=== PATIENT | male | born 1970 | race Caucasian/White ===

== ENCOUNTER 2016-06-13 17:51 | Emergency (ER) | payer OTHER ==
[~2016-06-13] VITALS: Ht 182.9 cm; Wt 117.9 kg
[~2016-06-13 17:51] MED LIST: ADVAIR DISKUS1 UNIT INH; ALBUTEROL0.09 MG/A1 INH; AUGMENTIN 875875 MG PO; BENAZEPRIL20 MG PO; BENAZEPRIL40 MG PO; COUMADIN 7.5 M7.5 MG PO; DIOVAN320 MG PO; DOXYCYCLINE100 MG PO; FUROSEMIDE40 MG PO; GABAPENTIN300 MG PO; GEMFIBROZIL600 MG PO; JANUMET 1000 MG1 TAB PO; LANTUS100 U/ML SC; LASIX40 MG PO; LISINOPRIL20 MG PO; LISINOPRIL40 MG PO; LOPRESSOR 25MG25 MG PO; LOVASTATIN20 MG PO; LOVASTATIN40 MG PO; METFORMIN HCL1000 MG PO; OXYCODONE5 M1 PO; OXYCODONE5 MG PO; PNEUMOVAX 0.5M0.5 ML IM; TUDORZA PR400 MCG/Ac PO; VENTOLIN1 PUF INH; VICODIN 300 MG-1 TAB PO; WARFARIN SODIUM5 MG PO; ZITHROMAX Z-PA250 M1 PO
--- NOTE | 2016-06-13 18:38 | ED UPPER/LOWER EXTREMITY COMPL ---
History of Present Illness General Chief Complaint: Foot or Ankle Injury Stated Complaint: PT RT ANKLE AND FOOT ARE SWOLLEN Source: patient Exam Limitations: no limitations Vital Signs & Intake/Output Vital Signs & Intake/Output Vital Signs Date Time Temp Pulse Resp B/P B/P Pulse O2 O2 Flow FiO2 Mean Ox Delivery Rate 06/13 1823 98.4 92 16 164/95 95 Room Air Allergies Coded Allergies: acetaminophen (Mild, BAD HEADACHE 06/15/15) Reconcile Medications Albuterol Sulfate (Albuterol Sulfate Hfa) 0.09 MG/Actuation BERTA 2 PUFF INH Q4- 6 PRN PRN SHORTNESS OF BREATH 90 MCG PER PUFF Amoxicillin/Clavulanate Potass (Amox-Clav 875-125 MG Tablet) 875 MG TAB 1 TAB PO BID PNEUMONIA Fluticasone-Salmeterol (Advair 500-50 Diskus) 500 MCG-50 MCG/DOSE BLST.W.DEV 1 PUF INH BID BRONCHITIS Furosemide (Lasix) 40 MG TAB 40 MG PO Q12 HEART HEALTH Gabapentin 300 MG CAP 1,200 MG PO DAILY PRN PAIN Gemfibrozil 600 MG TABLET 1 TAB PO BID HIGH CHOLESTEROL (Reported) Insulin Glargine, Recombinan (Lantus) 100 U/ML KELLIE 46 UNIT SC QAM DIABETES ( Reported) Lisinopril 40 MG TABLET 1 TAB PO DAILY BP (Reported) Lovastatin 40 MG TABLET 1 TAB PO DAILY CHOLESTEROL (Reported) with food Metformin Hydrochloride/Trang (Janumet 1000 MG-50 MG) 1 TAB TAB 1 TAB PO DAILY UNKNOWN (Reported) Metoprolol Tartrate (Lopressor) 25 MG TABLET 2.5 TAB PO BID BP (Reported) Oxycodone HCl (Roxicodone) 5 MG TABLET 1 TAB PO BID PRN PAIN Warfarin Sodium (Coumadin) 7.5 MG TABLET 1 TAB PO DAILY BLOOD THINNER ( Reported) Triage Note: TRIAGE: C/O "LOTS OF LEG PROBLEMS" AND C/O NON-HEALING WOUND TO R FOOT WITH SWELLING, HAD GREAT TOE AMPUTATED TWO YEARS AGO. NOT VISUALIZED IN TRIAGE. DENIES FEVERS AND AFEBRILE IN TRIAGE 98.4. ACCUCHECK 253. ABLE TO BEAR WEIGHT Triage Nurses Notes Reviewed? yes HPI: This patient is a 45-year-old female with past medical history including diabetes, peripheral neuropathy, and CVA currently on warfarin who presented to the emergency department today for evaluation of right foot pain and nonhealing ulceration. The patient is status post great toe amputation. At the base of the great toe on the plantar aspect he has a nonhealing ulcer. He reported that over the last 4 days he has noticed increasing swelling in his foot and calf. His reported, "it looked like his skin is cracking." The patient reported that he noticed a foul smell coming from the ulceration. They have been trying to keep it clean. He reported that the pain gets up to a 10 out of 10 and is worse at night. The pain radiates up the back of his. The pain is constant. He denied any fevers, chills, chest pain, difficulty breathing, abdominal pain, nausea, or vomiting. He does take gabapentin at night for his peripheral neuropathy without any relief of his symptoms. (DIANE DOZIER PA-C) Past History Travel History Traveled to [place] past 21 day No Medical History Any Pertinent Medical History? 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 History of MRSA: No History of VRE: No History of CDIFF: No Pneumonia Vaccine: 11/10/13 Influenza Vaccine: 11/10/13 Surgical History Surgical History: right big toe amputation Psychosocial History Who do you live with Family Services at Home None What is your primary language Faroese Tobacco Use: Current Daily Use Daily Tobacco Use Amount/Type: => 5 Cigarettes daily ETOH Use: denies use Illicit Drug Use: denies illicit drug use Family History Family History, If Any: FATHER Early CAD MOTHER FH: diabetes mellitus Relation not specified for: Stroke or transient ischemic attack in father Hx Contributory? No (DIANE DOZIER PA-C) Review of Systems Review of Systems Constitutional: Reports: no symptoms. EENTM: Reports: no symptoms. Respiratory: Reports: no symptoms. Cardiovascular: Reports: no symptoms. Gastrointestinal/Abdominal: Reports: no symptoms. Genitourinary: Reports: no symptoms. Musculoskeletal: Reports: see HPI. Skin: Reports: see HPI. Neurological/Psychological: Reports: no symptoms. All Other Systems: Reviewed and Negative (DIANE DOZIER PA-C) Physical Exam Physical Exam General Appearance: well developed/nourished, no apparent distress, alert, awake Comments: Well-developed well-nourished person in no acute distress HEENT: Normal EENT exam, head normocephalic, moist mucous membranes Pupils equally round and reactive to light. Back: Antalgic gait Respiratory: No respiratory distress. Speaking in full sentences Right lower extremity: Nonpitting lower extremity and pedal edema with stasis dermatitis noted. No bony or muscular deformities appreciated. Dorsalis pedis and posterior tibialis pulses 2+ and strong. Capillary refill less than 2 seconds. Status post great toe amputation. Approximately 1 cm in diameter, round ulceration to the base of the great toe on the plantar aspect with no active bleeding, no purulent drainage, no surrounding erythema. Skin appears yellow surrounding the wound. Mildly tender to palpation Neuro: Alert oriented x3, cranial nerves II through XII grossly intact. Skin: No appreciable rash on exposed skin, skin is warm and dry. Psych: Mood and affect is normal (JACOBY ESCOBEDO,DIANE) Progress Differential Diagnosis: arterial insufficiency, cellulitis, CHF, compartment syndrome, contusion, DVT, gout, septic arthritis, osteomyelitis Plan of Care: Orders Procedure Date/time Status LACTIC ACID 06/13 1838 Complete COMPREHENSIVE METABOLIC PANEL 06/13 1838 Complete CBC WITHOUT DIFFERENTIAL 06/13 1838 Complete Current Medications Sig/Tello Start time Last Medication Dose Stop Time Status Admin Tramadol HCl 50 MG ONCE ONE 06/13 1844 CAN (Ultram) 06/13 1845 Laboratory Tests 06/13/161917: Anion Gap 9, Estimated GFR > 60, BUN/Creatinine Ratio 22.2, Glucose 280 H, Lactic Acid 1.6, Calcium 8.6, Total Bilirubin 0.4, AST 17, ALT 35, Alkaline Phosphatase 95, Total Protein 6.1 L, Albumin 3.4 L, Globulin 2.7, Albumin/ Globulin Ratio 1.3, CBC w Diff NO MAN DIFF REQ, RBC 4.58 L, MCV 85.9, MCH 29.0, RDW 14.4, MPV 7.9, Gran % 66.1, Lymphocytes % 26.1, Monocytes % 5.7, Eosinophils % 1.6, Basophils % 0.5, Absolute Granulocytes 7.8 H, Absolute Lymphocytes 3.1, Absolute Monocytes 0.7 H, Absolute Eosinophils 0.2, Absolute Basophils 0.1, PUBS MCHC 33.7 Diagnostic Imaging: Viewed by Me: Radiology Read, Ultrasound. Discussed w/RAD: Radiology Read, Ultrasound. Radiology Impression: PATIENT: ERA LOCKHART PRESENT AGE: 45 PATIENT ACCOUNT NO: [id number] : 69 LOCATION: [facility] ORDERING PHYSICIAN: DIANE DOZIER PA-C SERVICE DATE: 06/13/16 EXAM TYPE: RAD - XRY-FOOT COMPLETE, R EXAMINATION: XR FOOT, RIGHT CLINICAL INFORMATION: Nonhealing ulcer. Concern for osteomyelitis. COMPARISON: None TECHNIQUE: AP, lateral, and oblique views of the right foot. FINDINGS: Patient has had prior amputation of the great toe at the MTP joint. There is edematous changes and some air collections in the soft tissues over the head of the first metatarsal. No bone destruction of the metatarsal to suggest radiographically osteomyelitis. This can be further evaluated with dynamic MRI. There is dorsal dislocation of the second and third MTP joints no fracture.. IMPRESSION: Status post amputation of great toe. Edema over the soft tissues at the head of the first metatarsal without bone destruction. No specific radiographic features for osteomyelitis. MRI could be helpful for further evaluation. DICTATED BY: MARLENI HOLT MD DATE/TIME DICTATED: 06/13/161933 WELDING MANAGER:FIORELLA DATE/TIME TRANSCRIBED:06/13/161933 CONFIDENTIAL, DO NOT COPY WITHOUT APPROPRIATE AUTHORIZATION. <Electronically signed in Other Vendor System> SIGNED BY: MARLENI HOLT MD 06/13/161938, PATIENT: ERA LOCKHART PRESENT AGE: 45 PATIENT ACCOUNT NO: [id number] : 69 LOCATION: ER ORDERING PHYSICIAN: DIANE DOZIER PA-C SERVICE DATE: 06/13/16 EXAM TYPE: US - US-UNILATERAL VENOUS DOPPLER EXAMINATION: US TRIPLEX LOWER EXTREMITY, RIGHT CLINICAL INFORMATION: Calf pain and edema COMPARISON: None available. TECHNIQUE: Color-flow triplex imaging with spectral analysis and compression Doppler were performed on the lower extremity. FINDINGS: Respiratory variation, normal compression and augmented flow are noted throughout the left lower extremity. The visualized common femoral vein, superficial femoral vein, profunda femoral vein, popliteal vein and midcalf peroneal and posterior tibial venous segments show no evidence of deep venous thrombosis. There is no Juan's cyst. There is an enlarged lymph node within the right groin measuring up to 4.1 x 1.5 x 3.1 cm in size. IMPRESSION: - Normal triplex scan without evidence of deep venous thrombosis involving the right lower extremity. - There is a nonspecific enlarged lymph node within the right groin. DICTATED BY: TOSHIA NEFF MD DATE/TIME DICTATED:06/13/161931 WELDING MANAGER:FIORELLA DATE/TIME TRANSCRIBED:06/13/161931 CONFIDENTIAL, DO NOT COPY WITHOUT APPROPRIATE AUTHORIZATION. <Electronically signed in Other Vendor System> SIGNED BY: TOSHIA NEFF MD 06/13/161937 Comments: This patient is a 45-year-old male who presented to the emergency department today for evaluation of a wound to his right foot. No surrounding erythema. No pus drainage from the wound site. No signs of infection. No evidence of cellulitis. Ultrasound Doppler negative for DVT. No evidence of osteomyelitis on x-ray of the foot. Discussed with the patient follow-up with the wound care center. The patient reported that he used to see a kraft mill operator, Dr. Sharpe, but reported they were unhappy with his care, so they stopped seeing him. At this time, there is no evidence of infection. This patient is afebrile. He is stable for discharge home at this time. I discussed with him extensively the importance of returning for any worsening symptoms as he is a diabetic and they need to keep a low threshold for development of infection in wounds. (DIANE DOZIER PA-C) Departure Departure Disposition: HOME OR SELF CARE Condition: Stable Clinical Impression Primary Impression: Wound of lower extremity Qualifiers: Encounter type: initial encounter Laterality: right Qualified Code: S81.801A - Unspecified open wound, right lower leg, initial encounter Referrals: NENA RICE DO (PCP/Family) Additional Instructions: Please call your primary care physician to schedule a follow-up appointment and to discuss being started with the wound care center. Keep the area clean and dry. Elevate your leg when possible. Take medication for pain as prescribed. Return for any worsening symptoms or concerns. Departure Forms: Customer Survey General Discharge Information Prescriptions: Current Visit Scripts Oxycodone HCl (Roxicodone) 1 TAB PO BID PRN PAIN #8 TAB (DIANE DOZIER PA-C) PA/ORDERING MACHINE OPERATOR Co-Sign Statement Statement: ED Attending supervision documentation- [] I saw and evaluated the patient. I have also reviewed all the pertinent lab results and diagnostic results. I agree with the findings and the plan of care as documented in the PA's/ORDERING MACHINE OPERATOR's documentation. [X] I have reviewed the ED Record and agree with the PA's/ORDERING MACHINE OPERATOR's documentation. [] Additions or exceptions (if any) to the PAs/ORDERING MACHINE OPERATOR's note and plan are summarized below: [] (ELBERT DELGADILLO,FELIPE)
[2016-06-13 19:26] LABS: ABSOLUTE BASOPHIL COUNT 0.1 /CUMM (0.0-0.2); ABSOLUTE EOSINOPHIL COUNT 0.2 /CUMM (0.0-0.7); ABSOLUTE GRANULOCYTE CT 7.8 /CUMM (1.4-6.5); ABSOLUTE LYMPH COUNT 3.1 /CUMM (1.2-3.4); ABSOLUTE MONOCYTE COUNT 0.7 /CUMM (0.10-0.60); BASOPHIL % 0.5 % (0.0-2.0); EOSINOPHIL % 1.6 % (0-5); GRANULOCYTE % 66.1 % (42.2-75.2); HEMATOCRIT 39.4 % (42-52); MEAN CORPUSCULAR HGB CONC 33.7 G/DL (33.0-37.0); MEAN CORPUSCULAR VOLUME 85.9 FL (80.0-94.0); MEAN PLATELET VOLUME 7.9 FL (7.4-10.4); PLATELET COUNT 294 /CUMM (130-400); RBC DISTRIBUTION WIDTH 14.4 % (11.5-14.5); RED BLOOD CELL CT 4.58 /CUMM (4.70-6.10); WHITE BLOOD CELL COUNT 11.9 /CUMM (4.8-10.8)
--- NOTE | 2016-06-13 19:38 | ULTRASOUND REPORT ---
EXAMINATION: US TRIPLEX LOWER EXTREMITY, RIGHT CLINICAL INFORMATION: Calf pain and edema COMPARISON: None available. TECHNIQUE: Color-flow triplex imaging with spectral analysis and compression Doppler were performed on the lower extremity. FINDINGS: Respiratory variation, normal compression and augmented flow are noted throughout the left lower extremity. The visualized common femoral vein, superficial femoral vein, profunda femoral vein, popliteal vein and midcalf peroneal and posterior tibial venous segments show no evidence of deep venous thrombosis. There is no Juan's cyst. There is an enlarged lymph node within the right groin measuring up to 4.1 x 1.5 x 3.1 cm in size. IMPRESSION: - Normal triplex scan without evidence of deep venous thrombosis involving the right lower extremity. - There is a nonspecific enlarged lymph node within the right groin.
--- NOTE | 2016-06-13 19:39 | RADIOLOGY REPORT ---
EXAMINATION: XR FOOT, RIGHT CLINICAL INFORMATION: Nonhealing ulcer. Concern for osteomyelitis. COMPARISON: None TECHNIQUE: AP, lateral, and oblique views of the right foot. FINDINGS: Patient has had prior amputation of the great toe at the MTP joint. There is edematous changes and some air collections in the soft tissues over the head of the first metatarsal. No bone destruction of the metatarsal to suggest radiographically osteomyelitis. This can be further evaluated with dynamic MRI. There is dorsal dislocation of the second and third MTP joints no fracture.. IMPRESSION: Status post amputation of great toe. Edema over the soft tissues at the head of the first metatarsal without bone destruction. No specific radiographic features for osteomyelitis. MRI could be helpful for further evaluation.
[2016-06-13] MEDS ORDERED: ROXICODONE5 M1 PO (19:59)
[2016-06-13 20:13] VITALS: BP 158/90
== END 2016-06-13 20:15 ==
LOC: ERH 17:51
PROVIDERS: Physician Assistant
DX: L97.519 Non-pressure chronic ulcer of other part of right foot with unspecified severity (principal)
CPT/HCPCS: 73630-RT; 96372

== ENCOUNTER 2016-08-11 13:44 | Emergency (ER) | payer OTHER ==
[~2016-08-11] VITALS: Ht 182.9 cm; Wt 117.9 kg
[~2016-08-11 13:44] MED LIST changes: +ROXICODONE5 M1 PO
[2016-08-11 14:30] LABS: ABSOLUTE BASOPHIL COUNT 0 /CUMM (0.0-0.2); ABSOLUTE EOSINOPHIL COUNT 0.1 /CUMM (0.0-0.7); ABSOLUTE GRANULOCYTE CT 6.4 /CUMM (1.4-6.5); ABSOLUTE LYMPH COUNT 2.2 /CUMM (1.2-3.4); ABSOLUTE MONOCYTE COUNT 0.6 /CUMM (0.10-0.60); BASOPHIL % 0.4 % (0.0-2.0); EOSINOPHIL % 1.3 % (0-5); GRANULOCYTE % 68.2 % (42.2-75.2); HEMATOCRIT 41.2 % (42-52); MEAN CORPUSCULAR HGB 28.4 PG (27.0-31.0); MEAN CORPUSCULAR HGB CONC 33.5 G/DL (33.0-37.0); MEAN CORPUSCULAR VOLUME 84.9 FL (80.0-94.0); MEAN PLATELET VOLUME 8.5 FL (7.4-10.4); PLATELET COUNT 255 /CUMM (130-400); RBC DISTRIBUTION WIDTH 13.5 % (11.5-14.5); RED BLOOD CELL CT 4.85 /CUMM (4.70-6.10); WHITE BLOOD CELL COUNT 9.4 /CUMM (4.8-10.8)
--- NOTE | 2016-08-11 14:55 | RADIOLOGY REPORT ---
EXAMINATION: XR CHEST CLINICAL INFORMATION: Left-sided rhonchi. Green sputum. COMPARISON: Chest radiographs 03/22/2015, 02/14/2015. TECHNIQUE: 2 views of the chest were obtained. FINDINGS: The lungs are clear. No hyperinflation. There is no airspace consolidation or effusion. The heart is normal in size. The costophrenic sulci are well-defined. The hilar and mediastinal contours and bony structures are stable. IMPRESSION: Lungs clear. No acute intrathoracic disease.
--- NOTE | 2016-08-11 15:12 | ED DYSPNEA/ASTHMA COMPLAINT ---
History of Present Illness General Chief Complaint: Upper Respiratory Sx/Fever Stated Complaint: URI/ELAVATED BS Source: patient, old records Exam Limitations: no limitations Vital Signs & Intake/Output Vital Signs & Intake/Output Vital Signs Date Time Temp Pulse Resp B/P B/P Pulse O2 O2 Flow FiO2 Mean Ox Delivery Rate 08/11 1608 99.0 78 18 162/80 95 Room Air 08/11 1419 Room Air 08/11 1412 98 08/11 1349 98.3 87 15 160/98 96 Room Air Room Air Allergies Coded Allergies: acetaminophen (Mild, BAD HEADACHE 06/15/15) Reconcile Medications Albuterol Sulfate (Proair Hfa) 90 MCG HFA.AER.AD 2 PUF INH Q4-6 PRN PRN COPD Albuterol Sulfate (Albuterol Sulfate Hfa) 0.09 MG/Actuation BERTA 2 PUFF INH Q4- 6 PRN PRN SHORTNESS OF BREATH 90 MCG PER PUFF Amoxicillin/Clavulanate Potass (Amox-Clav 875-125 MG Tablet) 875 MG TAB 1 TAB PO BID PNEUMONIA Benzonatate (Tessalon Perle) 100 MG CAPSULE 1 CAP PO TID BRONCHITIS Fluticasone-Salmeterol (Advair 500-50 Diskus) 500 MCG-50 MCG/DOSE BLST.W.DEV 1 PUF INH BID BRONCHITIS Furosemide (Lasix) 40 MG TAB 40 MG PO Q12 HEART HEALTH Gabapentin 300 MG CAP 1,200 MG PO DAILY PRN PAIN Gemfibrozil 600 MG TABLET 1 TAB PO BID HIGH CHOLESTEROL (Reported) Insulin Glargine, Recombinan (Lantus) 100 U/ML KELLIE 46 UNIT SC QAM DIABETES ( Reported) Lisinopril 40 MG TABLET 1 TAB PO DAILY BP (Reported) Lovastatin 40 MG TABLET 1 TAB PO DAILY CHOLESTEROL (Reported) with food Metformin Hydrochloride/Trang (Janumet 1000 MG-50 MG) 1 TAB TAB 1 TAB PO DAILY UNKNOWN (Reported) Metoprolol Tartrate (Lopressor) 25 MG TABLET 2.5 TAB PO BID BP (Reported) Oxycodone HCl (Roxicodone) 5 MG TABLET 1 TAB PO BID PRN PAIN Prednisone 20 MG TABLET 1 TAB PO BID COPD Warfarin Sodium (Coumadin) 7.5 MG TABLET 1 TAB PO DAILY BLOOD THINNER ( Reported) Triage Note: PT SENT FROM URGENT CARE FOR HIGH BLOOD SUGAR. PT WAS SEEN AT [facility] IN FOR URI S/S, +PRODUCTIVE COUGH, HEAD PRESSURE, SINUS PRESSURE, EAR ACHES. +DIZZINESS. F/S 363 IN TRIAGE. INCREASED THIRST. Triage Nurses Notes Reviewed? yes HPI: 45M PMH ACTIVE 29 YEAR SMOKER, COPD, RECURRENT BRONCHITIS, HTN WITH 4 DAYS OF WORSENING SHORTNESS OF BREATH WITH COUGH, USUALLY DRY BUT INTERMITTENTLY WITH GREEN SPUTUM, ALSO WITH SINUS CONGESTION. DENIES FEVER, CHILLS, CHEST PAIN, SORE THROAT, HEADACHE, NEUROLOGICAL DEFICIT, DIARRHEA, DYSURIA. WAS SEEN IN URGENT CARE CLINIC AND SENT TO ED FOR GLUCOSE LEVEL > 450. TAKES LONG ACTING INSULIN 75 UNITS AT NIGHT AND SLIDING SCALE DURING THE DAY. (BLOSSOM SHAH MD) Past History Travel History Traveled to [place] past 21 day No Medical History Any Pertinent Medical History? 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 No (BLOSSOM SHAH MD) Review of Systems Review of Systems Constitutional: Reports: see HPI. EENTM: Reports: no symptoms. Respiratory: Reports: see HPI. Cardiovascular: Reports: see HPI. GI: Reports: no symptoms. Genitourinary: Reports: no symptoms. Musculoskeletal: Reports: no symptoms. Skin: Reports: no symptoms. Neurological/Psychological: Reports: no symptoms. Hematologic/Endocrine: Reports: no symptoms. Immunologic/Allergic: Reports: no symptoms. All Other Systems: Reviewed and Negative (BLOSSOM SHAH MD) Physical Exam Physical Exam General Appearance: well developed/nourished, no apparent distress, alert, awake Head: atraumatic Eyes: Bilateral: normal appearance. Ears, Nose, Throat: normal pharynx, normal ENT inspection, nasal congestion Neck: normal inspection, supple, full range of motion Respiratory: normal breath sounds, chest non-tender, wheezing Cardiovascular: regular rate/rhythm Gastrointestinal: soft, non-tender Extremities: normal inspection, normal range of motion Core Measures ACS in differential dx? No Severe Sepsis Present: No Septic Shock Present: No (PABLO DELGADILLO,BLOSSOM) Progress Differential Diagnosis: asthma, AMI, altitude sickness, bronchitis, costochondritis, CHF, COPD, musculoskeletal pain, pericarditis, pulmonary embolism, pneumonia, pneumothorax, rib fracture, unstable angina Plan of Care: Orders Procedure Date/time Status FingerStick- Glucose 08/11 140 Active LOWER RESPIRATORY CULTURE 08/11 1400 Active COMPREHENSIVE METABOLIC PANEL 08/11 1400 Complete CBC WITHOUT DIFFERENTIAL 08/11 1400 Complete B-TYPE NATRIURETIC PEP (BNP) 08/11 140 Complete Laboratory Tests 08/11/16 1416: Anion Gap 12, Estimated GFR > 60, BUN/Creatinine Ratio 22.9, Glucose 438 H, Calcium 9.5, Total Bilirubin 0.3, AST 15 L, ALT 29, Alkaline Phosphatase 110, Sac-H-Kalaphmleii Pept 253 H, Total Protein 6.3, Albumin 3.7, Globulin 2.6, Albumin/Globulin Ratio 1.4, CBC w Diff NO MAN DIFF REQ, RBC 4.85, MCV 84.9, MCH 28.4, RDW 13.5, MPV 8.5, Gran % 68.2, Lymphocytes % 23.8, Monocytes % 6.3, Eosinophils % 1.3, Basophils % 0.4, Absolute Granulocytes 6.4, Absolute Lymphocytes 2.2, Absolute Monocytes 0.6, Absolute Eosinophils 0.1, Absolute Basophils 0, PUBS MCHC 33.5 Microbiology 08/11 1400 LOWER RESP: Respiratory Culture - ORD 08/11 1400 LOWER RESP: Gram Stain - ORD Initial ED EKG: none (PABLO DELGADILLO,BLOSSOM) Departure Departure Time of Disposition: 1627 Disposition: HOME OR SELF CARE Condition: Stable Clinical Impression Primary Impression: Acute URI Secondary Impressions: Acute exacerbation of chronic obstructive pulmonary disease (COPD) Referrals: NENA RICE DO (PCP/Family) Departure Forms: Customer Survey General Discharge Information Prescriptions: Current Visit Scripts Prednisone 1 TAB PO BID #10 TAB Albuterol Sulfate (Proair Hfa) 2 PUF INH Q4-6 PRN PRN COPD #1 INHAL Benzonatate (Tessalon Perle) 1 CAP PO TID #21 CAP Ref 1 (PABLO DELGADILLO,BLOSSOM) Critical Care Note Critical Care Note Critical Care Time: 30-74 min (PABLO DELGADILLO,BLOSSOM)
[2016-08-11 16:08] VITALS: BP 162/80
[2016-08-11] MEDS ORDERED: TESSALON PERLE100 M1 PO (16:31)
[2016-08-11] MEDS ORDERED: PROAIR HFA8.5 GM INH (16:31)
[2016-08-11] MEDS ORDERED: PREDNISONE20 M1 PO (16:31)
== END 2016-08-11 16:37 ==
LOC: ERH 13:44
PROVIDERS: Internal Medicine
DX: J06.9 Acute upper respiratory infection, unspecified (principal); F17.210 Nicotine dependence, cigarettes, uncomplicated
CPT/HCPCS: 1263; 87070; 96360; 96372; J1815

== ENCOUNTER 2017-04-12 07:21 | Inpatient (IN) | payer OTHER ==
[~2017-04-12] VITALS: Ht 182.9 cm; Wt 114.8 kg
[~2017-04-12 07:21] MED LIST changes: -COUMADIN 7.5 M7.5 MG PO; +COUMADIN7.5 M1 PO; +DULOXETINE HCL60 MG PO; +GABAPENTIN400 M2 PO; +HYDRALAZINE HCL25 M1 PO; -JANUMET 1000 MG1 TAB PO; +JANUMET 50-1,01 EACH PO; +LASIX40 M1 PO; +LIPITOR80 M1 PO; +LISINOPRIL40 M1 PO; -LISINOPRIL40 MG PO; +LOVASTATIN40 M1 PO; -LOVASTATIN40 MG PO; +METFORMIN HCL1000 M1 PO; +METOPROLOL TART75 MG PO; +OXYCODONE HCL5 M1 PO; +PREDNISONE20 M1 PO; +PROAIR HFA8.5 GM INH; +TAMSULOSIN HCL0.4 M1 PO; +TESSALON PERLE100 M1 PO; +TOUJEO SOL300 UNIT/1 SC; +VICTOZA 3-0.6 MG/0.1 SC
--- NOTE | 2017-04-12 07:46 | ED ANKLE/FOOT INJURY COMPLAINT ---
History of Present Illness General Chief Complaint: General Adult Stated Complaint: OPEN SORE ON FOOT Source: patient, family, old records Exam Limitations: no limitations Vital Signs & Intake/Output Vital Signs & Intake/Output Vital Signs Date Time Temp Pulse Resp B/P B/P Pulse O2 O2 Flow FiO2 Mean Ox Delivery Rate 04/12 0731 98.7 80 18 115/68 98 Room Air Allergies Coded Allergies: acetaminophen (Mild, BAD HEADACHE 06/15/15) Reconcile Medications Albuterol Sulfate (Proair Hfa) 90 MCG HFA.AER.AD 2 PUF INH Q4-6 PRN PRN COPD Amlodipine Besylate 10 MG TABLET 1 TAB PO DAILY HEART (Reported) Atorvastatin Calcium (Lipitor) 80 MG TABLET 1 TAB PO DAILY CHOLESTEROL ( Reported) Duloxetine HCl 60 MG CAPSULE.DR 1 CAP PO DAILY PAIN (Reported) Furosemide (Lasix) 40 MG TABLET 1 TAB PO BID WATER RETENTION (Reported) Gabapentin 400 MG CAPSULE 1 CAP PO TID PRN PAIN (Reported) Hydralazine HCl 25 MG TABLET 4 TAB PO BID HEART (Reported) Insulin Glargine,Hum.rec.anlog (Toujeo Solostar) 300 UNIT/ML (1.5 ML) INSULN.PEN 70 UNIT SC DAILY DIABETES (Reported) Liraglutide (Victoza 3-Naveen) 0.6 MG/0.1 ML (18 MG/3 ML) PEN.INJCTR 0.6 MG SC DAILY DIABETES (Reported) Lisinopril 40 MG TABLET 1 TAB PO DAILY BP (Reported) Metformin HCl 1,000 MG TABLET 1 TAB PO BID DIABETES (Reported) Metoprolol Tartrate 75 MG TABLET 1 TAB PO BID HEART HEALTH (Reported) Warfarin Sodium (Coumadin) 7.5 MG TABLET 1 TAB PO DAILY BLOOD THINNER ( Reported) Triage Note: 46 YO MALE TO TRIAGE C/O SORE ON R FOOT. STATES HX OF DIABETES, STATES HAD GREAT TOE AMPUTATED ON R FOOT IN 2013, STATES HE RAN OUT OF INSURANCE SO HE CAN NO LONGER SEE HIS DR. STATES LAST TIME HE SAW HIS DR WAS A COUPLE MONTHS AGO. NOTED WOITH OPEN SORE TO R FOOT. Triage Nurses Notes Reviewed? yes HPI: Patient presents with a worsening ulcer to his right foot as well as fevers and chills. Patient states that he also has been present for the past few weeks but approximately 5 days ago began increase in size, turned red and he noticed pus drainage. Patient also began running a fever as high as 101.5 3 days ago. Patient states he does not have medical insurance and cannot for his medications so he takes all of his medications but not all of them. Patient did not want to come to the ER because he states he couldn't afford it so he waited as long as he could. Patient describes a throbbing pain to his right foot is constant. He rates it at 510. There is no radiation. The pain increases with ambulation. Past History Travel History Traveled to [place] past 21 day No Medical History Any Pertinent Medical History? 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 No Review of Systems Review of Systems Constitutional: Reports: see HPI, chills, fever. EENTM: Reports: no symptoms. Respiratory: Reports: no symptoms. Cardiovascular: Reports: no symptoms. GI: Reports: no symptoms. Genitourinary: Reports: no symptoms. Musculoskeletal: Reports: see HPI. Skin: Reports: no symptoms. Neurological/Psychological: Reports: no symptoms. Hematologic/Endocrine: Reports: no symptoms. Immunologic/Allergic: Reports: no symptoms. All Other Systems: Reviewed and Negative Physical Exam Physical Exam General Appearance: well developed/nourished, alert, awake, anxious, moderate distress Head: atraumatic Eyes: Bilateral: PERRL, EOMI. Ears, Nose, Throat: normal pharynx, normal ENT inspection, hearing grossly normal Neck: normal inspection, supple Cardiovascular/Respiratory: normal breath sounds, regular rate/rhythm Gastrointestinal: SOFT, NORMAL BOWEL SOUNDS Back: normal inspection Leg/Knee/Thigh Left: normal range of motion, normal inspection Leg/Knee/Thigh Right: normal range of motion, normal inspection Foot Right: erythema, swelling, ULCER WITH OUS DRAINAGE Neuro/Vascular: normal motor function, normal sensation Psychiatric: awake, alert, oriented x 3 Skin: intact, normal color, warm/dry Comments: DP PULSES 1+ PT PULSES 1+ Progress Differential Diagnosis: cellulitis, OSTEOMYOLITIS Plan of Care: Orders Procedure Date/time Status Nothing by Mouth 04/12 L Active LACTIC ACID 04/12 1051 Active Patient Data 04/12 0859 Active ED Holding Orders 04/12 956 Active Admit to inpatient 04/12 956 Active Vital Signs 04/12 956 Active Code Status 04/12 956 Active EKG 04/12 09 Active LACTIC ACID 04/12 08 Complete XRY-FOOT COMPLETE, RIGHT 04/12 0754 Active PARTIAL THROMBOPLASTIN TIME 04/12 0747 Complete PROTHROMBIN TIME 04/12 07 Complete BLOOD CULTURE 04/12 745 Active COMPREHENSIVE METABOLIC PANEL 04/12 07 Complete CBC WITHOUT DIFFERENTIAL 04/12 745 Complete Current Medications Sig/Tello Start time Last Medication Dose Stop Time Status Admin Ceftriaxone Sodium 1,000 MG ONCE ONE 04/12 0800 CAN (Rocephin) 04/12 0801 Laboratory Tests 04/12/17 0807: Anion Gap 13, Estimated GFR > 60, BUN/Creatinine Ratio 15.6, Glucose 403 H, Lactic Acid 1.4, Calcium 8.6, Total Bilirubin 1.3, AST 13 L, ALT 17 L, Alkaline Phosphatase 96, Total Protein 5.7 L, Albumin 3.2 L, Globulin 2.5, Albumin/Globulin Ratio 1.3, PT 26.2 H, INR 2.52 H, APTT 41 H, CBC w Diff MAN DIFF ORDERED, RBC 4.36 L, MCV 85.5, MCH 28.9, MCHC 33.8, RDW 13.3, MPV 8.5, Gran % 89.3 H, Lymphocytes % 5.2 L, Monocytes % 4.9, Eosinophils % 0.6, Basophils % 0, Absolute Granulocytes 18.2 H, Absolute Lymphocytes 1.1 L, Absolute Monocytes 1.0 H, Absolute Eosinophils 0.1, Absolute Basophils 0, Platelet Estimate VERIFIED BY SMEAR, Normocytic RBCs VERIFIED, Normochromic RBCs VERIFIED 04/12/17 0751: Lactic Acid Cancelled Microbiology 04/12 944 BLOOD: Blood Culture - RECD 04/12 844 BLOOD: Blood Culture - RECD Diagnostic Imaging: Viewed by Me: Radiology Read. Discussed w/RAD: Radiology Read. Comments: DR. BOTELLO AT BEDSIDE Departure Departure Disposition: STILL A PATIENT Condition: Stable Clinical Impression Primary Impression: Diabetic foot ulcer Referrals: Karlie Barbosa DO (PCP/Family) Departure Forms: Customer Survey General Discharge Information Admission Note Spoke With: Yair Merritt MD Documentation of Exam: Documentation of any treatments & extenuating circumstances including Concerns Regarding Discharge (functional status, medication knowledge or non-compliance, living conditions, etc.) that warrant an admission rather than observation: [ Patient will require admission to the hospital for IV antibiotics. Podiatry is going to take the patient to the operating room for would need treatment and bone biopsy. Once that is performed and he will need IV antibiotics and follow- up cultures.]
[2017-04-12 08:27] LABS: ABSOLUTE BASOPHIL COUNT 0 /CUMM (0.0-0.2); ABSOLUTE EOSINOPHIL COUNT 0.1 /CUMM (0.0-0.7); ABSOLUTE GRANULOCYTE CT 18.2 /CUMM (1.4-6.5); ABSOLUTE LYMPH COUNT 1.1 /CUMM (1.2-3.4); BASOPHIL % 0 % (0.0-2.0); EOSINOPHIL % 0.6 % (0-5); GRANULOCYTE % 89.3 % (42.2-75.2); HEMATOCRIT 37.3 % (42-52); MEAN CORPUSCULAR HGB 28.9 PG (27.0-31.0); MEAN CORPUSCULAR HGB CONC 33.8 G/DL (33.0-37.0); MEAN CORPUSCULAR VOLUME 85.5 FL (80.0-94.0); MEAN PLATELET VOLUME 8.5 FL (7.4-10.4); PLATELET COUNT 293 /CUMM (130-400); RBC DISTRIBUTION WIDTH 13.3 % (11.5-14.5); RED BLOOD CELL CT 4.36 /CUMM (4.70-6.10); WHITE BLOOD CELL COUNT 20.4 /CUMM (4.8-10.8)
[2017-04-12 08:34] LABS: PT 26.2 SEC (9.4-12.5); PTT 41 SEC (25-37)
[2017-04-12] MEDS ORDERED: AMLODIPINE BESY10 M1 PO (09:08)
--- NOTE | 2017-04-12 10:21 | RADIOLOGY REPORT ---
EXAMINATION: CR FOOT, RIGHT CLINICAL INFORMATION: Fever. Open wound. Presumptive diagnosis of osteomyelitis. COMPARISON: Right foot films dated 06/13/2016. TECHNIQUE: AP, lateral, and oblique views of the right foot. FINDINGS: The patient is status post amputation of the first toe at the metatarsophalangeal joint level. There is now prominent subcutaneous emphysema seen in the soft tissue stump of the amputated toe, increasing when compared to the prior study, consistent with the clinical history of an open wound. However, close clinical correlation is requested to exclude emphysematous fasciitis. The head of the first metatarsal bone remains intact with normal cortical margins seen. No abnormal periosteal reaction or focal lytic lesion is noted. There is chronic dislocation at the second and third metatarsophalangeal joints, unchanged. Mild degenerative changes are seen in the intertarsal joints and the tibial talar joint. Diffuse osteopenia is seen. Small plantar calcaneal spur is seen. Prominent soft tissue swelling is noted about the foot. No ankle joint effusion is seen. IMPRESSION: 1. Increasing soft tissue emphysema seen in the soft tissues of the amputation of the first toe. This may be related to the patient's open wound. Clinical correlation requested to exclude emphysematous fasciitis. 2. No plain film evidence of osteomyelitis seen. 3. 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 4. Osteopenia and multilevel degenerative changes.
--- NOTE | 2017-04-12 10:24 | History & Physical ---
Mildred DELGADILLO,Micheline 04/12/17 1018: General Information and HPI MD Statement: I have seen and personally examined US,ERA Rendon and documented this H&P. The patient is a 46 year old M who presented with a patient stated chief complaint of [sore on right foot]. Source of Information: patient, EMS Exam Limitations: no limitations History of Present Illness: Patient is a 46 YO M with PMH of CVA on coumadin (at [facility]) for possible Left atrial throbus on JACKY, IDDM, HTN, systolic heart failure (EF 45-50 % ) comes to ED for evaluation of pain in his right foot. Patient is a long-standing insulin dependent diabetic and has not been taking his insulin for the past 3 months due to insurance issues. He had flulike illness 10 days ago for which he didn't seek medical attention. 3 days ago he started experiencing fever with chills, yesterday started experiencing swelling in the right foot with some erythema. He started limping with his right foot since yesterday due to pain and swelling, started noticing redness in the right foot with unbearable pain prompting him to come to ER today. Review of systems is positive for increased thirst and urination along with blurry vision, increased burning sensation in both upper and lower extremities. Patient reports occasional black stools with Advil intake. He did have dry cough from his recent infection. He feels nauseous after taking Advil in the morning. Denies any chest pain, shortness of breath with exertion, vomiting, diaphoresis. Past medical history significant for CVA 2013 (no on [address]), right great toe amputation secondary to diabetic ulcer, hypertension. Allergic to Tylenol Family history significant for diabetes in mother, hypertension and heart disease in father Socially smokes 1 pack per day for the past 33 years, no history of alcohol intake. Occasionally takes marijuana for pain, cocaine in the past. He lost his insurance 3 months ago, unable to get it due to his salary, his and 4 children are also not having insurance at this point. Allergies/Medications Allergies: Coded Allergies: acetaminophen (Mild, BAD HEADACHE 06/15/15) Home Med list Albuterol Sulfate (Proair Hfa) 90 MCG HFA.AER.AD 2 PUF INH Q4-6 PRN PRN COPD Amlodipine Besylate 10 MG TABLET 1 TAB PO DAILY HEART (Reported) Atorvastatin Calcium (Lipitor) 80 MG TABLET 1 TAB PO DAILY CHOLESTEROL ( Reported) Duloxetine HCl 60 MG CAPSULE.DR 1 CAP PO DAILY PAIN (Reported) Furosemide (Lasix) 40 MG TABLET 1 TAB PO BID WATER RETENTION (Reported) Gabapentin 400 MG CAPSULE 1 CAP PO TID PRN PAIN (Reported) Hydralazine HCl 25 MG TABLET 4 TAB PO BID HEART (Reported) Insulin Glargine,Hum.rec.anlog (Toujeo Solostar) 300 UNIT/ML (1.5 ML) INSULN.PEN 70 UNIT SC DAILY DIABETES (Reported) Liraglutide (Victoza 3-Naveen) 0.6 MG/0.1 ML (18 MG/3 ML) PEN.INJCTR 0.6 MG SC DAILY DIABETES (Reported) Lisinopril 40 MG TABLET 1 TAB PO DAILY BP (Reported) Metformin HCl 1,000 MG TABLET 1 TAB PO BID DIABETES (Reported) Metoprolol Tartrate 75 MG TABLET 1 TAB PO BID HEART HEALTH (Reported) Warfarin Sodium (Coumadin) 7.5 MG TABLET 1 TAB PO DAILY BLOOD THINNER ( Reported) Compliance With Home Meds: FAIR Past History Travel History Traveled to [place] past 21 day No Medical History Neurological: CVA EENT: NONE Cardiovascular: CHF, hypertension, hyperlipidemia Respiratory: bronchitis, pneumonia Gastrointestinal: NONE Hepatic: NONE Renal: NONE Musculoskeletal: NONE Psychiatric: NONE Endocrine: DIABETES TYPE II Blood Disorders: NONE Cancer(s): NONE 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 Home Who Do You Live With? spouse, child Services at Home: None Smoking Status: Current Everyday Smoker ETOH Use: denies use Illicit Drug Use: denies illicit drug use Functional Ability ADLs Independent: dressing, eating, toileting, bathing. Ambulation: independent IADLs Independent: shopping, housework, finances, food prep, telephone, transportation , medication admin. Review of Systems Review of Systems Constitutional: Reports: see HPI. EENTM: Reports: see HPI. Cardiovascular: Reports: see HPI. Comments ROS as mentioned in HPI Exam & Diagnostic Data Last 24 Hrs of Vital Signs/I&O Vital Signs Date Time Temp Pulse Resp B/P B/P Pulse O2 O2 Flow FiO2 Mean Ox Delivery Rate 04/12 1119 99.0 86 20 125/77 95 Room Air 04/12 0731 98.7 80 18 115/68 98 Room Air Intake & Output 04/12 1600 04/12 0800 04/12 0000 Intake Total Output Total 400 Balance -400 Output, Urine 400 Patient 113.398 kg Weight Weight Reported by Patient Measurement Method Physical Exam General Appearance Alert, Oriented X3, Cooperative Skin Erythma around the right foot extending till the knees. ( Is), warm to touch Skin Temp/Moisture Exam: Warm/Dry HEENT Atraumatic, PERRLA, EOMI Neck Supple Cardiovascular Normal S1, Normal S2, systolic murmur Lungs Clear to Auscultation, Normal Air Movement Abdomen Normal Bowel Sounds, Soft, diffuse tenderness on palpation (I) Neurological Normal Speech, Normal Tone, Sensation Intact Extremities No Clubbing, No Cyanosis, edema 2 + right >> left Vascular Normal Pulses, Pulses Symmetrical Sepsis Peripheral Pulse Location: Dorsalis Pedis Sepsis [facility] Ref[facility] Exam: <2 Sec Body Front and Back (Adult) 1) Erythema with swelling 2) great toe amputated 3) Erythema extending till the knee Assessment/Plan Assessment: Patient is a 46 YO long standing IDDM Male with significant history of CVA with possible left atrial thrombus on warfarin since 2013, HTN, CHF now presenting with worsening of left foot ulcer with erythema and pain. He was off insulin for the past 3months due to insurance issues and experiencing signs of hyperglycemia like Polyuria, Polydipsia, Neuropathic pain, blury vision. He also had black stools with advil intake. VS at admission are stable (afebrile with HR 80, BP 115/68mmHg). Physical exam significant for erythema extending upto the right knee with significant sweeling and ulceration on palmar surface, warm and tender to touch. Also notable for diffuse abdominal pain, systolic murmur, lungs clear. Labs did show elevated white count of 20 with HbA1C of 12, INR 2.5. Normal Cr 0.9 and AG 13. Imaging of right foot shows Emphysematous soft tissue of right foot without any bone involvement. Podiatry was consulted and sent to Operating room from ER for debridement. Admitted to general medicine floor Problem list 1. Emphysematous fascitis/Gas gangrene 2. Uncontrolled Insuline dependent Diabetes mellitus with HbA1C of 12 3. HTN 4. Heart failure by history 5. CVA on warfarin for possible left atrial thrombus 6. Melena with advil intake Plan Emphysematous fascitis/GAS Gangrene Secondary to uncontrolled diabetes (off insulin). Probable organisms are Clostridium, Strep A, anerobes. He underwent debridement and requires broad spectrum antibiotics. * IV clindamycin and meropenem * ID consult * OR next week for closure IDDM Follows , was on insulin. Taking metformin 1000mg BID till today. Hyperglycemic with polyuria, polydipsia, blurry vision. No AG on chem panel. * Accuchecks with insulin sliding scale * Endocrine consult for further guidance * UA for proteinuria, microalbumin/cr ratio * Gabapentine for nerve pain HTN continue amlodipine 10mg daily and hydralazine 100mg BID Systolic Heart failure by history Patient might have NM in the past with evidnent ST T wave changes in the previous EKG. ECHO - EF 45-50%. follows * Continue metoprolol tartarate 75mg BID, lisinopril 40mg daily, atorvastatin 80mg daily CVA on warfarin for possible left atrial thrombus On warfarin - INR is therapeutic Melena with advil intake Patient cannot tolerate tyelnol and takes advil as needed. Reports experiencing black stools with NSAID intake. * PPI oral * GI consult for further evaluation * Guiac all the stools. DVT prophylaxis code status full code As Ranked By This Provider Problem List: 1. Diabetic foot ulcer 2. Gas gangrene 3. CHF (congestive heart failure) 4. Hypertension Core Measures/Misc (10/28) Acute Coronary Syndrome ACS Diagnosis: No Congestive Heart Failure Congestive Heart Failure Diagnosis No Cerebrovascular Accident CVA/TIA Diagnosis: No VTE (View Protocol) VTE Risk Factors Acute Medical Illness No Mechanical VTE Prophylaxis d/t N/A MechProphylax Ordered No VTE Pharm Prophylaxis d/t NA PharmProphylax ordered Sepsis (View protocol) Sepsis Present: No Karthikeyan Cabrera 04/12/17 1557: Attending Review Statement Attending Statement Attending MD Statement: examined this patient, discuss w/resident/PA/LINSEED CAKE TRIMMER, agreed w/resident/PA/LINSEED CAKE TRIMMER, reviewed EMR data (avail), discussed with nursing Attending Assessment/Plan: 46 yr old male with pmh of dm uncontrolled, non compliant with meds, smoker with 1 PPD smoking history, HTN, HLD, CAD , CVA on coumadin presented with worsening rt foot swelling and non healling wound. Pt was taken to the OR for possible gas gangrene. Pt underwent - "Incision and drainage right foot Partial first ray resection right foot Excisional debridement of nonviable skin, soft tissue, and bone right foot" Seen by ID they are recommending Unasyn. WIll f/u on cultures and bone biopsy results. will f/u on podiatry recommendations. Cont on coumadin if ok with poidatry. Endocrine consult for uncontrolled dm. d/w pt the care plan. counselled pt to quit smoking.
--- NOTE | 2017-04-12 11:04 | History & Physical Pre-Op ---
General Information and HPI MD Statement: I have seen and personally examined US,ERA Rendon in tandem with Franklin Sharpe DPM, and I documented this H&P. The patient is a 46 year old M who presented with a patient stated chief complaint of ulceration in the right foot with fever and chills[]. Preoperative diagnosis: Gas gangrene, right foot Postoperative diagnosis: Gas gangrene, right foot Planned procedures: Incision and drainage right foot, with excisional debridement of all nonviable skin and soft tissue and bone, up to and including a partial first ray resection of the right foot Planned anesthesia: Monitored anesthesia care and local 0.5% Marcaine plain right ankle block Planned hemostasis: None Source of Information: patient, EMS Exam Limitations: no limitations History of Present Illness: This is a 46-year-old uncontrolled diabetic male who was initially seen and evaluated by both myself and Franklin Sharpe DPM in the emergency room for urgent consultation on infected right foot ulceration. Patient has a previous history of right hallux amputation one year ago, and reports having a plantar ulceration for over 4 years. He reports that his sugar has been very high for a long time because he has been unable to afford insulin or health insurance. He reports that over the past few days he has had fever, chills, increased redness and swelling in the right foot. He also reports not having recent follow-up or any medical care for the foot in the past several months. The patient is seen and evaluated in moderate distress, somewhat combative using foul language, reporting fever and chills, but no nausea no vomiting no diaphoresis no shortness of breath no chest pain at the time of my examination. Allergies/Medications Allergies: Coded Allergies: acetaminophen (Mild, BAD HEADACHE 06/15/15) Home Med list Albuterol Sulfate (Proair Hfa) 90 MCG HFA.AER.AD 2 PUF INH Q4-6 PRN PRN COPD Amlodipine Besylate 10 MG TABLET 1 TAB PO DAILY HEART (Reported) Atorvastatin Calcium (Lipitor) 80 MG TABLET 1 TAB PO DAILY CHOLESTEROL ( Reported) Duloxetine HCl 60 MG CAPSULE.DR 1 CAP PO DAILY PAIN (Reported) Furosemide (Lasix) 40 MG TABLET 1 TAB PO BID WATER RETENTION (Reported) Gabapentin 400 MG CAPSULE 1 CAP PO TID PRN PAIN (Reported) Hydralazine HCl 25 MG TABLET 4 TAB PO BID HEART (Reported) Insulin Glargine,Hum.rec.anlog (Sahara Taylor) 300 UNIT/ML (1.5 ML) INSULN.PEN 70 UNIT SC DAILY DIABETES (Reported) Liraglutide (Victoza 3-Naveen) 0.6 MG/0.1 ML (18 MG/3 ML) PEN.INJCTR 0.6 MG SC DAILY DIABETES (Reported) Lisinopril 40 MG TABLET 1 TAB PO DAILY BP (Reported) Metformin HCl 1,000 MG TABLET 1 TAB PO BID DIABETES (Reported) Metoprolol Tartrate 75 MG TABLET 1 TAB PO BID HEART HEALTH (Reported) Warfarin Sodium (Coumadin) 7.5 MG TABLET 1 TAB PO DAILY BLOOD THINNER ( Reported) Compliance With Home Meds: POOR Past History Medical History Neurological: CVA EENT: NONE Cardiovascular: CHF, hypertension, hyperlipidemia Respiratory: bronchitis, pneumonia Gastrointestinal: NONE Hepatic: NONE Renal: NONE Musculoskeletal: NONE Psychiatric: NONE Endocrine: DIABETES TYPE II Blood Disorders: NONE 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 History of MRSA: No History of VRE: No History of CDIFF: No Surgical History Pertinent Surgical History: right big toe amputation Past Family/Social History Family History Relations & Conditions if any FATHER Early CAD MOTHER FH: diabetes mellitus Relation not specified for: Stroke or transient ischemic attack in father Psychosocial History Services at Home None ETOH Use: denies use Illicit Drug Use: denies illicit drug use Review of Systems Review of Systems: A 14 point review of systems was performed, and was found to be negative apart from the patient's complaints described above in the history of present illness. Exam & Diagnostic Data Last 24 Hrs of Vital Signs/I&O Vital Signs Date Time Temp Pulse Resp B/P B/P Pulse O2 O2 Flow FiO2 Mean Ox Delivery Rate 04/12 0731 98.7 80 18 115/68 98 Room Air Intake & Output 04/12 1600 03/ 0800 03/ 0000 Intake Total Output Total Balance Patient 250 lb Weight Weight Reported by Patient Measurement Method Physical Exam: The patient has palpable pedal pulses, dorsalis pedis and posterior tibial pulses are 2 out of 4 bilaterally, patient has normal temperature gradient and left lower extremity and a decreased temperature gradient in the right lower extremity. Patient is capillary refill of 3 seconds in his remaining 9 digits. He is status post right hallux amputation. He has atrophic skin dorsal and bilateral, +1 nonpitting edema of the left lower extremity, +3 nonpitting edema of the right lower extremity and he has some dorsal hairs growing on the forefoot on the right side near to the ulceration. His ulceration on the plantar aspect of his right foot is near the first metatarsal head is approximately 4 cm x 3 cm with subcutaneous tissue exposed and a fibro-granular base, with significant undermining both laterally and proximally. There is a faint malodor to the wound, and significant serous drainage and there is tenderness upon palpation. Patient has 5 out of 5 muscle power in all lower extremity compartments bilaterally. Last 24 Hrs of Labs/Jose Alberto: Laboratory Tests 04/12/17 0807: Anion Gap 13, Estimated GFR > 60, BUN/Creatinine Ratio 15.6, Glucose 403 H, Lactic Acid 1.4, Calcium 8.6, Total Bilirubin 1.3, AST 13 L, ALT 17 L, Alkaline Phosphatase 96, Total Protein 5.7 L, Albumin 3.2 L, Globulin 2.5, Albumin/Globulin Ratio 1.3, PT 26.2 H, INR 2.52 H, APTT 41 H, CBC w Diff MAN DIFF ORDERED, RBC 4.36 L, MCV 85.5, MCH 28.9, MCHC 33.8, RDW 13.3, MPV 8.5, Gran % 89.3 H, Lymphocytes % 5.2 L, Monocytes % 4.9, Eosinophils % 0.6, Basophils % 0, Absolute Granulocytes 18.2 H, Absolute Lymphocytes 1.1 L, Absolute Monocytes 1.0 H, Absolute Eosinophils 0.1, Absolute Basophils 0, Platelet Estimate VERIFIED BY SMEAR, Normocytic RBCs VERIFIED, Normochromic RBCs VERIFIED 04/12/17 0751: Lactic Acid Cancelled Microbiology 04/12 0945 BLOOD: Blood Culture - RECD 04/12 0845 BLOOD: Blood Culture - RECD Diagnostic Data ITS Data Unobtainable at this time Other Results EXAM TYPE: RAD - XRY-FOOT COMPLETE, R EXAMINATION: CR FOOT, RIGHT CLINICAL INFORMATION: Fever. Open wound. Presumptive diagnosis of osteomyelitis. COMPARISON: Right foot films dated 06/13/2016. TECHNIQUE: AP, lateral, and oblique views of the right foot. FINDINGS: The patient is status post amputation of the first toe at the metatarsophalangeal joint level. There is now prominent subcutaneous emphysema seen in the soft tissue stump of the amputated toe, increasing when compared to the prior study, consistent with the clinical history of an open wound. However, close clinical correlation is requested to exclude emphysematous fasciitis. The head of the first metatarsal bone remains intact with normal cortical margins seen. No abnormal periosteal reaction or focal lytic lesion is noted. There is chronic dislocation at the second and third metatarsophalangeal joints, unchanged. Mild degenerative changes are seen in the intertarsal joints and the tibial talar joint. Diffuse osteopenia is seen. Small plantar calcaneal spur is seen. Prominent soft tissue swelling is noted about the foot. No ankle joint effusion is seen. IMPRESSION: 1. Increasing soft tissue emphysema seen in the soft tissues of the amputation of the first toe. This may be related to the patient's open wound. Clinical correlation requested to exclude emphysematous fasciitis. 2. No plain film evidence of osteomyelitis seen. 3. 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 4. Osteopenia and multilevel degenerative changes. 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 I've explained all the risks and benefits of the procedures to be performed, and made no guarantees about their outcome. The patient is acutely aware that this is a staged procedure requiring multiple debridements and washouts, and that the extent of the procedures and debridement performed will depend on intraoperative findings, and he consents to all possibilities. The patient has also been made acutely aware that this condition will make him systemically ill if he is not urgently treated surgically and with empirical broad-spectrum antibiotics. I recommended infectious disease consult on this case. I recommend an endocrinology consult on this case. I recommend that the patient have an A1c drawn once he is admitted. I also recommended serial inflammatory markers be drawn, particularly CRP to indicate the degree of necrotizing pathology involved in the infection. The patient will remain nonweightbearing in the short-term after the procedure and depending on how he recovers, a physical therapy consult will be enacted to gait train him with various assistive devices. As Ranked By This Provider Problem List: 1. Diabetic foot ulcer 2. Cellulitis
--- NOTE | 2017-04-12 13:33 | Operative Report ---
Operative/Inv Procedure Report Surgery Date: 04/12/17 Name of Procedure: Incision and drainage right foot Partial first ray resection right foot Excisional debridement of nonviable skin, soft tissue, and bone right foot Pre-Operative Diagnosis: Gas gangrene right foot Post-Operative Diagnosis: Gas gangrene right foot Estimated Blood Loss: less than 50ml Surgeon/Transfer Engineer: Ivan Rocha DPM Anesthesia: local monitored anesthesi (22cc 0.5% Marcaine plain) IV Fluids: Per anesthesiology Specimens: Deep tissue culture, right foot Bone culture, first metatarsal, right foot Bone and soft tissue, right foot, for gross pathology A "clear margin" bone biopsy of the base of the first metatarsal, right foot Tourniquet: None Complications: None Condition: Stable Operative Indication: The patient was emergently recommended for surgery upon findings of subcutaneous emphysema in the right foot associated with an infected neuropathic ulceration Operative/Procedure Note Note: After the right foot was prepped and draped in the usual sterile manner, attention was directed to the medial aspect of the right forefoot where a 4 cm x 3 cm plantar ulceration with focal calor, malodor, undermining laterally and proximally, edema, and drainage was identified. A full-thickness racquet-shaped incision was made with a #10 blade excising the ulcer completely and extended proximally parallel to the long axis of the first metatarsal. Excisional debridement was carried out both in the first intermetatarsal space and locally in the ulceration area down to bone. Using a Rodriguez elevator, the first metatarsal was freed of soft tissue attachments down to its proximal metaphysis. Using a sagittal saw an oblique cut was made through the base of the first metatarsal and a curved hemostat was inserted into its medullary canal and the first metatarsal was levered out of the operative field. A small piece of the base was taken with a rongeur as a clear margin bone biopsy. The remainder of the wound was again debrided and explored for abscesses. The first intermetatarsal space had an abundance of necrotic tissue and connected with a dorsal space abscess tunneling laterally from this. The sesamoids were also excised in toto with surrounding soft tissue attachments using an #10 blade. Once the remaining wound base was uniform with capillary oozing and viable tissue, it was pulse irrigated with 3 L combination of normal saline and triple antibiotic solution. A Bovie was used to electrocauterize a single small artery on the plantar skin margins. The surgical wound was then partially closed proximal to distal using 3-0 nylon sutures in an interrupted horizontal mattress technique. The wound was then packed with half-inch iodoform packing, the suture site was dressed with Adaptic, and a dry dressing constructed a 4 x 4 gauze, fluff, Kerlix, and a 4 inch Boyd bandage was comprised. The patient was escorted to the postanesthesia care unit in no apparent distress , afebrile, vital signs stable and neurovascular status intact. The patient will be closely monitored for the next several days to ensure that he is no longer exhibiting a systemic inflammatory response, will very likely need at least one more debridement and washout, likely early next week. The patient is to remain nonweightbearing on the right foot short-term until his surgical resection was finalized at which point he will be gait trained by physical therapy team for an assistive device. I recommend an infectious disease consult on this case I recommend an endocrinology consult on this case and an A1c be drawn while he was admitted I'm recommending empirical broad-spectrum antibiotics to start until speciation of the cultures as finalized Follow-up the pathology specimens
[2017-04-12 14:51] VITALS: BP 120/76
--- NOTE | 2017-04-12 15:31 | Cons- Infect Disease ---
General Information and HPI Consulting Request Date of Consult: 04/12/17 Requested By: Yair Merritt MD Reason for Consult: abx advice Source of Information: patient, primary team Exam Limitations: clinical condition History of Present Illness: 46 y/o M with PMH of CVA 2013, IDDM, HTN, systolic heart failure (EF 45-50% ) comes to ED for evaluation of pain in his right foot. Patient is a long- standing insulin dependent diabetic and has not been taking his insulin for the past 3 months due to insurance issues. He had flulike illness 10 days ago for which he didn't seek medical attention. He developed 3 d ago fever and chills, and for one day [employer] started experiencing swelling/redness of the right foot, as well as unbearable pain prompting him to come to ER. Allergies/Medications Allergies: Coded Allergies: acetaminophen (Mild, BAD HEADACHE 06/15/15) Home Med List: Albuterol Sulfate (Proair Hfa) 90 MCG HFA.AER.AD 2 PUF INH Q4-6 PRN PRN COPD Amlodipine Besylate 10 MG TABLET 1 TAB PO DAILY HEART (Reported) Atorvastatin Calcium (Lipitor) 80 MG TABLET 1 TAB PO DAILY CHOLESTEROL ( Reported) Duloxetine HCl 60 MG CAPSULE.DR 1 CAP PO DAILY PAIN (Reported) Furosemide (Lasix) 40 MG TABLET 1 TAB PO BID WATER RETENTION (Reported) Gabapentin 400 MG CAPSULE 1 CAP PO TID PRN PAIN (Reported) Hydralazine HCl 25 MG TABLET 4 TAB PO BID HEART (Reported) Insulin Glargine,Hum.rec.anlog (Sahara Taylor) 300 UNIT/ML (1.5 ML) INSULN.PEN 70 UNIT SC DAILY DIABETES (Reported) Liraglutide (Victoza 3-Naveen) 0.6 MG/0.1 ML (18 MG/3 ML) PEN.INJCTR 0.6 MG SC DAILY DIABETES (Reported) Lisinopril 40 MG TABLET 1 TAB PO DAILY BP (Reported) Metformin HCl 1,000 MG TABLET 1 TAB PO BID DIABETES (Reported) Metoprolol Tartrate 75 MG TABLET 1 TAB PO BID HEART HEALTH (Reported) Warfarin Sodium (Coumadin) 7.5 MG TABLET 1 TAB PO DAILY BLOOD THINNER ( Reported) Current Medications: Current Medications Sig/Tello Start time Last Medication Dose Route Stop Time Status Admin Amlodipine Besylate 10 MG DAILY 04/13 1000 AC PO Atorvastatin Calcium 80 MG DAILY 04/13 1000 AC PO Ceftriaxone Sodium 1,000 MG ONCE ONE 04/12 0800 CAN IV 04/12 0801 Duloxetine HCl 60 MG DAILY 04/13 1000 AC PO Furosemide 40 MG BID 04/12 2200 AC PO Gabapentin 400 MG TID PRN 04/12 1500 AC PO Hydralazine HCl 100 MG BID 04/12 2200 AC PO Lisinopril 40 MG DAILY 04/13 1000 AC PO Metoprolol Tartrate 75 MG BID 04/12 2199 AC PO Sodium Chloride 1,000 ML BOLUS ONE 04/12 08 DC 04/12 IV 04/12 0929 0903 Past History Travel History Traveled to [place] past 21 day No Medical History Neurological: CVA EENT: NONE Cardiovascular: CHF, hypertension, hyperlipidemia Respiratory: bronchitis, pneumonia Gastrointestinal: NONE Hepatic: NONE Renal: NONE Musculoskeletal: NONE Psychiatric: NONE Endocrine: DIABETES TYPE II Blood Disorders: NONE 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 Home Who Do You Live With? spouse, child Services at Home: None Smoking Status: Current Everyday Smoker ETOH Use: denies use Illicit Drug Use: denies illicit drug use Functional Ability ADLs Independent: dressing, eating, toileting, bathing. Ambulation: independent IADLs Independent: shopping, housework, finances, food prep, telephone, transportation , medication admin. Review of Systems Comments 12 points reviewed a noted, otherwise neg. Review of systems is positive for increased thirst and urination along with blurry vision, increased burning sensation in both upper and lower extremities. Patient reports occasional black stools with Advil intake. He did have dry cough from his recent infection. He feels nauseous after taking Advil in the morning. Denies any chest pain, shortness of breath with exertion, vomiting, diaphoresis. Family history significant for diabetes in mother, hypertension and heart disease in father Socially smokes 1 pack per day for the past 33 years, no history of alcohol intake. Occasionally takes marijuana for pain, cocaine in the past. He lost his insurance 3 months ago, unable to get it due to his salary, his and 4 children are also not having insurance at this point. Exam & Diagnostic Data Last 24 Hrs of Vital Signs/I&O Vital Signs Date Time Temp Pulse Resp B/P B/P Pulse O2 O2 Flow FiO2 Mean Ox Delivery Rate 04/12 1451 98.7 86 20 120/76 92 Nasal 3.0L Cannula 04/12 1119 99.0 86 20 125/77 95 Room Air 04/12 0731 98.7 80 18 115/68 98 Room Air Intake & Output 04/12 1600 04/12 0800 04/12 0000 Intake Total Output Total 400 Balance -400 Output, Urine 400 Patient 250 lb Weight Weight Reported by Patient Measurement Method Physical Exam Other Physical Findings: eneral Appearance Alert, Oriented X3, Cooperative Skin Erythma around the right foot extending below the knee, warm to touch Skin Temp/Moisture Exam: Warm/Dry HEENT Atraumatic, PERRLA, EOMI Neck Supple Cardiovascular Normal S1, Normal S2, systolic murmur Lungs Clear to Auscultation, Normal Air Movement Abdomen Normal Bowel Sounds, Soft, diffuse tenderness on palpation (I) Neurological Normal Speech, Normal Tone, Sensation Intact Extremities No Clubbing, No Cyanosis, edema 2 + right >> left, R LE dressing in place Last 24 Hours of Lab Results: Laboratory Tests 04/12 04/12 04/12 1128 0807 0751 Chemistry Sodium (137 - 145 mmol/L) 136 L Potassium (3.5 - 5.1 mmol/L) 3.6 Chloride (98 - 107 mmol/L) 97 L Carbon Dioxide (22 - 30 mmol/L) 27 Anion Gap (5 - 16) 13 BUN (9 - 20 mg/dL) 14 Creatinine (0.7 - 1.2 mg/dL) 0.9 Estimated GFR (>60 ml/min) > 60 BUN/Creatinine Ratio (7 - 25 %) 15.6 Glucose (65 - 99 mg/dL) 403 H Hemoglobin A1c (4.2 - 5.8 %) 12.7 H Lactic Acid (0.7 - 2.1 mmol/L) 1.4 1.4 Cancelled Calcium (8.4 - 10.2 mg/dL) 8.6 Total Bilirubin (0.2 - 1.3 mg/dL) 1.3 AST (17 - 59 U/L) 13 L ALT (21 - 72 U/L) 17 L Alkaline Phosphatase (< 127 U/L) 96 Troponin I (<0.11 ng/ml) 0.03 Total Protein (6.3 - 8.2 g/dL) 5.7 L Albumin (3.5 - 5.0 g/dL) 3.2 L Globulin (1.9 - 4.2 gm/dL) 2.5 Albumin/Globulin Ratio (1.1 - 2.2 %) 1.3 Coagulation PT (9.4 - 12.5 SEC) 26.2 H INR (0.90 - 1.17) 2.52 H APTT (25 - 37 SEC) 41 H Hematology CBC w Diff MAN DIFF ORDERED WBC (4.8 - 10.8 /CUMM) 20.4 H RBC (4.70 - 6.10 /CUMM) 4.36 L Hgb (14.0 - 18.0 G/DL) 12.6 L Hct (42 - 52 %) 37.3 L MCV (80.0 - 94.0 FL) 85.5 MCH (27.0 - 31.0 PG) 28.9 MCHC (33.0 - 37.0 G/DL) 33.8 RDW (11.5 - 14.5 %) 13.3 Plt Count (130 - 400 /CUMM) 293 MPV (7.4 - 10.4 FL) 8.5 Gran % (42.2 - 75.2 %) 89.3 H Lymphocytes % (20.5 - 51.1 %) 5.2 L Monocytes % (1.7 - 9.3 %) 4.9 Eosinophils % (0 - 5 %) 0.6 Basophils % (0.0 - 2.0 %) 0 Absolute Granulocytes (1.4 - 6.5 /CUMM) 18.2 H Absolute Lymphocytes (1.2 - 3.4 /CUMM) 1.1 L Absolute Monocytes (0.10 - 0.60 /CUMM) 1.0 H Absolute Eosinophils (0.0 - 0.7 /CUMM) 0.1 Absolute Basophils (0.0 - 0.2 /CUMM) 0 Platelet Estimate (ADEQUATE) VERIFIED BY SMEAR Normocytic RBCs VERIFIED Normochromic RBCs VERIFIED Last 24 Hours of Jose Alberto Results: SPEC #: [id number] SONIA: 04/12/17-1250 STATUS: RECD RECD: 04/12/17-[address]: René DELGADILLO,Yair SOURCE: EXTREMITIE ENTR: 04/12/17-1216 [facility] DR: Karlie Barbosa DO [facility]: FOOT R ORDERED: XTRMOR COMMENT: ADDITIONAL INFORMATION: BONE CULTURE RECEIEVED SMALL PIECE OF BONE IN STERILE CUP Procedure Result XTRMOR PENDING Diagnostic Data Recent Imaging Findings: CLINICAL INFORMATION: Fever. Open wound. Presumptive diagnosis of osteomyelitis. COMPARISON: Right foot films dated 06/13/2016. TECHNIQUE: AP, lateral, and oblique views of the right foot. FINDINGS: The patient is status post amputation of the first toe at the metatarsophalangeal joint level. There is now prominent subcutaneous emphysema seen in the soft tissue stump of the amputated toe, increasing when compared to the prior study, consistent with the clinical history of an open wound. However, close clinical correlation is requested to exclude emphysematous fasciitis. The head of the first metatarsal bone remains intact with normal cortical margins seen. No abnormal periosteal reaction or focal lytic lesion is noted. There is chronic dislocation at the second and third metatarsophalangeal joints, unchanged. Mild degenerative changes are seen in the intertarsal joints and the tibial talar joint. Diffuse osteopenia is seen. Small plantar calcaneal spur is seen. Prominent soft tissue swelling is noted about the foot. No ankle joint effusion is seen. IMPRESSION: 1. Increasing soft tissue emphysema seen in the soft tissues of the amputation of the first toe. This may be related to the patient's open wound. Clinical correlation requested to exclude emphysematous fasciitis. 2. No plain film evidence of osteomyelitis seen. 3. 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 4. Osteopenia and multilevel degenerative changes. DICTATED BY: Shanta DELGADILLO,Heike Godwin DATE/TIME DICTATED:04/12/171007 DIRECTOR INTERNATIONAL:FIORELLA DATE/TIME TRANSCRIBED:04/12/171007 Assessment/Plan Assessment/Plan Impression: 46 y/o M with PMH of CVA 2013, IDDM, HTN, systolic heart failure (EF 45-50% ) admitted /. R LE cellulitis; evaluated for emphysematous fasciitis R foot Leukocytosis Fever os OP Suggestion: 1. Unasyn 3 gm iv q 6 h pending OR culture results. 2. Trend CBC, BMP. 3. F/U sx recom. Consult Acknowledgment - Thank you for your consult request.
--- NOTE | 2017-04-12 15:54 | Admission Certification ---
Admission Certification Certification Statement - As attending physician, I certify that at the time of - admission, based on clinical presentation, severity of - symptoms, need for further diagnostic testing and - therapeutic interventions, and risk of adverse outcomes - without in-hospital treatment, in my clinical assessment, - this patient requires an acute hospital stay for a minimum - of two nights or longer. I have also considered psychsocial - factors such as support system, advanced age, financial - issues, cognitive issues, and failed out-patient treatments, - past re-admission history, safety of patient, and lack of - compliance as applicable. Specific rationale supporting this admission is: Diabetic foot infection with ? osteomyelitis
--- NOTE | 2017-04-12 17:32 | Cons- Endocrinology ---
General Information and HPI Consulting Request Date of Consult: 04/12/17 Requested By: medical team Reason for Consult: uncontrolled diabetes Source of Information: patient, old records Exam Limitations: no limitations History of Present Illness: . This 46-year-old male has a known history of diabetes mellitus type 2 associated with obesity. He presented to the ER with ulcer and infection with gas production in his right foot. He was taken to the OR as an emergency earlier today by Dr. Sharpe for debridement of the foot. The patient has a history of diabetic neuropathy. He has had previous ulcerations of his foot. 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 He is on his feet a lot. He states his foot really started to get worse over the past day or 2. The patient is followed by Dr. Barbosa as an outpatient. He was listed as taking Toujeo 70 units daily along with Humalog sliding scale before meals. He was also on Victoza and Metformin. His last visit with Karlie Barbosa DO was October 2016. The patient also has a history of hypertension for which he was on amlodipine and hydralazine and lisinopril. He also has a history of known coronary artery disease and congestive heart failure. He has had a CVA in the past. He has a mixed hyperlipidemia. The patient states he stopped all his injectables because he could no longer for them when he was out of work. He was continuing to take metformin. When he presented to the ER today his Blood sugar was 403 with a creatinine of 0.9 and a sodium of 136. Allergies/Medications Allergies: Coded Allergies: acetaminophen (Mild, BAD HEADACHE 06/15/15) Home Med List: Albuterol Sulfate (Proair Hfa) 90 MCG HFA.AER.AD 2 PUF INH Q4-6 PRN PRN COPD Amlodipine Besylate 10 MG TABLET 1 TAB PO DAILY HEART (Reported) Atorvastatin Calcium (Lipitor) 80 MG TABLET 1 TAB PO DAILY CHOLESTEROL ( Reported) Duloxetine HCl 60 MG CAPSULE.DR 1 CAP PO DAILY PAIN (Reported) Furosemide (Lasix) 40 MG TABLET 1 TAB PO BID WATER RETENTION (Reported) Gabapentin 400 MG CAPSULE 1 CAP PO TID PRN PAIN (Reported) Hydralazine HCl 25 MG TABLET 4 TAB PO BID HEART (Reported) Insulin Glargine,Hum.rec.anlog (Toujeo Solostar) 300 UNIT/ML (1.5 ML) INSULN.PEN 70 UNIT SC DAILY DIABETES (Reported) Liraglutide (Victoza 3-Naveen) 0.6 MG/0.1 ML (18 MG/3 ML) PEN.INJCTR 0.6 MG SC DAILY DIABETES (Reported) Lisinopril 40 MG TABLET 1 TAB PO DAILY BP (Reported) Metformin HCl 1,000 MG TABLET 1 TAB PO BID DIABETES (Reported) Metoprolol Tartrate 75 MG TABLET 1 TAB PO BID HEART HEALTH (Reported) Warfarin Sodium (Coumadin) 7.5 MG TABLET 1 TAB PO DAILY BLOOD THINNER ( Reported) Review of Systems Review of Systems Constitutional: Reports: chills, fever. Cardiovascular: Denies: chest pain. Respiratory: Denies: cough, short of breath. GI: Reports: abdominal pain, changes in stool. Genitourinary: Reports: frequency. Skin: Reports: lesions. Neurological/Psychological: Reports: headache. Past History Travel History Traveled to [place] past 21 day No Medical History Blood Transfusion Hx: No Neurological: CVA EENT: NONE Cardiovascular: CHF, hypertension, hyperlipidemia Respiratory: bronchitis, pneumonia Gastrointestinal: NONE Hepatic: NONE Renal: NONE Musculoskeletal: NONE Psychiatric: NONE Endocrine: DIABETES TYPE II Blood Disorders: NONE Cancer(s): NONE INSPECTORS AND REGULATORY OFFICERS/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 Home Who Do You Live With? spouse, child Services at Home: None Smoking Status: Current Everyday Smoker ETOH Use: denies use Illicit Drug Use: denies illicit drug use Functional Ability ADLs Independent: dressing, eating, toileting, bathing. Ambulation: independent IADLs Independent: shopping, housework, finances, food prep, telephone, transportation , medication admin. Exam & Diagnostic Data Last 24 Hrs of Vital Signs/I&O Vital Signs Date Time Temp Pulse Resp B/P B/P Pulse O2 O2 Flow FiO2 Mean Ox Delivery Rate 04/12 1600 96 Nasal 2.0L Cannula 04/12 1530 96 Nasal 2.0L Cannula 04/12 1451 98.7 86 20 120/76 92 Nasal 3.0L Cannula 04/12 1119 99.0 86 20 125/77 95 Room Air 04/12 0731 98.7 80 18 115/68 98 Room Air Intake & Output 04/12 1600 04/12 0800 04/12 0000 Intake Total Output Total 400 Balance -400 Output, Urine 400 Patient 250 lb 250 lb Weight Weight Bed scale Reported by Patient Measurement Method Vital Signs Date Time Temp Pulse Resp B/P B/P Pulse O2 O2 Flow FiO2 Mean Ox Delivery Rate 04/12 1600 96 Nasal 2.0L Cannula 04/12 1530 96 Nasal 2.0L Cannula 04/12 1451 98.7 86 20 120/76 92 Nasal 3.0L Cannula 04/12 1119 99.0 86 20 125/77 95 Room Air 04/12 0731 98.7 80 18 115/68 98 Room Air Intake & Output 04/12 1600 04/12 0800 04/12 0000 Intake Total Output Total 400 Balance -400 Output, Urine 400 Patient 250 lb 250 lb Weight Weight Bed scale Reported by Patient Measurement Method Physical Exam General Appearance: alert, awake, anxious, obese Head: normal appearance Neck: normal inspection Respiratory: normal breath sounds Cardiovascular: tachycardia Gastrointestinal: normal bowel sounds, soft Extremities: right foot bandaged Labs/Jose Alberto Results: Laboratory Tests 04/12 04/12 04/12 1607 [id number] Chemistry Sodium (137 - 145 mmol/L) 136 L Potassium (3.5 - 5.1 mmol/L) 3.6 Chloride (98 - 107 mmol/L) 97 L Carbon Dioxide (22 - 30 mmol/L) 27 Anion Gap (5 - 16) 13 BUN (9 - 20 mg/dL) 14 Creatinine (0.7 - 1.2 mg/dL) 0.9 Estimated GFR (>60 ml/min) > 60 BUN/Creatinine Ratio (7 - 25 %) 15.6 Glucose (65 - 99 mg/dL) 403 H Hemoglobin A1c (4.2 - 5.8 %) 12.7 H Lactic Acid (0.7 - 2.1 mmol/L) 1.4 1.4 Calcium (8.4 - 10.2 mg/dL) 8.6 Total Bilirubin (0.2 - 1.3 mg/dL) 1.3 AST (17 - 59 U/L) 13 L ALT (21 - 72 U/L) 17 L Alkaline Phosphatase (< 127 U/L) 96 Troponin I (<0.11 ng/ml) 0.03 C-Reactive Prot, Quant (<1.0 mg/dL) Pending C-React Prot High Sens (1.0 - 3.0 mg/L) > 15.0 H Total Protein (6.3 - 8.2 g/dL) 5.7 L Albumin (3.5 - 5.0 g/dL) 3.2 L Globulin (1.9 - 4.2 gm/dL) 2.5 Albumin/Globulin Ratio (1.1 - 2.2 %) 1.3 Coagulation PT (9.4 - 12.5 SEC) 26.2 H INR (0.90 - 1.17) 2.52 H APTT (25 - 37 SEC) 41 H Hematology CBC w Diff MAN DIFF ORDERED WBC (4.8 - 10.8 /CUMM) 20.4 H RBC (4.70 - 6.10 /CUMM) 4.36 L Hgb (14.0 - 18.0 G/DL) 12.6 L Hct (42 - 52 %) 37.3 L MCV (80.0 - 94.0 FL) 85.5 MCH (27.0 - 31.0 PG) 28.9 MCHC (33.0 - 37.0 G/DL) 33.8 RDW (11.5 - 14.5 %) 13.3 Plt Count (130 - 400 /CUMM) 293 MPV (7.4 - 10.4 FL) 8.5 Gran % (42.2 - 75.2 %) 89.3 H Lymphocytes % (20.5 - 51.1 %) 5.2 L Monocytes % (1.7 - 9.3 %) 4.9 Eosinophils % (0 - 5 %) 0.6 Basophils % (0.0 - 2.0 %) 0 Absolute Granulocytes (1.4 - 6.5 /CUMM) 18.2 H Absolute Lymphocytes (1.2 - 3.4 /CUMM) 1.1 L Absolute Monocytes (0.10 - 0.60 /CUMM) 1.0 H Absolute Eosinophils (0.0 - 0.7 /CUMM) 0.1 Absolute Basophils (0.0 - 0.2 /CUMM) 0 Platelet Estimate (ADEQUATE) VERIFIED BY SMEAR Normocytic RBCs VERIFIED Normochromic RBCs VERIFIED ESR Westergren Pending 04/12 0751 Chemistry Lactic Acid Cancelled Assessment/Plan Assessment/Plan This 46-year-old male presents to the hospital with infection and evidence of gas formation in the right foot. He has type 2 diabetes associated with morbid obesity and neuropathy. He was taken to the OR as an emergency today for debridement of the foot and is presently on antibiotic therapy. Apparently the patient stopped all his injectables including insulin because he was out of work and could not afford his medication. He did continue to take metformin. His diabetes is out of control. His hemoglobin A1c is 12.7% today While in the hospital we should place the patient back on insulin. I would begin Levemir 10 units twice a day the first dose tonight. He feels that he is somewhat nauseated tonight and I am not sure how well he is going to eat. I would place him on D5 half-normal saline at 50 cc/h to make sure he does not get dehydrated and to avoid giving unopposed insulin. Once he is eating better the IV can be stopped. The patient should also be placed on sliding scale NovoLog before meals. Sliding scale NovoLog before meals should be 80-150 give 4 units NovoLog, 151- 200 give 6 units NovoLog, 201-250 give 7 units NovoLog, 251-300 give 8 units NovoLog, 301-350 give 9 units NovoLog, 351-400 give 10 units NovoLog. A separate bedtime sliding scale NovoLog should be written. Sliding scale NovoLog at bedtime should be less than 250 give no insulin, 2 5103 100 give 2 units NovoLog, 301-350 give 3 units NovoLog, 351-400 give 4 units NovoLog. Tomorrow a.m. we should measure the patient's repeat CMP as well as a lipid profile and thyroid function tests including a free T4 and TSH. Consult Acknowledgment - Thank you for your consult request.
--- NOTE | 2017-04-12 17:53 | PN- Podiatry ---
Surgical Brief Attending Note Brief Attending Note: Patient was seen and evaluated for postop check after an incision drainage and partial foot amputation on the right side performed approximately 6 hours ago. Patient had some strikethrough on the medial side of his dressing which the nursing staff reported to me was only noted after he returned from his postoperative x-rays. Nursing staff also reported to me that the patient was refusing to elevate his leg as medically instructed. I reinforced the importance of elevating the leg and not bearing any weight on the foot. I reinforced the dressing by replacing the outer roll of Kerlix and replacing the 4 inch Boyd bandage. There is any further strikethrough please contact me by cell phone at [phone]. Follow-up on this patient tomorrow.
--- NOTE | 2017-04-12 17:57 | RADIOLOGY REPORT ---
EXAMINATION: RIGHT FOOT 3 VIEWS CLINICAL INFORMATION: Right foot. Infection. Gas gangrene. COMPARISON: Same day right foot radiographs. TECHNIQUE: AP, lateral, oblique views of the right foot were obtained. FINDINGS: There has been interval amputation of the distal half of the first metatarsal. There is lateral subluxation again identified to the second and third MTP joints. There is subcutaneous gas noted about the medial distal foot. This could be related to infection or postoperative as there has been recent amputation. The remaining osseous structures are stable. There is a small plantar surface calcaneal spur. IMPRESSION: Interval partial indication to the first metatarsal. There is associated soft tissue swelling and subcutaneous gas.
--- NOTE | 2017-04-12 19:52 | PN- Podiatry ---
Surgical Brief Attending Note Brief Attending Note: Patient was seen and evaluated for second time this evening for strikethrough on the bandage secondary to the patient's weightbearing AGAINST MEDICAL ADVICE. Patient is not on this twice in the first 8 postoperative hours. He has passed urine and flatus. The dressing was taken down completely and no active bleeding was found in the surgical wound, and the wound was redressed completely with AVD pads, 2 rolls of Kerlix, and yet another 6 inch Boyd bandage. It was reinforced with the patient importance of nonweightbearing in the immediate postoperative period. I'll follow up on the patient tomorrow morning. I've also placed Surgicel at bedside in the event that this happens again.
[2017-04-12 22:45] VITALS: BP 154/84
--- NOTE | 2017-04-13 05:10 | Cons- Gastroenterology ---
General Information and HPI Consulting Request Date of Consult: 04/13/17 Requested By: Yair Merritt MD Reason for Consult: Reports of melena; nausea with NSAID use. Source of Information: patient, old records Exam Limitations: no limitations History of Present Illness: Mr. Mackey is a 46 year old male with multiple medical problems includine DM, HTN, CHF and a CVA for which he is on anticoagulation who presented to yesterday with reports of worsening foot pain. On arrival to the hospital his foot was noted to be edematous and swollen and after a xray of his foot and a podiatry evaluation he was taken to the OR where he was found to have a necrotizing soft tissue infection and acute osteomyelitis of the right foot status post open partial first ray resection. Overnight he has had a temperature spike and he continues to have bleeding from his right foot of bright red blood. He has been taking a significant amount of ibuprofen for his foot pain and he notes that this has given him some epigastric discomfort and nausea without vomiting. He also reports having intermittent black stool with that last occuring the day before admission which is what prompted the GI consultation. He also notes that he gets rather frequent heartburn that he doesn't take any antacids for. He denies any dysphagia. Since admission he has been hemodynamically stable and he has not had any black tarry stool, vomiting or brbpr since arriving to the hospital. Allergies/Medications Allergies: Coded Allergies: acetaminophen (Mild, BAD HEADACHE 06/15/15) Home Med List: Albuterol Sulfate (Proair Hfa) 90 MCG HFA.AER.AD 2 PUF INH Q4-6 PRN PRN COPD Amlodipine Besylate 10 MG TABLET 1 TAB PO DAILY HEART (Reported) Atorvastatin Calcium (Lipitor) 80 MG TABLET 1 TAB PO DAILY CHOLESTEROL ( Reported) Duloxetine HCl 60 MG CAPSULE.DR 1 CAP PO DAILY PAIN (Reported) Furosemide (Lasix) 40 MG TABLET 1 TAB PO BID WATER RETENTION (Reported) Gabapentin 400 MG CAPSULE 1 CAP PO TID PRN PAIN (Reported) Hydralazine HCl 25 MG TABLET 4 TAB PO BID HEART (Reported) Insulin Glargine,Hum.rec.anlog (Toudino Solostar) 300 UNIT/ML (1.5 ML) INSULN.PEN 70 UNIT SC DAILY DIABETES (Reported) Liraglutide (Victoza 3-Naveen) 0.6 MG/0.1 ML (18 MG/3 ML) PEN.INJCTR 0.6 MG SC DAILY DIABETES (Reported) Lisinopril 40 MG TABLET 1 TAB PO DAILY BP (Reported) Metformin HCl 1,000 MG TABLET 1 TAB PO BID DIABETES (Reported) Metoprolol Tartrate 75 MG TABLET 1 TAB PO BID HEART HEALTH (Reported) Warfarin Sodium (Coumadin) 7.5 MG TABLET 1 TAB PO DAILY BLOOD THINNER ( Reported) Current Medications: Current Medications Sig/Tello Start time Last Medication Dose Route Stop Time Status Admin Amlodipine Besylate 10 MG DAILY 04/13 1000 AC 04/13 PO 1022 Ampicillin Sodium/ 3,000 MG Q6 04/12 1800 AC 04/13 Sulbactam Sodium IV 0547 Sodium Chloride 100 ML Atorvastatin Calcium 80 MG DAILY 04/13 1000 AC 04/13 PO 1022 Clindamycin 600 MG IQ8 04/13 1600 AC Dextrose/Water 50 ML IV Dexmedetomidine HCl 200 MCG .STK-MED ONE 04/12 1153 DC IV 04/12 1154 Duloxetine HCl 60 MG DAILY 04/13 1000 AC 04/13 PO 1022 Fentanyl Citrate 100 MCG .STK-MED ONE 04/12 1152 DC IM 04/12 1153 Furosemide 40 MG BID 04/12 2200 AC 04/13 PO 1022 Gabapentin 400 MG TID 04/12 1600 AC 04/13 PO 1022 Gabapentin 400 MG TID PRN 04/12 1500 DC PO 04/12 1559 Hydralazine HCl 100 MG BID 04/12 2200 AC 04/13 PO 1024 Hydromorphone HCl 0.6 MG ONCE ONE 04/13 1145 UNVr IV 04/13 1146 Ibuprofen 400 MG ONCE ONE 04/13 0600 DC 04/13 PO 04/13 0601 0600 Ibuprofen 400 MG ONCE ONE 04/12 2100 DC 04/12 PO 04/12 210 2059 Ibuprofen 600 MG ONCE ONE 04/12 1815 CAN PO 04/12 1816 Insulin Aspart 0 TIDAC 04/12 1700 AC 04/13 SC 0750 Insulin Detemir 10 UNITS BID 04/13 1040 AC 04/13 SC 1119 Lisinopril 40 MG DAILY 04/13 1000 AC 04/13 PO 1021 Melatonin 5 MG ONCE ONE 04/12 2014 DC 04/12 PO 04/12 Meperidine HCl 50 MG .STK-MED ONE 04/12 1416 DC IM 04/12 1417 Meperidine HCl 50 MG .STK-MED ONE 04/12 1342 DC IM 04/12 1343 Metoprolol Tartrate 75 MG BID 04/12 2200 AC 04/13 PO 1022 Midazolam HCl 2 MG .STK-MED ONE 04/12 1152 DC IM 04/12 1153 Morphine Sulfate 4 MG Q8P PRN 04/13 0845 AC 04/13 IV 1017 Morphine Sulfate 2 MG ONCE ONE 04/12 1900 DC 03 IV 04/12 1901 1902 Morphine Sulfate 4 MG .STK-MED ONE 04/12 1858 DC IM 04/12 1859 Morphine Sulfate 4 MG .STK-MED ONE 04/12 1733 DC IM 04/12 1734 Morphine Sulfate 2 MG Q8P PRN 04/12 1545 DC 04/13 IV 0220 Morphine Sulfate 4 MG .STK-MED ONE 04/12 1415 DC IM 04/12 1416 Morphine Sulfate 4 MG .STK-MED ONE 04/12 1350 DC IM 04/12 1351 Morphine Sulfate 4 MG .STK-MED ONE 04/12 1341 DC IM 04/12 1342 Morphine Sulfate 4 MG .STK-MED ONE 04/12 1326 DC IM 04/12 1327 Ondansetron HCl 4 MG ONCE ONE 04/12 2014 DC 02 IV 04/12 Oxycodone HCl 5 MG Q6P PRN 04/13 0845 AC PO Oxycodone HCl 5 MG Q4P PRN 04/12 2200 AC 04/13 PO 1117 Oxycodone HCl 5 MG Q6P PRN 04/12 1545 DC 04/12 PO 1606 Pantoprazole Sodium 40 MG DAILY 04/13 1022 AC 04/13 IV 1120 Phytonadione 10 MG ONCE ONE 04/13 1015 DC 04/13 SC 04/13 1016 1119 Potassium Chloride 40 MEQ ONCE ONE 04/13 1045 DC 04/13 PO 04/13 1046 1118 Promethazine HCl 25 MG .STK-MED ONE 04/12 2148 DC IM 04/12 2149 Sumatriptan Succinate 50 MG DAILY NEEDED PRN 04/13 0845 AC 04/13 PO 1021 Trimethobenzamide HCl 200 MG 4 TIMES/DAY PRN 04/13 0100 AC 03/03 IM 0410 Trimethobenzamide HCl 200 MG ONCE ONE 04/120 DC 04/12 IM 04/12 220 2153 Warfarin Sodium 7.5 MG COUMADIN 1700 ONE 04/13 1700 CAN PO 04/13 1701 Warfarin Sodium 7.5 MG ONCE ONE 04/12 1745 DC 04/12 PO 04/12 Past History Travel History Traveled to [place] past 21 day No Medical History Blood Transfusion Hx: No Neurological: CVA EENT: NONE Cardiovascular: CHF, hypertension, hyperlipidemia Respiratory: bronchitis, pneumonia Gastrointestinal: NONE Hepatic: NONE Renal: NONE Musculoskeletal: NONE Psychiatric: NONE Endocrine: DIABETES TYPE II Blood Disorders: NONE Cancer(s): NONE 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 Home Who Do You Live With? spouse, child Services at Home: None Smoking Status: Current Everyday Smoker ETOH Use: denies use Illicit Drug Use: denies illicit drug use Functional Ability ADLs Independent: dressing, eating, toileting, bathing. Ambulation: independent IADLs Independent: shopping, housework, finances, food prep, telephone, transportation , medication admin. Review of Systems Review of Systems Constitutional: Reports: chills, diaphoresis, fever, malaise, weakness. Denies: unexplained weight loss. EENTM: Denies: no symptoms. Cardiovascular: Reports: edema, peripheral edema. Denies: chest pain, orthopena. Respiratory: Denies: no symptoms. GI: Reports: see HPI. Genitourinary: Denies: no symptoms. Musculoskeletal: Reports: joint pain, joint swelling, muscle pain. Skin: Denies: no symptoms. Neurological/Psychological: Denies: no symptoms. Hematologic/Endocrine: Reports: bleeding, polyuria, polydipsia. Immunologic/Allergic: Denies: no symptoms. All Other Systems: Reviewed and Negative Exam & Diagnostic Data Vital Signs and I&O Vital Signs Date Time Temp Pulse Resp B/P B/P Pulse O2 O2 Flow FiO2 Mean Ox Delivery Rate 04/13 0000 95 Nasal 2.0L Cannula 04/12 2299 100.0 04/12 2244 101.6 105 20 154/84 90 Nasal Cannula 04/12 2153 101.6 04/12 2058 102.1 04/12 1600 96 Nasal 2.0L Cannula 04/12 1530 96 Nasal 2.0L Cannula 04/12 1451 98.7 86 20 120/76 92 Nasal 3.0L Cannula 04/12 1119 99.0 86 20 125/77 95 Room Air 04/12 0731 98.7 80 18 115/68 98 Room Air Intake & Output 04/13 0400 04/12 04004/11 0400 Intake Total 390 Output Total 400 450 400 Balance -400 -60 -400 Intake, IV 150 Intake, Oral 240 Output, 150 Emesis Output, Urine 400 300 400 Patient 250 lb Weight Weight Bed scale Measurement Method Physical Exam General Appearance: well developed/nourished, alert, awake, mild distress Head: atraumatic, normal appearance Eyes: Bilateral: normal appearance. Ears, Nose, Throat: normal pharynx, normal ENT inspection Neck: normal inspection, supple, full range of motion Respiratory: normal breath sounds, chest non-tender, no respiratory distress Cardiovascular: regular rate/rhythm Gastrointestinal: normal bowel sounds, soft, non-tender, no organomegaly Rectal: deferred Back: normal inspection, normal range of motion Extremities: pedal edema, swelling, right foot bandaged and active bleeding; just bandaged and not rexamined; Neurologic/Psych: no motor/sensory deficits, awake, alert, oriented x 3 Results Pertinent Lab Results: Laboratory Tests 04/12 04/12 04/12 1755 1755 1607 Chemistry C-Reactive Prot, Quant (<1.0 mg/dL) > 9.0 H C-React Prot High Sens (1.0 - 3.0 mg/L) > 15.0 H Hematology ESR Westergren (0 - 10 MM) 61 H Urines Urine Color (YEL,AMB,STR) YEL Urine Clarity (CLEAR) CLEAR Urine pH (5.0 - 8.0) 6.0 Ur Specific [place] (1.001 - 1.035) 1.025 Urine Protein (NEG,<30 MG/DL) 30 H Urine Ketones (NEG) TRACE H Urine Nitrite (NEG) NEG Urine Bilirubin (NEG) NEG Urine Urobilinogen (0.1 - 1.0 EU/dl) 0.2 Ur Leukocyte Esterase (NEG) NEG Ur Microscopic SEDIMENT EXAMINED Urine RBC (0 - 5 /HPF) RARE Urine WBC (0 - 2 /HPF) RARE Ur Epithelial Cells (NONE,FEW) RARE Hyaline Casts (0/LPF) MANY H Urine Hemoglobin (NEG) NEG Ur Random Creatinine (mg/dL) 122.1 Ur Random Microalbumin (<1.7 mg/dl) 4.4 H Urine Glucose (N MG/DL) >=1000 H U Cystine/Creat Ratio (mcg/mg) 36.03 03/ 03/04/12 1128 0807 0751 Chemistry Sodium (137 - 145 mmol/L) 136 L Potassium (3.5 - 5.1 mmol/L) 3.6 Chloride (98 - 107 mmol/L) 97 L Carbon Dioxide (22 - 30 mmol/L) 27 Anion Gap (5 - 16) 13 BUN (9 - 20 mg/dL) 14 Creatinine (0.7 - 1.2 mg/dL) 0.9 Estimated GFR (>60 ml/min) > 60 BUN/Creatinine Ratio (7 - 25 %) 15.6 Glucose (65 - 99 mg/dL) 403 H Hemoglobin A1c (4.2 - 5.8 %) 12.7 H Lactic Acid (0.7 - 2.1 mmol/L) 1.4 1.4 Cancelled Calcium (8.4 - 10.2 mg/dL) 8.6 Total Bilirubin (0.2 - 1.3 mg/dL) 1.3 AST (17 - 59 U/L) 13 L ALT (21 - 72 U/L) 17 L Alkaline Phosphatase (< 127 U/L) 96 Troponin I (<0.11 ng/ml) 0.03 Total Protein (6.3 - 8.2 g/dL) 5.7 L Albumin (3.5 - 5.0 g/dL) 3.2 L Globulin (1.9 - 4.2 gm/dL) 2.5 Albumin/Globulin Ratio (1.1 - 2.2 %) 1.3 Coagulation PT (9.4 - 12.5 SEC) 26.2 H INR (0.90 - 1.17) 2.52 H APTT (25 - 37 SEC) 41 H Hematology CBC w Diff MAN DIFF ORDERED WBC (4.8 - 10.8 /CUMM) 20.4 H RBC (4.70 - 6.10 /CUMM) 4.36 L Hgb (14.0 - 18.0 G/DL) 12.6 L Hct (42 - 52 %) 37.3 L MCV (80.0 - 94.0 FL) 85.5 MCH (27.0 - 31.0 PG) 28.9 MCHC (33.0 - 37.0 G/DL) 33.8 RDW (11.5 - 14.5 %) 13.3 Plt Count (130 - 400 /CUMM) 293 MPV (7.4 - 10.4 FL) 8.5 Gran % (42.2 - 75.2 %) 89.3 H Lymphocytes % (20.5 - 51.1 %) 5.2 L Monocytes % (1.7 - 9.3 %) 4.9 Eosinophils % (0 - 5 %) 0.6 Basophils % (0.0 - 2.0 %) 0 Absolute Granulocytes (1.4 - 6.5 /CUMM) 18.2 H Absolute Lymphocytes (1.2 - 3.4 /CUMM) 1.1 L Absolute Monocytes (0.10 - 0.60 /CUMM) 1.0 H Absolute Eosinophils (0.0 - 0.7 /CUMM) 0.1 Absolute Basophils (0.0 - 0.2 /CUMM) 0 Platelet Estimate (ADEQUATE) VERIFIED BY SMEAR Normocytic RBCs VERIFIED Normochromic RBCs VERIFIED Assessment/Plan Assessment/Recommendations: Assessment: Mr. Chambers is a 46-year-old male with multiple medical problems currently admitted with a necrotizing soft tissue infection of his right foot along with osteomyelitis status post debridement yesterday with active ongoing bleeding from this foot who has reported having intermittent melena, heartburn and abdominal discomfort in the setting of taking a significant amount of NSAIDs. While it is certainly possible he could have GERD and/or NSAID-induced peptic ulcer disease he has not had any active GI bleeding since he has been admitted and his BUN to creatinine ratio is normal along with a relatively normal hemoglobin which argues against any significant upper GI bleeding. Considering his symptoms and his chronic heartburn it would not be unreasonable to pursue a diagnostic upper endoscopy, however this is not urgent and can potentially even be pursued as an outpatient after his acute issues with his food have resolved. Recommendations: 1. Put on a PO PPI BID for now. 2. Avoid or minimize nsaid use. 3. Anti-reflux measures 4. Follow daily CBC 5. Notify GI for signs of overt GI bleeding, but unless that ensues will tentatively plan to pursue an outpatient colonoscopy. Consideration may be given for an inpatient EGD if he is here for other reasons for a prolonged period (ie. if he is just getting IV antibiotics and no further surgical interventions are necessary). Please recontact GI for any active bleeding or new GI issues. Otherwise would ask that he follow up as an outpatient for further evalution of his reflux symptoms. Problem List: 1. Gas gangrene 2. Diabetic foot ulcer 3. Wound of lower extremity Consult Acknowledgment - Thank you for your consult request.
[2017-04-13 05:47] VITALS: BP 134/70
--- NOTE | 2017-04-13 06:40 | PN- Housestaff ---
See Addendum Subjective Follow-up For: 1. Emphysematous fascitis/Gas gangrene 2. Uncontrolled Insuline dependent Diabetes mellitus with HbA1C of 12 3. HTN 4. Heart failure by history 5. CVA on warfarin for possible left atrial thrombus 6. Melena with advil intake Complaints: no complaints Subjective: Pt seen and examined. Spiked a fever of 102 last night with severe nausea and headache last night. Continues to have a headache and severe generalized pain not improved on current medication regimen. Review of Systems Constitutional: Reports: no symptoms, see HPI. Objective Last 24 Hrs of Vital Signs/I&O Vital Signs Date Time Temp Pulse Resp B/P B/P Pulse O2 O2 Flow FiO2 Mean Ox Delivery Rate 04/13 0600 101.1 04/13 0547 101.1 101 20 134/70 91 Nasal 3.0L Cannula 04/13 0000 100.0 04/13 0000 95 Nasal 2.0L Cannula 04/12 2300 100.0 04/12 2245 101.6 105 20 154/84 90 Nasal Cannula 04/12 2154 101.6 04/12 2059 102.1 04/12 1600 96 Nasal 2.0L Cannula 04/12 1530 96 Nasal 2.0L Cannula 04/12 1451 98.7 86 20 120/76 92 Nasal 3.0L Cannula 04/12 1119 99.0 86 20 125/77 95 Room Air / 0731 98.7 80 18 115/68 98 Room Air Intake & Output 04/13 0800 04/13 0000 / 1600 Intake Total 780 390 Output Total 400 450 400 Balance 380 -60 -400 Intake, IV 300 150 Intake, Oral 480 240 Output, 150 Emesis Output, Urine 400 300 400 Patient 250 lb Weight Weight Bed scale Measurement Method Physical Exam General Appearance: Alert, Oriented X3 Skin Temp/Moisture Exam: Warm/Dry Sepsis Skin Exam (color): Normal for Ethnicity Cardiovascular: Regular Rate, Normal S1, Normal S2 Lungs: Clear to Auscultation, Normal Air Movement Abdomen: Normal Bowel Sounds Extremities: Rt foot wrapped in gauze and elevated. CDI, chronic skin changes Current Medications: Current Medications Sig/Tello Start time Last Medication Dose Route Stop Time Status Admin Amlodipine Besylate 10 MG DAILY 04/13 1000 AC PO Ampicillin Sodium/ 3,000 MG Q6 04/12 1800 AC 04/13 Sulbactam Sodium IV 0547 Sodium Chloride 100 ML Atorvastatin Calcium 80 MG DAILY 04/13 1000 AC PO Ceftriaxone Sodium 1,000 MG ONCE ONE 04/12 0800 CAN IV 04/12 0801 Dexmedetomidine HCl 200 MCG .STK-MED ONE 04/12 1153 DC IV 04/12 1154 Duloxetine HCl 60 MG DAILY 04/13 1000 AC PO Fentanyl Citrate 100 MCG .STK-MED ONE 04/12 1152 DC IM 04/12 1153 Furosemide 40 MG BID 04/12 2200 AC 04/12 PO 2100 Gabapentin 400 MG TID 04/12 1600 AC 04/12 PO 2100 Gabapentin 400 MG TID PRN 04/12 1500 DC PO 04/12 1559 Hydralazine HCl 100 MG BID 04/12 2200 AC 04/12 PO 2101 Ibuprofen 400 MG ONCE ONE 04/13 0600 DC 04/13 PO 04/13 0601 0600 Ibuprofen 400 MG ONCE ONE 04/12 2100 DC 04/12 PO 04/12 2101 2059 Ibuprofen 600 MG ONCE ONE 04/12 1815 CAN PO 04/12 1816 Insulin Aspart 0 TIDAC 04/12 1700 AC 04/12 SC 1730 Lisinopril 40 MG DAILY 04/13 1000 AC PO Melatonin 5 MG ONCE ONE 04/12 2014 DC 04/12 PO 04/12 2016 2058 Meperidine HCl 50 MG .STK-MED ONE 04/12 1416 DC IM 04/12 1417 Meperidine HCl 50 MG .STK-MED ONE 04/12 1342 DC IM 04/12 1343 Metoprolol Tartrate 75 MG BID 04/12 2200 AC 04/12 PO 2100 Midazolam HCl 2 MG .STK-MED ONE 04/12 1152 DC IM 04/12 1153 Morphine Sulfate 2 MG ONCE ONE 04/12 1900 DC 03 IV 04/12 1901 1902 Morphine Sulfate 4 MG .STK-MED ONE 04/12 1858 DC IM 04/12 1859 Morphine Sulfate 4 MG .STK-MED ONE 04/12 1733 DC IM 04/12 1734 Morphine Sulfate 2 MG Q8P PRN 04/12 1545 AC 04/13 IV 0220 Morphine Sulfate 4 MG .STK-MED ONE 04/12 1415 DC IM 04/12 1416 Morphine Sulfate 4 MG .STK-MED ONE 04/12 1350 DC IM 04/12 1351 Morphine Sulfate 4 MG .STK-MED ONE 04/12 1341 DC IM 04/12 1342 Morphine Sulfate 4 MG .STK-MED ONE 04/12 1326 DC IM 04/12 1327 Ondansetron HCl 4 MG ONCE ONE 04/12 2014 DC 04/12 IV 04/12 Oxycodone HCl 5 MG Q4P PRN 04/12 2200 AC 04/13 PO 0400 Oxycodone HCl 5 MG Q6P PRN 04/12 1545 DC 04/12 PO 1606 Promethazine HCl 25 MG .STK-MED ONE 04/12 2148 DC IM 04/12 2149 Sodium Chloride 1,000 ML BOLUS ONE 04/12 0830 DC 04/12 IV 04/12 0929 0903 Trimethobenzamide HCl 200 MG 4 TIMES/DAY PRN 04/13 0100 AC 04/13 IM 0410 Trimethobenzamide HCl 200 MG ONCE ONE 04/12 2200 DC 04/12 IM 04/12 220 2153 Warfarin Sodium 7.5 MG COUMADIN 1700 ONE 04/13 1700 CAN PO 04/13 1701 Warfarin Sodium 7.5 MG ONCE ONE 04/12 1745 DC / PO 04/12 174 2058 Last 24 Hrs of Lab/Jose Alberto Results Last 24 Hrs of Labs/Mics: Laboratory Tests 04/12/17 1755: Ur Random Creatinine 122.1, Ur Random Microalbumin 4.4 H, U Cystine/Creat Ratio 36.03 04/12/17 1755: Urine Color YEL, Urine Clarity CLEAR, Urine pH 6.0, Ur Specific [place] 1.025, Urine Protein 30 H, Urine Ketones TRACE H, Urine Nitrite NEG, Urine Bilirubin NEG, Urine Urobilinogen 0.2, Ur Leukocyte Esterase NEG, Ur Microscopic SEDIMENT EXAMINED, Urine RBC RARE, Urine WBC RARE, Ur Epithelial Cells RARE, Hyaline Casts MANY H, Urine Hemoglobin NEG, Urine Glucose >=1000 H 04/12/17 1607: C-Reactive Prot, Quant > 9.0 H, C-React Prot High Sens > 15.0 H, ESR Westergren 61 H 04/12/17 1128: Lactic Acid 1.4 04/12/17 0807: Anion Gap 13, Estimated GFR > 60, BUN/Creatinine Ratio 15.6, Glucose 403 H, Hemoglobin A1c 12.7 H, Lactic Acid 1.4, Calcium 8.6, Total Bilirubin 1.3, AST 13 L, ALT 17 L, Alkaline Phosphatase 96, Troponin I 0.03, Total Protein 5.7 L , Albumin 3.2 L, Globulin 2.5, Albumin/Globulin Ratio 1.3, PT 26.2 H, INR 2.52 H, APTT 41 H, CBC w Diff MAN DIFF ORDERED, RBC 4.36 L, MCV 85.5, MCH 28.9, MCHC 33.8, RDW 13.3, MPV 8.5, Gran % 89.3 H, Lymphocytes % 5.2 L, Monocytes % 4.9, Eosinophils % 0.6, Basophils % 0, Absolute Granulocytes 18.2 H, Absolute Lymphocytes 1.1 L, Absolute Monocytes 1.0 H, Absolute Eosinophils 0.1, Absolute Basophils 0, Platelet Estimate VERIFIED BY SMEAR, Normocytic RBCs VERIFIED, Normochromic RBCs VERIFIED 04/12/17 0751: Lactic Acid Cancelled Microbiology 04/12 1250 EXTREMITIE: Gross Specimen Examination - RECD 04/12 1250 EXTREMITIE: Gram Stain - RECD 04/12 1250 EXTREMITIE: Gross Specimen Examination - RECD 04/12 1250 EXTREMITIE: Gram Stain - RECD 04/12 0945 BLOOD: Blood Culture - RECD 04/12 0845 BLOOD: Blood Culture - RECD Lines/Diet/Fluids Lines: peripheral lines Assessment/Plan Assessment: Patient is a 46 YO long standing IDDM Male with significant history of CVA with possible left atrial thrombus on warfarin since 2013, HTN, Obesity, CHF now presenting with worsening of left foot ulcer with erythema and pain. He was off insulin for the past 3 months due to insurance issues and is experiencing signs of hyperglycemia like Polyuria, Polydipsia, Neuropathic pain, blury vision. He also had black stools with advil intake. Previous amputation of Rt big toe. VS at admission are stable (afebrile with HR 80, BP 115/68 mmHg). Physical exam significant for erythema extending upto the right knee with significant sweeling and ulceration on palmar surface, warm and tender to touch. Also notable for diffuse abdominal pain, systolic murmur, lungs clear. Labs did show elevated white count of 20 with HbA1C of 12, INR 2.5. Normal Cr 0.9 and AG 13. Imaging of right foot shows Emphysematous soft tissue of right foot without any bone involvement. Podiatry was consulted and sent to Operating room from ER for debridement. Admitted to general medicine floor Problem list 1. Emphysematous fascitis/Gas gangrene 2. Uncontrolled Insuline dependent Diabetes mellitus with HbA1C of 12 3. HTN 4. Heart failure by history 5. CVA on warfarin for possible left atrial thrombus 6. Melena with advil intake Plan Emphysematous fascitis/GAS Gangrene * Secondary to uncontrolled diabetes (off insulin). Probable organisms are Clostridium, Strep A, anerobes. He underwent incision and drainage of right foot infection with excisional debridement of all nonviable skin and soft tissue and bone, including a partial first ray resection of the right foot. * He is on broad spectrum antibiotics. IV Unasyn * Watch for fever. He spiked to 102 last night. He was given motrin 400mg x 2 with improvement of fever and headache. Nausea required both zofran and tigan to subside. * Contiinue tigan for nausea * Will give him sumatriptan 50mg daily PRN for headache. Avoid further NSAIDS. * Blood cultures pending * ID input appreciated * OR next week for closure * Cold packs for fever control * Patient has been weightbearing AGAINST MEDICAL ADVICE; Please avoid weightbearing on affected foot in the immediate postoperative period. * Podiatry following Severe Diabetic Neuropathy * Continue Gabapentin and cymbalta * Increase IV morhine to 4mg Q8hrs PRN for breakthrough pain * Continue PO oxycodone 5mg Q6hrs PRN Poorly controlled IDDM * BG in the 200s * Continue ccuchecks with insulin sliding scale * Endocrinology input appreciated * F/U UA for proteinuria, microalbumin/cr ratio HTN * continue amlodipine 10mg daily and hydralazine 100mg BID Systolic Heart failure by history * Continue metoprolol tartarate 75mg BID, lisinopril 40mg daily, atorvastatin 80mg daily CVA on warfarin for possible left atrial thrombus * On warfarin - INR is therapeutic * F/U INR result and dose coumadin as needed Melena with advil intake * Patient cannot tolerate tylenol and takes advil as needed. Reports experiencing black stools with NSAID intake. * Avoid NSAIDs if possible * oral PPI started * F/U GI note * Guiac all stools DVT prophylaxis with coumadin code status full code Problem List: 1. Wound of lower extremity Pain Ratin Pain Location: RT LE Pain Goal: Remain pain free Pain Plan: cont plan Tomorrow's Labs & Rationales: cbc, bep, INR
[2017-04-13 08:36] LABS: ABSOLUTE BASOPHIL COUNT 0 /CUMM (0.0-0.2); ABSOLUTE EOSINOPHIL COUNT 0.1 /CUMM (0.0-0.7); ABSOLUTE GRANULOCYTE CT 9.1 /CUMM (1.4-6.5); ABSOLUTE MONOCYTE COUNT 0.8 /CUMM (0.10-0.60); EOSINOPHIL % 0.5 % (0-5); MEAN CORPUSCULAR HGB CONC 33.7 G/DL (33.0-37.0); MEAN PLATELET VOLUME 8.6 FL (7.4-10.4)
[2017-04-13 08:54] LABS: PT 36.1 SEC (9.4-12.5)
--- NOTE | 2017-04-13 09:01 | PN- Diabetes ---
Assessment/Plan Diabetes Assessment: The patient complains of pain in his right foot. He is febrile today. He is on IV antibiotics. He vomited at 2 AM but was able to keep his breakfast down now. He states that the nausea has gone away. He still complains of a headache. Last night recommendations were made to begin Levemir 10 units twice a day and adjust sliding scale NovoLog. However these recommendations were not instituted. Plan: Suggest begin Levemir 10 units twice a day today. Begin sliding scale NovoLog according to the sliding scales that I recommended last evening with a separate sliding scale NovoLog at bedtime. Subjective Subjective: Complains of headache Review of Systems Constitutional: Reports: chills. Cardiovascular: Denies: chest pain. Respiratory: Denies: cough. Gastrointestinal: Denies: abdominal pain. Objective Last 24 Hrs of Vital Signs/I&O Vital Signs Date Time Temp Pulse Resp B/P B/P Pulse O2 O2 Flow FiO2 Mean Ox Delivery Rate 04/13 0840 98.4 04/13 0600 101.1 04/13 0547 101.1 101 20 134/70 91 Nasal 3.0L Cannula 04/13 0000 100.0 04/13 0000 95 Nasal 2.0L Cannula 04/12 2300 100.0 04/12 2245 101.6 105 20 154/84 90 Nasal Cannula 04/12 2154 101.6 04/12 2059 102.1 04/12 1600 96 Nasal 2.0L Cannula 04/12 1530 96 Nasal 2.0L Cannula 04/12 1451 98.7 86 20 120/76 92 Nasal 3.0L Cannula 04/12 1119 99.0 86 20 125/77 95 Room Air Intake & Output 04/13 1600 04/13 0800 04/13 0000 Intake Total 780 390 Output Total 750 450 Balance 30 -60 Intake, IV 300 150 Intake, Oral 480 240 Output, 150 Emesis Output, Urine 750 300 Vital Signs Date Time Temp Pulse Resp B/P B/P Pulse O2 O2 Flow FiO2 Mean Ox Delivery Rate 04/13 0840 98.4 04/13 0600 101.1 04/13 0547 101.1 101 20 134/70 91 Nasal 3.0L Cannula 04/13 0000 100.0 03 0000 95 Nasal 2.0L Cannula 04/12 2300 100.0 04/12 2245 101.6 105 20 154/84 90 Nasal Cannula 04/12 2154 101.6 04/12 2059 102.1 04/12 1600 96 Nasal 2.0L Cannula 04/12 1530 96 Nasal 2.0L Cannula 04/12 1451 98.7 86 20 120/76 92 Nasal 3.0L Cannula 04/12 1119 99.0 86 20 125/77 95 Room Air Intake & Output 04/13 1600 04/13 0800 04/13 0000 Intake Total 780 390 Output Total 750 450 Balance 30 -60 Intake, IV 300 150 Intake, Oral 480 240 Output, 150 Emesis Output, Urine 750 300 Physical Exam General Appearance: alert, awake Head: normal appearance Neck: normal inspection Respiratory: normal breath sounds Cardiovascular: regular rate/rhythm Abdomen: normal bowel sounds Back: normal inspection Current Medications: Current Medications Sig/Tello Start time Last Medication Dose Route Stop Time Status Admin Amlodipine Besylate 10 MG DAILY 04/13 1000 AC PO Ampicillin Sodium/ 3,000 MG Q6 04/12 1800 AC 04/13 Sulbactam Sodium IV 0547 Sodium Chloride 100 ML Atorvastatin Calcium 80 MG DAILY 04/13 1000 AC PO Ceftriaxone Sodium 1,000 MG ONCE ONE 04/12 0800 CAN IV 04/12 0801 Dexmedetomidine HCl 200 MCG .STK-MED ONE 04/12 1153 DC IV 04/12 1154 Duloxetine HCl 60 MG DAILY 04/13 1000 AC PO Fentanyl Citrate 100 MCG .STK-MED ONE 04/12 1152 DC IM 04/12 1153 Furosemide 40 MG BID / 2200 AC 04/12 PO 2100 Gabapentin 400 MG TID 04/12 1600 AC 04/12 PO 2100 Gabapentin 400 MG TID PRN 04/12 1500 DC PO 04/12 1559 Hydralazine HCl 100 MG BID 04/12 2200 AC / PO 2101 Ibuprofen 400 MG ONCE ONE 04/13 0600 DC 04/13 PO 04/13 0601 0600 Ibuprofen 400 MG ONCE ONE 04/12 2100 DC 04/12 PO 04/12 210 2059 Ibuprofen 600 MG ONCE ONE 04/12 1815 CAN PO 04/12 1816 Insulin Aspart 0 TIDAC 04/12 1700 AC 04/13 SC 0750 Lisinopril 40 MG DAILY 04/13 1000 AC PO Melatonin 5 MG ONCE ONE 04/12 2014 DC 04/12 PO 04/12 Meperidine HCl 50 MG .STK-MED ONE 04/12 1416 DC IM 04/12 1417 Meperidine HCl 50 MG .STK-MED ONE 04/12 1342 DC IM 04/12 1343 Metoprolol Tartrate 75 MG BID 04/12 2200 AC 04/12 PO 2100 Midazolam HCl 2 MG .STK-MED ONE 04/12 1152 DC IM 04/12 1153 Morphine Sulfate 4 MG Q8P PRN 04/13 0845 AC IV Morphine Sulfate 2 MG ONCE ONE 04/12 1900 DC 03 IV 04/12 1901 1902 Morphine Sulfate 4 MG .STK-MED ONE 04/12 1858 DC IM 04/12 1859 Morphine Sulfate 4 MG .STK-MED ONE 04/12 1733 DC IM 04/12 1734 Morphine Sulfate 2 MG Q8P PRN 04/12 1545 DC 04/13 IV 0220 Morphine Sulfate 4 MG .STK-MED ONE 04/12 1415 DC IM 04/12 1416 Morphine Sulfate 4 MG .STK-MED ONE 04/12 1350 DC IM 04/12 1351 Morphine Sulfate 4 MG .STK-MED ONE 04/12 1341 DC IM 04/12 1342 Morphine Sulfate 4 MG .STK-MED ONE 04/12 1326 DC IM 04/12 1327 Ondansetron HCl 4 MG ONCE ONE 04/12 2014 DC 04/12 IV 04/12 Oxycodone HCl 5 MG Q6P PRN 04/13 0845 AC PO Oxycodone HCl 5 MG Q4P PRN 04/12 2200 AC 04/13 PO 0400 Oxycodone HCl 5 MG Q6P PRN 04/12 1545 DC 04/12 PO 1606 Promethazine HCl 25 MG .STK-MED ONE 04/12 2148 DC IM 04/12 2149 Sodium Chloride 1,000 ML BOLUS ONE 04/12 0830 DC 04/12 IV 04/12 0929 0903 Sumatriptan Succinate 50 MG DAILY NEEDED PRN 04/13 0845 AC PO Trimethobenzamide HCl 200 MG 4 TIMES/DAY PRN 04/13 0100 AC 04/13 IM 0410 Trimethobenzamide HCl 200 MG ONCE ONE 04/12 2200 DC 04/12 IM 04/12 2201 2153 Warfarin Sodium 7.5 MG COUMADIN 1700 ONE 04/13 1700 CAN PO 04/13 1701 Warfarin Sodium 7.5 MG ONCE ONE 04/12 174 DC 04/12 PO 04/12 Findings Pertinent Lab/Jose Alberto Results: Laboratory Tests 04/13 04/13 04/12 0725 0625 1755 Chemistry Sodium Pending Potassium Pending Chloride Pending Carbon Dioxide Pending Anion Gap Pending BUN Pending Creatinine Pending BUN/Creatinine Ratio Pending Hemoglobin A1c Cancelled Total Bilirubin Pending Direct Bilirubin Pending AST Pending ALT Pending Alkaline Phosphatase Pending Total Protein Pending Albumin Pending Triglycerides Pending Cholesterol Pending LDL Cholesterol, Calc Pending HDL Cholesterol Pending Cholesterol/HDL Ratio Pending TSH Pending Free T4 Pending Coagulation PT Pending INR Pending Hematology CBC w Diff Pending WBC Pending RBC Pending Hgb Pending Hct Pending MCV Pending MCH Pending MCHC Pending RDW Pending Plt Count Pending MPV Pending Urines Ur Random Creatinine (mg/dL) 122.1 Ur Random Microalbumin (<1.7 mg/dl) 4.4 H U Cystine/Creat Ratio (mcg/mg) 36.03 04/12 04/12 04/12 1755 1607 1128 Chemistry Lactic Acid (0.7 - 2.1 mmol/L) 1.4 C-Reactive Prot, Quant (<1.0 mg/dL) > 9.0 H C-React Prot High Sens (1.0 - 3.0 mg/L) > 15.0 H Hematology ESR Westergren (0 - 10 MM) 61 H Urines Urine Color (YEL,AMB,STR) YEL Urine Clarity (CLEAR) CLEAR Urine pH (5.0 - 8.0) 6.0 Ur Specific [place] (1.001 - 1.035) 1.025 Urine Protein (NEG,<30 MG/DL) 30 H Urine Ketones (NEG) TRACE H Urine Nitrite (NEG) NEG Urine Bilirubin (NEG) NEG Urine Urobilinogen (0.1 - 1.0 EU/dl) 0.2 Ur Leukocyte Esterase (NEG) NEG Ur Microscopic SEDIMENT EXAMINED Urine RBC (0 - 5 /HPF) RARE Urine WBC (0 - 2 /HPF) RARE Ur Epithelial Cells (NONE,FEW) RARE Hyaline Casts (0/LPF) MANY H Urine Hemoglobin (NEG) NEG Urine Glucose (N MG/DL) >=1000 H
[2017-04-13 09:36] LABS: BASOPHIL % 0.1 % (0.0-2.0); MEAN CORPUSCULAR HGB 28.9 PG (27.0-31.0); MEAN CORPUSCULAR VOLUME 85.8 FL (80.0-94.0); PLATELET COUNT 259 /CUMM (130-400); RBC DISTRIBUTION WIDTH 12.8 % (11.5-14.5); RED BLOOD CELL CT 3.52 /CUMM (4.70-6.10)
[2017-04-13 10:06] LABS: HEMATOCRIT 30.2 % (42-52)
--- NOTE | 2017-04-13 10:20 | PN- Podiatry ---
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 Patient continues to report a headache, continues to report diaphoresis overnight, patient was febrile to 102F overnight, reports chills, denies nausea and vomiting, denies shortness of breath, denies chest pain. Patient has mild strikethrough on the dressing once again, though not as pronounced as from the prior brief notes of yesterday evening. Review of Systems: A 14 point review systems was performed and found to be negative apart from what was reported in the interim history of present illness. Objective Vital Signs and I&Os Vital Signs Date Time Temp Pulse Resp B/P B/P Pulse O2 O2 Flow FiO2 Mean Ox Delivery Rate 04/13 0840 98.4 04/13 0800 98.4 04/13 0800 Nasal 3.0L Cannula 04/13 0600 101.1 04/13 0547 101.1 101 20 134/70 91 Nasal 3.0L Cannula 04/13 0000 100.0 04/13 0000 95 Nasal 2.0L Cannula 04/12 2300 100.0 / 2245 101.6 105 20 154/84 90 Nasal Cannula 04/12 2154 101.6 04/12 2059 102.1 04/12 1600 96 Nasal 2.0L Cannula 04/12 1530 96 Nasal 2.0L Cannula / 1451 98.7 86 20 120/76 92 Nasal 3.0L Cannula 04/12 1119 99.0 86 20 125/77 95 Room Air Intake & Output 04/13 1600 04/13 0800 04/13 0000 04/12 1600 04/12 0800 04/12 0000 Intake Total 780 390 Output Total 750 450 400 Balance 30 -60 -400 Intake, IV 300 150 Intake, Oral 480 240 Output, 150 Emesis Output, Urine 750 300 400 Patient 250 lb 250 lb Weight Weight Bed scale Reported by Patient Measurement Method Physical Exam: Patient's neurovascular status is unchanged from the preoperative history and physical. The bandage has strikethrough plantarly and medially, though not as pronounced as from yesterday evening. There remained significant calor of the right foot and distal leg, but this is with significantly less erythema. The dorsal skin flap shows some signs of necrosis distally, but the remainder of the base of the wound appears viable, there is significant capillary oozing and medullary bone bleeding proximally in the wound. Muscular skeletal exam is unchanged. Current Medications: Current Medications Sig/Tello Start time Last Medication Dose Route Stop Time Status Admin Amlodipine Besylate 10 MG DAILY 04/13 1000 AC PO Ampicillin Sodium/ 3,000 MG Q6 04/12 1800 AC 04/13 Sulbactam Sodium IV 0547 Sodium Chloride 100 ML Atorvastatin Calcium 80 MG DAILY 04/13 1000 AC PO Clindamycin 600 MG IQ8 04/13 1600 AC Dextrose/Water 50 ML IV Dexmedetomidine HCl 200 MCG .STK-MED ONE 04/12 1153 DC IV 04/12 1154 Duloxetine HCl 60 MG DAILY 04/13 1000 AC PO Fentanyl Citrate 100 MCG .STK-MED ONE 04/12 1152 DC IM 04/12 1153 Furosemide 40 MG BID 04/12 2200 AC 04/12 PO 2100 Gabapentin 400 MG TID 04/12 1600 AC 04/12 PO 2100 Gabapentin 400 MG TID PRN 04/12 1500 DC PO 04/12 1559 Hydralazine HCl 100 MG BID 04/12 2200 AC 04/12 PO 2101 Ibuprofen 400 MG ONCE ONE 04/13 0600 DC 04/13 PO 04/13 0601 0600 Ibuprofen 400 MG ONCE ONE 04/12 2100 DC 04/12 PO 04/12 210 205 Ibuprofen 600 MG ONCE ONE 04/12 1815 CAN PO 04/12 1816 Insulin Aspart 0 TIDAC 04/12 1700 AC 04/13 SC 0750 Lisinopril 40 MG DAILY 04/13 1000 AC PO Melatonin 5 MG ONCE ONE 04/12 2014 DC 04/12 PO 04/12 Meperidine HCl 50 MG .STK-MED ONE 04/12 1416 DC IM 04/12 1417 Meperidine HCl 50 MG .STK-MED ONE 04/12 1342 DC IM 04/12 1343 Metoprolol Tartrate 75 MG BID 04/12 2200 AC 04/12 PO 2100 Midazolam HCl 2 MG .STK-MED ONE 04/12 1152 DC IM 04/12 1153 Morphine Sulfate 4 MG Q8P PRN 04/13 0845 AC IV Morphine Sulfate 2 MG ONCE ONE 04/12 1900 DC 04/12 IV 04/12 1901 1902 Morphine Sulfate 4 MG .STK-MED ONE 04/12 1858 DC IM 04/12 1859 Morphine Sulfate 4 MG .STK-MED ONE 04/12 1733 DC IM 04/12 1734 Morphine Sulfate 2 MG Q8P PRN 04/12 1545 DC 04/13 IV 0220 Morphine Sulfate 4 MG .STK-MED ONE 04/12 1415 DC IM 04/12 1416 Morphine Sulfate 4 MG .STK-MED ONE 04/12 1350 DC IM 04/12 1351 Morphine Sulfate 4 MG .STK-MED ONE 04/12 1341 DC IM 04/12 1342 Morphine Sulfate 4 MG .STK-MED ONE 04/12 1326 DC IM 04/12 1327 Ondansetron HCl 4 MG ONCE ONE 04/12 2014 DC 04/12 IV 04/12 Oxycodone HCl 5 MG Q6P PRN 04/13 0845 AC PO Oxycodone HCl 5 MG Q4P PRN 04/12 2200 AC 04/13 PO 0400 Oxycodone HCl 5 MG Q6P PRN 04/12 1545 DC 04/12 PO 1606 Phytonadione 10 MG ONCE ONE 04/13 1015 AC SC 04/13 1016 Promethazine HCl 25 MG .STK-MED ONE 04/12 2148 DC IM 04/12 2149 Sumatriptan Succinate 50 MG DAILY NEEDED PRN 04/13 0845 AC PO Trimethobenzamide HCl 200 MG 4 TIMES/DAY PRN 04/13 0100 AC 04/13 IM 0410 Trimethobenzamide HCl 200 MG ONCE ONE 04/12 2200 DC 04/12 IM 04/12 2201 2153 Warfarin Sodium 7.5 MG COUMADIN 1700 ONE 04/13 1700 CAN PO 04/13 1701 Warfarin Sodium 7.5 MG ONCE ONE 04/12 1745 DC / PO 04/12 1746 2058 Results Last 48 Hours of Labs: Laboratory Tests 04/13 04/13 03 0725 0625 1755 Chemistry Sodium (137 - 145 mmol/L) 135 L Potassium (3.5 - 5.1 mmol/L) 3.4 L Chloride (98 - 107 mmol/L) 95 L Carbon Dioxide (22 - 30 mmol/L) 29 Anion Gap (5 - 16) 12 BUN (9 - 20 mg/dL) 14 Creatinine (0.7 - 1.2 mg/dL) 0.9 Estimated GFR (>60 ml/min) > 60 BUN/Creatinine Ratio (7 - 25 %) 15.6 Hemoglobin A1c Cancelled Total Bilirubin (0.2 - 1.3 mg/dL) 0.7 Direct Bilirubin (< 0.4 mg/dL) 0.4 AST (17 - 59 U/L) 10 L ALT (21 - 72 U/L) 25 Alkaline Phosphatase (< 127 U/L) 82 Total Protein (6.3 - 8.2 g/dL) 5.2 L Albumin (3.5 - 5.0 g/dL) 2.7 L Triglycerides (<150 mg/dL) 129 Cholesterol (< 200 MG/DL) 73 LDL Cholesterol, Calc (65 - 129 mg/dL) 28 L HDL Cholesterol (40 - 60 mg/dL) 20 L Cholesterol/HDL Ratio (0.00 - 4.88 %) 3.7 TSH (0.270 - 4.200 uIU/mL) 0.654 Free T4 (0.64 - 1.79 ng/dL) 1.32 Coagulation PT (9.4 - 12.5 SEC) 36.1 H INR (0.90 - 1.17) 3.48 H Hematology CBC w Diff NO MAN DIFF REQ WBC (4.8 - 10.8 /CUMM) 11.0 H RBC (4.70 - 6.10 /CUMM) 3.52 L Hgb (14.0 - 18.0 G/DL) 10.2 L Hct (42 - 52 %) 30.2 L MCV (80.0 - 94.0 FL) 85.8 MCH (27.0 - 31.0 PG) 28.9 MCHC (33.0 - 37.0 G/DL) 33.7 RDW (11.5 - 14.5 %) 12.8 Plt Count (130 - 400 /CUMM) 259 MPV (7.4 - 10.4 FL) 8.6 Gran % (42.2 - 75.2 %) 83.3 H Lymphocytes % (20.5 - 51.1 %) 8.8 L Monocytes % (1.7 - 9.3 %) 7.3 Eosinophils % (0 - 5 %) 0.5 Basophils % (0.0 - 2.0 %) 0.1 Absolute Granulocytes (1.4 - 6.5 /CUMM) 9.1 H Absolute Lymphocytes (1.2 - 3.4 /CUMM) 1.0 L Absolute Monocytes (0.10 - 0.60 /CUMM) 0.8 H Absolute Eosinophils (0.0 - 0.7 /CUMM) 0.1 Absolute Basophils (0.0 - 0.2 /CUMM) 0 Urines Ur Random Creatinine (mg/dL) 122.1 Ur Random Microalbumin (<1.7 mg/dl) 4.4 H U Cystine/Creat Ratio (mcg/mg) 36.03 04/12 04/12 04/12 1755 1607 1128 Chemistry Lactic Acid (0.7 - 2.1 mmol/L) 1.4 C-Reactive Prot, Quant (<1.0 mg/dL) > 9.0 H C-React Prot High Sens (1.0 - 3.0 mg/L) > 15.0 H Hematology ESR Westergren (0 - 10 MM) 61 H Urines Urine Color (YEL,AMB,STR) YEL Urine Clarity (CLEAR) CLEAR Urine pH (5.0 - 8.0) 6.0 Ur Specific [place] (1.001 - 1.035) 1.025 Urine Protein (NEG,<30 MG/DL) 30 H Urine Ketones (NEG) TRACE H Urine Nitrite (NEG) NEG Urine Bilirubin (NEG) NEG Urine Urobilinogen (0.1 - 1.0 EU/dl) 0.2 Ur Leukocyte Esterase (NEG) NEG Ur Microscopic SEDIMENT EXAMINED Urine RBC (0 - 5 /HPF) RARE Urine WBC (0 - 2 /HPF) RARE Ur Epithelial Cells (NONE,FEW) RARE Hyaline Casts (0/LPF) MANY H Urine Hemoglobin (NEG) NEG Urine Glucose (N MG/DL) >=1000 H 04/12 04/12 0807 0751 Chemistry Sodium (137 - 145 mmol/L) 136 L Potassium (3.5 - 5.1 mmol/L) 3.6 Chloride (98 - 107 mmol/L) 97 L Carbon Dioxide (22 - 30 mmol/L) 27 Anion Gap (5 - 16) 13 BUN (9 - 20 mg/dL) 14 Creatinine (0.7 - 1.2 mg/dL) 0.9 Estimated GFR (>60 ml/min) > 60 BUN/Creatinine Ratio (7 - 25 %) 15.6 Glucose (65 - 99 mg/dL) 403 H Hemoglobin A1c (4.2 - 5.8 %) 12.7 H Lactic Acid (0.7 - 2.1 mmol/L) 1.4 Cancelled Calcium (8.4 - 10.2 mg/dL) 8.6 Total Bilirubin (0.2 - 1.3 mg/dL) 1.3 AST (17 - 59 U/L) 13 L ALT (21 - 72 U/L) 17 L Alkaline Phosphatase (< 127 U/L) 96 Troponin I (<0.11 ng/ml) 0.03 Total Protein (6.3 - 8.2 g/dL) 5.7 L Albumin (3.5 - 5.0 g/dL) 3.2 L Globulin (1.9 - 4.2 gm/dL) 2.5 Albumin/Globulin Ratio (1.1 - 2.2 %) 1.3 Coagulation PT (9.4 - 12.5 SEC) 26.2 H INR (0.90 - 1.17) 2.52 H APTT (25 - 37 SEC) 41 H Hematology CBC w Diff MAN DIFF ORDERED WBC (4.8 - 10.8 /CUMM) 20.4 H RBC (4.70 - 6.10 /CUMM) 4.36 L Hgb (14.0 - 18.0 G/DL) 12.6 L Hct (42 - 52 %) 37.3 L MCV (80.0 - 94.0 FL) 85.5 MCH (27.0 - 31.0 PG) 28.9 MCHC (33.0 - 37.0 G/DL) 33.8 RDW (11.5 - 14.5 %) 13.3 Plt Count (130 - 400 /CUMM) 293 MPV (7.4 - 10.4 FL) 8.5 Gran % (42.2 - 75.2 %) 89.3 H Lymphocytes % (20.5 - 51.1 %) 5.2 L Monocytes % (1.7 - 9.3 %) 4.9 Eosinophils % (0 - 5 %) 0.6 Basophils % (0.0 - 2.0 %) 0 Absolute Granulocytes (1.4 - 6.5 /CUMM) 18.2 H Absolute Lymphocytes (1.2 - 3.4 /CUMM) 1.1 L Absolute Monocytes (0.10 - 0.60 /CUMM) 1.0 H Absolute Eosinophils (0.0 - 0.7 /CUMM) 0.1 Absolute Basophils (0.0 - 0.2 /CUMM) 0 Platelet Estimate (ADEQUATE) VERIFIED BY SMEAR Normocytic RBCs VERIFIED Normochromic RBCs VERIFIED Assessment/Plan Assessment/Plan 46-year-old male with a necrotizing soft tissue infection and acute osteomyelitis of the right foot status post open partial first ray resection with continued capillary oozing. The patient was seen and evaluated at bedside The capillary oozing was treated with several Surgicel bandages and a well- padded compression dressing. This appeared to cease any further bleeding for now, but the patient is again advised to keep the foot elevated with a compression dressing on, and he has not been fully compliant with this thus far. Pt is to remain nonweightbearing on the right lower extremity until the sepsis is stabilized and there is no longer capillary oozing from the wound. I'm amenable to packed red blood cell transfusions as needed to cataract any bleeding from the procedure. Given the substantial decrease in his white count from yesterday to today, I believe he has had adequate surgical resection, but needs significantly more medical treatment than he has gotten thus far. The patient needs to be on broad -spectrum empirical coverage as well as clindamycin for protein synthesis in addition. I discussed the case in person with Dr. Horta and the resident covering over the weekend, and relayed my concerns about his Coumadin and antibiotic coverage. The patient is going to be returned Saturday for revisional debridement and washout, and may require a second one after that, and he should be bridged from Coumadin to short-acting heparin in addition to having some vitamin K to reverse the current bleeding. I'm available to discuss further concerns at [phone] Problem List: 1. Gas gangrene
[2017-04-13 10:37] LABS: GRANULOCYTE % 83.3 % (42.2-75.2)
[2017-04-13 13:44] VITALS: BP 130/70
--- NOTE | 2017-04-13 14:18 | PN- Infect Dx ---
Subjective Subjective: Febrile past 24 h; discomfort R LE Review of Systems Comments: 12 points reviewed as noted, otherwise negative. Objective Last 24 Hrs of Vital Signs/I&O Vital Signs Date Time Temp Pulse Resp B/P B/P Pulse O2 O2 Flow FiO2 Mean Ox Delivery Rate 04/13 1354 101.9 04/13 1344 88 20 130/70 94 Room Air 04/13 1024 58 120/64 04/13 1022 58 120/64 04/13 1021 58 120/64 04/13 0840 98.4 04/13 0800 98.4 04/13 0800 Nasal 3.0L Cannula 04/13 0600 101.1 04/13 0547 101.1 101 20 134/70 91 Nasal 3.0L Cannula 04/13 0000 100.0 04/13 0000 95 Nasal 2.0L Cannula 04/12 2300 100.0 04/12 2245 101.6 105 20 154/84 90 Nasal Cannula 04/12 2154 101.6 04/12 2059 102.1 04/12 1600 96 Nasal 2.0L Cannula 04/12 1530 96 Nasal 2.0L Cannula 04/12 1451 98.7 86 20 120/76 92 Nasal 3.0L Cannula Intake & Output 04/13 1600 04/13 0800 04/13 0000 Intake Total 630 780 390 Output Total 300 750 450 Balance 330 30 -60 Intake, IV 150 300 150 Intake, Oral 480 480 240 Output, 150 Emesis Output, Urine 300 750 300 Physical Exam Other Physical Findings: General Appearance Alert, Oriented X3, Cooperative Skin Erythma R LE extending below the knee, warm to touch, no crepitations Skin Temp/Moisture Exam: Warm/Dry HEENT Atraumatic, PERRLA, EOMI Neck Supple Cardiovascular Normal S1, Normal S2, systolic murmur Lungs Clear to Auscultation, Normal Air Movement Abdomen Normal Bowel Sounds, Soft Neurological Normal Speech, Normal Tone, Sensation Intact Extremities No Clubbing, No Cyanosis, R LE dressing in place Results Last 24 Hours of Lab Results: Laboratory Tests 04/13 04/13 04/12 0725 0625 1755 Chemistry Sodium (137 - 145 mmol/L) 135 L Potassium (3.5 - 5.1 mmol/L) 3.4 L Chloride (98 - 107 mmol/L) 95 L Carbon Dioxide (22 - 30 mmol/L) 29 Anion Gap (5 - 16) 12 BUN (9 - 20 mg/dL) 14 Creatinine (0.7 - 1.2 mg/dL) 0.9 Estimated GFR (>60 ml/min) > 60 BUN/Creatinine Ratio (7 - 25 %) 15.6 Hemoglobin A1c Cancelled Total Bilirubin (0.2 - 1.3 mg/dL) 0.7 Direct Bilirubin (< 0.4 mg/dL) 0.4 AST (17 - 59 U/L) 10 L ALT (21 - 72 U/L) 25 Alkaline Phosphatase (< 127 U/L) 82 Total Protein (6.3 - 8.2 g/dL) 5.2 L Albumin (3.5 - 5.0 g/dL) 2.7 L Triglycerides (<150 mg/dL) 129 Cholesterol (< 200 MG/DL) 73 LDL Cholesterol, Calc (65 - 129 mg/dL) 28 L HDL Cholesterol (40 - 60 mg/dL) 20 L Cholesterol/HDL Ratio (0.00 - 4.88 %) 3.7 TSH (0.270 - 4.200 uIU/mL) 0.654 Free T4 (0.64 - 1.79 ng/dL) 1.32 Coagulation PT (9.4 - 12.5 SEC) 36.1 H INR (0.90 - 1.17) 3.48 H Hematology CBC w Diff NO MAN DIFF REQ WBC (4.8 - 10.8 /CUMM) 11.0 H RBC (4.70 - 6.10 /CUMM) 3.52 L Hgb (14.0 - 18.0 G/DL) 10.2 L Hct (42 - 52 %) 30.2 L MCV (80.0 - 94.0 FL) 85.8 MCH (27.0 - 31.0 PG) 28.9 MCHC (33.0 - 37.0 G/DL) 33.7 RDW (11.5 - 14.5 %) 12.8 Plt Count (130 - 400 /CUMM) 259 MPV (7.4 - 10.4 FL) 8.6 Gran % (42.2 - 75.2 %) 83.3 H Lymphocytes % (20.5 - 51.1 %) 8.8 L Monocytes % (1.7 - 9.3 %) 7.3 Eosinophils % (0 - 5 %) 0.5 Basophils % (0.0 - 2.0 %) 0.1 Absolute Granulocytes (1.4 - 6.5 /CUMM) 9.1 H Absolute Lymphocytes (1.2 - 3.4 /CUMM) 1.0 L Absolute Monocytes (0.10 - 0.60 /CUMM) 0.8 H Absolute Eosinophils (0.0 - 0.7 /CUMM) 0.1 Absolute Basophils (0.0 - 0.2 /CUMM) 0 Urines Ur Random Creatinine (mg/dL) 122.1 Ur Random Microalbumin (<1.7 mg/dl) 4.4 H U Cystine/Creat Ratio (mcg/mg) 36.03 04/12 04/12 1755 1607 Chemistry C-Reactive Prot, Quant (<1.0 mg/dL) > 9.0 H C-React Prot High Sens (1.0 - 3.0 mg/L) > 15.0 H Hematology ESR Westergren (0 - 10 MM) 61 H Urines Urine Color (YEL,AMB,STR) YEL Urine Clarity (CLEAR) CLEAR Urine pH (5.0 - 8.0) 6.0 Ur Specific [place] (1.001 - 1.035) 1.025 Urine Protein (NEG,<30 MG/DL) 30 H Urine Ketones (NEG) TRACE H Urine Nitrite (NEG) NEG Urine Bilirubin (NEG) NEG Urine Urobilinogen (0.1 - 1.0 EU/dl) 0.2 Ur Leukocyte Esterase (NEG) NEG Ur Microscopic SEDIMENT EXAMINED Urine RBC (0 - 5 /HPF) RARE Urine WBC (0 - 2 /HPF) RARE Ur Epithelial Cells (NONE,FEW) RARE Hyaline Casts (0/LPF) MANY H Urine Hemoglobin (NEG) NEG Urine Glucose (N MG/DL) >=1000 H Last 24 Hours of Jose Alberto Results: PEC #: [id number] SONIA: 04/12/17125 STATUS: RES RECD: 04/12/[address]: Yair Merritt MD SOURCE: TAWNY ENTR: 04/12/171216 OTHR DR: Karlie Barbosa DO SPDESC: FOOT R ORDERED: XTRMOR COMMENT: ADDITIONAL INFORMATION: TISSUE CULTURE RIGHT FOOT RECEIVED SMALL BLOODY PIEE OF TISSUE IN STERILE CUP Procedure Result > GRAM STAIN Final 04/13/1736 WHITE BLOOD CELLS RARE GRAM POSITIVE COCCI MANY GRAM NEGATIVE RODS RARE > EXTREMITIES OR SPECIMEN Preliminary 04/13/17-939 Moderate growth of: 1. BETA STREP GROUP B 2. GRAM NEGATIVE RODS Identification and sensitivities to follow Penicillin and Ampicillin are drugs of choice for beta-hemolytic streptococcal infections. Susceptibility testing of penicillins and other beta-lactams are not routinely performed because non-susceptible isolates have only rarely been reported. REPORTED TO AND READ BACK BY MARK AT 0940 04/13/17 LAB.SVCY. Note: If patient is allergic to Penicillin, the laboratory can perform Clindamycin testing upon request. Please call within 5 days of final report. Recent Imaging Studies: CLINICAL INFORMATION: Fever. Open wound. Presumptive diagnosis of osteomyelitis. COMPARISON: Right foot films dated 06/13/2016. TECHNIQUE: AP, lateral, and oblique views of the right foot. FINDINGS: The patient is status post amputation of the first toe at the metatarsophalangeal joint level. There is now prominent subcutaneous emphysema seen in the soft tissue stump of the amputated toe, increasing when compared to the prior study, consistent with the clinical history of an open wound. However, close clinical correlation is requested to exclude emphysematous fasciitis. The head of the first metatarsal bone remains intact with normal cortical margins seen. No abnormal periosteal reaction or focal lytic lesion is noted. There is chronic dislocation at the second and third metatarsophalangeal joints, unchanged. Mild degenerative changes are seen in the intertarsal joints and the tibial talar joint. Diffuse osteopenia is seen. Small plantar calcaneal spur is seen. Prominent soft tissue swelling is noted about the foot. No ankle joint effusion is seen. IMPRESSION: 1. Increasing soft tissue emphysema seen in the soft tissues of the amputation of the first toe. This may be related to the patient's open wound. Clinical correlation requested to exclude emphysematous fasciitis. 2. No plain film evidence of osteomyelitis seen. 3. 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 4. Osteopenia and multilevel degenerative changes. DICTATED BY: Shanta DELGADILLO,Heike N. DATE/TIME DICTATED:04/12/171007 [facility] LABORER:FIORELLA DATE/TIME TRANSCRIBED:04/12/171007 Assessment/Plan ID Impression: 46 y/o M with PMH of CVA 2013, IDDM, HTN, systolic heart failure (EF 45-50% ) admitted 04/12. R LE cellulitis; evaluated for OM/emphysematous fasciitis R foot Leukocytosis; WBC istrending down Fever Suggestion: 1. Cont D #2 Unasyn 3 gm iv q 6 h pending final OR culture results (Strep gr B and GNR); as GNR sensitivity pending add Cipro 400 mg iv q 12 h. D/C Clindamycin. 2. Trend CBC, BMP. 3. EKG in am to monitor QT interval; if prolonged above 500 msec please call.
[2017-04-13 22:19] VITALS: BP 116/60
[2017-04-14 06:44] VITALS: BP 130/80
--- NOTE | 2017-04-14 07:58 | PN- Podiatry ---
Subjective Subjective: 46-year-old male seen and evaluated at bedside postoperative day 2 emergency open partial first ray resection of the right foot for the treatment of a necrotizing diabetic foot infection. Patient continues to report headache, had fever to 101 maximum in the last 24 hours, reported one episode of nausea and vomiting at 2 AM. Nursing staff also reported strikethrough on the dressing related to his getting out of bed to vomit and having the leg in a dependent position. Patient continues to report diaphoresis, but not as much as yesterday. Review of Systems: A 14 point review of systems was performed, and was found to be negative apart from the patient's complaints described above in the history of present illness. Objective Vital Signs and I&Os Vital Signs Date Time Temp Pulse Resp B/P B/P Pulse O2 O2 Flow FiO2 Mean Ox Delivery Rate 04/14 0644 99.2 88 20 130/80 92 Nasal 2.0L Cannula 04/13 2219 99.0 85 20 116/60 94 Nasal Cannula 04/13 2112 85 116/60 04/13 1600 94 Nasal 2.0L Cannula 04/13 1553 101.7 04/13 1419 101.9 04/13 1354 101.9 04/13 1344 88 20 130/70 94 Nasal 2.0L Cannula 04/13 1024 58 120/64 04/13 1022 58 120/64 04/13 1021 58 120/64 04/13 0840 98.4 04/13 0800 98.4 04/13 0800 Nasal 3.0L Cannula Intake & Output 04/14 0800 03/04 0000 03/03 1600 /03 0800 / 0000 0302 1600 Intake Total 1000 630 780 390 Output Total 450 500 750 450 400 Balance -450 1000 130 30 -60 -400 Intake, IV 400 150 300 150 Intake, Oral 600 480 480 240 Output, 150 Emesis Output, Urine 450 500 750 300 400 Patient 250 lb Weight Weight Bed scale Measurement Method Physical Exam: Patient's neurovascular status is unchanged. There is strikethrough on the Boyd bandage, and some dried blood on the gauze adjacent to the dressing. The surgical wound itself does not show active bleeding, and this is likely from his making the leg dependent a few hours prior. The surrounding skin show some signs of ecchymosis, but there is no erythema, calor is improved, calf and leg tenderness are significantly improved, there is no purulence, no drainage, no malodor. Current Medications: Current Medications Sig/Tello Start time Last Medication Dose Route Stop Time Status Admin Amlodipine Besylate 10 MG DAILY 04/13 1000 AC 04/13 PO 1022 Ampicillin Sodium/ 3,000 MG Q6 04/12 1800 AC 04/14 Sulbactam Sodium IV 0615 Sodium Chloride 100 ML Atorvastatin Calcium 80 MG DAILY 04/13 1000 AC 04/13 PO 1022 Ciprofloxacin 400 MG Q12 04/13 2200 AC 04/13 Dextrose/Water 200 ML IV 2127 Clindamycin 600 MG IQ8 04/13 1600 DC 04/13 Dextrose/Water 50 ML IV 1553 Duloxetine HCl 60 MG DAILY 04/13 1000 AC 04/13 PO 1022 Furosemide 40 MG 0730,1630 04/14 0730 AC 04/14 PO 0720 Furosemide 40 MG .STK-MED ONE 04/13 2105 DC PO 04/13 2106 Furosemide 40 MG BID 04/12 2200 DC 04/13 PO 2110 Gabapentin 400 MG TID 04/12 1600 AC 04/13 PO 2112 Hydralazine HCl 100 MG BID 04/12 2200 AC 04/13 PO 2112 Hydromorphone HCl 0.6 MG ONCE ONE 04/13 1145 DC 04/13 IV 04/13 1146 1148 Ibuprofen 400 MG ONCE ONE 04/13 1400 DC 04/13 PO 04/13 1401 1419 Insulin Aspart 0 TIDAC 04/12 1700 AC 04/13 SC 1634 Insulin Detemir 10 UNITS BID 04/13 1040 AC 04/13 SC 2113 Lisinopril 40 MG DAILY 04/13 1000 AC 04/13 PO 1021 Metoprolol Tartrate 75 MG BID 04/12 2200 AC 04/13 PO 2112 Morphine Sulfate 4 MG Q8P PRN 04/13 0845 AC 04/13 IV 1017 Morphine Sulfate 2 MG Q8P PRN 04/12 1545 DC 04/13 IV 0220 Oxycodone HCl 10 MG Q6P PRN 04/13 1615 AC 04/14 PO 0408 Oxycodone HCl 5 MG Q6P PRN 04/13 0845 DC PO Oxycodone HCl 5 MG Q4P PRN 04/12 2200 DC 04/13 PO 1117 Pantoprazole Sodium 40 MG BID 04/13 2200 AC 04/13 IV 2113 Pantoprazole Sodium 40 MG DAILY 04/13 1022 DC 04/13 IV 1120 Phytonadione 10 MG ONCE ONE 04/13 1015 DC 04/13 SC 04/13 1016 1119 Potassium Chloride 40 MEQ ONCE ONE 04/13 1045 DC 04/13 PO 04/13 1046 1118 Promethazine HCl 25 MG Q4 PRN 04/14 0630 AC PO 04/21 0629 Sumatriptan Succinate 50 MG DAILY NEEDED PRN 04/13 0845 AC 04/14 PO 0409 Trimethobenzamide HCl 200 MG 4 TIMES/DAY PRN 04/13 0100 AC 04/14 IM 0200 Results Last 48 Hours of Labs: Laboratory Tests 04/13 04/13 04/12 0725 0625 1755 Chemistry Sodium (137 - 145 mmol/L) 135 L Potassium (3.5 - 5.1 mmol/L) 3.4 L Chloride (98 - 107 mmol/L) 95 L Carbon Dioxide (22 - 30 mmol/L) 29 Anion Gap (5 - 16) 12 BUN (9 - 20 mg/dL) 14 Creatinine (0.7 - 1.2 mg/dL) 0.9 Estimated GFR (>60 ml/min) > 60 BUN/Creatinine Ratio (7 - 25 %) 15.6 Hemoglobin A1c Cancelled Total Bilirubin (0.2 - 1.3 mg/dL) 0.7 Direct Bilirubin (< 0.4 mg/dL) 0.4 AST (17 - 59 U/L) 10 L ALT (21 - 72 U/L) 25 Alkaline Phosphatase (< 127 U/L) 82 Total Protein (6.3 - 8.2 g/dL) 5.2 L Albumin (3.5 - 5.0 g/dL) 2.7 L Triglycerides (<150 mg/dL) 129 Cholesterol (< 200 MG/DL) 73 LDL Cholesterol, Calc (65 - 129 mg/dL) 28 L HDL Cholesterol (40 - 60 mg/dL) 20 L Cholesterol/HDL Ratio (0.00 - 4.88 %) 3.7 TSH (0.270 - 4.200 uIU/mL) 0.654 Free T4 (0.64 - 1.79 ng/dL) 1.32 Coagulation PT (9.4 - 12.5 SEC) 36.1 H INR (0.90 - 1.17) 3.48 H Hematology CBC w Diff NO MAN DIFF REQ WBC (4.8 - 10.8 /CUMM) 11.0 H RBC (4.70 - 6.10 /CUMM) 3.52 L Hgb (14.0 - 18.0 G/DL) 10.2 L Hct (42 - 52 %) 30.2 L MCV (80.0 - 94.0 FL) 85.8 MCH (27.0 - 31.0 PG) 28.9 MCHC (33.0 - 37.0 G/DL) 33.7 RDW (11.5 - 14.5 %) 12.8 Plt Count (130 - 400 /CUMM) 259 MPV (7.4 - 10.4 FL) 8.6 Gran % (42.2 - 75.2 %) 83.3 H Lymphocytes % (20.5 - 51.1 %) 8.8 L Monocytes % (1.7 - 9.3 %) 7.3 Eosinophils % (0 - 5 %) 0.5 Basophils % (0.0 - 2.0 %) 0.1 Absolute Granulocytes (1.4 - 6.5 /CUMM) 9.1 H Absolute Lymphocytes (1.2 - 3.4 /CUMM) 1.0 L Absolute Monocytes (0.10 - 0.60 /CUMM) 0.8 H Absolute Eosinophils (0.0 - 0.7 /CUMM) 0.1 Absolute Basophils (0.0 - 0.2 /CUMM) 0 Urines Ur Random Creatinine (mg/dL) 122.1 Ur Random Microalbumin (<1.7 mg/dl) 4.4 H U Cystine/Creat Ratio (mcg/mg) 36.03 03/02 03/02 03/ 1755 1607 1128 Chemistry Lactic Acid (0.7 - 2.1 mmol/L) 1.4 C-Reactive Prot, Quant (<1.0 mg/dL) > 9.0 H C-React Prot High Sens (1.0 - 3.0 mg/L) > 15.0 H Hematology ESR Westergren (0 - 10 MM) 61 H Urines Urine Color (YEL,AMB,STR) YEL Urine Clarity (CLEAR) CLEAR Urine pH (5.0 - 8.0) 6.0 Ur Specific [place] (1.001 - 1.035) 1.025 Urine Protein (NEG,<30 MG/DL) 30 H Urine Ketones (NEG) TRACE H Urine Nitrite (NEG) NEG Urine Bilirubin (NEG) NEG Urine Urobilinogen (0.1 - 1.0 EU/dl) 0.2 Ur Leukocyte Esterase (NEG) NEG Ur Microscopic SEDIMENT EXAMINED Urine RBC (0 - 5 /HPF) RARE Urine WBC (0 - 2 /HPF) RARE Ur Epithelial Cells (NONE,FEW) RARE Hyaline Casts (0/LPF) MANY H Urine Hemoglobin (NEG) NEG Urine Glucose (N MG/DL) >=1000 H 03/ 0807 Chemistry Sodium (137 - 145 mmol/L) 136 L Potassium (3.5 - 5.1 mmol/L) 3.6 Chloride (98 - 107 mmol/L) 97 L Carbon Dioxide (22 - 30 mmol/L) 27 Anion Gap (5 - 16) 13 BUN (9 - 20 mg/dL) 14 Creatinine (0.7 - 1.2 mg/dL) 0.9 Estimated GFR (>60 ml/min) > 60 BUN/Creatinine Ratio (7 - 25 %) 15.6 Glucose (65 - 99 mg/dL) 403 H Hemoglobin A1c (4.2 - 5.8 %) 12.7 H Lactic Acid (0.7 - 2.1 mmol/L) 1.4 Calcium (8.4 - 10.2 mg/dL) 8.6 Total Bilirubin (0.2 - 1.3 mg/dL) 1.3 AST (17 - 59 U/L) 13 L ALT (21 - 72 U/L) 17 L Alkaline Phosphatase (< 127 U/L) 96 Troponin I (<0.11 ng/ml) 0.03 Total Protein (6.3 - 8.2 g/dL) 5.7 L Albumin (3.5 - 5.0 g/dL) 3.2 L Globulin (1.9 - 4.2 gm/dL) 2.5 Albumin/Globulin Ratio (1.1 - 2.2 %) 1.3 Coagulation PT (9.4 - 12.5 SEC) 26.2 H INR (0.90 - 1.17) 2.52 H APTT (25 - 37 SEC) 41 H Hematology CBC w Diff MAN DIFF ORDERED WBC (4.8 - 10.8 /CUMM) 20.4 H RBC (4.70 - 6.10 /CUMM) 4.36 L Hgb (14.0 - 18.0 G/DL) 12.6 L Hct (42 - 52 %) 37.3 L MCV (80.0 - 94.0 FL) 85.5 MCH (27.0 - 31.0 PG) 28.9 MCHC (33.0 - 37.0 G/DL) 33.8 RDW (11.5 - 14.5 %) 13.3 Plt Count (130 - 400 /CUMM) 293 MPV (7.4 - 10.4 FL) 8.5 Gran % (42.2 - 75.2 %) 89.3 H Lymphocytes % (20.5 - 51.1 %) 5.2 L Monocytes % (1.7 - 9.3 %) 4.9 Eosinophils % (0 - 5 %) 0.6 Basophils % (0.0 - 2.0 %) 0 Absolute Granulocytes (1.4 - 6.5 /CUMM) 18.2 H Absolute Lymphocytes (1.2 - 3.4 /CUMM) 1.1 L Absolute Monocytes (0.10 - 0.60 /CUMM) 1.0 H Absolute Eosinophils (0.0 - 0.7 /CUMM) 0.1 Absolute Basophils (0.0 - 0.2 /CUMM) 0 Platelet Estimate (ADEQUATE) VERIFIED BY SMEAR Normocytic RBCs VERIFIED Normochromic RBCs VERIFIED Assessment/Plan Assessment/Plan 46-year-old uncontrolled type II diabetic male gradually improving postoperative day 2 emergency open partial first rehabilitation of the right foot for the treatment of a necrotizing diabetic foot infection and gas gangrene. Patient was seen and evaluated at bedside. The Surgicel and his wound bed was left intact, and a dressing was otherwise completely revised with well-padded dry gauze wrap and a 6 inch Cob[place] dressing. Patient is to remain nonweightbearing on the operative foot until further notice , and he is to keep the leg elevated at all times. He has not been fully compliant with this in the immediate postoperative period. Continue IV antibiotics, and we will follow up the infectious disease recommendations. I'm also recommending that the patient be placed on clindamycin for protein synthesis inhibition to negate the toxin effects of the group B strep growing out of his wound. This may explain his continued fevers postoperatively despite a significant drop in his white count after surgery. Case was discussed with the medical team yesterday, and received he received 1 dose of vitamin K as well as cessation of his Coumadin. The patient is to at the very least be bridged to short-acting heparin as he will require at least 2 more debridements of this wound in the coming week before he is cleared from my standpoint for discharge. I will return the patient to the operating room tomorrow for a revisional washout and debridement, he is to be nothing by mouth after midnight. Trend CRP, Trend INR. Problem List: 1. Gas gangrene 2. Diabetic foot ulcer
[2017-04-14 09:15] VITALS: BP 150/78
--- NOTE | 2017-04-14 09:18 | PN- Housestaff ---
See Addendum Subjective Follow-up For: Diabetic foot infection with gas gangrene Subjective: He had fever yesterday. Feeling nauseas with emesis but no diarrhea. His pain is not well controlled. Otherwise, comlpaining of some mild SOB but no CP. Review of Systems Constitutional: Reports: no symptoms. EENTM: Reports: no symptoms. Cardiovascular: Reports: no symptoms. Respiratory: Reports: see HPI. Gastrointestinal: Reports: see HPI. Genitourinary: Reports: no symptoms. Musculoskeletal: Reports: no symptoms. Skin: Reports: see HPI. Neurological/Psychological: Reports: no symptoms. Hematologic/Endocrine: Reports: no symptoms. Immunologic/Allergic: Reports: no symptoms. Objective Last 24 Hrs of Vital Signs/I&O Vital Signs Date Time Temp Pulse Resp B/P B/P Pulse O2 O2 Flow FiO2 Mean Ox Delivery Rate 04/14 0915 99.1 91 20 150/78 91 Nasal 3.0L Cannula 04/14 0644 99.2 88 20 130/80 92 Nasal 2.0L Cannula 04/13 2219 99.0 85 20 116/60 94 Nasal Cannula 04/13 2112 85 116/60 04/13 1600 94 Nasal 2.0L Cannula 04/13 1553 101.7 04/13 1419 101.9 04/13 1354 101.9 04/13 1344 88 20 130/70 94 Nasal 2.0L Cannula 04/13 1024 58 120/64 04/13 1022 58 120/64 04/13 1021 58 120/64 Intake & Output 04/14 1600 04/14 0800 04/14 0000 Intake Total 760 1000 Output Total 720 Balance 40 1000 Intake, IV 260 400 Intake, Oral 500 600 Number 0 Bowel Movements Output, 20 Emesis Output, Urine 700 Patient 115.212 kg Weight Weight Bed scale Measurement Method Physical Exam General Appearance: Alert, Oriented X3, Cooperative, No Acute Distress Cardiovascular: Regular Rate, Normal S1, Normal S2 Lungs: Clear to Auscultation Abdomen: No Tenderness Neurological: Normal Speech Extremities: Right foot dressed Current Medications: Current Medications Sig/Tello Start time Last Medication Dose Route Stop Time Status Admin Amlodipine Besylate 10 MG DAILY 04/13 1000 AC 04/13 PO 1022 Ampicillin Sodium/ 3,000 MG Q6 04/12 1800 AC 04/14 Sulbactam Sodium IV 0615 Sodium Chloride 100 ML Atorvastatin Calcium 80 MG DAILY 04/13 1000 AC 04/13 PO 1022 Ciprofloxacin 400 MG Q12 04/13 2200 AC 04/13 Dextrose/Water 200 ML IV 2127 Clindamycin 600 MG IQ8 04/13 1600 DC 04/13 Dextrose/Water 50 ML IV 1553 Duloxetine HCl 60 MG DAILY 04/13 1000 AC 04/13 PO 1022 Furosemide 40 MG 0730,1630 04/14 0730 AC 04/14 PO 0720 Furosemide 40 MG .STK-MED ONE 04/13 2105 DC PO 04/13 2106 Furosemide 40 MG BID 04/12 2200 DC 04/13 PO 2110 Gabapentin 400 MG TID 04/12 1600 AC 04/13 PO 2112 Hydralazine HCl 100 MG BID 04/12 2200 AC 04/13 PO 2112 Hydromorphone HCl 0.6 MG ONCE ONE 04/13 1145 DC 04/13 IV 04/13 1146 1148 Ibuprofen 400 MG ONCE ONE 04/13 1400 DC 04/13 PO 04/13 1401 1419 Insulin Aspart 0 TIDAC 04/12 1700 AC 04/14 SC 0816 Insulin Detemir 10 UNITS BID 04/13 1040 AC 04/13 SC 2113 Lisinopril 40 MG DAILY 04/13 1000 AC 04/13 PO 1021 Metoprolol Tartrate 75 MG BID 04/12 2200 AC 04/13 PO 2112 Morphine Sulfate 4 MG Q8P PRN 04/13 0845 AC 04/14 IV 0812 Oxycodone HCl 10 MG Q6P PRN 04/13 1615 AC 04/14 PO 0408 Oxycodone HCl 5 MG Q6P PRN 04/13 0845 DC PO Oxycodone HCl 5 MG Q4P PRN 04/12 2200 DC 04/13 PO 1117 Pantoprazole Sodium 40 MG BID 04/13 2200 AC 04/13 IV 2113 Pantoprazole Sodium 40 MG DAILY 04/13 1022 DC 04/13 IV 1120 Phytonadione 10 MG ONCE ONE 04/13 1015 DC 04/13 SC 04/13 1016 1119 Potassium Chloride 40 MEQ ONCE ONE 04/13 1045 DC 04/13 PO 04/13 1046 1118 Promethazine HCl 25 MG Q4 PRN 04/14 0630 AC 04/14 PO 04/21 0629 0815 Sumatriptan Succinate 50 MG DAILY NEEDED PRN 04/13 0845 AC 04/14 PO 0409 Trimethobenzamide HCl 200 MG 4 TIMES/DAY PRN 04/13 0100 AC 04/14 IM 0200 Last 24 Hrs of Lab/Jose Alberto Results Last 24 Hrs of Labs/Mics: Laboratory Tests 04/14/17 0748: Sodium Pending, Potassium Pending, Chloride Pending, Carbon Dioxide Pending, Anion Gap Pending, BUN Pending, Creatinine Pending, BUN/Creatinine Ratio Pending , PT Pending, INR Pending, CBC w Diff Pending, WBC Pending, RBC Pending, Hgb Pending, Hct Pending, MCV Pending, MCH Pending, MCHC Pending, RDW Pending, Plt Count Pending, MPV Pending Assessment/Plan Assessment: Patient is a 46 YO long standing IDDM Male with significant history of CVA with possible left atrial thrombus on warfarin since 2013, HTN, Obesity, CHF now presenting with worsening of left foot ulcer with erythema and pain. He was off insulin for the past 3 months due to insurance issues and is experiencing signs of hyperglycemia like Polyuria, Polydipsia, Neuropathic pain, blury vision. He also had black stools with advil intake. Previous amputation of Rt big toe. Admitted to general medicine floor Problem list 1. Emphysematous fascitis/Gas gangrene 2. Uncontrolled Insuline dependent Diabetes mellitus with HbA1C of 12 3. HTN 4. Heart failure by history 5. CVA on warfarin for possible left atrial thrombus 6. Melena with advil intake Plan Emphysematous fascitis/GAS Gangrene * Secondary to uncontrolled diabetes (off insulin). Probable organisms are Clostridium, Strep A, anerobes. He underwent incision and drainage of right foot infection with excisional debridement of all nonviable skin and soft tissue and bone, including a partial first ray resection of the right foot. * IV Unasyn and cipro. QTc is 484. * Watch for fever. * Contiinue tigan for nausea * Avoid further NSAIDS. * Blood cultures * ID input appreciated * OR next week for closure * Cold packs for fever control * Patient has been weightbearing AGAINST MEDICAL ADVICE; Please avoid weightbearing on affected foot in the immediate postoperative period. * Podiatry following Severe Diabetic Neuropathy * Continue Gabapentin and cymbalta * Increase IV morhine to 4mg Q8hrs PRN for breakthrough pain * Continue PO oxycodone 5mg Q6hrs PRN Poorly controlled IDDM * BG in the 200s * Continue ccuchecks with insulin sliding scale * Endocrinology input appreciated * F/U UA for proteinuria, microalbumin/cr ratio HTN * continue amlodipine 10mg daily and hydralazine 100mg BID Systolic Heart failure by history * Continue metoprolol tartarate 75mg BID, lisinopril 40mg daily, atorvastatin 80mg daily CVA on warfarin for possible left atrial thrombus * On warfarin - INR is subtherapeutic. CHADS VASC2 6. Consider bridging with heparin. * F/U INR result and dose coumadin as needed Melena with advil intake * Patient cannot tolerate tylenol and takes advil as needed. Reports experiencing black stools with NSAID intake. * Avoid NSAIDs if possible * oral PPI started * F/U GI note * Guiac all stools DVT prophylaxis with coumadin code status full code Problem List: 1. Diabetic foot ulcer 2. Gas gangrene Pain Ratin Pain Location: foot Pain Goal: Remain pain free Pain Plan: see a/p Tomorrow's Labs & Rationales: cbc bep inr
[2017-04-14 09:29] LABS: ABSOLUTE BASOPHIL COUNT 0 /CUMM (0.0-0.2); ABSOLUTE EOSINOPHIL COUNT 0.1 /CUMM (0.0-0.7); ABSOLUTE GRANULOCYTE CT 7.4 /CUMM (1.4-6.5); ABSOLUTE LYMPH COUNT 1.2 /CUMM (1.2-3.4); BASOPHIL % 0.3 % (0.0-2.0); EOSINOPHIL % 0.7 % (0-5); GRANULOCYTE % 76.2 % (42.2-75.2); HEMATOCRIT 28.9 % (42-52); MEAN CORPUSCULAR HGB 29.1 PG (27.0-31.0); MEAN CORPUSCULAR HGB CONC 33.8 G/DL (33.0-37.0); MEAN PLATELET VOLUME 8.7 FL (7.4-10.4); PLATELET COUNT 272 /CUMM (130-400); RBC DISTRIBUTION WIDTH 13.4 % (11.5-14.5); RED BLOOD CELL CT 3.37 /CUMM (4.70-6.10); WHITE BLOOD CELL COUNT 9.7 /CUMM (4.8-10.8)
--- NOTE | 2017-04-14 09:41 | PN- Diabetes ---
Assessment/Plan Diabetes Assessment: Patient states that his leg is less painful today. He states that he still feels nauseated and has a pounding headache in the frontal area. He is drinking fluids but is eating very little solid food. His fever and white blood count are coming down. He continues on IV antibiotics. Review of his blood sugars reveals that they are high. The patient is on 10 units of Levemir twice a day along with sliding scale NovoLog. Fingerstick blood sugars yesterday were 283 before breakfast, 312 before lunch, 340 before dinner, and 358 at bedtime. This morning before breakfast his sugar was 289. Plan: Suggest increase Levemir to 16 units twice a day. Since the patient is not eating well I would not increase his NovoLog at this time. We should make sure that the fluids that the patient is drinking do not contain a lot of glucose. The patient's nausea could be due to the narcotic pain medicine. We should try to reduce the dosage of this type of medication. If his headache does not resolve should have further studies done. Subjective Subjective: Has a headache and nausea Review of Systems Constitutional: Denies: chills, fever. Cardiovascular: Denies: chest pain. Gastrointestinal: Reports: nausea. Denies: abdominal pain. Genitourinary: Denies: dysuria. Neurological/Psychological: Reports: headache. Objective Last 24 Hrs of Vital Signs/I&O Vital Signs Date Time Temp Pulse Resp B/P B/P Pulse O2 O2 Flow FiO2 Mean Ox Delivery Rate 04/14 0918 150/78 04/14 0917 99.1 91 20 150/78 04/14 0917 150/78 / 0915 99.1 91 20 150/78 91 Nasal 3.0L Cannula 04/14 0644 99.2 88 20 130/80 92 Nasal 2.0L Cannula 04/14 0000 94 Nasal 2.0L Cannula 04/13 2219 99.0 85 20 116/60 94 Nasal Cannula 04/13 2112 85 116/60 04/13 1600 94 Nasal 2.0L Cannula 04/13 1553 101.7 04/13 1419 101.9 04/13 1354 101.9 04/13 1344 88 20 130/70 94 Nasal 2.0L Cannula 04/13 1024 58 120/64 04/13 1022 58 120/64 04/13 1021 58 120/64 Intake & Output 04/14 1600 04/14 0800 04/14 0000 Intake Total 760 1000 Output Total 720 Balance 40 1000 Intake, IV 260 400 Intake, Oral 500 600 Number 0 Bowel Movements Output, 20 Emesis Output, Urine 700 Patient 254 lb Weight Weight Bed scale Measurement Method Vital Signs Date Time Temp Pulse Resp B/P B/P Pulse O2 O2 Flow FiO2 Mean Ox Delivery Rate 04/14 0918 150/78 / 0917 99.1 91 20 150/78 / 0917 150/78 / 0915 99.1 91 20 150/78 91 Nasal 3.0L Cannula 04/14 0644 99.2 88 20 130/80 92 Nasal 2.0L Cannula 04/14 0000 94 Nasal 2.0L Cannula 04/13 2219 99.0 85 20 116/60 94 Nasal Cannula 04/13 2112 85 116/60 04/13 1600 94 Nasal 2.0L Cannula 04/13 1553 101.7 04/13 1419 101.9 04/13 1354 101.9 04/13 1344 88 20 130/70 94 Nasal 2.0L Cannula 04/13 1024 58 120/64 03 1022 58 120/64 04/13 1021 58 120/64 Intake & Output 04/14 1600 04 0800 04/14 0000 Intake Total 760 1000 Output Total 720 Balance 40 1000 Intake, IV 260 400 Intake, Oral 500 600 Number 0 Bowel Movements Output, 20 Emesis Output, Urine 700 Patient 254 lb Weight Weight Bed scale Measurement Method Physical Exam General Appearance: alert, awake, anxious Head: normal appearance Respiratory: normal breath sounds Cardiovascular: regular rate/rhythm Abdomen: normal bowel sounds, soft Extremities: normal inspection Current Medications: Current Medications Sig/Tello Start time Last Medication Dose Route Stop Time Status Admin Amlodipine Besylate 10 MG DAILY 04/13 1000 AC 04/14 PO 0917 Ampicillin Sodium/ 3,000 MG Q6 04/12 1800 AC 04/14 Sulbactam Sodium IV 0615 Sodium Chloride 100 ML Atorvastatin Calcium 80 MG DAILY 04/13 1000 AC 04/14 PO 0918 Ciprofloxacin 400 MG Q12 04/13 2200 AC 04/14 Dextrose/Water 200 ML IV 0920 Clindamycin 600 MG IQ8 04/13 1600 DC 04/13 Dextrose/Water 50 ML IV 1553 Duloxetine HCl 60 MG DAILY 04/13 1000 AC 04/14 PO 0918 Furosemide 40 MG 0730,1630 04/14 0730 AC 04/14 PO 0720 Furosemide 40 MG .STK-MED ONE 04/13 2105 DC PO 04/13 2106 Furosemide 40 MG BID 04/12 2200 DC 04/13 PO 2110 Gabapentin 400 MG TID 04/12 1600 AC 04/14 PO 0918 Hydralazine HCl 100 MG BID 04/12 2200 AC 04/14 PO 0918 Hydromorphone HCl 0.6 MG ONCE ONE 04/13 1145 DC 04/13 IV 04/13 1146 1148 Ibuprofen 400 MG ONCE ONE 04/13 1400 DC 04/13 PO 04/13 1401 1419 Insulin Aspart 0 TIDAC 04/12 1700 AC 04/14 SC 0816 Insulin Detemir 10 UNITS BID 04/13 1040 AC 04/13 SC 2113 Lisinopril 40 MG DAILY 04/13 1000 AC 04/14 PO 0917 Metoprolol Tartrate 75 MG BID 04/12 2200 AC 04/14 PO 0918 Morphine Sulfate 4 MG Q8P PRN 04/13 0845 AC 04/14 IV 0812 Oxycodone HCl 10 MG Q6P PRN 04/13 1615 AC 04/14 PO 0919 Oxycodone HCl 5 MG Q6P PRN 04/13 0845 DC PO Oxycodone HCl 5 MG Q4P PRN 04/12 2200 DC 04/13 PO 1117 Pantoprazole Sodium 40 MG BID 04/13 2200 AC 04/14 IV 0920 Pantoprazole Sodium 40 MG DAILY 04/13 1022 DC 04/13 IV 1120 Phytonadione 10 MG ONCE ONE 04/13 1015 DC 04/13 SC 04/13 1016 1119 Potassium Chloride 40 MEQ ONCE ONE 04/13 1045 DC 04/13 PO 04/13 1046 1118 Promethazine HCl 25 MG Q4 PRN 04/14 0630 AC 04/14 PO 04/21 0629 0815 Sumatriptan Succinate 50 MG DAILY NEEDED PRN 04/13 0845 AC 04/14 PO 0409 Trimethobenzamide HCl 200 MG 4 TIMES/DAY PRN 04/13 0100 AC 04/14 IM 0200 Findings Pertinent Lab/Jose Alberto Results: Laboratory Tests 04/14 0748 Chemistry Sodium Pending Potassium Pending Chloride Pending Carbon Dioxide Pending Anion Gap Pending BUN Pending Creatinine Pending BUN/Creatinine Ratio Pending Total Bilirubin Pending Direct Bilirubin Pending AST Pending ALT Pending Alkaline Phosphatase Pending Total Protein Pending Albumin Pending Coagulation PT Pending INR Pending Hematology CBC w Diff NO MAN DIFF REQ WBC (4.8 - 10.8 /CUMM) 9.7 RBC (4.70 - 6.10 /CUMM) 3.37 L Hgb (14.0 - 18.0 G/DL) 9.8 L Hct (42 - 52 %) 28.9 L MCV (80.0 - 94.0 FL) 86.0 MCH (27.0 - 31.0 PG) 29.1 MCHC (33.0 - 37.0 G/DL) 33.8 RDW (11.5 - 14.5 %) 13.4 Plt Count (130 - 400 /CUMM) 272 MPV (7.4 - 10.4 FL) 8.7 Gran % (42.2 - 75.2 %) 76.2 H Lymphocytes % (20.5 - 51.1 %) 12.2 L Monocytes % (1.7 - 9.3 %) 10.6 H Eosinophils % (0 - 5 %) 0.7 Basophils % (0.0 - 2.0 %) 0.3 Absolute Granulocytes (1.4 - 6.5 /CUMM) 7.4 H Absolute Lymphocytes (1.2 - 3.4 /CUMM) 1.2 Absolute Monocytes (0.10 - 0.60 /CUMM) 1.0 H Absolute Eosinophils (0.0 - 0.7 /CUMM) 0.1 Absolute Basophils (0.0 - 0.2 /CUMM) 0
[2017-04-14 09:43] LABS: PT 19.5 SEC (9.4-12.5)
[2017-04-14 13:43] VITALS: BP 118/60
--- NOTE | 2017-04-14 14:06 | PN- Infect Dx ---
Subjective Subjective: Afebrile today. Nausea reported earlier. R LE discomfort. Review of Systems Comments: 12 points reviewed as noted, otherwise negative. Objective Last 24 Hrs of Vital Signs/I&O Vital Signs Date Time Temp Pulse Resp B/P B/P Pulse O2 O2 Flow FiO2 Mean Ox Delivery Rate 04/14 1343 97.8 84 20 118/60 94 Nasal 3.0L Cannula 04/14 0918 150/78 / 0917 99.1 91 20 150/78 / 0917 150/78 / 0915 99.1 91 20 150/78 91 Nasal 3.0L Cannula 04/14 0800 91 Nasal 3.0L Cannula 04/14 0644 99.2 88 20 130/80 92 Nasal 2.0L Cannula 04/14 0000 94 Nasal 2.0L Cannula 04/13 2219 99.0 85 20 116/60 94 Nasal Cannula 04/13 2112 85 116/60 04/13 1600 94 Nasal 2.0L Cannula 04/13 1553 101.7 04/13 1419 101.9 Intake & Output 04/14 1600 04/14 0800 04/14 0000 Intake Total 760 1000 Output Total 1000 720 Balance -1000 40 1000 Intake, IV 260 400 Intake, Oral 500 600 Number 0 Bowel Movements Output, 20 Emesis Output, Urine 1000 700 Patient 254 lb Weight Weight Bed scale Measurement Method Physical Exam Other Physical Findings: General Appearance Alert, Oriented X3, Cooperative Skin Erythma R LE extending below the knee, warm to touch, no crepitations Skin Temp/Moisture Exam: Warm/Dry HEENT Atraumatic, PERRLA, EOMI Neck Supple Cardiovascular Normal S1, Normal S2, systolic murmur Lungs Clear to Auscultation, Normal Air Movement Abdomen Normal Bowel Sounds, Soft Neurological Normal Speech, Normal Tone, Sensation Intact Extremities No Clubbing, No Cyanosis, R LE dressing in place Results Last 24 Hours of Lab Results: Laboratory Tests 04/14 0748 Chemistry Sodium (137 - 145 mmol/L) 135 L Potassium (3.5 - 5.1 mmol/L) 3.7 Chloride (98 - 107 mmol/L) 96 L Carbon Dioxide (22 - 30 mmol/L) 29 Anion Gap (5 - 16) 10 BUN (9 - 20 mg/dL) 15 Creatinine (0.7 - 1.2 mg/dL) 0.9 Estimated GFR (>60 ml/min) > 60 BUN/Creatinine Ratio (7 - 25 %) 16.7 Total Bilirubin (0.2 - 1.3 mg/dL) 0.7 Direct Bilirubin (< 0.4 mg/dL) 0.5 H AST (17 - 59 U/L) 20 ALT (21 - 72 U/L) 19 L Alkaline Phosphatase (< 127 U/L) 86 Total Protein (6.3 - 8.2 g/dL) 5.5 L Albumin (3.5 - 5.0 g/dL) 2.8 L Coagulation PT (9.4 - 12.5 SEC) 19.5 H INR (0.90 - 1.17) 1.78 H Hematology CBC w Diff NO MAN DIFF REQ WBC (4.8 - 10.8 /CUMM) 9.7 RBC (4.70 - 6.10 /CUMM) 3.37 L Hgb (14.0 - 18.0 G/DL) 9.8 L Hct (42 - 52 %) 28.9 L MCV (80.0 - 94.0 FL) 86.0 MCH (27.0 - 31.0 PG) 29.1 MCHC (33.0 - 37.0 G/DL) 33.8 RDW (11.5 - 14.5 %) 13.4 Plt Count (130 - 400 /CUMM) 272 MPV (7.4 - 10.4 FL) 8.7 Gran % (42.2 - 75.2 %) 76.2 H Lymphocytes % (20.5 - 51.1 %) 12.2 L Monocytes % (1.7 - 9.3 %) 10.6 H Eosinophils % (0 - 5 %) 0.7 Basophils % (0.0 - 2.0 %) 0.3 Absolute Granulocytes (1.4 - 6.5 /CUMM) 7.4 H Absolute Lymphocytes (1.2 - 3.4 /CUMM) 1.2 Absolute Monocytes (0.10 - 0.60 /CUMM) 1.0 H Absolute Eosinophils (0.0 - 0.7 /CUMM) 0.1 Absolute Basophils (0.0 - 0.2 /CUMM) 0 Last 24 Hours of Jose Alberto Results: SPEC #: [id number] SONIA: 04/12/17-1250 STATUS: RES RECD: 04/12/17-[address]: René DELGADILLO,Yair SOURCE: EXTREMITIE ENTR: 04/12/17-[address]: Karlie Barbosa DO [facility]: FOOT R ORDERED: XTRMOR COMMENT: ADDITIONAL INFORMATION: TISSUE CULTURE RIGHT FOOT RECEIVED SMALL BLOODY PIEE OF TISSUE IN STERILE CUP Procedure Result > GRAM STAIN Final 04/13/17-935 WHITE BLOOD CELLS RARE GRAM POSITIVE COCCI MANY GRAM NEGATIVE RODS RARE > EXTREMITIES OR SPECIMEN Preliminary 04/13/17-939 Moderate growth of: 1. BETA STREP GROUP B 2. GRAM NEGATIVE RODS Identification and sensitivities to follow Penicillin and Ampicillin are drugs of choice for beta-hemolytic streptococcal infections. Susceptibility testing of penicillins and other beta-lactams are not routinely performed because non-susceptible isolates have only rarely been reported. REPORTED TO AND READ BACK BY MARK AT 0940 04/13/17 LAB.S[facility]. Note: If patient is allergic to Penicillin, the laboratory can perform Clindamycin testing upon request. Please call within 5 days of final report. Recent Imaging Studies: reviewed Assessment/Plan ID Impression: 46 y/o M with PMH of CVA 2013, IDDM, HTN, systolic heart failure (EF 45-50% ) admitted 04/12. 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 Cont D #3 Unasyn 3 gm iv q 6 h pending final OR culture results (Strep gr B and GNR); as GNR sensitivity pending cont empiric Cipro 400 mg iv q 12 h D #2. 2. Trend CBC, BMP. 3. EKG today to monitor QT interval; if prolonged above 500 msec please call. 4. Local wound care per sx.
[2017-04-14 21:05] LABS: PTT 35 SEC (25-37)
[2017-04-14 22:14] VITALS: BP 122/80
[2017-04-15 04:47] LABS: ABSOLUTE BASOPHIL COUNT 0 /CUMM (0.0-0.2); ABSOLUTE EOSINOPHIL COUNT 0.2 /CUMM (0.0-0.7); ABSOLUTE GRANULOCYTE CT 6.5 /CUMM (1.4-6.5); ABSOLUTE LYMPH COUNT 1.9 /CUMM (1.2-3.4); BASOPHIL % 0.4 % (0.0-2.0); EOSINOPHIL % 1.9 % (0-5); HEMATOCRIT 27.7 % (42-52); MEAN CORPUSCULAR HGB 28.1 PG (27.0-31.0); MEAN CORPUSCULAR HGB CONC 32.6 G/DL (33.0-37.0); MEAN CORPUSCULAR VOLUME 86.2 FL (80.0-94.0); PLATELET COUNT 303 /CUMM (130-400); RBC DISTRIBUTION WIDTH 13.1 % (11.5-14.5); RED BLOOD CELL CT 3.21 /CUMM (4.70-6.10); WHITE BLOOD CELL COUNT 9.6 /CUMM (4.8-10.8)
[2017-04-15 04:58] LABS: PT 13.6 SEC (9.4-12.5); PTT 41 SEC (25-37)
[2017-04-15 06:13] VITALS: BP 130/80
--- NOTE | 2017-04-15 07:55 | PN- Diabetes ---
Assessment/Plan Diabetes Assessment: The patient feels better this morning. He is afebrile. His headache is gone away. He states that he was eating well yesterday. He has been n.p.o. after midnight for further surgery on his right foot today. Plan: Suggest that while the patient is n.p.o. we can place him on D5 half-normal saline +20 mEq KCl at 75 cc/h. the patient's potassium is low and should be repleted. I would reduce the Levemir to only 8 units this morning. Regular Insulin coverage every 6 hours should be less than 150 give no insulin, 151-200 give 4 units regular, 201-250 give 5 units regular, 251-300 give 6 units regular, 301-350 give 7 units regular, 351-400 give 8 units regular. Once the patient is eating again we should resume his normal insulin regimen. Subjective Subjective: Feels improved Review of Systems Constitutional: Denies: chills, fever. Cardiovascular: Denies: chest pain. Respiratory: Denies: short of breath. Gastrointestinal: Denies: nausea, vomiting. Objective Last 24 Hrs of Vital Signs/I&O Vital Signs Date Time Temp Pulse Resp B/P B/P Pulse O2 O2 Flow FiO2 Mean Ox Delivery Rate 04/15 0613 98.3 79 20 130/80 93 Room Air 03/ 0000 93 Nasal 2.0L Cannula 04/14 2214 98.1 84 20 122/80 93 Nasal Cannula / 2101 84 122/80 03/ 1600 91 Nasal 2.0L Cannula 04/14 1343 97.8 84 20 118/60 94 Nasal 3.0L Cannula 04/14 0918 150/78 / 0917 99.1 91 20 150/78 03/04 0917 150/78 03/ 0915 99.1 91 20 150/78 91 Nasal 3.0L Cannula 04/14 0800 91 Nasal 3.0L Cannula Intake & Output 04/15 0800 /05 0000 /04 1600 Intake Total 0 747.1 840 Output Total 657 252 6950 Balance -450 -172.9 -360 Intake, IV 607.1 340 Intake, Oral 0 140 500 Output, Urine 142 950 7036 Patient 254 lb Weight Weight Bed scale Measurement Method Vital Signs Date Time Temp Pulse Resp B/P B/P Pulse O2 O2 Flow FiO2 Mean Ox Delivery Rate 04/15 612 98.3 79 20 130/80 93 Room Air 03/ 0000 93 Nasal 2.0L Cannula / 2214 98.1 84 20 122/80 93 Nasal Cannula / 2101 84 122/80 / 1600 91 Nasal 2.0L Cannula 04/14 1343 97.8 84 20 118/60 94 Nasal 3.0L Cannula 04/14 0918 150/78 / 0917 99.1 91 20 150/78 / 0917 150/78 / 0915 99.1 91 20 150/78 91 Nasal 3.0L Cannula 04/14 0800 91 Nasal 3.0L Cannula Intake & Output 04/15 0800 / 0000 / 1600 Intake Total 0 747.1 840 Output Total 537 582 1963 Balance -450 -172.9 -360 Intake, IV 607.1 340 Intake, Oral 0 140 500 Output, Urine 520 735 1024 Patient 254 lb Weight Weight Bed scale Measurement Method Physical Exam General Appearance: alert, awake, comfortable Head: normal appearance Neck: normal inspection Respiratory: normal breath sounds Cardiovascular: regular rate/rhythm Abdomen: normal bowel sounds Extremities: right foot bandaged Current Medications: Current Medications Sig/Tello Start time Last Medication Dose Route Stop Time Status Admin Amlodipine Besylate 10 MG DAILY 04/13 1000 AC 04/14 PO 0917 Ampicillin Sodium/ 3,000 MG Q6 04/12 1800 AC 04/15 Sulbactam Sodium IV 0553 Sodium Chloride 100 ML Atorvastatin Calcium 80 MG DAILY 04/13 1000 AC 04/14 PO 0918 Ciprofloxacin 400 MG Q12 04/13 2200 AC 04/14 Dextrose/Water 200 ML IV 2100 Dextrose/Sodium 1,000 ML Q13H 04/15 0200 AC 04/15 Chloride IV 0200 Duloxetine HCl 60 MG DAILY 04/13 1000 AC 04/14 PO 0918 Furosemide 40 MG 0730,1630 04/14 0730 AC 04/15 PO 0600 Gabapentin 400 MG TID 04/12 1600 AC 04/14 PO 2102 Heparin Sodium 8,640 UNIT BOLUS ONE 04/15 0515 DC 04/15 (Porcine) IV 04/15 05 0535 Heparin Sodium 10,000 UNIT .STK-MED ONE 04/14 2217 DC (Porcine) IV 04/14 221 Heparin Sodium 8,504 UNIT BOLUS ONE 04/14 2199 DC 04/14 (Porcine) IV 04/14 220 2200 Heparin Sodium 25,000 UNIT Q24H 04/14 1230 AC 04/15 (Porcine) IV 0715 Sodium Chloride 500 ML Hydralazine HCl 100 MG BID 04/12 2200 AC 04/14 PO 2101 Ibuprofen 400 MG ONCE ONE 04/15 0030 DC 04/15 PO 04/15 0031 0200 Ibuprofen 400 MG ONCE ONE 04/14 1230 DC 04/14 PO 04/14 1231 1243 Insulin Aspart 0 TIDAC 04/12 1700 DC 04/14 SC 1738 Insulin Detemir 16 UNITS BID 04/14 2200 AC 04/14 SC 2101 Insulin Detemir 10 UNITS BID 04/13 1040 DC 04/14 SC 1054 Insulin Human Regular 0 Q6 04/15 0035 AC 04/15 SC 0556 Lisinopril 40 MG DAILY 04/13 1000 AC 04/14 PO 0917 Metoprolol Tartrate 75 MG BID 04/12 2200 AC 04/14 PO 2102 Morphine Sulfate 4 MG Q8P PRN 04/13 0845 AC 04/14 IV 1844 Nicotine 14 MG DAILY 04/14 1115 04/14 TOP 1242 Oxycodone HCl 10 MG Q6P PRN 04/13 1615 AC 04/15 PO 0600 Pantoprazole Sodium 40 MG BID 04/13 2200 AC 04/14 IV 2100 Promethazine HCl 25 MG Q4 PRN 04/14 0630 AC 04/14 PO 04/21 0629 0815 Sumatriptan Succinate 50 MG DAILY NEEDED PRN 04/13 0845 AC 04/14 PO 0409 Trimethobenzamide HCl 200 MG 4 TIMES/DAY PRN 04/13 0100 AC 04/14 IM 0200 Findings Pertinent Lab/Jose Alberto Results: Laboratory Tests 04/15 04/15 04/14 0600 0410 1926 Chemistry Sodium (137 - 145 mmol/L) 137 Potassium (3.5 - 5.1 mmol/L) 3.1 L Chloride (98 - 107 mmol/L) 96 L Carbon Dioxide (22 - 30 mmol/L) 32 H Anion Gap (5 - 16) 9 BUN (9 - 20 mg/dL) 15 Creatinine (0.7 - 1.2 mg/dL) 0.9 Estimated GFR (>60 ml/min) > 60 BUN/Creatinine Ratio (7 - 25 %) 16.7 Coagulation PT (9.4 - 12.5 SEC) Cancelled 13.6 H INR (0.90 - 1.17) Cancelled 1.24 H APTT (25 - 37 SEC) 41 H 35 Hematology CBC w Diff NO MAN DIFF REQ WBC (4.8 - 10.8 /CUMM) 9.6 RBC (4.70 - 6.10 /CUMM) 3.21 L Hgb (14.0 - 18.0 G/DL) 9.0 L Hct (42 - 52 %) 27.7 L MCV (80.0 - 94.0 FL) 86.2 MCH (27.0 - 31.0 PG) 28.1 MCHC (33.0 - 37.0 G/DL) 32.6 L RDW (11.5 - 14.5 %) 13.1 Plt Count (130 - 400 /CUMM) 303 MPV (7.4 - 10.4 FL) 8.0 Gran % (42.2 - 75.2 %) 68.0 Lymphocytes % (20.5 - 51.1 %) 19.5 L Monocytes % (1.7 - 9.3 %) 10.2 H Eosinophils % (0 - 5 %) 1.9 Basophils % (0.0 - 2.0 %) 0.4 Absolute Granulocytes (1.4 - 6.5 /CUMM) 6.5 Absolute Lymphocytes (1.2 - 3.4 /CUMM) 1.9 Absolute Monocytes (0.10 - 0.60 /CUMM) 1.0 H Absolute Eosinophils (0.0 - 0.7 /CUMM) 0.2 Absolute Basophils (0.0 - 0.2 /CUMM) 0
--- NOTE | 2017-04-15 07:56 | PN- Housestaff ---
Mildred DELGADILLO,Micheline 04/15/17 0755: Subjective Follow-up For: Diabetic foot infection with gas gangrene Subjective: Seen and examined at bedside He still feels sick, denies any pain. Reports he is hungry and weak. Going to OR. Review of Systems Constitutional: Reports: see HPI. Comments: ROS negative except the above Objective Last 24 Hrs of Vital Signs/I&O Vital Signs Date Time Temp Pulse Resp B/P B/P Pulse O2 O2 Flow FiO2 Mean Ox Delivery Rate 04/15 612 98.3 79 20 130/80 93 Room Air 04/15 0000 93 Nasal 2.0L Cannula 04/14 2214 98.1 84 20 122/80 93 Nasal Cannula 04/14 2101 84 122/80 / 1600 91 Nasal 2.0L Cannula 04/14 1343 97.8 84 20 118/60 94 Nasal 3.0L Cannula 04/14 0918 150/78 03/ 0917 99.1 91 20 150/78 / 0917 150/78 03/ 0915 99.1 91 20 150/78 91 Nasal 3.0L Cannula 04/14 0800 91 Nasal 3.0L Cannula Intake & Output 04/15 0800 04/15 0000 / 1600 Intake Total 0 747.1 840 Output Total 820 375 5791 Balance -450 -172.9 -360 Intake, IV 607.1 340 Intake, Oral 0 140 500 Output, Urine 678 577 3604 Patient 115.212 kg Weight Weight Bed scale Measurement Method Physical Exam General Appearance: Alert, Oriented X3, Cooperative, No Acute Distress Skin: No Rashes, Right lower extremity wound is dressed. HEENT: Atraumatic, PERRLA, EOMI Neck: Supple Cardiovascular: Normal S1, Normal S2, systolic murmur present Lungs: Clear to Auscultation, Normal Air Movement Abdomen: Normal Bowel Sounds, Soft, No Tenderness Neurological: Normal Speech, Normal Tone Extremities: No Clubbing, No Cyanosis, edema present on right>left Vascular: Normal Pulses, Pulses Symmetrical Current Medications: Current Medications Sig/Tello Start time Last Medication Dose Route Stop Time Status Admin Amlodipine Besylate 10 MG DAILY 04/13 1000 AC 04/15 PO 0913 Ampicillin Sodium/ 3,000 MG Q6 04/12 1800 AC 04/15 Sulbactam Sodium IV 1155 Sodium Chloride 100 ML Atorvastatin Calcium 80 MG DAILY 04/13 1000 AC 03 PO 0914 Ciprofloxacin 400 MG Q12 04/13 2200 AC 04/15 Dextrose/Water 200 ML IV 1040 Dextrose/Sodium 1,000 ML Q13H 04/15 0200 DC 04/15 Chloride IV 0200 Duloxetine HCl 60 MG DAILY 04/13 1000 AC 04/15 PO 0914 Furosemide 40 MG 0730,1630 03 0730 AC 04/15 PO 0600 Gabapentin 400 MG TID 04/12 1600 AC 04/15 PO 0913 Heparin Sodium 10,000 UNIT .STK-MED ONE 04/15 0530 DC (Porcine) IV 04/15 0531 Heparin Sodium 8,640 UNIT BOLUS ONE 04/15 0515 DC 04/15 (Porcine) IV 04/15 0516 0535 Heparin Sodium 10,000 UNIT .STK-MED ONE 04/14 2218 DC (Porcine) IV 04/14 2219 Heparin Sodium 8,504 UNIT BOLUS ONE 04/14 2200 DC 04/14 (Porcine) IV 04/14 2201 2200 Heparin Sodium 25,000 UNIT Q24H / 1230 AC 04/15 (Porcine) IV 0715 Sodium Chloride 500 ML Hydralazine HCl 100 MG BID 04/12 2200 AC 04/15 PO 0914 Ibuprofen 400 MG ONCE ONE 04/15 0030 DC 04/15 PO 04/15 0031 0200 Insulin Aspart 0 TIDAC 04/12 1700 DC 04/14 NH 1738 Insulin Detemir 16 UNITS BID 04/15 2200 AC SC Insulin Detemir 8 UNITS ONCE ONE 04/15 0815 DC 04/15 SC 04/15 0816 0912 Insulin Detemir 16 UNITS BID 04/14 2200 DC 04/14 SC 2101 Insulin Detemir 10 UNITS BID 04/13 1040 DC 04/14 SC 1054 Insulin Human Regular 0 Q6 04/15 1200 DC 04/15 SC 1155 Insulin Human Regular 0 Q6 04/15 0035 DC 04/15 SC 0556 Lisinopril 40 MG DAILY 04/13 1000 AC 04/15 PO 0913 Metoprolol Tartrate 75 MG BID 04/12 2200 AC 04/15 PO 0913 Morphine Sulfate 4 MG Q8P PRN 04/13 0845 AC 04/14 IV 1844 Nicotine 14 MG DAILY 04/14 1115 04/14 TOP 1242 Oxycodone HCl 10 MG Q6P PRN 04/13 1615 AC 04/15 PO 1157 Pantoprazole Sodium 40 MG BID 04/13 2200 AC 04/15 IV 0915 Potassium Chloride 20 MEQ 04/15 0815 CAN IV Potassium Chloride 20 MEQ Q13H 04/15 0815 DC 04/15 Dextrose/Sodium 1,000 ML IV 0913 Chloride Promethazine HCl 25 MG Q4 PRN 04/14 0630 AC 04/14 PO 04/21 0629 0815 Sumatriptan Succinate 50 MG DAILY NEEDED PRN 04/13 0845 AC 04/14 PO 0409 Trimethobenzamide HCl 200 MG 4 TIMES/DAY PRN 04/13 0100 AC 04/15 IM 1300 Last 24 Hrs of Lab/Jose Alberto Results Last 24 Hrs of Labs/Mics: Laboratory Tests 04/15/17 0600: PT Cancelled, INR Cancelled 04/15/17 0410: Anion Gap 9, Estimated GFR > 60, BUN/Creatinine Ratio 16.7, PT 13.6 H, INR 1.24 H, APTT 41 H, CBC w Diff NO MAN DIFF REQ, RBC 3.21 L, MCV 86.2, MCH 28.1, MCHC 32.6 L, RDW 13.1, MPV 8.0, Gran % 68.0, Lymphocytes % 19.5 L, Monocytes % 10.2 H, Eosinophils % 1.9, Basophils % 0.4, Absolute Granulocytes 6.5, Absolute Lymphocytes 1.9, Absolute Monocytes 1.0 H, Absolute Eosinophils 0.2, Absolute Basophils 0 04/14/17 1926: APTT 35 Assessment/Plan Assessment: Patient is a 46 YO long standing IDDM Male with significant history of CVA with possible left atrial thrombus on warfarin since 2013, HTN, Obesity, CHF now presenting with worsening of left foot ulcer with erythema and pain. He was off insulin for the past 3 months due to insurance issues and is experiencing signs of hyperglycemia like Polyuria, Polydipsia, Neuropathic pain, blury vision. He also had black stools with advil intake. Previous amputation of Rt big toe. Admitted to general medicine floor Problem list 1. Diabetic foot infection with gas gangrene 2. Uncontrolled Insuline dependent Diabetes mellitus with HbA1C of 12 3. HTN 4. Heart failure by history 5. CVA on warfarin for possible left atrial thrombus 6. Melena with advil intake Plan Emphysematous fascitis/GAS Gangrene Secondary to uncontrolled diabetes (off insulin). Cultures grew Group B strep, anerobes, Serratia. He underwent repeat incision and drainage of right foot infection with excisional debridement of all nonviable skin and soft tissue again today. Underwent partial first ray resection of the right foot on the day of admission. * IV Unasyn and cipro 400mg Q12 * Antiemetics as needed * Avoid further NSAIDS. * ID input appreciated * Cold packs for fever control * Podiatry following Severe Diabetic Neuropathy * Continue Gabapentin and cymbalta * Increase IV morhine to 4mg Q8hrs PRN for breakthrough pain * Continue PO oxycodone 5mg Q6hrs PRN Poorly controlled IDDM * BG in the 200s * NPO this am, restarted diet after coming from OR. * Levemir 16 units BID and sliding scale per . * Continue ccuchecks with insulin sliding scale * Endocrinology input appreciated * No significant proteinuria, microalbuminuria present. HTN * continue amlodipine 10mg daily and hydralazine 100mg BID Systolic Heart failure by history * Continue metoprolol tartarate 75mg BID, lisinopril 40mg daily, atorvastatin 80mg daily CVA on warfarin for possible left atrial thrombus * On warfarin - INR is subtherapeutic. CHADS VASC2 6. * Started on IV heparin for the procedure, will continue for today given significant bleeding after the procedure. Melena with advil intake * Patient cannot tolerate tylenol and takes advil as needed. Reports experiencing black stools with NSAID intake. * Avoid NSAIDs if possible * IV Protonix BID * GI consulted - as patient have normal H&H with normal BUN/Cr - recommended outpatient follow up unless overt bleeding present. DVT prophylaxis with IV heparin code status full code Problem List: 1. Diabetic foot ulcer 2. Gas gangrene Pain Ratin Pain Location: right foot Pain Goal: Pain 4 or less Pain Plan: Roxicodon morphine Cannot tolerate tylenol Tomorrow's Labs & Rationales: cbc to monitor white count and platelets while on IV heparin BEP to monitor Cr Jose DELGADILLO,Terese 04/15/17 1118: Attending MD Review Statement Attending Statement Attending MD Statement: examined this patient, discuss w/resident/PA/LOAD DISPATCHER, agreed w/resident/PA/LOAD DISPATCHER, reviewed EMR data (avail), discussed with nursing, discussed with case mgmt, reviewed images, amended to note Attending Assessment/Plan: Patient seen and examined, denies any complaints. Patient scheduled to go to OR again today. Vital Signs Date Time Temp Pulse Resp B/P B/P Pulse O2 O2 Flow FiO2 Mean Ox Delivery Rate 04/15 913 79 130/80 04/15 0913 79 130/80 04/15 0913 79 130/80 04/15 0800 Nasal 2.0L Cannula 04/15 06 98.3 79 20 130/80 93 Room Air 04/15 0000 93 Nasal 2.0L Cannula 04/14 2214 98.1 84 20 122/80 93 Nasal Cannula 04/14 2101 84 122/80 04/14 1600 91 Nasal 2.0L Cannula 04/14 1343 97.8 84 20 118/60 94 Nasal 3.0L Cannula on exam; aox3, nad. cv; s1, s2, rrr resp; clear abd; soft, nt, bs+ ext; no edema Laboratory Tests 04/15 04/15 04/14 06 0410 1926 Chemistry Sodium (137 - 145 mmol/L) 137 Potassium (3.5 - 5.1 mmol/L) 3.1 L Chloride (98 - 107 mmol/L) 96 L Carbon Dioxide (22 - 30 mmol/L) 32 H Anion Gap (5 - 16) 9 BUN (9 - 20 mg/dL) 15 Creatinine (0.7 - 1.2 mg/dL) 0.9 Estimated GFR (>60 ml/min) > 60 BUN/Creatinine Ratio (7 - 25 %) 16.7 Coagulation PT (9.4 - 12.5 SEC) Cancelled 13.6 H INR (0.90 - 1.17) Cancelled 1.24 H APTT (25 - 37 SEC) 41 H 35 Hematology CBC w Diff NO MAN DIFF REQ WBC (4.8 - 10.8 /CUMM) 9.6 RBC (4.70 - 6.10 /CUMM) 3.21 L Hgb (14.0 - 18.0 G/DL) 9.0 L Hct (42 - 52 %) 27.7 L MCV (80.0 - 94.0 FL) 86.2 MCH (27.0 - 31.0 PG) 28.1 MCHC (33.0 - 37.0 G/DL) 32.6 L RDW (11.5 - 14.5 %) 13.1 Plt Count (130 - 400 /CUMM) 303 MPV (7.4 - 10.4 FL) 8.0 Gran % (42.2 - 75.2 %) 68.0 Lymphocytes % (20.5 - 51.1 %) 19.5 L Monocytes % (1.7 - 9.3 %) 10.2 H Eosinophils % (0 - 5 %) 1.9 Basophils % (0.0 - 2.0 %) 0.4 Absolute Granulocytes (1.4 - 6.5 /CUMM) 6.5 Absolute Lymphocytes (1.2 - 3.4 /CUMM) 1.9 Absolute Monocytes (0.10 - 0.60 /CUMM) 1.0 H Absolute Eosinophils (0.0 - 0.7 /CUMM) 0.2 Absolute Basophils (0.0 - 0.2 /CUMM) 0 A/P; CVA on coumadin (at [facility]) for possible Left atrial throbus on JACKY, IDDM, HTN, systolic heart failure, previous history of right hallux amputation, admitted with with gas gangrene of the right foot stemming from an infected plantar neuropathic ulceration s/p Incision and drainage right foot, Partial first ray resection right foot, Excisional debridement of nonviable skin , soft tissue, and bone right foot on 04/12/17. Currently on IV antibiotics per infectious disease. OR culture growing multiple colonies. Patient be taken to operating room again today. Blood sugars are stable. Currently on heparin drip which will need to be stopped few hours prior to the surgery. Please check with the podiatry/surgery in terms of timeline for stopping the heparin drip. Blood sugars are stable. Patient on Levemir and sliding scale insulin. Continue the rest of the management. We'll resume the heparin drip after the procedure.
--- NOTE | 2017-04-15 14:52 | Operative Report ---
Operative/Inv Procedure Report Surgery Date: 04/15/17 Name of Procedure: Incision and drainage right foot Excisional debridement of all nonviable skin and soft tissue and bone, right foot Pre-Operative Diagnosis: Gas gangrene, right foot Post-Operative Diagnosis: Gas gangrene, right foot Estimated Blood Loss: less than 50ml Surgeon/Bench Patternmaker Metal: Ivan Rocha DPM Anesthesia: local monitored anesthesi (19cc 2% Lido plain) Specimens: Bone and soft tissue, right foot Microbiology: None Tourniquet: None Complications: None Condition: Stable Operative Indication: Patient is taken for revisional incision and drainage and debridement of the wound after being taken emergently for an open partial right first ray amputation. Operative/Procedure Note Note: After the right foot was prepped and draped up to the ankle at the usual sterile manner, attention was directed to the right foot where a 8 cm x 4.5 cm surgical wound was visualized. At the lateral edge of this wound where there previously was a dorsal space abscess, there is an additional 2 mL of purulence which was expressed. Unfortunately much of the dorsal flap medial to this had become devitalized since Saturday's procedure and this was resected with the remaining tissue. Excisional debridement was then carried out throughout the remainder of the wound for uniform capillary oozing base. The first metatarsal stump was visualized and found to be desiccated and necrotic. This was resected proximally 1 cm back with a sagittal saw. Patient continued to have a significant amount of capillary oozing, including a small arteriolar bleed underneath the stump of the first metatarsal, and this was seized with a combination of manual compression and FloSeal. The wound was then dressed with 1 pack of Surgicel, multiple 4 x 4 gauze, 3 ABG pad, 1 roll of Kerlix, and a 4 inch Boyd in the form of a compression dressing. The patient was escorted to PACU in no apparent distress, vital signs stable, neurovascular status intact, with capillary refill time 3 seconds to the remaining digits on the right foot. Patient will be monitored for strikethrough into the evening, and a separate drift to be held for an additional 4-6 hours to control any postoperative bleeding from the open wound. This dressing will be loosened slightly and about 1 hour, and will otherwise remain intact until another debridement on Saturday, at which point negative pressure therapy will likely begin. Discharge Disposition: PACU
--- NOTE | 2017-04-15 16:55 | PN- Infect Dx ---
Subjective Subjective: Afebrile without complaints Objective Last 24 Hrs of Vital Signs/I&O Vital Signs Date Time Temp Pulse Resp B/P B/P Pulse O2 O2 Flow FiO2 Mean Ox Delivery Rate 04/15 913 79 130/80 04/15 912 79 130/80 04/15 912 79 130/80 04/15 0800 Nasal 2.0L Cannula 04/15 06 98.3 79 20 130/80 93 Room Air 04/15 0000 93 Nasal 2.0L Cannula 04/14 221 98.1 84 20 122/80 93 Nasal Cannula 04/14 2101 84 122/80 Intake & Output 04/15 1600 04/15 0804/15 0000 Intake Total 900 750 747.1 Output Total 600 450 920 Balance 300 300 -172.9 Intake, IV 900 700 607.1 Intake, Oral 50 140 Number 0 0 Bowel Movements Output, Urine 600 450 920 Patient 253 lb Weight Physical Exam Other Physical Findings: He appears comfortable in no acute distress Extremities right foot dressing intact Results Last 24 Hours of Lab Results: Laboratory Tests 04/15 04/15 04/14 0600 0410 1926 Chemistry Sodium (137 - 145 mmol/L) 137 Potassium (3.5 - 5.1 mmol/L) 3.1 L Chloride (98 - 107 mmol/L) 96 L Carbon Dioxide (22 - 30 mmol/L) 32 H Anion Gap (5 - 16) 9 BUN (9 - 20 mg/dL) 15 Creatinine (0.7 - 1.2 mg/dL) 0.9 Estimated GFR (>60 ml/min) > 60 BUN/Creatinine Ratio (7 - 25 %) 16.7 Coagulation PT (9.4 - 12.5 SEC) Cancelled 13.6 H INR (0.90 - 1.17) Cancelled 1.24 H APTT (25 - 37 SEC) 41 H 35 Hematology CBC w Diff NO MAN DIFF REQ WBC (4.8 - 10.8 /CUMM) 9.6 RBC (4.70 - 6.10 /CUMM) 3.21 L Hgb (14.0 - 18.0 G/DL) 9.0 L Hct (42 - 52 %) 27.7 L MCV (80.0 - 94.0 FL) 86.2 MCH (27.0 - 31.0 PG) 28.1 MCHC (33.0 - 37.0 G/DL) 32.6 L RDW (11.5 - 14.5 %) 13.1 Plt Count (130 - 400 /CUMM) 303 MPV (7.4 - 10.4 FL) 8.0 Gran % (42.2 - 75.2 %) 68.0 Lymphocytes % (20.5 - 51.1 %) 19.5 L Monocytes % (1.7 - 9.3 %) 10.2 H Eosinophils % (0 - 5 %) 1.9 Basophils % (0.0 - 2.0 %) 0.4 Absolute Granulocytes (1.4 - 6.5 /CUMM) 6.5 Absolute Lymphocytes (1.2 - 3.4 /CUMM) 1.9 Absolute Monocytes (0.10 - 0.60 /CUMM) 1.0 H Absolute Eosinophils (0.0 - 0.7 /CUMM) 0.2 Absolute Basophils (0.0 - 0.2 /CUMM) 0 Last 24 Hours of Jose Alberot Results: OR culture April 12 labeled right foot bone positive for beta strep Group B, Serratia sensitive to Ceftazidime, Ciprofloxacin, Gentamicin, Bactrim, Zosyn and Meropenem and possible anaerobic gram-negative rods OR culture April 12 labeled right foot tissue positive for beta strep Group B, Klebsiella oxytoca resistant to Ampicillin and Cefazolin and intermediate to Unasyn, alpha strep and possible anaerobes Blood cultures April 12 negative Assessment/Plan ID Impression: Stable, status post further debridement of all nonviable skin, soft tissue and bone of the right foot earlier today for gas gangrene, following a partial first ray resection of the right foot 3 days ago for osteomyelitis. His temperatures and white blood cell count are now normal on Unasyn and Ciprofloxacin but, based on his OR cultures, his antibiotics can be adjusted. He will presumably require a prolonged course of IV antibiotics for residual osteomyelitis and, therefore, will require a PICC. Suggestion: 1. Further management of his right foot per Podiatry 2. Would proceed with placement of a PICC 3. Discontinue Unasyn and Ciprofloxacin 4. Begin Zosyn 4.5 g IV every 6 hours
[2017-04-15 22:16] VITALS: BP 137/82
[2017-04-16 06:27] VITALS: BP 122/76
--- NOTE | 2017-04-16 07:20 | PN- Housestaff ---
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 He was not maintained on IV heparin yesterday. Restarted in the morning at 4am. He did have significant pain reports current regimen is not helping. Agrees to get PICC line. Got consent at bedside. Informed about need for long course of antibiotics Review of Systems Constitutional: Reports: see HPI. Objective Last 24 Hrs of Vital Signs/I&O Vital Signs Date Time Temp Pulse Resp B/P B/P Pulse O2 O2 Flow FiO2 Mean Ox Delivery Rate 04/16 626 98.4 72 20 122/76 95 Nasal Cannula 04/16 0000 Nasal 2.0L Cannula 04/15 2323 89 137/82 04/15 2216 98.6 89 20 137/82 96 Nasal 2.0L Cannula 04/15 1615 92 Nasal 2.0L Cannula 04/15 0914 79 130/80 04/15 0913 79 130/80 04/15 0913 79 130/80 04/15 0800 Nasal 2.0L Cannula Intake & Output 04/16 0800 04/16 0000 04/15 1600 Intake Total 632 480 900 Output Total 400 725 600 Balance 232 -245 300 Intake, IV 152 900 Intake, Oral 480 480 Number 0 Bowel Movements Output, Urine 400 725 600 Patient 114.759 kg Weight Physical Exam General Appearance: Alert, Oriented X3, Cooperative, No Acute Distress Skin: No Rashes, well dressed wound on the right foot Skin Temp/Moisture Exam: Warm/Dry HEENT: Atraumatic, PERRLA, EOMI Neck: Supple Cardiovascular: Normal S1, Normal S2, systolic murmur present Lungs: Clear to Auscultation, Normal Air Movement Abdomen: Normal Bowel Sounds, Soft, No Tenderness, No Hepatospenomegaly, No Masses Neurological: Normal Speech, Normal Tone, Sensation Intact Extremities: No Clubbing, No Cyanosis, edema present right > left Vascular: Normal Pulses Current Medications: Current Medications Sig/Tello Start time Last Medication Dose Route Stop Time Status Admin Amlodipine Besylate 10 MG DAILY 04/13 1000 AC / PO 0913 Ampicillin Sodium/ 3,000 MG Q6 04/12 1800 DC 04/15 Sulbactam Sodium IV 1740 Sodium Chloride 100 ML Atorvastatin Calcium 80 MG DAILY 04/13 1000 AC 03 PO 0914 Ciprofloxacin 400 MG Q12 04/13 2200 DC 04/15 Dextrose/Water 200 ML IV 1040 Dextrose/Sodium 1,000 ML Q13H 04/15 0200 DC 03 Chloride IV 0200 Duloxetine HCl 60 MG DAILY 04/13 1000 AC 03 PO 0914 Fentanyl Citrate 200 MCG .STK-MED ONE 04/15 1308 DC IM 04/15 1309 Furosemide 40 MG 0730,1630 03 0730 AC 04/16 PO 0611 Gabapentin 400 MG TID 04/12 1600 AC 04/15 PO 2156 Heparin Sodium 25,000 UNIT Q24H 04/14 1230 AC 04/16 (Porcine) IV 0429 Sodium Chloride 500 ML Hydralazine HCl 100 MG BID 04/12 2200 AC 04/15 PO 2323 Hydromorphone HCl 2 MG ONCE ONE 04/15 1945 DC 04/15 PO 04/15 194 1943 Hydromorphone HCl 0.4 MG ONCE ONE 04/15 1930 DC IV 04/15 1931 Insulin Aspart 0 TIDAC/HS 04/15 1700 AC 04/15 SC 2156 Insulin Detemir 16 UNITS BID 04/15 2200 AC 04/15 SC 2157 Insulin Detemir 8 UNITS ONCE ONE 04/15 0815 DC 04/15 SC 04/15 0816 0912 Insulin Detemir 16 UNITS BID 04/14 2200 DC 04 SC 2101 Insulin Human Regular 0 Q6 04/15 1200 DC 04/15 SC 1155 Insulin Human Regular 0 Q6 05 0035 DC 03 SC 0556 Lisinopril 40 MG DAILY 04/13 1000 AC 04/15 PO 0913 Metoprolol Tartrate 75 MG BID 04/12 2200 AC 03 PO 2156 Midazolam HCl 2 MG .STK-MED ONE 04/15 1309 DC IM 04/15 1310 Morphine Sulfate 4 MG Q8P PRN 04/13 0845 AC 04/16 IV 0056 Nicotine 14 MG DAILY 04/14 1115 AC 04/14 TOP 1242 Non-Formulary 0 SEE ADMIN CRITERIA 04/15 2100 CAN Medication ANY Oxycodone HCl 10 MG Q6P PRN 04/13 1615 AC 04/16 PO 0612 Pantoprazole Sodium 40 MG BID 04/13 2200 AC 03/05 IV 2156 Piperacillin Sod/ 4.5 GM Q6H 04/15 2100 AC 04/16 Tazobactam Sod IV 0301 Sodium Chloride 100 ML Potassium Chloride 20 MEQ 04/15 0815 CAN IV Potassium Chloride 20 MEQ Q13H 04/15 0815 DC 04/15 Dextrose/Sodium 1,000 ML IV 0913 Chloride Promethazine HCl 25 MG Q4 PRN 04/14 0630 AC 04/14 PO 04/21 06 0815 Sumatriptan Succinate 50 MG DAILY NEEDED PRN 04/13 0845 AC 04/14 PO 0409 Trimethobenzamide HCl 200 MG .STK-MED ONE 04/15 1258 DC IM 04/15 1259 Trimethobenzamide HCl 200 MG 4 TIMES/DAY PRN 04/13 0100 AC 04/15 IM 1300 Last 24 Hrs of Lab/Jose Alberto Results Last 24 Hrs of Labs/Mics: Laboratory Tests 04/16/17 0709: Anion Gap 8, Estimated GFR > 60, BUN/Creatinine Ratio 13.3, CBC w Diff NO MAN DIFF REQ, RBC 2.81 L, MCV 85.1, MCH 28.5, MCHC 33.5, RDW 12.9, MPV 8.2, Gran % 64.0, Lymphocytes % 22.6, Monocytes % 10.3 H, Eosinophils % 2.6, Basophils % 0.5, Absolute Granulocytes 5.5, Absolute Lymphocytes 1.9, Absolute Monocytes 0.9 H, Absolute Eosinophils 0.2, Absolute Basophils 0 Assessment/Plan Assessment: Patient is a 46 YO long standing IDDM Male with significant history of CVA with possible left atrial thrombus on warfarin since 2013, HTN, Obesity, CHF now presenting with worsening of left foot ulcer with erythema and pain. He was off insulin for the past 3 months due to insurance issues and is experiencing signs of hyperglycemia like Polyuria, Polydipsia, Neuropathic pain, blury vision. He also had black stools with advil intake. Previous amputation of Rt big toe. Admitted to general medicine floor Problem list 1. Diabetic foot infection with gas gangrene 2. Uncontrolled Insuline dependent Diabetes mellitus with HbA1C of 12 3. HTN 4. Heart failure by history 5. CVA on warfarin for possible left atrial thrombus 6. 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 Cultures grew Group B strep, anerobes, Serratia. He underwent repeat incision and drainage of right foot infection with excisional debridement of all nonviable skin and soft tissue again yesterday. Underwent partial first ray resection of the right foot on the day of admission. His wound looks very bad requiring another debridement on . PICC line tomorrow * IV Zosyn 4.5gm Q6 * Antiemetics as needed * Avoid further NSAIDS. * ID input appreciated * Cold packs for fever control * Podiatry following Severe Diabetic Neuropathy * Continue Gabapentin and cymbalta * Increase IV morhine to 4mg Q6hrs PRN for breakthrough pain * Continue PO oxycodone 5mg Q6hrs PRN Poorly controlled IDDM * High sugars today - sliding scale adjusted * Levemir 16 units BID and sliding scale per . * Continue ccuchecks with insulin sliding scale * Endocrinology input appreciated * No significant proteinuria, microalbuminuria present. Low H&H Apparently patient had significant bleed in OR yesterday, although his wound looks clean today. He needs a unit of transfusion priror to tomorrow prior to next OR. H&H today 10/03. HTN * continue amlodipine 10mg daily and hydralazine 100mg BID Systolic Heart failure by history * Continue metoprolol tartarate 75mg BID, lisinopril 40mg daily, atorvastatin 80mg daily CVA on warfarin for possible left atrial thrombus * On warfarin - INR is subtherapeutic. CHADS VASC2 6. * Started on IV heparin for the procedure, will continue for today given significant bleeding after the procedure. Melena with advil intake Patient cannot tolerate tylenol and takes advil as needed. Reports experiencing black stools with NSAID intake. * Avoid NSAIDs if possible * IV Protonix BID * GI consulted - as patient have normal H&H with normal BUN/Cr - recommended outpatient follow up unless overt bleeding present. DVT prophylaxis with IV heparin code status full code Problem List: 1. Diabetic foot ulcer 2. Wound of lower extremity Pain Ratin Pain Location: right leg Pain Goal: Pain 4 or less Pain Plan: morphine oxycodone Tomorrow's Labs & Rationales: cbc, bep Jose DELGADILLO,Terese 04/16/17 1136: Attending MD Review Statement Attending Statement Attending MD Statement: examined this patient, discuss w/resident/PA/SAMPLE WEAVER, agreed w/resident/PA/SAMPLE WEAVER, reviewed EMR data (avail), discussed with nursing, discussed with case mgmt, reviewed images, amended to note Attending Assessment/Plan: Patient seen and examined, feels ok. Denies any pain currently. Went to R yesterday and reports that he will be going to OR again tomorrow. ID recommends PICC and ABx have been switched to IV Zosyn. Vital Signs Date Time Temp Pulse Resp B/P B/P Pulse O2 O2 Flow FiO2 Mean Ox Delivery Rate 04/16 1056 70 120/70 / 0840 72 122/76 04/16 0840 72 122/76 04/16 0800 Room Air 04/16 0627 98.4 72 20 122/76 95 Nasal Cannula 04/16 0000 Nasal 2.0L Cannula 04/15 2323 89 137/82 04/15 2216 98.6 89 20 137/82 96 Nasal 2.0L Cannula 04/15 1615 92 Nasal 2.0L Cannula on exam; aox3, nad. cv; s1,s2, rrr resp; clear abd; soft, nt, bs+ ext; no edema. right foot is wrapped in KATHERINE wrap. Laboratory Tests 04/16/17 1115: APTT Pending 04/16/17 0709: Anion Gap 8, Estimated GFR > 60, BUN/Creatinine Ratio 13.3, CBC w Diff NO MAN DIFF REQ, RBC 2.81 L, MCV 85.1, MCH 28.5, MCHC 33.5, RDW 12.9, MPV 8.2, Gran % 64.0, Lymphocytes % 22.6, Monocytes % 10.3 H, Eosinophils % 2.6, Basophils % 0.5, Absolute Granulocytes 5.5, Absolute Lymphocytes 1.9, Absolute Monocytes 0.9 H, Absolute Eosinophils 0.2, Absolute Basophils 0 A/P: 46 y/o M with pmh sig for CVA on coumadin for possible Left atrial throbus on JACKY, IDDM, HTN, systolic heart failure, previous history of right hallux amputation, admitted with sepsis present on admission now resolved, gas gangrene of the right foot stemming from an infected plantar neuropathic ulceration s/p Incision and drainage right foot, Partial first ray resection right foot, Excisional debridement of nonviable skin, soft tissue, and bone right foot on 3/2/18. Another incision and drainage was done yesterday and plan is to take him to operating room again on 04/17/2017. Patient has been switched to IV Zosyn. PICC line will be inserted. We need to discuss with case management about discharge planning as patient does not have any insurance. Insulin management per endocrinology, please follow the recommendations. Will remain on heparin drip for now because this plan for or again tomorrow. Once all the procedures are done then patient will be switched back to his Coumadin. Continue the rest of the medications. DVt px; On hep gtt.
--- NOTE | 2017-04-16 08:05 | PN- Diabetes ---
Assessment/Plan Diabetes Assessment: The patient went back to the OR yesterday for further surgery on his right foot. Complains of some pain in the right foot area. He is eating okay and has no vomiting. He still has a mild headache. The patient's blood sugars have been high. Part of the reason is due to interruption of his insulin regimen due to surgery. Also the stress of surgery drives blood sugar up. Plan: Suggest increase the patient's Levemir to 18 units twice a day. In addition we will increase the patient sliding scale NovoLog. Sliding scale NovoLog before meals should be 80-150 give 6 units NovoLog, 151-200 give 8 units NovoLog, 201-250 give 10 units NovoLog, 251-300 give 12 units NovoLog, 301-350 give 13 units NovoLog, 351-400 give 14 units NovoLog. The separate sliding scale bedtime NovoLog should remain as written. If the patient is made n.p.o. after midnight tonight for surgery tomorrow he can receive the full dose of Levemir tonight. However tomorrow a.m. we should reduce his Levemir to 10 units. We need to begin IV D5 half-normal saline with 20 mEq KCl at 75 cc/h at midnight tonight after the patient is made n.p.o. When n.p.o. the patient can also be placed on regular insulin coverage every 6 hours as written yesterday. Objective Last 24 Hrs of Vital Signs/I&O Vital Signs Date Time Temp Pulse Resp B/P B/P Pulse O2 O2 Flow FiO2 Mean Ox Delivery Rate 04/16 626 98.4 72 20 122/76 95 Nasal Cannula 04/16 0000 Nasal 2.0L Cannula 04/15 2322 89 137/82 04/16 2215 98.6 89 20 137/82 96 Nasal 2.0L Cannula 04/15 1615 92 Nasal 2.0L Cannula 04/15 913 79 130/80 04/15 09 79 130/80 04/15 912 79 130/80 Intake & Output 04/16 1600 04/16 0800 04/16 0000 Intake Total 632 480 Output Total 400 725 Balance 232 -245 Intake, IV 152 Intake, Oral 480 480 Output, Urine 400 725 Vital Signs Date Time Temp Pulse Resp B/P B/P Pulse O2 O2 Flow FiO2 Mean Ox Delivery Rate 04/16 626 98.4 72 20 122/76 95 Nasal Cannula 04/16 0000 Nasal 2.0L Cannula 04/15 2323 89 137/82 / 221 98.6 89 20 137/82 96 Nasal 2.0L Cannula 04/15 1615 92 Nasal 2.0L Cannula 04/15 0914 79 130/80 04/15 0913 79 130/80 04/15 0913 79 130/80 Intake & Output 04/16 1600 04/16 0800 04/16 0000 Intake Total 632 480 Output Total 400 725 Balance 232 -245 Intake, IV 152 Intake, Oral 480 480 Output, Urine 400 725 Physical Exam General Appearance: alert, awake, comfortable Head: normal appearance Neck: normal inspection Respiratory: normal breath sounds Cardiovascular: regular rate/rhythm Current Medications: Current Medications Sig/Tello Start time Last Medication Dose Route Stop Time Status Admin Amlodipine Besylate 10 MG DAILY 04/13 1000 AC 04/15 PO 0913 Ampicillin Sodium/ 3,000 MG Q6 04/12 1800 DC 04/15 Sulbactam Sodium IV 1740 Sodium Chloride 100 ML Atorvastatin Calcium 80 MG DAILY 04/13 1000 AC /05 PO 0914 Ciprofloxacin 400 MG Q12 04/13 2200 DC 0305 Dextrose/Water 200 ML IV 1040 Duloxetine HCl 60 MG DAILY 04/13 1000 AC / PO 0914 Fentanyl Citrate 200 MCG .STK-MED ONE 04/15 1308 DC IM 04/15 1309 Furosemide 40 MG 0730,1630 / 0730 AC 04/16 PO 0611 Gabapentin 400 MG TID 04/12 1600 AC 04/15 PO 2156 Heparin Sodium 25,000 UNIT Q24H / 1230 AC 04/16 (Porcine) IV 0429 Sodium Chloride 500 ML Hydralazine HCl 100 MG BID 04/12 2200 AC 05 PO 2323 Hydromorphone HCl 2 MG ONCE ONE 04/15 1944 DC / PO 04/15 1945 194 Hydromorphone HCl 0.4 MG ONCE ONE 04/15 1930 DC IV 04/15 193 Insulin Aspart 0 TIDAC/HS 04/15 1700 AC 04/15 SC 2156 Insulin Detemir 16 UNITS BID 04/15 2200 AC 04/15 SC 2157 Insulin Detemir 8 UNITS ONCE ONE 04/15 0815 DC 04/15 SC 04/15 0816 0912 Insulin Human Regular 0 Q6 04/15 1200 DC 04/15 SC 1155 Insulin Human Regular 0 Q6 04/15 0035 DC 04/15 SC 0556 Lisinopril 40 MG DAILY 04/13 1000 AC 04/15 PO 0913 Metoprolol Tartrate 75 MG BID 04/12 2200 AC 04/15 PO 2156 Midazolam HCl 2 MG .STK-MED ONE 04/15 1309 DC IM 04/15 1310 Morphine Sulfate 4 MG Q8P PRN 04/13 0845 AC 04/16 IV 0056 Nicotine 14 MG DAILY 04/14 1115 AC 04/14 TOP 1242 Non-Formulary 0 SEE ADMIN CRITERIA 04/15 2100 CAN Medication ANY Oxycodone HCl 10 MG Q6P PRN 04/13 1615 AC 04/16 PO 0612 Pantoprazole Sodium 40 MG BID 04/13 2200 AC 04/15 IV 2156 Piperacillin Sod/ 4.5 GM Q6H 04/15 2100 AC 04/16 Tazobactam Sod IV 0301 Sodium Chloride 100 ML Potassium Chloride 20 MEQ 04/15 0815 CAN IV Potassium Chloride 20 MEQ Q13H 04/15 0815 DC 04/15 Dextrose/Sodium 1,000 ML IV 0913 Chloride Promethazine HCl 25 MG Q4 PRN 04/14 0630 AC 04/14 PO 04/21 0629 0815 Sumatriptan Succinate 50 MG DAILY NEEDED PRN 04/13 0845 AC 04/14 PO 0409 Trimethobenzamide HCl 200 MG .STK-MED ONE 04/15 1258 DC IM 04/15 1259 Trimethobenzamide HCl 200 MG 4 TIMES/DAY PRN 04/13 0100 AC 04/15 IM 1300 Findings Pertinent Lab/Jose Alberto Results: Laboratory Tests 04/16 0709 Chemistry Sodium Pending Potassium Pending Chloride Pending Carbon Dioxide Pending Anion Gap Pending BUN Pending Creatinine Pending BUN/Creatinine Ratio Pending Hematology CBC w Diff Pending WBC Pending RBC Pending Hgb Pending Hct Pending MCV Pending MCH Pending MCHC Pending RDW Pending Plt Count Pending MPV Pending
[2017-04-16 08:43] LABS: ABSOLUTE BASOPHIL COUNT 0 /CUMM (0.0-0.2); ABSOLUTE EOSINOPHIL COUNT 0.2 /CUMM (0.0-0.7); ABSOLUTE GRANULOCYTE CT 5.5 /CUMM (1.4-6.5); ABSOLUTE LYMPH COUNT 1.9 /CUMM (1.2-3.4); ABSOLUTE MONOCYTE COUNT 0.9 /CUMM (0.10-0.60); BASOPHIL % 0.5 % (0.0-2.0); EOSINOPHIL % 2.6 % (0-5); HEMATOCRIT 23.9 % (42-52); MEAN CORPUSCULAR HGB 28.5 PG (27.0-31.0); MEAN CORPUSCULAR HGB CONC 33.5 G/DL (33.0-37.0); MEAN CORPUSCULAR VOLUME 85.1 FL (80.0-94.0); MEAN PLATELET VOLUME 8.2 FL (7.4-10.4); PLATELET COUNT 319 /CUMM (130-400); RBC DISTRIBUTION WIDTH 12.9 % (11.5-14.5); RED BLOOD CELL CT 2.81 /CUMM (4.70-6.10); WHITE BLOOD CELL COUNT 8.5 /CUMM (4.8-10.8)
[2017-04-16 12:09] LABS: PTT 53 SEC (25-37)
[2017-04-16 13:44] VITALS: BP 108/70
--- NOTE | 2017-04-16 14:33 | PN- Podiatry ---
Subjective Subjective: 46-year-old male seen and evaluated s/p emergency open partial right first ray resection on April 12, followed by revisional debridement April 15. Patient is in no apparent distress, reports generalized agitation and boredom from the length of his stay. He denies fever, chills, nausea, vomiting, diaphoresis, shortness of breath, and chest pain at the time of my examination. His dressing has no strikethrough despite being out of bed to chair in a dependent position. Review of Systems: A 14 point review of systems was performed, and was found to be negative apart from the patient's complaints described above in the history of present illness. Objective Vital Signs and I&Os Vital Signs Date Time Temp Pulse Resp B/P B/P Pulse O2 O2 Flow FiO2 Mean Ox Delivery Rate 04/16 1344 98.4 73 20 108/70 95 Nasal 3.0L Cannula 04/16 1056 70 120/70 04/16 0840 72 122/76 03/ 0840 72 122/76 / 0800 Room Air 04/16 0627 98.4 72 20 122/76 95 Nasal Cannula 04/16 0000 Nasal 2.0L Cannula 04/15 2323 89 137/82 / 2216 98.6 89 20 137/82 96 Nasal 2.0L Cannula 04/15 1615 92 Nasal 2.0L Cannula Intake & Output 04/16 1600 / 0800 / 0000 / 1600 04/15 0800 03/ 0000 Intake Total 568 632 480 900 750 747.1 Output Total 600 400 725 600 450 920 Balance -32 232 -245 300 300 -172.9 Intake, IV 208 152 900 700 607.1 Intake, Oral 360 480 480 50 140 Number 0 0 0 Bowel Movements Output, Urine 600 400 725 600 450 920 Patient 253 lb Weight Physical Exam: Patient has palpable pedal pulses, normal temperature gradient both lower extremities, capillary refill time is 3 seconds in all 9 remaining digits. Patient's neuro exam is unchanged. The surgical wound base has pinpoint areas of devitalized skin margins and some fibrous tissue on the base distally. The FloSeal used from yesterday's procedure is fully tamponaded, there is no active bleeding or even capillary oozing from the surgical wound. There is no calor in the foot. Muscular skeletal exam is unchanged from admission. Current Medications: Current Medications Sig/Tello Start time Last Medication Dose Route Stop Time Status Admin Amlodipine Besylate 10 MG DAILY 04/13 1000 AC 04/16 PO 0840 Ampicillin Sodium/ 3,000 MG Q6 04/12 1800 DC 04/15 Sulbactam Sodium IV 1740 Sodium Chloride 100 ML Atorvastatin Calcium 80 MG DAILY 04/13 1000 AC 04/16 PO 0841 Ciprofloxacin 400 MG Q12 04/13 2200 DC 04/15 Dextrose/Water 200 ML IV 1040 Duloxetine HCl 60 MG DAILY 04/13 1000 AC 04/16 PO 0841 Furosemide 40 MG 0730,1630 04/14 0730 AC 04/16 PO 0611 Gabapentin 400 MG TID 04/12 1600 AC 04/16 PO 0840 Heparin Sodium 4,536 UNIT ONCE ONE 04/16 1255 DC 04/16 (Porcine) IV 04/16 1256 1313 Heparin Sodium 25,000 UNIT Q24H 04/14 1230 AC 04/16 (Porcine) IV 1302 Sodium Chloride 500 ML Hydralazine HCl 100 MG BID 04/12 2200 AC 04/16 PO 1056 Hydromorphone HCl 2 MG ONCE ONE 04/15 1945 DC 04/15 PO 04/15 1946 1943 Hydromorphone HCl 0.4 MG ONCE ONE 04/15 1930 DC IV 04/15 1931 Insulin Aspart 0 TIDAC/HS 04/15 1700 AC 04/16 SC 1232 Insulin Detemir 16 UNITS BID 04/15 2200 AC 04/16 SC 0839 Insulin Human Regular 0 Q6 04/15 1200 DC 04/15 SC 1155 Lisinopril 40 MG DAILY 04/13 1000 AC 04/16 PO 0840 Metoprolol Tartrate 75 MG BID 04/12 2200 AC 04/16 PO 0840 Morphine Sulfate 4 MG Q8P PRN 04/13 0845 AC 04/16 IV 0847 Nicotine 14 MG DAILY 04/14 1115 AC 04/16 TOP 1056 Non-Formulary 0 SEE ADMIN CRITERIA 04/15 2100 CAN Medication ANY Oxycodone HCl 10 MG Q6P PRN 04/13 1615 AC 04/16 PO 1235 Pantoprazole Sodium 40 MG BID 04/13 2200 AC 04/16 IV 0839 Piperacillin Sod/ 4.5 GM Q6H 04/15 2100 AC 04/16 Tazobactam Sod IV 0839 Sodium Chloride 100 ML Potassium Chloride 20 MEQ Q13H 04/15 0815 DC 04/15 Dextrose/Sodium 1,000 ML IV 0913 Chloride Promethazine HCl 25 MG Q4 PRN 04/14 06 AC 04/14 PO 04/21 06 0815 Sumatriptan Succinate 50 MG DAILY NEEDED PRN 04/13 0845 AC 04/14 PO 0409 Trimethobenzamide HCl 200 MG 4 TIMES/DAY PRN 04/13 0100 AC 04/15 IM 1300 Results Last 48 Hours of Labs: Laboratory Tests 04/16 04/16 04/15 1115 0709 0600 Chemistry Sodium (137 - 145 mmol/L) 134 L Potassium (3.5 - 5.1 mmol/L) 3.6 Chloride (98 - 107 mmol/L) 95 L Carbon Dioxide (22 - 30 mmol/L) 31 H Anion Gap (5 - 16) 8 BUN (9 - 20 mg/dL) 12 Creatinine (0.7 - 1.2 mg/dL) 0.9 Estimated GFR (>60 ml/min) > 60 BUN/Creatinine Ratio (7 - 25 %) 13.3 Coagulation PT Cancelled INR Cancelled APTT (25 - 37 SEC) 53 H Hematology CBC w Diff NO MAN DIFF REQ WBC (4.8 - 10.8 /CUMM) 8.5 RBC (4.70 - 6.10 /CUMM) 2.81 L Hgb (14.0 - 18.0 G/DL) 8.0 L Hct (42 - 52 %) 23.9 L MCV (80.0 - 94.0 FL) 85.1 MCH (27.0 - 31.0 PG) 28.5 MCHC (33.0 - 37.0 G/DL) 33.5 RDW (11.5 - 14.5 %) 12.9 Plt Count (130 - 400 /CUMM) 319 MPV (7.4 - 10.4 FL) 8.2 Gran % (42.2 - 75.2 %) 64.0 Lymphocytes % (20.5 - 51.1 %) 22.6 Monocytes % (1.7 - 9.3 %) 10.3 H Eosinophils % (0 - 5 %) 2.6 Basophils % (0.0 - 2.0 %) 0.5 Absolute Granulocytes (1.4 - 6.5 /CUMM) 5.5 Absolute Lymphocytes (1.2 - 3.4 /CUMM) 1.9 Absolute Monocytes (0.10 - 0.60 /CUMM) 0.9 H Absolute Eosinophils (0.0 - 0.7 /CUMM) 0.2 Absolute Basophils (0.0 - 0.2 /CUMM) 0 04/15 04/14 0410 1926 Chemistry Sodium (137 - 145 mmol/L) 137 Potassium (3.5 - 5.1 mmol/L) 3.1 L Chloride (98 - 107 mmol/L) 96 L Carbon Dioxide (22 - 30 mmol/L) 32 H Anion Gap (5 - 16) 9 BUN (9 - 20 mg/dL) 15 Creatinine (0.7 - 1.2 mg/dL) 0.9 Estimated GFR (>60 ml/min) > 60 BUN/Creatinine Ratio (7 - 25 %) 16.7 Coagulation PT (9.4 - 12.5 SEC) 13.6 H INR (0.90 - 1.17) 1.24 H APTT (25 - 37 SEC) 41 H 35 Hematology CBC w Diff NO MAN DIFF REQ WBC (4.8 - 10.8 /CUMM) 9.6 RBC (4.70 - 6.10 /CUMM) 3.21 L Hgb (14.0 - 18.0 G/DL) 9.0 L Hct (42 - 52 %) 27.7 L MCV (80.0 - 94.0 FL) 86.2 MCH (27.0 - 31.0 PG) 28.1 MCHC (33.0 - 37.0 G/DL) 32.6 L RDW (11.5 - 14.5 %) 13.1 Plt Count (130 - 400 /CUMM) 303 MPV (7.4 - 10.4 FL) 8.0 Gran % (42.2 - 75.2 %) 68.0 Lymphocytes % (20.5 - 51.1 %) 19.5 L Monocytes % (1.7 - 9.3 %) 10.2 H Eosinophils % (0 - 5 %) 1.9 Basophils % (0.0 - 2.0 %) 0.4 Absolute Granulocytes (1.4 - 6.5 /CUMM) 6.5 Absolute Lymphocytes (1.2 - 3.4 /CUMM) 1.9 Absolute Monocytes (0.10 - 0.60 /CUMM) 1.0 H Absolute Eosinophils (0.0 - 0.7 /CUMM) 0.2 Absolute Basophils (0.0 - 0.2 /CUMM) 0 Assessment/Plan Assessment/Plan 46 y/o uncontrolled diabetic male s/p emergency open partial right first ray resection for the treatment of necrotizing right forefoot infection with resolving systemic inflammatory response Patient is seen and evaluated at bedside. Continue IV antibiotics per infectious disease recommendations. Infectious disease consultation is appreciated, anticipating PICC line placement and final recommendations. While surgical wound is not actively bleeding at this time, his continued trending down of his H&H concerning, though likely multifactorial from the blood loss of the procedures, hemolysis of the strep infection, and IVF. This was discussed with the primary team, and I recommended a unit of packed red blood cells in the interim between now and his next debridement, which is now scheduled to instead of Saturday due to inclement weather. Surgical wound was dressed with a well-padded wet-to-dry dressing, and he may transfer out of bed to chair as needed or use the restroom. I will return him to the operating room on for a small debridement and washout and initiation of negative pressure wound therapy. From this point, provided his H&H begins to trended up, we can plan for discharge and reinitiate his Coumadin.
--- NOTE | 2017-04-16 17:46 | PN- Infect Dx ---
Subjective Subjective: Afebrile. He notes some discomfort in his right foot Objective Last 24 Hrs of Vital Signs/I&O Vital Signs Date Time Temp Pulse Resp B/P B/P Pulse O2 O2 Flow FiO2 Mean Ox Delivery Rate 04/16 1600 Nasal 2.0L Cannula 04/16 1344 98.4 73 20 108/70 95 Nasal 3.0L Cannula 04/16 1056 70 120/70 04/16 0840 72 122/76 03 0840 72 122/76 04/16 0800 Room Air 04/16 0627 98.4 72 20 122/76 95 Nasal Cannula 04/16 0000 Nasal 2.0L Cannula 04/15 2323 89 137/82 04/15 2216 98.6 89 20 137/82 96 Nasal 2.0L Cannula Intake & Output 04/16 1600 04/16 0800 04/16 0000 Intake Total 568 632 480 Output Total 600 400 725 Balance -32 232 -245 Intake, IV 208 152 Intake, Oral 360 480 480 Number 0 Bowel Movements Output, Urine 600 400 725 Physical Exam Other Physical Findings: He appears comfortable in no acute distress Extremities right foot dressing intact Results Last 24 Hours of Lab Results: Laboratory Tests 04/16 04/16 1115 0709 Chemistry Sodium (137 - 145 mmol/L) 134 L Potassium (3.5 - 5.1 mmol/L) 3.6 Chloride (98 - 107 mmol/L) 95 L Carbon Dioxide (22 - 30 mmol/L) 31 H Anion Gap (5 - 16) 8 BUN (9 - 20 mg/dL) 12 Creatinine (0.7 - 1.2 mg/dL) 0.9 Estimated GFR (>60 ml/min) > 60 BUN/Creatinine Ratio (7 - 25 %) 13.3 Coagulation APTT (25 - 37 SEC) 53 H Hematology CBC w Diff NO MAN DIFF REQ WBC (4.8 - 10.8 /CUMM) 8.5 RBC (4.70 - 6.10 /CUMM) 2.81 L Hgb (14.0 - 18.0 G/DL) 8.0 L Hct (42 - 52 %) 23.9 L MCV (80.0 - 94.0 FL) 85.1 MCH (27.0 - 31.0 PG) 28.5 MCHC (33.0 - 37.0 G/DL) 33.5 RDW (11.5 - 14.5 %) 12.9 Plt Count (130 - 400 /CUMM) 319 MPV (7.4 - 10.4 FL) 8.2 Gran % (42.2 - 75.2 %) 64.0 Lymphocytes % (20.5 - 51.1 %) 22.6 Monocytes % (1.7 - 9.3 %) 10.3 H Eosinophils % (0 - 5 %) 2.6 Basophils % (0.0 - 2.0 %) 0.5 Absolute Granulocytes (1.4 - 6.5 /CUMM) 5.5 Absolute Lymphocytes (1.2 - 3.4 /CUMM) 1.9 Absolute Monocytes (0.10 - 0.60 /CUMM) 0.9 H Absolute Eosinophils (0.0 - 0.7 /CUMM) 0.2 Absolute Basophils (0.0 - 0.2 /CUMM) 0 Last 24 Hours of Jose Alberto Results: No new cultures Assessment/Plan ID Impression: Stable, status post further debridement of all nonviable skin, soft tissue and bone of the right foot yesterday for gas gangrene, following a partial first ray resection of the right foot 4 days ago for osteomyelitis, with plans for a return to the OR on April 18 for further debridement. His temperatures and white blood cell count remain normal now on Zosyn for a polymicrobial infection. He will require a prolonged course of IV antibiotics for residual osteomyelitis and , therefore, will require a PICC. Suggestion: 1. Await repeat debridement of the right foot on April 18 2. Await placement of PICC 3. Continue Zosyn
[2017-04-16 20:55] LABS: PTT 37 SEC (25-37)
[2017-04-16 22:03] VITALS: BP 100/65; BP 129/74
--- NOTE | 2017-04-16 22:47 | Patient Discharge Instructions ---
Discharge Instructions General Discharge Information You were seen/treated for: Gas gangrene of right foot Special Instructions: Please follow up with your PCP in a week Please follow up with in a week Please dose warfarin for a target dose of 2-3. Diet Recommended Diet: Diabetic Activity Activity Self Limited: Yes Acute Coronary Syndrome Inclusion Criteria At DC or during hospital stay patient has or had the following: ACS DIAGNOSIS No Discharge Core Measures Meds if any: Prescribed or Continued at Discharge Meds if any: NOT Prescribed or Continued at Discharge Congestive Heart Failure Inclusion Criteria At DC or during hospital stay patient has or had the following: CHF DIAGNOSIS No Discharge Core Measures Meds if any: Prescribed or Continued at Discharge Meds if any: NOT Prescribed or Continued at Discharge Cerebrovascular accident Inclusion Criteria At DC or during hospital stay patient has or had the following: CVA/TIA Diagnosis No Discharge Core Measures Meds if any: Prescribed or Continued at Discharge Meds if any: NOT Prescribed or Continued at Discharge Venous thromboembolism Inclusion Criteria VTE Diagnosis No VTE Type NONE VTE Confirmed by (Test) NONE Discharge Core Measures - Per Current guidelines, there needs to be overlap - treatment for the first 5 days of Warfarin therapy. - If discharged on Warfarin prior to 5 days of - overlap therapy, the patient will need to be - assessed for post discharge needs including - *Post discharge parental anticoagulation - *Warfarin and/or parental anticoagulation education - *Follow up date to check INR post discharge At least 5 days overlap therapy as Inpatient No Meds if any: Prescribed or Continued at Discharge Note: Overlap Therapy is Warfarin and Anticoagulant Meds if any: NOT Prescribed or Continued at Discharge
[2017-04-17 05:00] LABS: ABSOLUTE BASOPHIL COUNT 0.1 /CUMM (0.0-0.2); ABSOLUTE EOSINOPHIL COUNT 0.3 /CUMM (0.0-0.7); ABSOLUTE GRANULOCYTE CT 5.4 /CUMM (1.4-6.5); ABSOLUTE LYMPH COUNT 3.3 /CUMM (1.2-3.4); ABSOLUTE MONOCYTE COUNT 0.9 /CUMM (0.10-0.60); BASOPHIL % 0.6 % (0.0-2.0); EOSINOPHIL % 3.2 % (0-5); GRANULOCYTE % 53.4 % (42.2-75.2); HEMATOCRIT 22.7 % (42-52); MEAN CORPUSCULAR HGB 29.1 PG (27.0-31.0); MEAN CORPUSCULAR HGB CONC 33.9 G/DL (33.0-37.0); MEAN CORPUSCULAR VOLUME 85.9 FL (80.0-94.0); MEAN PLATELET VOLUME 7.7 FL (7.4-10.4); PLATELET COUNT 331 /CUMM (130-400); RBC DISTRIBUTION WIDTH 13.2 % (11.5-14.5); RED BLOOD CELL CT 2.65 /CUMM (4.70-6.10)
[2017-04-17 05:15] LABS: PTT 58 SEC (25-37)
[2017-04-17 06:39] VITALS: BP 121/74
--- NOTE | 2017-04-17 07:42 | PN- Diabetes ---
Assessment/Plan Diabetes Assessment: The patient's blood sugars are running high. His Levemir dose was not adjusted yesterday as suggested. However we will make further adjustments today. Further surgery is not planned until . Plan: Suggest today increase Levemir to 20 units twice a day. We will also increase his sliding scale NovoLog. Sliding scale NovoLog before meals should be 80-150 give 8 units NovoLog, 151- 200 give 10 units NovoLog, 201-250 give 12 units NovoLog, 251-300 give 14 units NovoLog, 301-350 give 16 units NovoLog, 351-400 give 18 units NovoLog. Bedtime sliding scale NovoLog should stay the same. The patient should be on a carbohydrate 1 diet. Subjective Subjective: feels OKI Objective Last 24 Hrs of Vital Signs/I&O Vital Signs Date Time Temp Pulse Resp B/P B/P Pulse O2 O2 Flow FiO2 Mean Ox Delivery Rate 04/17 638 98.1 67 20 121/74 96 Nasal Cannula 04/163 98.3 73 20 129/74 90 /0 70 124/74 04/16 1600 Nasal 2.0L Cannula 04/16 1344 98.4 73 20 108/70 95 Nasal 3.0L Cannula 04/16 1056 70 120/70 / 0840 72 122/76 / 0840 72 122/76 04/16 0800 Room Air Intake & Output 04/17 0000 04/16 1600 Intake Total 833.1 568 Output Total 600 Balance 833.1 -32 Intake, IV 553.1 208 Intake, Oral 280 360 Number 0 Bowel Movements Output, Urine 600 Vital Signs Date Time Temp Pulse Resp B/P B/P Pulse O2 O2 Flow FiO2 Mean Ox Delivery Rate 04/17 0539 98.1 67 20 121/74 96 Nasal Cannula 04/16 2203 98.3 73 20 129/74 90 /0 70 124/74 / 1600 Nasal 2.0L Cannula 04/16 1344 98.4 73 20 108/70 95 Nasal 3.0L Cannula / 1056 70 120/70 / 0840 72 122/76 / 0840 72 122/76 / 0800 Room Air Intake & Output 04/18 0700 / 0000 04/16 1600 Intake Total 833.1 568 Output Total 600 Balance 833.1 -32 Intake, IV 553.1 208 Intake, Oral 280 360 Number 0 Bowel Movements Output, Urine 600 Physical Exam General Appearance: alert, awake, comfortable Head: normal appearance Neck: normal inspection Respiratory: normal breath sounds Cardiovascular: regular rate/rhythm Abdomen: normal bowel sounds Extremities: normal inspection Current Medications: Current Medications Sig/Tello Start time Last Medication Dose Route Stop Time Status Admin Amlodipine Besylate 10 MG DAILY 04/13 1000 AC 04/16 PO 0840 Atorvastatin Calcium 80 MG DAILY 04/13 1000 AC 04/16 PO 0841 Docusate Sodium 100 MG DAILY 04/16 1433 AC 04/16 PO 1623 Duloxetine HCl 60 MG DAILY 04/13 1000 AC 04/16 PO 0841 Furosemide 40 MG 0730,1630 04/14 0730 AC 04/17 PO 0623 Gabapentin 400 MG TID 04/12 1600 AC 04/16 PO 2120 Heparin Sodium 4,536 UNIT BOLUS ONE 04/17 0545 DC 04/17 (Porcine) IV 04/17 0546 0624 Heparin Sodium 8,505 UNIT BOLUS ONE 04/16 2200 DC 04/16 (Porcine) IV 04/16 220 2200 Heparin Sodium 10,000 UNIT .STK-MED ONE 04/16 2154 DC (Porcine) IV 04/16 2155 Heparin Sodium 5,000 UNIT .STK-MED ONE 04/16 1301 DC (Porcine) IV 04/16 1302 Heparin Sodium 4,536 UNIT ONCE ONE 04/16 1255 DC 04/16 (Porcine) IV 04/16 1256 1313 Heparin Sodium 25,000 UNIT Q24H 04/14 1230 AC 04/16 (Porcine) IV 2200 Sodium Chloride 500 ML Hydralazine HCl 100 MG BID 04/12 2200 AC 04/16 PO 2120 Ibuprofen 800 MG ONCE ONE 04/16 2130 CAN PO 04/16 213 Insulin Aspart 0 TIDAC/HS 04/15 1700 AC 04/16 SC 211 Insulin Detemir 16 UNITS BID 04/15 220 AC 04/16 SC 211 Ketorolac 30 MG ONCE ONE 04/16 2200 DC 04/16 Tromethamine IV 04/16 2201 2219 Lisinopril 40 MG DAILY 04/13 1000 AC 04/16 PO 0840 Metoprolol Tartrate 75 MG BID 04/12 2200 AC 04/16 PO 2120 Morphine Sulfate 4 MG Q6 04/16 1800 DC IV Morphine Sulfate 2 MG ONCE ONE 04/16 1715 DC 04/16 IV 04/16 1716 1719 Morphine Sulfate 4 MG Q6P PRN 04/16 1515 AC 04/16 IV 1518 Morphine Sulfate 4 MG Q8P PRN 04/13 0845 DC 04/16 IV 0847 Nicotine 14 MG DAILY 04/14 1115 AC 04/16 TOP 1056 Oxycodone HCl 10 MG Q6P PRN 04/13 1615 AC 04/17 PO 0030 Pantoprazole Sodium 40 MG BID 04/13 2200 AC 04/16 IV 2117 Patient Medication 1 ED ONE ONE 04/16 1645 DC Teaching ED 04/16 1646 Piperacillin Sod/ 4.5 GM Q6H 04/15 2100 AC 04/17 Tazobactam Sod [place] 0318 Sodium Chloride 100 ML Polyethylene Glycol 17 GM DAILY 04/16 1433 AC 04/16 PO 1623 Promethazine HCl 25 MG Q4 PRN 04/14 0630 AC 04/14 PO 04/21 0629 0815 Sumatriptan Succinate 50 MG DAILY NEEDED PRN 04/13 0845 AC 04/14 PO 0409 Trimethobenzamide HCl 200 MG 4 TIMES/DAY PRN 04/13 0100 AC 04/15 IM 1300 Findings Pertinent Lab/Jose Alberto Results: Laboratory Tests 04/17 04/16 04/16 0425 1952 1115 Chemistry Sodium (137 - 145 mmol/L) 135 L Potassium (3.5 - 5.1 mmol/L) 3.6 Chloride (98 - 107 mmol/L) 98 Carbon Dioxide (22 - 30 mmol/L) 29 Anion Gap (5 - 16) 8 BUN (9 - 20 mg/dL) 15 Creatinine (0.7 - 1.2 mg/dL) 0.9 Estimated GFR (>60 ml/min) > 60 BUN/Creatinine Ratio (7 - 25 %) 16.7 Coagulation APTT (25 - 37 SEC) 58 H 37 53 H Hematology CBC w Diff NO MAN DIFF REQ WBC (4.8 - 10.8 /CUMM) 10.0 RBC (4.70 - 6.10 /CUMM) 2.65 L Hgb (14.0 - 18.0 G/DL) 7.7 L Hct (42 - 52 %) 22.7 L MCV (80.0 - 94.0 FL) 85.9 MCH (27.0 - 31.0 PG) 29.1 MCHC (33.0 - 37.0 G/DL) 33.9 RDW (11.5 - 14.5 %) 13.2 Plt Count (130 - 400 /CUMM) 331 MPV (7.4 - 10.4 FL) 7.7 Gran % (42.2 - 75.2 %) 53.4 Lymphocytes % (20.5 - 51.1 %) 33.4 Monocytes % (1.7 - 9.3 %) 9.4 H Eosinophils % (0 - 5 %) 3.2 Basophils % (0.0 - 2.0 %) 0.6 Absolute Granulocytes (1.4 - 6.5 /CUMM) 5.4 Absolute Lymphocytes (1.2 - 3.4 /CUMM) 3.3 Absolute Monocytes (0.10 - 0.60 /CUMM) 0.9 H Absolute Eosinophils (0.0 - 0.7 /CUMM) 0.3 Absolute Basophils (0.0 - 0.2 /CUMM) 0.1
--- NOTE | 2017-04-17 07:52 | PN- Housestaff ---
Mildred DELGADILLO,Micheline 04/17/17 0751: Subjective Follow-up For: Necrotizing skin infection of right foot Uncontrolled diabetes Low H&H Subjective: Seen and examined Patient remains at baseline without any acute bleeding overnight. Continues to be on IV heparin. He reports overnight he received 1 dose of IV ketorolac and it helped him with his pain. Feels much better. Review of Systems Constitutional: Reports: see HPI. Comments: Otherwise negative except above Objective Last 24 Hrs of Vital Signs/I&O Vital Signs Date Time Temp Pulse Resp B/P B/P Pulse O2 O2 Flow FiO2 Mean Ox Delivery Rate 04/17 0639 98.1 67 20 121/74 96 Nasal Cannula 04/16 2203 98.3 73 20 129/74 90 04/16 2120 70 124/74 04/16 1600 Nasal 2.0L Cannula 04/16 1344 98.4 73 20 108/70 95 Nasal 3.0L Cannula 04/16 1056 70 120/70 04/16 0840 72 122/76 04/16 0840 72 122/76 04/16 0800 Room Air Intake & Output 04/17 0800 04/17 0000 04/16 1600 Intake Total 833.1 568 Output Total 600 Balance 833.1 -32 Intake, IV 553.1 208 Intake, Oral 280 360 Number 0 Bowel Movements Output, Urine 600 Physical Exam General Appearance: Alert, Oriented X3, Cooperative, No Acute Distress Skin: No Rashes, No Breakdown, dressing present in the right protrusion HEENT: Atraumatic, PERRLA, EOMI Neck: Supple Cardiovascular: Normal S1, Normal S2, systolic murmur present Lungs: Clear to Auscultation, Normal Air Movement Abdomen: Normal Bowel Sounds, Soft, No Tenderness Extremities: No Clubbing, No Cyanosis, edema present right greater than left Vascular: Pulses Symmetrical Current Medications: Current Medications Sig/Tello Start time Last Medication Dose Route Stop Time Status Admin Amlodipine Besylate 10 MG DAILY 04/13 1000 AC 04/17 PO 09 Atorvastatin Calcium 80 MG DAILY 04/13 1000 AC 04/17 PO 09 Docusate Sodium 100 MG DAILY 04/16 1433 AC 04/17 PO 0914 Duloxetine HCl 60 MG DAILY 04/13 1000 AC 04/17 PO 0914 Furosemide 40 MG 0730,1630 04/14 0730 AC 04/17 PO 0623 Gabapentin 400 MG TID 04/12 1600 AC 04/17 PO 0914 Heparin Sodium 4,536 UNIT BOLUS ONE 04/17 0545 DC 04/17 (Porcine) IV 04/17 0546 0624 Heparin Sodium 5,000 UNIT .STK-MED ONE 04/17 0541 DC (Porcine) IV 04/17 0542 Heparin Sodium 8,505 UNIT BOLUS ONE 04/16 2200 DC 04/16 (Porcine) IV 04/16 2201 2200 Heparin Sodium 10,000 UNIT .STK-MED ONE 04/16 2154 DC (Porcine) IV 04/16 2155 Heparin Sodium 25,000 UNIT Q24H 04/14 1230 AC 04/16 (Porcine) IV 2200 Sodium Chloride 500 ML Hydralazine HCl 100 MG BID 04/12 2200 AC 04/17 PO 0914 Ibuprofen 800 MG ONCE ONE 04/16 2130 CAN PO 04/16 2131 Insulin Aspart 0 TIDAC/HS 04/15 1700 AC 04/17 SC 1252 Insulin Detemir 20 UNITS BID 04/17 1000 AC 04/17 SC 0915 Insulin Detemir 16 UNITS BID 04/15 2200 DC 04/16 SC 2117 Ketorolac 15 MG Q12 PRN 04/17 1415 UNVr Tromethamine IV Ketorolac 30 MG ONCE ONE 04/16 2200 DC 04/16 Tromethamine IV 04/16 2201 2219 Lisinopril 40 MG DAILY 04/13 1000 AC 04/17 PO 0913 Metoprolol Tartrate 75 MG BID 04/12 2200 AC 04/17 PO 0914 Morphine Sulfate 4 MG Q6 04/16 1800 DC IV Morphine Sulfate 2 MG ONCE ONE 04/16 1715 DC 03 IV 04/16 1716 1719 Morphine Sulfate 4 MG Q6P PRN 04/16 1515 AC 04/16 IV 1518 Morphine Sulfate 4 MG Q8P PRN 04/13 0845 DC 04/16 IV 0847 Nicotine 14 MG DAILY 04/14 1115 AC 04/17 TOP 0915 Oxycodone HCl 10 MG Q6P PRN 04/13 1615 AC 04/17 PO 0819 Pantoprazole Sodium 40 MG BID 04/13 2200 AC 04/17 IV 0915 Patient Medication 1 ED ONE ONE 04/16 1645 DC Teaching ED 04/16 1646 Piperacillin Sod/ 4.5 GM Q6H 04/15 2100 AC 04/17 Tazobactam Sod IV 0915 Sodium Chloride 100 ML Polyethylene Glycol 17 GM DAILY 04/16 1433 AC 04/17 PO 0915 Promethazine HCl 25 MG Q4 PRN 04/14 0630 AC 04/14 PO 04/21 0629 0815 Sumatriptan Succinate 50 MG DAILY NEEDED PRN 04/13 0845 AC 04/14 PO 0409 Trimethobenzamide HCl 200 MG 4 TIMES/DAY PRN 04/13 0100 AC 04/15 IM 1300 Last 24 Hrs of Lab/Jose Alberto Results Last 24 Hrs of Labs/Mics: Laboratory Tests 04/17/17 1203: APTT 30 04/17/17 0425: Anion Gap 8, Estimated GFR > 60, BUN/Creatinine Ratio 16.7, APTT 58 H, CBC w Diff NO MAN DIFF REQ, RBC 2.65 L, MCV 85.9, MCH 29.1, MCHC 33.9, RDW 13.2, MPV 7.7, Gran % 53.4, Lymphocytes % 33.4, Monocytes % 9.4 H, Eosinophils % 3.2, Basophils % 0.6, Absolute Granulocytes 5.4, Absolute Lymphocytes 3.3, Absolute Monocytes 0.9 H, Absolute Eosinophils 0.3, Absolute Basophils 0.1 04/16/171951: APTT 37 Assessment/Plan Assessment: Patient is a 46 YO long standing IDDM Male with significant history of CVA with possible left atrial thrombus on warfarin since 2013, HTN, Obesity, CHF now presenting with worsening of left foot ulcer with erythema and pain. He was off insulin for the past 3 months due to insurance issues and is experiencing signs of hyperglycemia like Polyuria, Polydipsia, Neuropathic pain, blury vision. He also had black stools with advil intake. Previous amputation of Rt big toe. Admitted to general medicine floor Problem list 1. Diabetic foot infection with gas gangrene 2. Uncontrolled Insuline dependent Diabetes mellitus with HbA1C of 12 3. HTN 4. Heart failure by history 5. CVA on warfarin for possible left atrial thrombus 6. Melena with advil intake Plan Necrotizine skin infection with gas gangrene Secondary to uncontrolled diabetes (off insulin). Cultures grew Group B strep, anerobes, Serratia. He underwent repeat incision and drainage of right foot infection with excisional debridement of all nonviable skin and soft tissue again yesterday. Underwent partial first ray resection of the right foot on the day of admission. His wound looks very bad requiring another debridement on . PICC line tomorrow * IV Zosyn 4.5gm Q6 * Antiemetics as needed * ID input appreciated * Cold packs for fever control * Podiatry following Severe Diabetic Neuropathy Continue Gabapentin and cymbalta * Increase IV morhine to 4mg Q6hrs PRN for breakthrough pain * Continue PO oxycodone 5mg Q6hrs PRN Poorly controlled IDDM * High sugars today - sliding scale adjusted * Levemir 16 units BID and sliding scale per . * Continue ccuchecks with insulin sliding scale * Endocrinology input appreciated * No significant proteinuria, microalbuminuria present. Low H&H Apparently patient had significant bleed in OR yesterday, although his wound looks clean today. He needs a unit of transfusion priror to tomorrow prior to next OR. H&H today 10/03. * 1 unit of transfusion today * Recheck CBC tomorrow HTN * continue amlodipine 10mg daily and hydralazine 100mg BID Systolic Heart failure by history * Continue metoprolol tartarate 75mg BID, lisinopril 40mg daily, atorvastatin 80mg daily CVA on warfarin for possible left atrial thrombus On warfarin previously. CHADS VASC2 6. * Continue IV heparin, till next procedure is done. Melena with advil intake Patient cannot tolerate tylenol and takes advil as needed. Reports experiencing black stools with NSAID intake. GI consulted - as patient have normal H&H with normal BUN/Cr - recommended outpatient follow up unless overt bleeding present. * Avoid NSAIDs * started on oral omeprazole 40mg BID DVT prophylaxis with IV heparin code status full code Problem List: 1. Gas gangrene 2. Diabetic foot ulcer Pain Ratin Pain Location: right foot Pain Goal: Pain 4 or less Pain Plan: Roxciodone Morphine Tomorrow's Labs & Rationales: cbc to monitor H&H Terese Garcia MD 04/17/17 1120: Attending MD Review Statement Attending Statement Attending MD Statement: examined this patient, discuss w/resident/PA/GROUNDS CLEANER, agreed w/resident/PA/GROUNDS CLEANER, reviewed EMR data (avail), discussed with nursing, discussed with case mgmt, reviewed images, amended to note Attending Assessment/Plan: Patient seen and examined, denies any complaints. Patient received a PICC line today. Denies any pain, H&H is low. Vital Signs Date Time Temp Pulse Resp B/P B/P Pulse O2 O2 Flow FiO2 Mean Ox Delivery Rate 04/17 913 67 122/74 04/17 0914 67 122/74 04/17 0913 61 121/74 / 0800 Nasal 2.0L Cannula 04/17 0639 98.1 67 20 121/74 96 Nasal Cannula 04/17 0000 90 Nasal 2.0L Cannula 04/16 2203 98.3 73 20 129/74 90 /06 2120 70 124/74 / 1600 Nasal 2.0L Cannula 04/16 1344 98.4 73 20 108/70 95 Nasal 3.0L Cannula on exam; aox3, nad. cv; s1,s2, rrr resp; clear abd; soft, nt, bs+ ext; no edema. Laboratory Tests 04/175 1952 Chemistry Sodium (137 - 145 mmol/L) 135 L Potassium (3.5 - 5.1 mmol/L) 3.6 Chloride (98 - 107 mmol/L) 98 Carbon Dioxide (22 - 30 mmol/L) 29 Anion Gap (5 - 16) 8 BUN (9 - 20 mg/dL) 15 Creatinine (0.7 - 1.2 mg/dL) 0.9 Estimated GFR (>60 ml/min) > 60 BUN/Creatinine Ratio (7 - 25 %) 16.7 Coagulation APTT (25 - 37 SEC) 58 H 37 Hematology CBC w Diff NO MAN DIFF REQ WBC (4.8 - 10.8 /CUMM) 10.0 RBC (4.70 - 6.10 /CUMM) 2.65 L Hgb (14.0 - 18.0 G/DL) 7.7 L Hct (42 - 52 %) 22.7 L MCV (80.0 - 94.0 FL) 85.9 MCH (27.0 - 31.0 PG) 29.1 MCHC (33.0 - 37.0 G/DL) 33.9 RDW (11.5 - 14.5 %) 13.2 Plt Count (130 - 400 /CUMM) 331 MPV (7.4 - 10.4 FL) 7.7 Gran % (42.2 - 75.2 %) 53.4 Lymphocytes % (20.5 - 51.1 %) 33.4 Monocytes % (1.7 - 9.3 %) 9.4 H Eosinophils % (0 - 5 %) 3.2 Basophils % (0.0 - 2.0 %) 0.6 Absolute Granulocytes (1.4 - 6.5 /CUMM) 5.4 Absolute Lymphocytes (1.2 - 3.4 /CUMM) 3.3 Absolute Monocytes (0.10 - 0.60 /CUMM) 0.9 H Absolute Eosinophils (0.0 - 0.7 /CUMM) 0.3 Absolute Basophils (0.0 - 0.2 /CUMM) 0.1 A/P; 46 y/o M with pmh sig for CVA on coumadin for possible Left atrial throbus on JACKY, IDDM, HTN, systolic heart failure, previous history of right hallux amputation, admitted with sepsis present on admission now resolved, gas gangrene of the right foot stemming from an infected plantar neuropathic ulceration s/p Incision and drainage right foot, Partial first ray resection right foot, Excisional debridement of nonviable skin, soft tissue, and bone right foot on 04/12/17. Another incision and drainage was done yesterday and plan is to take him to operating room again on 04/18/2017. Status post PICC line insertion today. Overall culture growing multiple organisms. Patient currently getting Zosyn. Continue the Zosyn. Patient remains on heparin drip. Plan to go to operating room again tomorrow with podiatry. Afterwards patient will require negative pressure therapy and likely we can resume the Coumadin. Patient does not have insurance and outpatient antibiotics will still need to be sorted out. Insulin has been adjusted per endocrinology. Continue the rest of the management. DVT prophylaxis: Heparin gtt.
--- NOTE | 2017-04-17 12:01 | RADIOLOGY REPORT ---
EXAMINATION: XR PORTABLE CHEST CLINICAL INFORMATION: Right arm PICC. Tip placement. COMPARISON: August 11, 2016 TECHNIQUE: Portable frontal view of the chest was obtained. FINDINGS: No significant abnormality is noted involving the heart, lungs, mediastinum, bony thorax or soft tissues. Right upper extremity PICC line is seen with this tip at the caval atrial junction. IMPRESSION: PICC line with tip at the caval atrial junction. No acute disease.
[2017-04-17 13:03] LABS: PTT 30 SEC (25-37)
--- NOTE | 2017-04-17 13:17 | PN- Podiatry ---
Subjective Subjective: 46-year-old male seen and evaluated at bedside for postoperative follow-up status post emergency open partial first ray resection on April 12, followed by debridement and washout on April 15. Patient is also status post PICC placement this morning. Patient is also scheduled to receive 1 unit of packed red blood cells later today. There continues to be no strikethrough on the dressing for the third consecutive day. The patient has no complaints other than moderate pain in his right foot. Review of Systems: A 14 point review of systems was performed, and was found to be negative apart from the patient's complaints described above in the history of present illness. Objective Vital Signs and I&Os Vital Signs Date Time Temp Pulse Resp B/P B/P Pulse O2 O2 Flow FiO2 Mean Ox Delivery Rate 04/17 0814 67 122/74 04/17 0914 67 122/74 04/17 0913 61 121/74 / 0800 Nasal 2.0L Cannula 04/17 0639 98.1 67 20 121/74 96 Nasal Cannula / 0000 90 Nasal 2.0L Cannula / 2203 98.3 73 20 129/74 90 03/06 2120 70 124/74 /06 1600 Nasal 2.0L Cannula / 1344 98.4 73 20 108/70 95 Nasal 3.0L Cannula Intake & Output / 1600 03/07 0800 03/07 0000 03/06 1600 / 0800 03/06 0000 Intake Total 496.8 833.1 568 632 480 Output Total 0 600 400 725 Balance 496.8 833.1 -32 232 -245 Intake, IV 446.8 553.1 208 152 Intake, Oral 50 280 360 480 480 Number 1 0 0 Bowel Movements Output, Urine 0 600 400 725 Physical Exam: Palpable pedal pulses equal and bilateral. Temperature gradient is normalized in both lower extremities warm to cool proximal to distal. Capillary refill time is 3 seconds to all 9 remaining digits. Neuro exam is unchanged. Musculoskeletal exam is unchanged. The surgical wound has begun to show marginal granulation, and there is no active bleeding, no purulence, no malodor, no new bullous changes, no crepitus, no fluctuance, and only some mild serous drainage. The margins of the wound were expressed, and no purulence was found. Current Medications: Current Medications Sig/Tello Start time Last Medication Dose Route Stop Time Status Admin Amlodipine Besylate 10 MG DAILY 04/13 1000 AC 04/17 PO 0914 Atorvastatin Calcium 80 MG DAILY 04/13 1000 AC 04/17 PO 0914 Docusate Sodium 100 MG DAILY 04/16 1433 AC 04/17 PO 0914 Duloxetine HCl 60 MG DAILY 04/13 1000 AC 04/17 PO 0914 Furosemide 40 MG 0730,1630 04/14 0730 AC 04/17 PO 0623 Gabapentin 400 MG TID 04/12 1600 AC 04/17 PO 0914 Heparin Sodium 4,536 UNIT BOLUS ONE 04/17 0545 DC 04/17 (Porcine) IV 04/17 0546 0624 Heparin Sodium 8,505 UNIT BOLUS ONE 04/16 2200 DC 04/16 (Porcine) IV 04/16 2201 2200 Heparin Sodium 10,000 UNIT .STK-MED ONE 04/16 2154 DC (Porcine) IV 04/16 2155 Heparin Sodium 25,000 UNIT Q24H 04/14 1230 AC 04/16 (Porcine) IV 2200 Sodium Chloride 500 ML Hydralazine HCl 100 MG BID 04/12 2200 AC 04/17 PO 0914 Ibuprofen 800 MG ONCE ONE 04/16 2130 CAN PO 04/16 2131 Insulin Aspart 0 TIDAC/HS 04/15 1700 AC 04/17 SC 1252 Insulin Detemir 20 UNITS BID 04/17 1000 AC 04/17 SC 0915 Insulin Detemir 16 UNITS BID 04/15 2200 DC 04/16 SC 2117 Ketorolac 30 MG ONCE ONE 04/16 2200 DC 04/16 Tromethamine IV 04/16 2201 2219 Lisinopril 40 MG DAILY 04/13 1000 AC 04/17 PO 0913 Metoprolol Tartrate 75 MG BID 04/12 2200 AC 04/17 PO 0914 Morphine Sulfate 4 MG Q6 04/16 1800 DC IV Morphine Sulfate 2 MG ONCE ONE 04/16 1715 DC 04/16 IV 04/16 1716 1719 Morphine Sulfate 4 MG Q6P PRN 04/16 1515 AC 04/16 IV 1518 Morphine Sulfate 4 MG Q8P PRN 04/13 0845 DC 03 IV 0847 Nicotine 14 MG DAILY 04/14 1115 AC 04/17 TOP 0915 Oxycodone HCl 10 MG Q6P PRN 04/13 1615 AC 04/17 PO 0819 Pantoprazole Sodium 40 MG BID 04/13 2200 AC 04/17 IV 0915 Patient Medication 1 ED ONE ONE 04/16 1645 DC Teaching ED 04/16 1646 Piperacillin Sod/ 4.5 GM Q6H 04/15 2100 AC 04/17 Tazobactam Sod IV 0915 Sodium Chloride 100 ML Polyethylene Glycol 17 GM DAILY 04/16 1433 AC 04/17 PO 0915 Promethazine HCl 25 MG Q4 PRN 04/14 0630 AC 04/14 PO 04/21 0629 0815 Sumatriptan Succinate 50 MG DAILY NEEDED PRN 04/13 0845 AC 04/14 PO 0409 Trimethobenzamide HCl 200 MG 4 TIMES/DAY PRN 04/13 0100 AC 04/15 IM 1300 Results Last 48 Hours of Labs: Laboratory Tests 04/17 04/17 04/16 04/16 1203 0425 1952 1115 Chemistry Sodium (137 - 145 mmol/L) 135 L Potassium (3.5 - 5.1 mmol/L) 3.6 Chloride (98 - 107 mmol/L) 98 Carbon Dioxide (22 - 30 mmol/L) 29 Anion Gap (5 - 16) 8 BUN (9 - 20 mg/dL) 15 Creatinine (0.7 - 1.2 mg/dL) 0.9 Estimated GFR (>60 ml/min) > 60 BUN/Creatinine Ratio (7 - 25 %) 16.7 Coagulation APTT (25 - 37 SEC) 30 58 H 37 53 H Hematology CBC w Diff NO MAN DIFF REQ WBC (4.8 - 10.8 /CUMM) 10.0 RBC (4.70 - 6.10 /CUMM) 2.65 L Hgb (14.0 - 18.0 G/DL) 7.7 L Hct (42 - 52 %) 22.7 L MCV (80.0 - 94.0 FL) 85.9 MCH (27.0 - 31.0 PG) 29.1 MCHC (33.0 - 37.0 G/DL) 33.9 RDW (11.5 - 14.5 %) 13.2 Plt Count (130 - 400 /CUMM) 331 MPV (7.4 - 10.4 FL) 7.7 Gran % (42.2 - 75.2 %) 53.4 Lymphocytes % (20.5 - 51.1 %) 33.4 Monocytes % (1.7 - 9.3 %) 9.4 H Eosinophils % (0 - 5 %) 3.2 Basophils % (0.0 - 2.0 %) 0.6 Absolute Granulocytes (1.4 - 6.5 /CUMM) 5.4 Absolute Lymphocytes (1.2 - 3.4 /CUMM) 3.3 Absolute Monocytes (0.10 - 0.60 /CUMM) 0.9 H Absolute Eosinophils (0.0 - 0.7 /CUMM) 0.3 Absolute Basophils (0.0 - 0.2 /CUMM) 0.1 04/16 0709 Chemistry Sodium (137 - 145 mmol/L) 134 L Potassium (3.5 - 5.1 mmol/L) 3.6 Chloride (98 - 107 mmol/L) 95 L Carbon Dioxide (22 - 30 mmol/L) 31 H Anion Gap (5 - 16) 8 BUN (9 - 20 mg/dL) 12 Creatinine (0.7 - 1.2 mg/dL) 0.9 Estimated GFR (>60 ml/min) > 60 BUN/Creatinine Ratio (7 - 25 %) 13.3 Hematology CBC w Diff NO MAN DIFF REQ WBC (4.8 - 10.8 /CUMM) 8.5 RBC (4.70 - 6.10 /CUMM) 2.81 L Hgb (14.0 - 18.0 G/DL) 8.0 L Hct (42 - 52 %) 23.9 L MCV (80.0 - 94.0 FL) 85.1 MCH (27.0 - 31.0 PG) 28.5 MCHC (33.0 - 37.0 G/DL) 33.5 RDW (11.5 - 14.5 %) 12.9 Plt Count (130 - 400 /CUMM) 319 MPV (7.4 - 10.4 FL) 8.2 Gran % (42.2 - 75.2 %) 64.0 Lymphocytes % (20.5 - 51.1 %) 22.6 Monocytes % (1.7 - 9.3 %) 10.3 H Eosinophils % (0 - 5 %) 2.6 Basophils % (0.0 - 2.0 %) 0.5 Absolute Granulocytes (1.4 - 6.5 /CUMM) 5.5 Absolute Lymphocytes (1.2 - 3.4 /CUMM) 1.9 Absolute Monocytes (0.10 - 0.60 /CUMM) 0.9 H Absolute Eosinophils (0.0 - 0.7 /CUMM) 0.2 Absolute Basophils (0.0 - 0.2 /CUMM) 0 Assessment/Plan Assessment/Plan 46-year-old male doing well status post emergency partial right first ray resection for the treatment of gas gangrene and necrotizing diabetic foot infection. The patient was seen and evaluated at bedside. The wound was irrigated with 200 mL of a 50-50 mixture of Betadine and normal saline. A wet-to-dry dressing was placed on surgical wound. Infectious disease recommendations are appreciated, and I agree with the recommendation for long-term IV antibiotic therapy. While his drop in H&H is concerning, he has had no active bleeding from the surgical wound since Saturday, and this is likely multifactorial from a combination of the hemolysis from the group B strep, blood loss during his procedures, dilution from intravenous fluids, and anemia of chronic disease. I've also placed an order for gait training with physical therapy. His weightbearing status may be updated to heel touch weightbearing on the right side, weightbearing as tolerated on left side with the assistance of a surgical shoe on the right foot and a 4 point walker. The patient reports that he has had prior experience using a walker. The patient is to be nothing by mouth for a conservative washout and VAC placement tomorrow at 1 PM.
[2017-04-17 16:42] VITALS: BP 115/69
[2017-04-17 22:06] VITALS: BP 121/76
[2017-04-18 01:01] LABS: PTT 54 SEC (25-37)
[2017-04-18 06:26] VITALS: BP 120/70
--- NOTE | 2017-04-18 07:18 | PN- Housestaff ---
Mildred DELGADILLO,Micheline 04/18/17 0717: Subjective Follow-up For: Necrotizing right foot infection uncontrolled diabetes Subjective: Seen and examined Feels mild shortness of breath. Reports pain is well controlled with Toradol. No overnight issues. heparin discontined, IV fluids running at bedside. Review of Systems Constitutional: Reports: see HPI. Comments: ROS negative except above Objective Last 24 Hrs of Vital Signs/I&O Vital Signs Date Time Temp Pulse Resp B/P B/P Pulse O2 O2 Flow FiO2 Mean Ox Delivery Rate 04/18 06 97.8 59 20 120/70 95 Room Air 04/18 0000 95 Nasal 2.0L Cannula 04/17 2210 98.0 72 20 121/72 04/17 2206 98.0 72 20 121/76 95 04/17 1642 98.2 75 20 115/69 94 Room Air 04/17 1600 Nasal 2.0L Cannula 04/17 0914 67 122/74 04/17 0914 67 122/74 04/17 0913 61 121/74 04/17 0800 Nasal 2.0L Cannula Intake & Output 04/18 0800 04/18 0000 04/17 1600 Intake Total 1494.6 1330 Output Total 800 800 Balance 694.6 530 Intake, Blood 350 250 Product Intake, IV 664.6 100 Intake, Oral 480 980 Number 3 Bowel Movements Output, Urine 800 800 Physical Exam General Appearance: Alert, Oriented X3, Cooperative, No Acute Distress Skin: No Rashes, No Breakdown HEENT: Atraumatic, PERRLA, EOMI Neck: Supple Cardiovascular: Regular Rate, Normal S1, Normal S2 Lungs: Clear to Auscultation, Normal Air Movement Abdomen: Normal Bowel Sounds, Soft, No Tenderness Neurological: Normal Speech, Normal Tone Extremities: No Clubbing, No Cyanosis, edema present Vascular: Normal Pulses Current Medications: Current Medications Sig/Tello Start time Last Medication Dose Route Stop Time Status Admin Amlodipine Besylate 10 MG DAILY 04/13 1000 AC 04/17 PO 0914 Atorvastatin Calcium 80 MG DAILY 04/13 1000 AC 04/17 PO 0914 Docusate Sodium 100 MG DAILY 04/16 1433 AC 04/17 PO 0914 Duloxetine HCl 60 MG DAILY 04/13 1000 AC 04/17 PO 0914 Furosemide 40 MG 0730,1630 04/14 0730 AC 04/18 PO 0658 Gabapentin 400 MG TID 04/12 1600 AC 04/17 PO 2209 Heparin Sodium 5,000 UNIT ONCE ONE 04/18 0245 DC 04/18 (Porcine) IV 04/18 0246 0300 Heparin Sodium 25,000 UNIT Q24H / 1230 AC 04/18 (Porcine) IV 0510 Sodium Chloride 500 ML Hydralazine HCl 100 MG BID 04/12 2200 AC 04/17 PO 2210 Insulin Aspart 0 TIDAC/HS 04/15 1700 DC 04/17 SC 04/17 2355 2208 Insulin Detemir 20 UNITS BID 04/17 1000 AC 04/17 SC 2209 Insulin Human Regular 0 Q6 04/17 2359 AC 04/18 SC 0657 Ketorolac 15 MG DAILY PRN 04/18 1000 AC Tromethamine IV 04/20 0959 Ketorolac 15 MG DAILY 04/17 1404 DC 04/17 Tromethamine IV 04/20 1403 1411 Lisinopril 40 MG DAILY 04/13 1000 AC 04/17 PO 0913 Metoprolol Tartrate 75 MG BID 04/12 2200 AC 04/17 PO 2209 Morphine Sulfate 4 MG Q6P PRN 04/16 1515 AC 04/16 IV 1518 Nicotine 14 MG DAILY 04/14 1115 AC 04/17 TOP 0915 Omeprazole 40 MG BID 04/17 2200 AC 04/17 PO 2209 Oxycodone HCl 10 MG Q6P PRN 04/13 1615 AC 04/18 PO 0658 Pantoprazole Sodium 40 MG BID 04/13 2200 DC 04/17 IV 0915 Piperacillin Sod/ 4.5 GM Q6H 04/15 2100 AC 04/18 Tazobactam Sod IV 0305 Sodium Chloride 100 ML Polyethylene Glycol 17 GM DAILY 04/16 1433 AC 04/17 PO 0915 Potassium Chloride 20 MEQ 75 MLS/HR 04/17 2355 CAN IV Potassium Chloride 20 MEQ Q13H 04/17 1700 AC 04/17 Dextrose/Sodium 1,000 ML IV 1825 Chloride Promethazine HCl 25 MG Q4 PRN 04/14 0630 AC 04/14 PO 04/21 0629 0815 Sumatriptan Succinate 50 MG DAILY NEEDED PRN 04/13 0845 AC 04/14 PO 0409 Trimethobenzamide HCl 200 MG 4 TIMES/DAY PRN 04/13 0100 AC 04/15 IM 1300 Last 24 Hrs of Lab/Jose Alberto Results Last 24 Hrs of Labs/Mics: Laboratory Tests 04/18/17 0710: CBC w Diff Pending, WBC Pending, RBC Pending, Hgb Pending, Hct Pending, MCV Pending, MCH Pending, MCHC Pending, RDW Pending, Plt Count Pending, MPV Pending 04/18/17 0030: APTT 54 H 04/17/17 1203: APTT 30 Assessment/Plan Assessment: Patient is a 46 YO long standing IDDM Male with significant history of CVA with possible left atrial thrombus on warfarin since 2013, HTN, Obesity, CHF now presenting with worsening of left foot ulcer with erythema and pain. He was off insulin for the past 3 months due to insurance issues and is experiencing signs of hyperglycemia like Polyuria, Polydipsia, Neuropathic pain, blury vision. He also had black stools with advil intake. Previous amputation of Rt big toe. Admitted to general medicine floor Problem list 1. Diabetic foot infection with gas gangrene 2. Uncontrolled Insuline dependent Diabetes mellitus with HbA1C of 12 3. HTN 4. Heart failure by history 5. CVA on warfarin for possible left atrial thrombus 6. Melena with advil intake Plan Necrotizine skin infection with gas gangrene Secondary to uncontrolled diabetes (off insulin). Cultures grew Group B strep, anerobes, Serratia. He underwent repeat incision and drainage of right foot infection with excisional debridement of all nonviable skin and soft tissue again yesterday. Underwent partial first ray resection of the right foot on the day of admission. Underwent 3rd debridement today and restarted on IV heparin. Underwent PICC yesterday. * IV Zosyn 4.5gm Q6 * ID input appreciated * Cold packs for fever control * Podiatry following Severe Diabetic Neuropathy Continue Gabapentin and cymbalta * Increase IV morhine to 4mg Q6hrs PRN for breakthrough pain * Continue PO oxycodone 5mg Q6hrs PRN Poorly controlled IDDM * High sugars today - sliding scale adjusted * Levemir 24 units BID and sliding scale per . * Continue ccuchecks with insulin sliding scale * Endocrinology input appreciated Low H&H Apparently patient had significant bleed in OR yesterday, although his wound looks clean today. He needs a unit of transfusion priror to tomorrow prior to next OR. * s/p 1 unit of transfusion improved to 10/04. * recheck CBC tomorrow HTN * continue amlodipine 10mg daily and hydralazine 100mg BID Systolic Heart failure by history * Continue metoprolol tartarate 75mg BID, lisinopril 40mg daily, atorvastatin 80mg daily CVA on warfarin for possible left atrial thrombus On warfarin previously. CHADS VASC2 6. * Continue IV heparin, till tomorrow. Melena with advil intake Patient cannot tolerate tylenol and takes advil as needed. Reports experiencing black stools with NSAID intake. GI consulted - as patient have normal H&H with normal BUN/Cr - recommended outpatient follow up unless overt bleeding present. continue omez 40mg BID for now. DVT prophylaxis with IV heparin code status full code Problem List: 1. Diabetic foot ulcer 2. Gas gangrene 3. Hypoxia Pain Ratin Pain Location: right foot Pain Goal: Pain 4 or less Pain Plan: morphine roxicodone Tomorrow's Labs & Rationales: cbc to check Hb Terese Garcia MD 04/18/17 1125: Attending MD Review Statement Attending Statement Attending MD Statement: examined this patient, discuss w/resident/PA/FINANCE VICE PRESIDENT, agreed w/resident/PA/FINANCE VICE PRESIDENT, reviewed EMR data (avail), discussed with nursing, discussed with case mgmt, reviewed images, amended to note Attending Assessment/Plan: Patient seen and examined, awaiting to go to operating room again today. Otherwise offers no complaints. Patient received his PICC line yesterday. Vital Signs Date Time Temp Pulse Resp B/P B/P Pulse O2 O2 Flow FiO2 Mean Ox Delivery Rate 04/18 0816 59 120/70 04/18 0915 59 120/70 04/18 0914 59 120/70 04/18 0626 97.8 59 20 120/70 95 Room Air 04/18 0000 95 Nasal 2.0L Cannula 04/17 2210 98.0 72 20 121/72 04/17 2206 98.0 72 20 121/76 95 04/17 1642 98.2 75 20 115/69 94 Room Air 04/17 1600 Nasal 2.0L Cannula on exam; aox3, nad. cv; s1,s2, rrr resp; clear abd; soft, nt, bs+ ext; no edema. + Miriam wrap on right foot. Laboratory Tests 04/18 04/18 04/17 0710 0030 1203 Coagulation APTT (25 - 37 SEC) 54 H 30 Hematology CBC w Diff NO MAN DIFF REQ WBC (4.8 - 10.8 /CUMM) 10.6 RBC (4.70 - 6.10 /CUMM) 2.82 L Hgb (14.0 - 18.0 G/DL) 8.2 L Hct (42 - 52 %) 24.4 L MCV (80.0 - 94.0 FL) 86.4 MCH (27.0 - 31.0 PG) 29.0 MCHC (33.0 - 37.0 G/DL) 33.6 RDW (11.5 - 14.5 %) 13.5 Plt Count (130 - 400 /CUMM) 339 MPV (7.4 - 10.4 FL) 8.5 Gran % (42.2 - 75.2 %) 58.8 Lymphocytes % (20.5 - 51.1 %) 29.7 Monocytes % (1.7 - 9.3 %) 7.6 Eosinophils % (0 - 5 %) 3.2 Basophils % (0.0 - 2.0 %) 0.7 Absolute Granulocytes (1.4 - 6.5 /CUMM) 6.2 Absolute Lymphocytes (1.2 - 3.4 /CUMM) 3.1 Absolute Monocytes (0.10 - 0.60 /CUMM) 0.8 H Absolute Eosinophils (0.0 - 0.7 /CUMM) 0.3 Absolute Basophils (0.0 - 0.2 /CUMM) 0.1 A/P; 46 y/o M with pmh sig for CVA on coumadin for possible Left atrial throbus on JACKY, IDDM, HTN, systolic heart failure, previous history of right hallux amputation, admitted with sepsis present on admission now resolved, gas gangrene of the right foot stemming from an infected plantar neuropathic ulceration s/p Incision and drainage right foot, Partial first ray resection right foot, Excisional debridement of nonviable skin, soft tissue, and bone right foot on 04/12/17. Another incision and drainage was done yesterday and plan is to take him to operating room again today. Status post PICC line insertion yesterday. OR culture growing multiple organisms. Patient currently getting Zosyn. Patient will likely receive of wound VAC today. PICC line placement was done yesterday. Patient told me that he received [employer] insurance. Now his antibiotics most likely will be covered for home. We'll discuss with infectious disease about final duration of antibiotics. Patient's Coumadin will be resumed after today's procedure. Please check the podiatry is it okay to send the patient home with Lovenox to bridge with Coumadin post operatively. Insulin is being managed by endocrinology. DVT prophylaxis: Heparin drip.
--- NOTE | 2017-04-18 08:35 | PN- Diabetes ---
Assessment/Plan Diabetes Assessment: Patient is going back to the operating room today. His blood sugars are high. His blood sugar this morning is 304. His usual insulin regimen has been interrupted again for surgery. Plan: Suggest give 10 units of Levemir this morning instead of the 20 units that he takes when he is eating. Continue IV D5 half-normal saline at 75 cc/h. We can change his coverage to NovoLog while he is n.p.o. rather than regular insulin. NovoLog coverage every 4 hours while n.p.o. should be less than 150 give no insulin, 151-200 give 6 units NovoLog, 201-250 give 8 units NovoLog, 251 -300 give 9 units NovoLog, 301-350 give 10 units NovoLog, 3 5104 100 give 11 units NovoLog. When the patient resumes his diet he should go back on his usual insulin. I would increase however his Levemir to 24 units twice a day and use the sliding scale NovoLog before meals with a separate sliding scale at bedtime as outlined in the note yesterday.
[2017-04-18 09:56] LABS: ABSOLUTE BASOPHIL COUNT 0.1 /CUMM (0.0-0.2); ABSOLUTE EOSINOPHIL COUNT 0.3 /CUMM (0.0-0.7); ABSOLUTE GRANULOCYTE CT 6.2 /CUMM (1.4-6.5); ABSOLUTE LYMPH COUNT 3.1 /CUMM (1.2-3.4); ABSOLUTE MONOCYTE COUNT 0.8 /CUMM (0.10-0.60); BASOPHIL % 0.7 % (0.0-2.0); EOSINOPHIL % 3.2 % (0-5); GRANULOCYTE % 58.8 % (42.2-75.2); HEMATOCRIT 24.4 % (42-52); MEAN CORPUSCULAR HGB CONC 33.6 G/DL (33.0-37.0); MEAN CORPUSCULAR VOLUME 86.4 FL (80.0-94.0); MEAN PLATELET VOLUME 8.5 FL (7.4-10.4); PLATELET COUNT 339 /CUMM (130-400); RBC DISTRIBUTION WIDTH 13.5 % (11.5-14.5); RED BLOOD CELL CT 2.82 /CUMM (4.70-6.10); WHITE BLOOD CELL COUNT 10.6 /CUMM (4.8-10.8)
--- NOTE | 2017-04-18 13:13 | Operative Report ---
Operative/Inv Procedure Report Surgery Date: 04/18/17 Name of Procedure: I&D and washout with VAC placement, right foot Pre-Operative Diagnosis: Gas gangrene, right foot Post-Operative Diagnosis: Gas gangrene, right foot Estimated Blood Loss: narciso Surgeon/Brake Adjuster: Ivan Rocha DPM Anesthesia: local monitored anesthesi, block (15 cc 0.5% Marcaine plain) Specimens: None Microbiology: None Tourniquet: None Complications: None Condition: Stable Operative Indication: Patient requires staged incision and drainage and washouts for continuing care of a necrotizing diabetic foot infection. Operative/Procedure Note Note: After the right foot was prepped and draped in the usual sterile fashion with Betadine, attention was directed to the right foot where a 7.5 cm x 6 cm open amputation wound was visualized. There was no active bleeding in the base the wound. The vast majority of the wound exhibits some granulation tissue interim from his last debridement on Saturday, and previously visualized second metatarsophalangeal joint structures have been covered with a combination of fibrous and granular tissue. There was, however a small patch of skin necrosis on the lateral margin of the wound. This was debrided with a atraumatic forceps and Iris scissors. The remainder of the wound had its devitalized tissues removed with blunt technique to avoid unnecessary bleeding. The wound was then irrigated with 3 L combination of normal saline and bacitracin solution through cystoscopy tubing. Using standard technique a wound VAC was then placed over the wound at 125 mmHg of continuous pressure medium intensity. This was then dressed with AVD pads, roll of Kerlix, and a 4 inch Boyd bandage, and the VAC seal was again confirmed. Additional Comments: The patient was transported to the postanesthesia care unit in no apparent distress, vital signs stable, neurovascular status intact to the remaining digits on the operative foot. He is cleared to return to the floor after he recovers from sedation, and is essentially clear for discharge from a surgical standpoint provided his H&H continues to improve after the transfusion. He requires the followin) physical therapy session to gait train him for heel touch weightbearing on the right side with the assistance of a walker. 2) I will discuss with case management today arranging for visiting nursing services 3) We await final infectious disease recommendations based on the culture and pathology specimens from April 12 4) He has weekly follow-up in the wound care center at [facility] with me on Saturday
[2017-04-18 14:00] VITALS: BP 118/72
--- NOTE | 2017-04-18 14:45 | Discharge Summary ---
Visit Information Visit Dates Admission Date: 04/12/17 Discharge Date: 04/22/17 Hospital Course Course Attending Physician: Jose DELGDAILLO,Terese Primary Care Physician: Karlie Barbosa DO Consulting Request: Consulting Specialty: Endocrinology Consulting Physician: Reason for Consult: Uncontrolled IDDM Hospital Course: Patient is a 46 YO long standing IDDM Male with significant history of CVA with possible left atrial thrombus on warfarin since 2013, HTN, Obesity, CHF now presenting with worsening of left foot ulcer with erythema and pain. He was off insulin for the past 3 months due to insurance issues and is experiencing signs of hyperglycemia like Polyuria, Polydipsia, Neuropathic pain, blury vision. He also had black stools with advil intake. Previous amputation of Rt big toe. Admitted to general medicine floor Problem list 1. Necrotizine skin infection with gas gangrene 2. Uncontrolled Insuline dependent Diabetes mellitus with HbA1C of 12 3. HTN 4. Heart failure by history 5. CVA on warfarin for possible left atrial thrombus 6. Melena with advil intake Plan Necrotizine skin infection with gas gangrene Secondary to uncontrolled diabetes (off insulin). Cultures grew Group B strep, anerobes, Serratia. He underwent debridement with ray resection initially, f/b repeat debridement twice. He was placed on wound vac on 04/18/17 during his third debridement. Underwent PICC yesterday. We will continue IV Zosyn 4.5gm Q6 for a total of 4 weeks (04/18/17 to 05/16/17). ID input appreciated. His ESR at discharge is >165. He needs follow up foot Xray after treatment, weekly ESR during his treatment. Severe Diabetic Neuropathy We Continued Gabapentin and cymbalta. His requirement for pain medications is high and options are limited. He cannot tolerate tylenol, percocet. He is maintained on oxycodone, IV morphine. Poorly controlled IDDM Placed on levemir and ISS after obtaining endocrine recommendations. Discharged on Levemir 24units BID. Novolog sliding scale. Low H&H Apparently patient had significant bleed in OR with repeat debridement. He received a unit of transfusion. H&H after transfusion remained around 8.2/24. HTN we continued his home medications amlodipine 10mg daily and hydralazine 100mg BID Systolic Heart failure by history We continued his home medications metoprolol tartarate 75mg BID, lisinopril 40mg daily, atorvastatin 80mg daily CVA on warfarin for possible left atrial thrombus On warfarin previously. CHADS VASC2 6. As he underwent repeat debridements, he was on IV heparin for most of his stay. He is started on SC lovenox to bridge to warfarin. Melena with advil intake Patient cannot tolerate tylenol and takes advil as needed. Reports experiencing black stools with NSAID intake. GI consulted - as patient have normal H&H with normal BUN/Cr - recommended outpatient follow up unless overt bleeding present. continue omez 40mg BID for now. DVT prophylaxis On SC lovenox code status full code 04/22/17 at 1am While awaiting insurance, home health services or possible rehab placement -- he was upset about pain medications and left AMA in the middle of the night from the hospital. He was informed to come back by the casting room helper as he left with a PICC line and without wound vac. Complications: NONE Allergies: Coded Allergies: acetaminophen (Mild, BAD HEADACHE 06/15/15) Significant Procedures: Foot xray on admission 04/12/17 IMPRESSION: 1. Increasing soft tissue emphysema seen in the soft tissues of the amputation of the first toe. This may be related to the patient's open wound. Clinical correlation requested to exclude emphysematous fasciitis. 2. No plain film evidence of osteomyelitis seen. 3. 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 4. Osteopenia and multilevel degenerative changes. Foot Xray after first debridement IMPRESSION: 1. Increasing soft tissue emphysema seen in the soft tissues of the amputation of the first toe. This may be related to the patient's open wound. Clinical correlation requested to exclude emphysematous fasciitis. 2. No plain film evidence of osteomyelitis seen. 3. 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 4. Osteopenia and multilevel degenerative changes. CXR after PICC line IMPRESSION: PICC line with tip at the caval atrial junction. No acute disease. Foot Xray on 04/19/17 IMPRESSION: Interval postoperative changes related to further amputation of the first metatarsal with only the base now remaining. No evidence of subcutaneous emphysema. Pertinent Lab Results: as above Disposition Summary Disposition Principal Diagnosis: Gas gangrene of right foot Additional Diagnosis: Uncontrolled Insuline dependent Diabetes mellitus with HbA1C of 12 HTN Heart failure by history CVA on warfarin for possible left atrial thrombus Melena with advil intake Discharge Disposition: left against medical adv Discharge Instructions General Discharge Information Code Status: Full Code Patient's Diet: Diabetic diet Patient's Activity: as tolerated Follow-Up Instructions/Appts: Please follow up with your PCP in a week Please follow up with your electric vehicle electrician in a week Please follow up with Gastroenterology in few weeks for black stools. Medications at Discharge Discharge Medications: Stop taking the following medications: Liraglutide (Victoza 3-Naveen) 0.6 MG/0.1 ML (18 MG/3 ML) PEN.INJCTR Inject into fatty tissue DAILY Qty = 9 Insulin Glargine,Hum.rec.anlog (Toujeo Solostar) 300 UNIT/ML (1.5 ML) INSULN.PEN Inject into fatty tissue DAILY Qty = 5 Continue taking these medications: Warfarin Sodium (Coumadin) 7.5 MG TABLET 1 Tablet ORAL DAILY Qty = 5 Instructions: Please stop once INR is therapeutic Lisinopril (Lisinopril) 40 MG TABLET 1 Tablet ORAL DAILY Albuterol Sulfate (Proair Hfa) 90 MCG HFA.AER.AD 2 Puff Inhale through mouth EVERY 4-6 HOURS NEEDED as needed for COPD Qty = 1 Metoprolol Tartrate (Metoprolol Tartrate) 75 MG TABLET 1 Tablet ORAL TWICE DAILY Qty = 60 Metformin HCl (Metformin HCl) 1,000 MG TABLET 1 Tablet ORAL TWICE DAILY Qty = 180 Hydralazine HCl (Hydralazine HCl) 25 MG TABLET 4 Tablet ORAL TWICE DAILY Qty = 240 Atorvastatin Calcium (Lipitor) 80 MG TABLET 1 Tablet ORAL DAILY Qty = 90 Duloxetine HCl (Duloxetine HCl) 60 MG CAPSULE.DR 1 Capsule ORAL DAILY Qty = 90 Gabapentin (Gabapentin) 400 MG CAPSULE 1 Capsule ORAL THREE TIMES DAILY as needed for PAIN Qty = 90 Amlodipine Besylate (Amlodipine Besylate) 10 MG TABLET 1 Tablet ORAL DAILY Qty = 90 Start taking the following new medications: Insulin Detemir (Levemir) 100 UNIT/ML VIAL 24 Units Inject into fatty tissue TWICE DAILY Qty = 60 No Refills Nrhjlmyakiql-Mtwl-Tmaadito,Iso (Zosyn 4.5 Gm/100 Ml Galaxy Bag) 4.5 GRAM/100 ML FROZ.PIGGY 1 VIAL INTRAVEN EVERY SIX HOURS Qty = 104 No Refills Enoxaparin Sodium (Lovenox) 60 MG/0.6 ML SYRINGE 170 Milligram Inject into fatty tissue DAILY Qty = 5 No Refills Instructions: Until INR becomes therapeutic -- 2-3 Pen Needle, Diabetic (Bd Ultra-Fine Pen Needle) 31 GAUGE X 5/16" DIS.NEEDLE 1 Flexpen Inject into fatty tissue BEFORE MEALS AND AT BEDTIME Qty = 120 No Refills Insulin Aspart, Recombinant (Novolog Flexpen) 100 UNIT/ML INSULN.PEN 1 Flexpen Inject into fatty tissue BEFORE MEALS AND AT BEDTIME Qty = 30 No Refills Instructions: BEFORE MEALS Blood Insulin Sugar Units 81-150 8 151-200 10 201-250 12 251-300 14 301-350 16 351-400 18 >400 20 units Call Doctor AT BEDTIME Blood Insulin Sugar Units 81-150 0 151-200 0 201-250 0 251-300 3 301-350 3 351-400 4 >400 12 units and Call Doctor Copies To: Karlie Barbosa DO Attending Review Statement Documenting Attending: Terese Garcia MD Documenting Attending: Terese Garcia MD
[2017-04-18 16:20] LABS: PTT 31 SEC (25-37)
[2017-04-18 22:24] VITALS: BP 142/80
[2017-04-18 23:34] LABS: PTT > 120 SEC (25-37)
[2017-04-19 06:45] VITALS: BP 135/80
[2017-04-19 06:50] LABS: PTT 63 SEC (25-37)
--- NOTE | 2017-04-19 07:17 | PN- Housestaff ---
Mildred DELGADILLO,Micheline 04/19/17 0717: Subjective Follow-up For: Gas gangrene Uncontrolled diabetes Subjective: seen and examined Patient remains stable. He reports pain is controlled, feels short of breath. Review of Systems Constitutional: Reports: see HPI. Comments: ROS negative except the above Objective Last 24 Hrs of Vital Signs/I&O Vital Signs Date Time Temp Pulse Resp B/P B/P Pulse O2 O2 Flow FiO2 Mean Ox Delivery Rate 04/19 0646 96 Nasal 1.0L Cannula 04/19 0645 97.8 63 16 135/80 92 Room Air 04/19 0609 95 Nasal 1.0L Cannula 04/18 2224 98.6 69 16 142/80 94 Room Air 04/18 2125 98.6 69 16 142/80 04/18 1400 97.5 62 18 118/72 92 Room Air 04/18 0916 59 120/70 04/18 0915 59 120/70 04/18 0914 59 120/70 04/18 0800 Nasal 2.0L Cannula Intake & Output 04/19 0800 04/19 0000 04/18 1600 Intake Total 1480 1196 420 Output Total 910 25 300 Balance 570 1171 120 Intake, IV 1000 716 300 Intake, Oral 480 480 120 Number 1 0 Bowel Movements Output, 10 25 Drainage Output, Urine 900 300 Physical Exam General Appearance: Alert, Oriented X3, Cooperative, No Acute Distress Skin: No Rashes, No Breakdown, right foot dressing present with wound vac in place Skin Temp/Moisture Exam: Warm/Dry HEENT: Atraumatic, PERRLA, EOMI Neck: Supple Cardiovascular: Normal S1, Normal S2 Lungs: Clear to Auscultation, Normal Air Movement Abdomen: Normal Bowel Sounds, Soft, No Tenderness Neurological: Normal Speech, Strength at 5/5 X4 Ext, Normal Tone, Sensation Intact Extremities: No Clubbing, No Cyanosis Vascular: Normal Pulses, Pulses Symmetrical Current Medications: Current Medications Sig/Tello Start time Last Medication Dose Route Stop Time Status Admin Albuterol Sulfate 3 ML ONCE ONE 04/19 614 DC 04/19 INH 04/20 615 0604 Amlodipine Besylate 10 MG DAILY 04/13 1000 AC 04/18 PO 09 Atorvastatin Calcium 80 MG DAILY 04/13 1000 AC 04/18 PO 914 Celecoxib 100 MG BID 04/18 2200 AC 04/19 PO 0829 Docusate Sodium 100 MG DAILY 04/16 1433 AC 03 PO 0915 Duloxetine HCl 60 MG DAILY 04/13 1000 AC 04/18 PO 0915 Fentanyl Citrate 100 MCG .STK-MED ONE 04/18 1213 DC IM 04/18 1214 Furosemide 40 MG 0730,1630 03/ 0730 AC 04/19 PO 0820 Gabapentin 400 MG TID 04/12 1600 AC 04/18 PO 2124 Heparin Sodium 8,600 UNIT ONCE ONE 04/18 1800 DC 04/18 (Porcine) IV 04/18 1801 1805 Heparin Sodium 25,000 UNIT Q24H / 1230 AC 04/19 (Porcine) IV 0057 Sodium Chloride 500 ML Hydralazine HCl 100 MG BID 04/12 2200 AC 04/18 PO 2125 Insulin Aspart 0 TIDAC/HS 04/18 1700 AC 04/19 SC 0822 Insulin Aspart 0 Q4 04/18 1000 DC 04/18 SC 1050 Insulin Detemir 24 UNITS BID 04/18 2200 AC 04/18 SC 2126 Ketorolac 15 MG DAILY PRN 04/18 1000 DC 04/18 Tromethamine IV 04/20 0959 0922 Lisinopril 40 MG DAILY 04/13 1000 AC 04/18 PO 0914 Metoprolol Tartrate 75 MG BID 04/12 2200 AC 04/18 PO 2125 Midazolam HCl 2 MG .STK-MED ONE 04/18 1213 DC IM 04/18 1214 Morphine Sulfate 8 MG Q6P PRN 04/18 1800 AC 04/19 IV 0643 Morphine Sulfate 4 MG Q6P PRN 04/16 1515 DC 04/16 IV 1518 Nicotine 14 MG DAILY 04/14 1115 AC 04/18 TOP 0916 Omeprazole 40 MG BID 04/17 2200 AC 04/19 PO 0820 Oxycodone HCl 10 MG Q6P PRN 04/13 1615 AC 04/19 PO 0353 Patient Medication 1 ED ONE ONE 04/18 1515 DC 04/18 Teaching ED 04/18 1516 1634 Piperacillin Sod/ 4.5 GM Q6H 04/15 2100 AC 04/19 Tazobactam Sod IV 0233 Sodium Chloride 100 ML Polyethylene Glycol 17 GM DAILY 04/16 1433 AC 04/18 PO 0912 Potassium Chloride 20 MEQ Q13H 04/17 1700 DC 04/19 Dextrose/Sodium 1,000 ML IV 0500 Chloride Promethazine HCl 25 MG Q4 PRN 04/14 0630 AC 04/14 PO 04/21 0629 0815 Sumatriptan Succinate 50 MG DAILY NEEDED PRN 04/13 0845 AC 04/14 PO 0409 Trimethobenzamide HCl 200 MG 4 TIMES/DAY PRN 04/13 0100 AC 04/15 IM 1300 Last 24 Hrs of Lab/Jose Alberto Results Last 24 Hrs of Labs/Mics: Laboratory Tests 04/19/17 0625: Anion Gap 9, Estimated GFR > 60, BUN/Creatinine Ratio 14.4, APTT 63 H, CBC w Diff NO MAN DIFF REQ, RBC 2.83 L, MCV 86.2, MCH 28.9, MCHC 33.6, RDW 14.0, MPV 8.0, Gran % 55.4, Lymphocytes % 35.5, Monocytes % 5.8, Eosinophils % 2.9, Basophils % 0.4, Absolute Granulocytes 6.6 H, Absolute Lymphocytes 4.2 H, Absolute Monocytes 0.7 H, Absolute Eosinophils 0.3, Absolute Basophils 0 04/18/17 2255: APTT > 120 *H 04/18/17 1435: APTT 31 Assessment/Plan Assessment: Patient is a 46 YO long standing IDDM Male with significant history of CVA with possible left atrial thrombus on warfarin since 2013, HTN, Obesity, CHF now presenting with worsening of left foot ulcer with erythema and pain. He was off insulin for the past 3 months due to insurance issues and is experiencing signs of hyperglycemia like Polyuria, Polydipsia, Neuropathic pain, blury vision. He also had black stools with advil intake. Previous amputation of Rt big toe. Admitted to general medicine floor Problem list 1. Diabetic foot infection with gas gangrene 2. Uncontrolled Insuline dependent Diabetes mellitus with HbA1C of 12 3. HTN 4. Heart failure by history 5. CVA on warfarin for possible left atrial thrombus 6. Melena with advil intake Plan Necrotizine skin infection with gas gangrene Secondary to uncontrolled diabetes (off insulin). Cultures grew Group B strep, anerobes, Serratia. He underwent debridement with ray resection initially, f/b repeat debridement twice. He was placed on wound vac on 04/18/17 during his third debridement. Underwent PICC yesterday. We will continue IV Zosyn 4.5gm Q6 for a total of 4 weeks (04/18/17 to 05/16/17). ID input appreciated. His ESR at discharge is >165. He needs follow up foot Xray after treatment, weekly ESR during his treatment. Severe Diabetic Neuropathy Continue Gabapentin and cymbalta * Increase IV morhine to 4mg Q8hrs PRN for breakthrough pain * Continue PO oxycodone 5mg Q6hrs PRN Poorly controlled IDDM * High sugars today - sliding scale adjusted * Levemir 16 units BID and sliding scale per . * Continue ccuchecks with insulin sliding scale * Endocrinology input appreciated * No significant proteinuria, microalbuminuria present. Low H&H Apparently patient had significant bleed in OR with repeat debridement. He received a unit of transfusion. H&H after transfusion remained around 8./24. HTN * continue amlodipine 10mg daily and hydralazine 100mg BID Systolic Heart failure by history * Continue metoprolol tartarate 75mg BID, lisinopril 40mg daily, atorvastatin 80mg daily CVA on warfarin for possible left atrial thrombus On warfarin previously. CHADS VASC2 6. As he underwent repeat debridements, he was on IV heparin for most of his stay. He is started on SC lovenox to bridge to warfarin. Melena with advil intake Patient cannot tolerate tylenol and takes advil as needed. Reports experiencing black stools with NSAID intake. GI consulted - as patient have normal H&H with normal BUN/Cr - recommended outpatient follow up unless overt bleeding present. DVT prophylaxis SC lovenox code status full code Problem List: 1. Diabetic foot ulcer 2. Gas gangrene Pain Ratin Pain Location: right foot Pain Goal: Pain 4 or less Pain Plan: IV morphine roxicodone Tomorrow's Labs & Rationales: none Terese Garcia MD 04/19/17 0957: Attending MD Review Statement Attending Statement Attending Statement: examined this patient, discuss w/resident/PA/MOVERS, agreed w/resident/PA/MOVERS, reviewed EMR data (avail), discussed with nursing, discussed with case mgmt, reviewed images, amended to note Attending Assessment/Plan: Patient seen and examined, overall feels okay but did complain of feeling somewhat short of breath. He received a wound VAC yesterday but then wound VAC was discontinued today due to change of dressing and wound VAC will be placed again today. Vital Signs Date Time Temp Pulse Resp B/P B/P Pulse O2 O2 Flow FiO2 Mean Ox Delivery Rate 04/19 0546 96 Nasal 1.0L Cannula 04/19 644 97.8 63 16 135/80 92 Room Air 04/19 0609 95 Nasal 1.0L Cannula 04/18 2224 98.6 69 16 142/80 94 Room Air 04/18 2125 98.6 69 16 142/80 04/18 1400 97.5 62 18 118/72 92 Room Air On exam: aox3, nad. cv; s1,s2, rrr resp; clear abd; soft, nt, bs+ ext; no edema. + Miriam wrap on right foot. Laboratory Tests 04/19 04/18 04/18 0625 2255 1435 Chemistry Sodium (137 - 145 mmol/L) 140 Potassium (3.5 - 5.1 mmol/L) 3.8 Chloride (98 - 107 mmol/L) 100 Carbon Dioxide (22 - 30 mmol/L) 30 Anion Gap (5 - 16) 9 BUN (9 - 20 mg/dL) 13 Creatinine (0.7 - 1.2 mg/dL) 0.9 Estimated GFR (>60 ml/min) > 60 BUN/Creatinine Ratio (7 - 25 %) 14.4 Coagulation APTT (25 - 37 SEC) 63 H > 120 *H 31 Hematology CBC w Diff NO MAN DIFF REQ WBC (4.8 - 10.8 /CUMM) 11.9 H RBC (4.70 - 6.10 /CUMM) 2.83 L Hgb (14.0 - 18.0 G/DL) 8.2 L Hct (42 - 52 %) 24.4 L MCV (80.0 - 94.0 FL) 86.2 MCH (27.0 - 31.0 PG) 28.9 MCHC (33.0 - 37.0 G/DL) 33.6 RDW (11.5 - 14.5 %) 14.0 Plt Count (130 - 400 /CUMM) 384 MPV (7.4 - 10.4 FL) 8.0 Gran % (42.2 - 75.2 %) 55.4 Lymphocytes % (20.5 - 51.1 %) 35.5 Monocytes % (1.7 - 9.3 %) 5.8 Eosinophils % (0 - 5 %) 2.9 Basophils % (0.0 - 2.0 %) 0.4 Absolute Granulocytes (1.4 - 6.5 /CUMM) 6.6 H Absolute Lymphocytes (1.2 - 3.4 /CUMM) 4.2 H Absolute Monocytes (0.10 - 0.60 /CUMM) 0.7 H Absolute Eosinophils (0.0 - 0.7 /CUMM) 0.3 Absolute Basophils (0.0 - 0.2 /CUMM) 0 A/P; 46 y/o M with pmh sig for CVA on coumadin for possible Left atrial throbus on JACKY, IDDM, HTN, systolic heart failure, previous history of right hallux amputation, admitted with sepsis present on admission now resolved, gas gangrene of the right foot stemming from an infected plantar neuropathic ulceration s/p Incision and drainage right foot, Partial first ray resection right foot, Excisional debridement of nonviable skin, soft tissue, and bone right foot on 04/12/17. Status post further debridement 2 more. Patient now had a full VAC placed yesterday which will need to be placed today by wound care. Patient has been started on Zosyn and will needed for 4 weeks. Patient PICC line. Once his insurance issue is resolved then he can likely be discharged to rehabilitation. Patient will benefit from rehabilitation because he has a wound VAC and his activity status is only heel touch on the right foot. We will resume the Coumadin today. He can be bridged with Lovenox if okay with the podiatry till his INR becomes therapeutic. Will check a chest x-ray today. We'll try to taper his oxygen. Patient will be encouraged to go out of bed to chair and use incentive spirometry. Will be discharged likely to rehabilitation if his insurance is approved and whenever we have a bed.
[2017-04-19 08:13] LABS: ABSOLUTE BASOPHIL COUNT 0 /CUMM (0.0-0.2); ABSOLUTE EOSINOPHIL COUNT 0.3 /CUMM (0.0-0.7); ABSOLUTE GRANULOCYTE CT 6.6 /CUMM (1.4-6.5); ABSOLUTE LYMPH COUNT 4.2 /CUMM (1.2-3.4); ABSOLUTE MONOCYTE COUNT 0.7 /CUMM (0.10-0.60); BASOPHIL % 0.4 % (0.0-2.0); EOSINOPHIL % 2.9 % (0-5); GRANULOCYTE % 55.4 % (42.2-75.2); HEMATOCRIT 24.4 % (42-52); MEAN CORPUSCULAR HGB 28.9 PG (27.0-31.0); MEAN CORPUSCULAR HGB CONC 33.6 G/DL (33.0-37.0); MEAN CORPUSCULAR VOLUME 86.2 FL (80.0-94.0); PLATELET COUNT 384 /CUMM (130-400); RED BLOOD CELL CT 2.83 /CUMM (4.70-6.10); WHITE BLOOD CELL COUNT 11.9 /CUMM (4.8-10.8)
[2017-04-19] MEDS ORDERED: ZOSYN 4.54.5 GM/100 IV ×2 (08:17→14:15)
--- NOTE | 2017-04-19 08:27 | PN- Diabetes ---
Assessment/Plan Diabetes Assessment: The patient had further foot surgery yesterday. He states that he feels well today and is eating. A wound VAC has been applied to his right foot. His blood sugar was down to 208 today. Plan: Suggest continue the present insulin. If the patient goes home today we need to order some NovoLog pens and Levemir pens as an outpatient. Levemir pen should be 1 box of 5 Levemir flexpens. The instruction for levemir should be 24 units twice a day. NovoLog pen should be 10 pens with the instructions of use up to 60 units daily in divided doses before meals. We also need to prescribe pen needles. We should give the patient 2 boxes of 100 BD Leatha pen needles with the instructions to use 5 daily. The patient should be seen again by Dr. Negro Medina with regard to home antibiotic therapy. Objective Last 24 Hrs of Vital Signs/I&O Vital Signs Date Time Temp Pulse Resp B/P B/P Pulse O2 O2 Flow FiO2 Mean Ox Delivery Rate 04/19 0546 96 Nasal 1.0L Cannula 04/19 0545 97.8 63 16 135/80 92 Room Air 04/19 0509 95 Nasal 1.0L Cannula 04/18 2224 98.6 69 16 142/80 94 Room Air 04/18 2125 98.6 69 16 142/80 03/08 1400 97.5 62 18 118/72 92 Room Air 04/18 0916 59 120/70 /08 0915 59 120/70 /08 0914 59 120/70 Intake & Output 04/19 1600 04/19 0800 04/19 0000 Intake Total 1480 1196 Output Total 910 25 Balance 570 1171 Intake, IV 1000 716 Intake, Oral 480 480 Number 1 Bowel Movements Output, 10 25 Drainage Output, Urine 900 Vital Signs Date Time Temp Pulse Resp B/P B/P Pulse O2 O2 Flow FiO2 Mean Ox Delivery Rate 04/19 0546 96 Nasal 1.0L Cannula 04/19 0545 97.8 63 16 135/80 92 Room Air 04/19 0609 95 Nasal 1.0L Cannula 04/18 2224 98.6 69 16 142/80 94 Room Air 03/08 2125 98.6 69 16 142/80 03/08 1400 97.5 62 18 118/72 92 Room Air 04/18 0916 59 120/70 03/08 0915 59 120/70 03/08 0914 59 120/70 Intake & Output 04/19 1600 04/19 0800 04/19 0000 Intake Total 1480 1196 Output Total 910 25 Balance 570 1171 Intake, IV 1000 716 Intake, Oral 480 480 Number 1 Bowel Movements Output, 10 25 Drainage Output, Urine 900 Physical Exam General Appearance: alert, awake, comfortable Neck: normal inspection Respiratory: normal breath sounds Cardiovascular: regular rate/rhythm Abdomen: normal bowel sounds Extremities: normal inspection Current Medications: Current Medications Sig/Tello Start time Last Medication Dose Route Stop Time Status Admin Albuterol Sulfate 3 ML ONCE ONE 04/19 0615 DC 04/19 INH 04/19 0616 0604 Amlodipine Besylate 10 MG DAILY 04/13 1000 AC / PO 0915 Atorvastatin Calcium 80 MG DAILY 04/13 1000 AC 04/18 PO 0915 Celecoxib 100 MG BID 04/18 2200 AC 04/18 PO 2124 Docusate Sodium 100 MG DAILY 04/16 1433 AC 04/18 PO 0915 Duloxetine HCl 60 MG DAILY 04/13 1000 AC 04/18 PO 0915 Fentanyl Citrate 100 MCG .STK-MED ONE 04/18 1213 DC IM 04/18 1214 Furosemide 40 MG 0730,1630 /04 0730 AC 08 PO 1634 Gabapentin 400 MG TID 04/12 1600 AC 04/18 PO 2124 Heparin Sodium 8,600 UNIT ONCE ONE 04/18 1800 DC 04/18 (Porcine) IV 04/18 1801 1805 Heparin Sodium 25,000 UNIT Q24H / 1230 AC 04/19 (Porcine) IV 0057 Sodium Chloride 500 ML Hydralazine HCl 100 MG BID 04/12 2200 AC 08 PO 2125 Insulin Aspart 0 TIDAC/HS 04/18 1700 AC 04/18 SC 2125 Insulin Aspart 0 Q4 04/18 1000 DC 04/18 SC 1050 Insulin Detemir 24 UNITS BID 04/18 2200 AC 04/18 SC 2126 Insulin Detemir 10 UNITS ONCE ONE 04/18 0845 DC 04/18 SC 04/18 0846 0912 Insulin Detemir 20 UNITS BID 04/17 1000 DC 04/17 SC 2209 Insulin Human Regular 0 Q6 04/17 2359 DC 04/18 SC 0657 Ketorolac 15 MG DAILY PRN 04/18 1000 DC Tromethamine IV 04/20 0959 Ketorolac 15 MG DAILY PRN 04/18 1000 DC 04/18 Tromethamine IV 04/20 0959 0922 Lisinopril 40 MG DAILY 04/13 1000 AC 04/18 PO 0914 Metoprolol Tartrate 75 MG BID 04/12 2200 AC 04/18 PO 2125 Midazolam HCl 2 MG .STK-MED ONE 04/18 1213 DC IM 04/18 1214 Morphine Sulfate 8 MG Q6P PRN 04/18 1800 AC 04/19 IV 0643 Morphine Sulfate 4 MG Q6P PRN 04/16 1515 DC 04/16 IV 1518 Nicotine 14 MG DAILY 04/14 1115 AC 04/18 TOP 0916 Omeprazole 40 MG BID 04/17 2200 AC 04/18 PO 2124 Oxycodone HCl 10 MG Q6P PRN 04/13 1615 AC 04/19 PO 0353 Patient Medication 1 ED ONE ONE 04/18 1515 DC 04/18 Teaching ED 04/18 1516 1634 Piperacillin Sod/ 4.5 GM Q6H 04/15 2100 AC 04/19 Tazobactam Sod IV 0233 Sodium Chloride 100 ML Polyethylene Glycol 17 GM DAILY 04/16 1433 AC 04/18 PO 0912 Potassium Chloride 20 MEQ Q13H 04/17 1700 DC 04/19 Dextrose/Sodium 1,000 ML IV 0500 Chloride Promethazine HCl 25 MG Q4 PRN 04/14 0630 AC 04/14 PO 04/21 0629 0815 Sumatriptan Succinate 50 MG DAILY NEEDED PRN 04/13 0845 AC 04/14 PO 0409 Trimethobenzamide HCl 200 MG 4 TIMES/DAY PRN 04/13 0100 AC 04/15 IM 1300 Findings Pertinent Lab/Jose Alberto Results: Laboratory Tests 04/19 04/18 04/18 0625 2255 1435 Chemistry Sodium (137 - 145 mmol/L) 140 Potassium (3.5 - 5.1 mmol/L) 3.8 Chloride (98 - 107 mmol/L) 100 Carbon Dioxide (22 - 30 mmol/L) 30 Anion Gap (5 - 16) 9 BUN (9 - 20 mg/dL) 13 Creatinine (0.7 - 1.2 mg/dL) 0.9 Estimated GFR (>60 ml/min) > 60 BUN/Creatinine Ratio (7 - 25 %) 14.4 Coagulation APTT (25 - 37 SEC) 63 H > 120 *H 31 Hematology CBC w Diff Pending WBC Pending RBC Pending Hgb Pending Hct Pending MCV Pending MCH Pending MCHC Pending RDW Pending Plt Count Pending MPV Pending Vital Signs Date Time Temp Pulse Resp B/P B/P Pulse O2 O2 Flow FiO2 Mean Ox Delivery Rate 04/19 0646 96 Nasal 1.0L Cannula 04/19 0645 97.8 63 16 135/80 92 Room Air 04/19 0609 95 Nasal 1.0L Cannula 04/18 2224 98.6 69 16 142/80 94 Room Air 04/18 2125 98.6 69 16 142/80 04/18 1400 97.5 62 18 118/72 92 Room Air 04/18 0916 59 120/70 04/18 0915 59 120/70 04/18 0914 59 120/70 Intake & Output 04/19 1600 04/19 0800 04/19 0000 Intake Total 1480 1196 Output Total 910 25 Balance 570 1171 Intake, IV 1000 716 Intake, Oral 480 480 Number 1 Bowel Movements Output, 10 25 Drainage Output, Urine 900
--- NOTE | 2017-04-19 09:02 | PN- Podiatry ---
Subjective Subjective: Patient seen and evaluated status post wound irrigation and debridement of the right foot with VAC placement 1 day ago. Patient had scant blood loss during the procedure, but upon being heparinized and walking to the bathroom he had a small amount of strikethrough on the plantar side of his dressing. The VAC otherwise has an intact seal, and the patient's H&H is stable. Patient reports a recent onset shortness of breath. This was discussed with the nursing team, and he has been examined by the primary team this morning and has been given diuretics. Review of Systems: A 14 point review of systems was performed, and was found to be negative apart from the patient's complaints described above in the history of present illness. Objective Vital Signs and I&Os Vital Signs Date Time Temp Pulse Resp B/P B/P Pulse O2 O2 Flow FiO2 Mean Ox Delivery Rate 04/19 0546 96 Nasal 1.0L Cannula 04/19 0645 97.8 63 16 135/80 92 Room Air 04/19 0609 95 Nasal 1.0L Cannula 04/18 2224 98.6 69 16 142/80 94 Room Air 04/18 2125 98.6 69 16 142/80 / 1400 97.5 62 18 118/72 92 Room Air 04/18 0916 59 120/70 04/18 0915 59 120/70 04/18 0914 59 120/70 Intake & Output 04/19 1600 04/19 0800 04/19 0000 04/18 1600 04/18 0800 / 0000 Intake Total 1480 1196 420 934.8 1494.6 Output Total 910 25 300 550 800 Balance 570 1171 120 384.8 694.6 Intake, Blood 350 Product Intake, IV 1000 716 300 884.8 664.6 Intake, Oral 480 480 120 50 480 Number 1 0 0 Bowel Movements Output, 10 25 Drainage Output, Urine 900 300 550 800 Physical Exam: Patient's neurovascular status is unchanged. There was some dried blood seen on the lateral margin of the wound, but no active bleeding in the wound. The wound is largely granular at this point with no marginal bullous changes, near resolution of calor, no malodor, no purulence, mild serous drainage, no ecchymosis, no skin necrosis, no fluctuance. Muscular skeletal exam is unchanged. Current Medications: Current Medications Sig/Tello Start time Last Medication Dose Route Stop Time Status Admin Albuterol Sulfate 3 ML ONCE ONE 04/19 0615 DC 04/19 INH 04/19 0616 0604 Amlodipine Besylate 10 MG DAILY 04/13 1000 AC 04/18 PO 0915 Atorvastatin Calcium 80 MG DAILY 04/13 1000 AC 04/18 PO 0915 Celecoxib 100 MG BID 04/18 2200 AC 04/19 PO 0829 Docusate Sodium 100 MG DAILY 04/16 1433 AC 04/18 PO 0915 Duloxetine HCl 60 MG DAILY 04/13 1000 AC 04/18 PO 0915 Fentanyl Citrate 100 MCG .STK-MED ONE 04/18 1213 DC IM 04/18 1214 Furosemide 40 MG 0730,1630 04/14 0730 AC 04/19 PO 0820 Gabapentin 400 MG TID 04/12 1600 AC 04/18 PO 2124 Heparin Sodium 8,600 UNIT ONCE ONE 04/18 1800 DC 04/18 (Porcine) IV 04/18 1801 1805 Heparin Sodium 25,000 UNIT Q24H 04/14 1230 AC 04/19 (Porcine) IV 0057 Sodium Chloride 500 ML Hydralazine HCl 100 MG BID 04/12 2200 AC 04/18 PO 2125 Insulin Aspart 0 TIDAC/HS 04/18 1700 AC 04/19 SC 0822 Insulin Aspart 0 Q4 04/18 1000 DC 04/18 SC 1050 Insulin Detemir 24 UNITS BID 04/18 2200 AC 04/18 SC 2126 Ketorolac 15 MG DAILY PRN 04/18 1000 DC 04/18 Tromethamine IV 04/20 0959 0922 Lisinopril 40 MG DAILY 04/13 1000 AC 04/18 PO 0914 Metoprolol Tartrate 75 MG BID 04/12 2200 AC 04/18 PO 2125 Midazolam HCl 2 MG .STK-MED ONE 04/18 1213 DC IM 04/18 1214 Morphine Sulfate 8 MG Q6P PRN 04/18 1800 AC 04/19 IV 0643 Morphine Sulfate 4 MG Q6P PRN 04/16 1515 DC 04/16 IV 1518 Nicotine 14 MG DAILY 04/14 1115 AC 04/18 TOP 0916 Omeprazole 40 MG BID 04/17 2200 AC 04/19 PO 0820 Oxycodone HCl 10 MG Q6P PRN 04/13 1615 AC 04/19 PO 0353 Patient Medication 1 ED ONE ONE 04/18 1515 DC 04/18 Teaching ED 04/18 1516 1634 Piperacillin Sod/ 4.5 GM Q6H 04/15 2100 AC 04/19 Tazobactam Sod IV 0233 Sodium Chloride 100 ML Polyethylene Glycol 17 GM DAILY 04/16 1433 AC 04/18 PO 0912 Potassium Chloride 20 MEQ Q13H 04/17 1700 DC 04/19 Dextrose/Sodium 1,000 ML IV 0500 Chloride Promethazine HCl 25 MG Q4 PRN 04/14 06 AC 04/14 PO 04/21 06 0815 Sumatriptan Succinate 50 MG DAILY NEEDED PRN 04/13 0845 AC 04/14 PO 0409 Trimethobenzamide HCl 200 MG 4 TIMES/DAY PRN 04/13 0100 AC 04/15 IM 1300 Results Last 48 Hours of Labs: Laboratory Tests 04/19 04/18 04/18 0625 2255 1435 Chemistry Sodium (137 - 145 mmol/L) 140 Potassium (3.5 - 5.1 mmol/L) 3.8 Chloride (98 - 107 mmol/L) 100 Carbon Dioxide (22 - 30 mmol/L) 30 Anion Gap (5 - 16) 9 BUN (9 - 20 mg/dL) 13 Creatinine (0.7 - 1.2 mg/dL) 0.9 Estimated GFR (>60 ml/min) > 60 BUN/Creatinine Ratio (7 - 25 %) 14.4 Coagulation APTT (25 - 37 SEC) 63 H > 120 *H 31 Hematology CBC w Diff NO MAN DIFF REQ WBC (4.8 - 10.8 /CUMM) 11.9 H RBC (4.70 - 6.10 /CUMM) 2.83 L Hgb (14.0 - 18.0 G/DL) 8.2 L Hct (42 - 52 %) 24.4 L MCV (80.0 - 94.0 FL) 86.2 MCH (27.0 - 31.0 PG) 28.9 MCHC (33.0 - 37.0 G/DL) 33.6 RDW (11.5 - 14.5 %) 14.0 Plt Count (130 - 400 /CUMM) 384 MPV (7.4 - 10.4 FL) 8.0 Gran % (42.2 - 75.2 %) 55.4 Lymphocytes % (20.5 - 51.1 %) 35.5 Monocytes % (1.7 - 9.3 %) 5.8 Eosinophils % (0 - 5 %) 2.9 Basophils % (0.0 - 2.0 %) 0.4 Absolute Granulocytes (1.4 - 6.5 /CUMM) 6.6 H Absolute Lymphocytes (1.2 - 3.4 /CUMM) 4.2 H Absolute Monocytes (0.10 - 0.60 /CUMM) 0.7 H Absolute Eosinophils (0.0 - 0.7 /CUMM) 0.3 Absolute Basophils (0.0 - 0.2 /CUMM) 0 04/18 04/18 04/17 0710 0030 1203 Coagulation APTT (25 - 37 SEC) 54 H 30 Hematology CBC w Diff NO MAN DIFF REQ WBC (4.8 - 10.8 /CUMM) 10.6 RBC (4.70 - 6.10 /CUMM) 2.82 L Hgb (14.0 - 18.0 G/DL) 8.2 L Hct (42 - 52 %) 24.4 L MCV (80.0 - 94.0 FL) 86.4 MCH (27.0 - 31.0 PG) 29.0 MCHC (33.0 - 37.0 G/DL) 33.6 RDW (11.5 - 14.5 %) 13.5 Plt Count (130 - 400 /CUMM) 339 MPV (7.4 - 10.4 FL) 8.5 Gran % (42.2 - 75.2 %) 58.8 Lymphocytes % (20.5 - 51.1 %) 29.7 Monocytes % (1.7 - 9.3 %) 7.6 Eosinophils % (0 - 5 %) 3.2 Basophils % (0.0 - 2.0 %) 0.7 Absolute Granulocytes (1.4 - 6.5 /CUMM) 6.2 Absolute Lymphocytes (1.2 - 3.4 /CUMM) 3.1 Absolute Monocytes (0.10 - 0.60 /CUMM) 0.8 H Absolute Eosinophils (0.0 - 0.7 /CUMM) 0.3 Absolute Basophils (0.0 - 0.2 /CUMM) 0.1 Assessment/Plan Assessment/Plan 46-year-old male with uncontrolled type 2 diabetes admitted for necrotizing diabetic foot infection on the right foot status post emergency open partial first ray amputation. Patient was seen and evaluated this morning. The VAC was temporarily discontinued secondary to the strikethrough, and a wet- to-dry dressing was placed upon it. The wound care team will replace the negative pressure therapy dressing later today. Discussed negative pressure therapy with the medical case worker, and filled out paperwork so that this may be continued as an outpatient with visiting nurse services which is my final wound care recommendation. Continue intravenous antibiotics, while his white count trending up for the past few days has been concerning, this may be due to other factors, and there is no clinical correlation with the wound on examination at this time. This can be reexamined if the patient demonstrates any signs of systemic inflammatory response. The patient's H&H has been stable for multiple days in a row now, transfuse only as needed. From a surgical standpoint, the patient is clear for discharge provided he has outpatient services covered. Unfortunately the patient will require several home services in the immediate wake of this admission, including visiting nurse services, negative pressure therapy and VAC supplies for home, final infectious disease recommendations for long-term IV antibiotic therapy via PICC. He has been given a physical therapy consult and gait training during this admission, and should be competent with his current weightbearing status of heel touch weightbearing on the right side, weightbearing as tolerated on the left side. Core Measures Venous Thromboembolism VTE Risk Factors Acute Medical Illness No Mechanical VTE Prophylaxis d/t N/A MechProphylax Ordered No VTE Pharm Prophylaxis d/t NA PharmProphylax ordered
[2017-04-19] MEDS ORDERED: NOVOLOG FL100 UNIT/1 SC (09:23)
[2017-04-19] MEDS ORDERED: BD ULTRA-FINE1 EAC1 SC (09:23)
[2017-04-19] MEDS ORDERED: LEVEMIR100 UNIT/1 SC ×2 (09:23→14:15)
[2017-04-19 10:30] VITALS: BP 130/76
--- NOTE | 2017-04-19 10:43 | RADIOLOGY REPORT ---
EXAMINATION: XR FOOT, RIGHT CLINICAL INFORMATION: Postoperative for gas gangrene. COMPARISON: Right foot radiograph 04/12/2017. TECHNIQUE: AP, lateral, and oblique views of the right foot. FINDINGS: There has been further amputation of the first metatarsal with only the base now remaining. There are expected changes in the soft tissues. No subcutaneous emphysema is seen. The second and third proximal metatarsophalangeal joints are laterally subluxed but this appears stable compared to prior. There are mild degenerative changes along the dorsal midfoot and at the anterior tibiotalar joint. There is a small heel spur. IMPRESSION: Interval postoperative changes related to further amputation of the first metatarsal with only the base now remaining. No evidence of subcutaneous emphysema.
--- NOTE | 2017-04-19 11:09 | RADIOLOGY REPORT ---
EXAMINATION: XR CHEST CLINICAL INFORMATION: Rule out atelectasis. Shortness of breath. COMPARISON: 04/17/2017 TECHNIQUE: 3 views of the chest were obtained. FINDINGS: Right PICC line tip in the cavoatrial junction. Cardiomediastinal silhouette is stable. Minimal bibasilar atelectasis. No focal consolidation, effusion, edema or pneumothorax. Degenerative changes in the spine. IMPRESSION: Minimal bibasilar atelectasis. No confluent airspace disease.
[2017-04-19] MEDS ORDERED: LOVENOX120 MG/0.1 SC (13:34)
[2017-04-19 14:01] VITALS: BP 142/74
[2017-04-19] MEDS ORDERED: LOVENOX60 MG/0.1 SC (14:18)
[2017-04-19] MEDS ORDERED: OXYCODONE HCL10 M2 PO (14:20)
--- NOTE | 2017-04-19 15:31 | PN- Infect Dx ---
Subjective Subjective: Afebrile. He notes some discomfort in the right foot. Objective Last 24 Hrs of Vital Signs/I&O Vital Signs Date Time Temp Pulse Resp B/P B/P Pulse O2 O2 Flow FiO2 Mean Ox Delivery Rate 04/19 1401 97.8 65 20 142/74 96 Room Air 04/19 1340 Nasal 1.0L Cannula 04/19 1340 Nasal 1.0L Cannula 04/19 1215 Nasal 1.0L Cannula 04/19 1124 68 130/76 04/19 1030 68 130/76 04/19 1009 Nasal 1.0L Cannula 04/19 0800 Nasal 1.0L Cannula 04/19 0646 96 Nasal 1.0L Cannula 04/19 0645 97.8 63 16 135/80 92 Room Air 04/19 0609 95 Nasal 1.0L Cannula 04/18 2224 98.6 69 16 142/80 94 Room Air 04/18 2125 98.6 69 16 142/80 Intake & Output 04/19 1600 04/19 0800 04/19 0000 Intake Total 935 1480 1196 Output Total 300 910 25 Balance 378 099 2839 Intake, IV 375 1000 716 Intake, Oral 560 480 480 Number 1 1 Bowel Movements Output, 10 25 Drainage Output, Urine 300 900 Physical Exam Other Physical Findings: He appears comfortable in no acute distress Extremities right foot dressing intact; PICC in the right upper extremity with no inflammation at the site Results Last 24 Hours of Lab Results: Laboratory Tests 04/19 04/19 04/18 1305 0625 2255 Chemistry Sodium (137 - 145 mmol/L) 140 Potassium (3.5 - 5.1 mmol/L) 3.8 Chloride (98 - 107 mmol/L) 100 Carbon Dioxide (22 - 30 mmol/L) 30 Anion Gap (5 - 16) 9 BUN (9 - 20 mg/dL) 13 Creatinine (0.7 - 1.2 mg/dL) 0.9 Estimated GFR (>60 ml/min) > 60 BUN/Creatinine Ratio (7 - 25 %) 14.4 Coagulation APTT (25 - 37 SEC) 63 H > 120 *H Hematology CBC w Diff NO MAN DIFF REQ WBC (4.8 - 10.8 /CUMM) 11.9 H RBC (4.70 - 6.10 /CUMM) 2.83 L Hgb (14.0 - 18.0 G/DL) 8.2 L Hct (42 - 52 %) 24.4 L MCV (80.0 - 94.0 FL) 86.2 MCH (27.0 - 31.0 PG) 28.9 MCHC (33.0 - 37.0 G/DL) 33.6 RDW (11.5 - 14.5 %) 14.0 Plt Count (130 - 400 /CUMM) 384 MPV (7.4 - 10.4 FL) 8.0 Gran % (42.2 - 75.2 %) 55.4 Lymphocytes % (20.5 - 51.1 %) 35.5 Monocytes % (1.7 - 9.3 %) 5.8 Eosinophils % (0 - 5 %) 2.9 Basophils % (0.0 - 2.0 %) 0.4 Absolute Granulocytes (1.4 - 6.5 /CUMM) 6.6 H Absolute Lymphocytes (1.2 - 3.4 /CUMM) 4.2 H Absolute Monocytes (0.10 - 0.60 /CUMM) 0.7 H Absolute Eosinophils (0.0 - 0.7 /CUMM) 0.3 Absolute Basophils (0.0 - 0.2 /CUMM) 0 ESR Westergren Pending Last 24 Hours of Jose Alberto Results: No new cultures Recent Imaging Studies: X-ray of the right foot April 19 reveals interval postop changes status post amputation of the first metatarsal, with only the base now remaining Chest x-ray April 19 minimal bibasilar atelectasis Assessment/Plan ID Impression: Stable, status post further debridement of the right foot yesterday, with placement of a wound VAC, for residual polymicrobial osteomyelitis, status post a partial first ray resection of the right foot 1 week ago. He remains afebrile with white blood cell count slightly increased today, possibly related to his recent surgery, on Zosyn, which will need to be continued for 4 weeks from his most recent debridement. Suggestion: 1. Continue Zosyn to complete a 4 week course of antibiotics (until May 16) 2. Weekly ESR while on Zosyn
[2017-04-19 23:13] VITALS: BP 142/82
--- NOTE | 2017-04-20 00:28 | PN- Housestaff ---
See Addendum Subjective Follow-up For: Gas gangrene Uncontrolled diabetes Subjective: seen at bedside No overnight issues. still short of breath. Review of Systems Constitutional: Reports: see HPI. Objective Last 24 Hrs of Vital Signs/I&O Vital Signs Date Time Temp Pulse Resp B/P B/P Pulse O2 O2 Flow FiO2 Mean Ox Delivery Rate 04/19 2313 98.4 62 18 142/82 92 Room Air 04/19 2156 62 142/82 04/19 1401 97.8 65 20 142/74 96 Room Air 04/19 1340 Nasal 1.0L Cannula 04/19 1340 Nasal 1.0L Cannula 04/19 1215 Nasal 1.0L Cannula 04/19 1124 68 130/76 04/19 1030 68 130/76 04/19 1009 Nasal 1.0L Cannula 04/19 0800 Nasal 1.0L Cannula 04/19 0646 96 Nasal 1.0L Cannula 04/19 0645 97.8 63 16 135/80 92 Room Air 04/19 0609 95 Nasal 1.0L Cannula Intake & Output 04/20 0800 04/20 0000 04/19 1600 Intake Total 1050 935 Output Total 625 300 Balance 425 635 Intake, IV 250 375 Intake, Oral 800 560 Number 1 Bowel Movements Output, 25 Drainage Output, Urine 600 300 Physical Exam General Appearance: Alert, Oriented X3, Cooperative Skin: No Rashes, dressing with wound vac intact on right foot HEENT: Atraumatic, PERRLA, EOMI Neck: Supple Cardiovascular: Normal S1, Normal S2 Lungs: Clear to Auscultation, Normal Air Movement Abdomen: Normal Bowel Sounds, Soft, No Tenderness Current Medications: Current Medications Sig/Tello Start time Last Medication Dose Route Stop Time Status Admin Albuterol Sulfate 3 ML Q4P PRN 04/19 1030 AC 04/20 INH 0739 Amlodipine Besylate 10 MG DAILY 04/13 1000 AC 04/19 PO 1125 Atorvastatin Calcium 80 MG DAILY 04/13 1000 AC 04/19 PO 1124 Celecoxib 100 MG BID 04/18 2200 AC 04/19 PO 2157 Docusate Sodium 100 MG DAILY 04/16 1433 AC 04/19 PO 1124 Duloxetine HCl 60 MG DAILY 04/13 1000 AC 04/19 PO 1124 Enoxaparin Sodium 120 MG BID 04/19 1000 AC 04/19 SC 2157 Furosemide 40 MG 0730,1630 / 0730 AC 04/20 PO 0711 Gabapentin 400 MG TID 04/12 1600 AC 04/19 PO 2158 Heparin Sodium 25,000 UNIT Q24H / 1230 DC 04/19 (Porcine) IV 0057 Sodium Chloride 500 ML Hydralazine HCl 100 MG BID 04/12 2200 AC 04/19 PO 2156 Insulin Aspart 0 TIDAC/HS 04/18 1700 AC 04/20 SC 0735 Insulin Detemir 24 UNITS BID 04/18 2200 AC 04/19 SC 2157 Lisinopril 40 MG DAILY 04/13 1000 AC 04/19 PO 1125 Metoprolol Tartrate 75 MG BID 04/12 2200 AC 04/19 PO 2156 Morphine Sulfate 8 MG Q6P PRN 04/19 1715 AC 04/20 IV 0711 Morphine Sulfate 8 MG Q8P PRN 04/19 1445 DC IV Morphine Sulfate 8 MG Q6P PRN 04/18 1800 DC 04/19 IV 1301 Nicotine 14 MG DAILY 04/14 1115 AC 04/19 TOP 1127 Omeprazole 40 MG BID 04/17 2200 AC 04/19 PO 2156 Oxycodone HCl 10 MG Q6P PRN 04/13 1615 AC 04/19 PO 1636 Piperacillin Sod/ 4.5 GM Q6H 04/15 2100 AC 04/20 Tazobactam Sod IV 0315 Sodium Chloride 100 ML Polyethylene Glycol 17 GM DAILY 04/16 1433 AC 04/19 PO 1125 Promethazine HCl 25 MG Q4 PRN 04/14 0630 AC 04/14 PO 04/21 0629 0815 Sumatriptan Succinate 50 MG DAILY NEEDED PRN 04/13 0845 AC 04/14 PO 0409 Trimethobenzamide HCl 200 MG 4 TIMES/DAY PRN 04/13 0100 AC 04/15 IM 1300 Warfarin Sodium 7.5 MG COUMADIN 1700 ONE 04/20 1700 AC PO 04/20 1701 Warfarin Sodium 7.5 MG COUMADIN 1700 ONE 04/19 1700 DC 04/19 PO 04/19 1701 1900 Last 24 Hrs of Lab/Jose Alberto Results Last 24 Hrs of Labs/Mics: Laboratory Tests 04/20/17 0532: PT Pending, INR Pending 04/19/17 1830: APTT Cancelled 04/19/17 1305: ESR Westergren > 130 H Assessment/Plan Assessment: Patient is a 46 YO long standing IDDM Male with significant history of CVA with possible left atrial thrombus on warfarin since 2013, HTN, Obesity, CHF now presenting with worsening of left foot ulcer with erythema and pain. He was off insulin for the past 3 months due to insurance issues and is experiencing signs of hyperglycemia like Polyuria, Polydipsia, Neuropathic pain, blury vision. He also had black stools with advil intake. Previous amputation of Rt big toe. Admitted to general medicine floor Problem list 1. Diabetic foot infection with gas gangrene 2. Uncontrolled Insuline dependent Diabetes mellitus with HbA1C of 12 3. HTN 4. Heart failure by history 5. CVA on warfarin for possible left atrial thrombus 6. Melena with advil intake Plan Necrotizine skin infection with gas gangrene Secondary to uncontrolled diabetes (off insulin). Cultures grew Group B strep, anerobes, Serratia. He underwent debridement with ray resection initially, f/b repeat debridement twice. He was placed on wound vac on 04/18/17 during his third debridement. Underwent PICC yesterday. We will continue IV Zosyn 4.5gm Q6 for a total of 4 weeks (04/18/17 to 05/16/17). ID input appreciated. His ESR at discharge is >165. He needs follow up foot Xray after treatment, weekly ESR during his treatment. Severe Diabetic Neuropathy Continue Gabapentin and cymbalta * Increase IV morhine to 4mg Q8hrs PRN for breakthrough pain * Continue PO oxycodone 5mg Q6hrs PRN Poorly controlled IDDM * High sugars today - sliding scale adjusted * Levemir 16 units BID and sliding scale per . * Continue ccuchecks with insulin sliding scale * Endocrinology input appreciated * No significant proteinuria, microalbuminuria present. Atelectasis of lung He did have shortness of breath due to lying in bed for long time. CXR did show atelectasis * Incentrive spirometry * Mobilize Low H&H Apparently patient had significant bleed in OR with repeat debridement. He received a unit of transfusion. H&H after transfusion remained around 8.2/24. HTN * continue amlodipine 10mg daily and hydralazine 100mg BID Systolic Heart failure by history * Continue metoprolol tartarate 75mg BID, lisinopril 40mg daily, atorvastatin 80mg daily CVA on warfarin for possible left atrial thrombus On warfarin previously. CHADS VASC2 6. As he underwent repeat debridements, he was on IV heparin for most of his stay. He is started on SC lovenox to bridge to warfarin. Melena with advil intake Patient cannot tolerate tylenol and takes advil as needed. Reports experiencing black stools with NSAID intake. GI consulted - as patient have normal H&H with normal BUN/Cr - recommended outpatient follow up unless overt bleeding present. DVT prophylaxis SC lovenox code status full code Problem List: 1. Diabetic foot ulcer 2. Gas gangrene Pain Ratin Pain Location: right foot Pain Goal: Pain 4 or less Pain Plan: morphine roxicodone Tomorrow's Labs & Rationales: none Consulting Request: Consulting Specialty: Endocrinology Consulting Physician: Reason for Consult: Uncontrolled IDDM
[2017-04-20 06:46] VITALS: BP 150/80
[2017-04-20 08:30] LABS: PT 12.5 SEC (9.4-12.5)
[2017-04-20] MEDS ORDERED: LOVENOX60 MG/0.1 SC (09:15)
--- NOTE | 2017-04-20 11:42 | PN- Diabetes ---
Assessment/Plan Diabetes Assessment: Patient underwent foot surgery. Now the wound vac was placed. He is on Levemir 24 units twice a day, Novolog coverage before meals and Novolog coverage at bedtime. His FSGs were 208, 193, 229, 203 and 166. Plan: 1. increase Levemir to 27 units twice a day; 2. adjust Novolog coverage before meals; detail see the inpatient DM order; 3. monitor FSGs. will follow Inpatient Diabetes Orders Before Each Meal: Bolus Insulin: Novolog < 80 mg/dl: no coverage 80-100 mg/dl: 10 units 101-120 mg/dl: 10 units 121-150 mg/dl: 10 units 151-200 mg/dl: 12 units 201-250 mg/dl: 14 units 251-300 mg/dl: 16 units 301-350 mg/dl: 18 units 351-400 mg/dl: 20 units > 400 mg/dl: 22 units Subjective Subjective: He has pain on his foot at this point. There is some blockage in the wound vac. As per nurse, the podiatry service was contacted. Objective Last 24 Hrs of Vital Signs/I&O Vital Signs Date Time Temp Pulse Resp B/P B/P Pulse O2 O2 Flow FiO2 Mean Ox Delivery Rate 04/20 0920 70 160/58 04/20 0920 70 160/58 04/20 0917 70 160/58 04/20 0800 Room Air 04/20 0741 96 Room Air Room Air 04/20 0646 98.1 96 20 150/80 95 Room Air 04/19 2313 98.4 62 18 142/82 92 Room Air 04/19 2156 62 142/82 04/19 1401 97.8 65 20 142/74 96 Room Air 04/19 1340 Nasal 1.0L Cannula 04/19 1340 Nasal 1.0L Cannula 04/19 1215 Nasal 1.0L Cannula Intake & Output 04/20 1600 04/20 0800 04/20 0000 Intake Total 370 1050 Output Total 500 625 Balance -130 425 Intake, IV 120 250 Intake, Oral 250 800 Number 0 Bowel Movements Output, 25 Drainage Output, Urine 500 600 Findings Pertinent Lab/Jose Alberto Results: Laboratory Tests 04/20 04/19 04/19 0532 1830 1305 Coagulation PT (9.4 - 12.5 SEC) 12.5 INR (0.90 - 1.17) 1.15 APTT Cancelled Hematology ESR Westergren (0 - 10 MM) > 130 H
--- NOTE | 2017-04-20 12:20 | PN- Podiatry ---
See Addendum Subjective Subjective: Patient seen and evaluated status post wound irrigation and debridement of the right foot with VAC placement 2 days ago. It was reported to me by the nursing team this morning that the patient had a blockage in his negative pressure therapy tubing, and I immediately came to bedside to address it. The VAC had an intact seal, but was only pressurized to 75 mmHg to blockage near the wound site. The patient continues to experience shortness of breath, which onset yesterday. He is off of his intravenous fluids and is on diuretic agents. Review of Systems: A 14 point review of systems was performed, and was found to be negative apart from the patient's complaints described above in the history of present illness. Objective Vital Signs and I&Os Vital Signs Date Time Temp Pulse Resp B/P B/P Pulse O2 O2 Flow FiO2 Mean Ox Delivery Rate 04/21 919 70 160/58 04/20 0920 70 160/58 04/20 0917 70 160/58 04/20 0800 Room Air 04/20 0741 96 Room Air Room Air 04/20 0646 98.1 96 20 150/80 95 Room Air 04/19 2313 98.4 62 18 142/82 92 Room Air 04/19 2156 62 142/82 04/19 1401 97.8 65 20 142/74 96 Room Air 04/19 1340 Nasal 1.0L Cannula 04/19 1340 Nasal 1.0L Cannula Intake & Output 04/20 1600 04/20 0800 04/20 0000 04/19 1600 04/19 0800 04/19 0000 Intake Total 370 6764 993 6982 1196 Output Total 500 625 300 910 25 Balance -130 425 031 713 4931 Intake, IV 120 670 309 2737 716 Intake, Oral 250 800 560 480 480 Number 0 1 1 Bowel Movements Output, 25 10 25 Drainage Output, Urine 500 600 300 900 Physical Exam: Patient's neurovascular status is unchanged. There is no active bleeding in the wound. The wound is largely fibrogranular at this point with no marginal bullous changes, near resolution of calor, no malodor, no purulence, mild serous drainage, no ecchymosis, no skin necrosis, no fluctuance. Muscular skeletal exam is unchanged. The compartments of the leg were aggressively expressed around the wound, no drainage was found. There is a small amount of fibrous tissue on the plantar lateral side of the wound, but no tissue necrosis. Current Medications: Current Medications Sig/Tello Start time Last Medication Dose Route Stop Time Status Admin Albuterol Sulfate 3 ML Q4P PRN 04/19 1030 AC 04/20 INH 0739 Amlodipine Besylate 10 MG DAILY 04/13 1000 AC 04/20 PO 0920 Atorvastatin Calcium 80 MG DAILY 04/13 1000 AC 04/20 PO 0919 Celecoxib 100 MG BID 04/18 2200 AC 04/20 PO 0918 Docusate Sodium 100 MG DAILY 04/16 1433 AC 04/20 PO 0918 Duloxetine HCl 60 MG DAILY 04/13 1000 AC 04/20 PO 0918 Enoxaparin Sodium 170 MG DAILY 04/20 1000 CAN SC Enoxaparin Sodium 100 MG DAILY 04/20 1000 AC 04/20 SC 0952 Enoxaparin Sodium 70 MG DAILY 04/20 1000 AC 04/20 SC 0951 Enoxaparin Sodium 120 MG BID 04/19 1000 DC 04/19 SC 2157 Furosemide 40 MG 0730,1630 04/14 0730 AC 04/20 PO 0711 Gabapentin 400 MG TID 04/12 1600 AC 04/20 PO 0919 Hydralazine HCl 100 MG BID 04/12 2200 AC 04/20 PO 0917 Insulin Aspart 0 TIDAC/HS 04/18 1700 AC 04/20 SC 1148 Insulin Detemir 27 UNITS BID 04/20 2200 AC SC Insulin Detemir 24 UNITS BID 04/18 2200 DC 04/20 SC 0915 Lisinopril 40 MG DAILY 04/13 1000 AC 04/20 PO 0920 Metoprolol Tartrate 75 MG BID 04/12 2200 AC 04/20 PO 0919 Morphine Sulfate 8 MG Q6P PRN 04/19 1715 AC 04/20 IV 1211 Morphine Sulfate 8 MG Q8P PRN 04/19 1445 DC IV Morphine Sulfate 8 MG Q6P PRN 04/18 1800 DC 04/19 IV 1301 Nicotine 14 MG DAILY 04/14 1115 AC 04/20 TOP 0919 Omeprazole 40 MG BID 04/17 2200 AC 04/20 PO 0920 Oxycodone HCl 10 MG Q6P PRN 04/13 1615 AC 04/20 PO 1135 Piperacillin Sod/ 4.5 GM Q6H 04/15 2100 AC 04/20 Tazobactam Sod IV 0916 Sodium Chloride 100 ML Polyethylene Glycol 17 GM DAILY 04/16 1433 AC 04/20 PO 0922 Promethazine HCl 25 MG Q4 PRN 04/14 0630 AC 04/14 PO 04/21 0629 0815 Sumatriptan Succinate 50 MG DAILY NEEDED PRN 04/13 0845 AC 04/14 PO 0409 Trimethobenzamide HCl 200 MG 4 TIMES/DAY PRN 04/13 0100 AC 04/15 IM 1300 Warfarin Sodium 7.5 MG COUMADIN 1700 ONE 04/20 1700 AC PO 04/20 1701 Warfarin Sodium 7.5 MG COUMADIN 170 ONE 04/19 1700 DC 04/19 PO 04/19 170 1900 Results Last 48 Hours of Labs: Laboratory Tests 04/20 04/19 04/19 0532 1830 1305 Coagulation PT (9.4 - 12.5 SEC) 12.5 INR (0.90 - 1.17) 1.15 APTT Cancelled Hematology ESR Westergren (0 - 10 MM) > 130 H 04/19 04/18 04/18 0625 2255 1435 Chemistry Sodium (137 - 145 mmol/L) 140 Potassium (3.5 - 5.1 mmol/L) 3.8 Chloride (98 - 107 mmol/L) 100 Carbon Dioxide (22 - 30 mmol/L) 30 Anion Gap (5 - 16) 9 BUN (9 - 20 mg/dL) 13 Creatinine (0.7 - 1.2 mg/dL) 0.9 Estimated GFR (>60 ml/min) > 60 BUN/Creatinine Ratio (7 - 25 %) 14.4 Coagulation APTT (25 - 37 SEC) 63 H > 120 *H 31 Hematology CBC w Diff NO MAN DIFF REQ WBC (4.8 - 10.8 /CUMM) 11.9 H RBC (4.70 - 6.10 /CUMM) 2.83 L Hgb (14.0 - 18.0 G/DL) 8.2 L Hct (42 - 52 %) 24.4 L MCV (80.0 - 94.0 FL) 86.2 MCH (27.0 - 31.0 PG) 28.9 MCHC (33.0 - 37.0 G/DL) 33.6 RDW (11.5 - 14.5 %) 14.0 Plt Count (130 - 400 /CUMM) 384 MPV (7.4 - 10.4 FL) 8.0 Gran % (42.2 - 75.2 %) 55.4 Lymphocytes % (20.5 - 51.1 %) 35.5 Monocytes % (1.7 - 9.3 %) 5.8 Eosinophils % (0 - 5 %) 2.9 Basophils % (0.0 - 2.0 %) 0.4 Absolute Granulocytes (1.4 - 6.5 /CUMM) 6.6 H Absolute Lymphocytes (1.2 - 3.4 /CUMM) 4.2 H Absolute Monocytes (0.10 - 0.60 /CUMM) 0.7 H Absolute Eosinophils (0.0 - 0.7 /CUMM) 0.3 Absolute Basophils (0.0 - 0.2 /CUMM) 0 Assessment/Plan Assessment/Plan 46-year-old male with uncontrolled type 2 diabetes admitted for necrotizing diabetic foot infection on the right foot status post emergency open partial first ray amputation. Patient was seen and evaluated this morning. The VAC was temporarily discontinued secondary to the blockage, and a wet-to-dry dressing was placed upon it. We will change the dressing again tomorrow, and reattempt negative pressure wound therapy on Saturday morning. Continue intravenous antibiotics, while his white count trending up for the past few days has been concerning, this may be due to other factors such as the multiple recent surgeries and 1 unit blood transfusion, and there is no clinical correlation with the wound on examination at this time. This can be reexamined if the patient demonstrates any signs of systemic inflammatory response. The patient's H&H has been stable for multiple days in a row now, transfuse only as needed. From a surgical standpoint, the patient is clear for discharge provided he has outpatient services covered. Unfortunately the patient will require several home services in the immediate wake of this admission, including visiting nurse services, negative pressure therapy and VAC supplies for home, final infectious disease recommendations for long-term IV antibiotic therapy via PICC. He has been given a physical therapy consult and gait training during this admission, and should be competent with his current weightbearing status of heel touch weightbearing on the right side, weightbearing as tolerated on the left side. Core Measures Venous Thromboembolism VTE Risk Factors Acute Medical Illness No Mechanical VTE Prophylaxis d/t N/A MechProphylax Ordered No VTE Pharm Prophylaxis d/t NA PharmProphylax ordered
[2017-04-20 14:18] VITALS: BP 128/68
--- NOTE | 2017-04-20 15:37 | PN- Podiatry ---
Surgical Brief Attending Note Brief Attending Note: Discussed with covering MD Dacosta the potiential need for diuresis in addition to albuterol and IVF cessation to address SOB onset yesterday without much improvement in 24 hours. Pt has known history of CHF and uncontrolled DM. Dr. Dacosta will re-evaluate it per discussion over the phone.
[2017-04-20 16:45] VITALS: BP 158/78
--- NOTE | 2017-04-20 19:16 | Event Note ---
Event Note Event Note: Received a call from the covering grade recorder, Dr. Rocha, who was concerned about the patient's shortness of breath given history of CHF. This patient was discussed with the attending Dr. Sandoval. Was decided that the current regimen of Lasix was sufficient with TRC, given that the most recent x-ray did not show signs of fluid overload. Will monitor for further shortness of breath.
[2017-04-21 06:38] LABS: ABSOLUTE BASOPHIL COUNT 0 /CUMM (0.0-0.2); ABSOLUTE EOSINOPHIL COUNT 0.2 /CUMM (0.0-0.7); ABSOLUTE GRANULOCYTE CT 5.3 /CUMM (1.4-6.5); ABSOLUTE LYMPH COUNT 2.2 /CUMM (1.2-3.4); ABSOLUTE MONOCYTE COUNT 0.5 /CUMM (0.10-0.60); BASOPHIL % 0.5 % (0.0-2.0); EOSINOPHIL % 2.6 % (0-5); GRANULOCYTE % 63.9 % (42.2-75.2); HEMATOCRIT 25.5 % (42-52); MEAN CORPUSCULAR HGB 28.8 PG (27.0-31.0); MEAN CORPUSCULAR HGB CONC 33.1 G/DL (33.0-37.0); MEAN CORPUSCULAR VOLUME 86.9 FL (80.0-94.0); MEAN PLATELET VOLUME 7.7 FL (7.4-10.4); PLATELET COUNT 439 /CUMM (130-400); RBC DISTRIBUTION WIDTH 13.9 % (11.5-14.5); RED BLOOD CELL CT 2.94 /CUMM (4.70-6.10); WHITE BLOOD CELL COUNT 8.3 /CUMM (4.8-10.8)
[2017-04-21 06:43] LABS: PT 13.2 SEC (9.4-12.5)
[2017-04-21 06:45] VITALS: BP 150/90
--- NOTE | 2017-04-21 08:29 | PN- Housestaff ---
Macarena DELGADILLO,[facility] 04/21/17 0829: Subjective Follow-up For: Gas gangrene Subjective: Patient was seen and examined this morning. Reports doing well. Offers no complaints. No overnight events. Review of Systems Constitutional: Reports: no symptoms. Objective Last 24 Hrs of Vital Signs/I&O Vital Signs Date Time Temp Pulse Resp B/P B/P Pulse O2 O2 Flow FiO2 Mean Ox Delivery Rate 04/21 1051 94 Room Air 04/21 0926 62 150/90 04/21 0925 62 150/90 04/21 0925 62 150/90 04/21 0800 Room Air 04/21 0645 98.0 62 22 150/90 97 Room Air 04/21 0000 Room Air 04/20 2106 98.0 65 16 142/84 04/20 1705 96 Room Air 04/20 1645 64 158/78 04/20 1418 97.6 67 20 128/68 96 Intake & Output 04/21 1600 04/21 0800 04/21 0000 Intake Total 600 480 Output Total 1150 800 Balance -550 -320 Intake, Oral 600 480 Output, Urine 1150 800 Physical Exam General Appearance: Alert, Oriented X3, Cooperative, No Acute Distress Skin: No Rashes, No Breakdown, right leg in chau wraps. Skin Temp/Moisture Exam: Warm/Dry Sepsis Skin Exam (color): Normal for Ethnicity HEENT: Atraumatic Cardiovascular: Normal S1, Normal S2, No Murmurs Lungs: Clear to Auscultation, Normal Air Movement Abdomen: Soft, No Tenderness Neurological: Normal Speech Extremities: No Edema Assessment/Plan Assessment: Patient is a 46 YO long standing IDDM Male with significant history of CVA with possible left atrial thrombus on warfarin since 2013, HTN, Obesity, CHF who presented to the ED with worsening of left foot ulcer with erythema and pain. He was off insulin for the past 3 months due to insurance issues and is experiencing signs of hyperglycemia like Polyuria, Polydipsia, Neuropathic pain, blury vision. Previous amputation of Rt big toe. Admitted to general medicine floor Problem list 1. Diabetic foot infection with gas gangrene 2. Uncontrolled Insuline dependent Diabetes mellitus with HbA1C of 12 3. HTN 4. Heart failure by history 5. CVA on warfarin for possible left atrial thrombus 6. Melena with advil intake Plan Necrotizine skin infection with gas gangrene * IV Zosyn 4.5gm Q6 for a total of 4 weeks (04/18/17 to 05/16/17). * ID recs appreciated * Weekly ESR * f/u FXR after treatment Severe Diabetic Neuropathy * Continue Gabapentin and cymbalta * Continue IV morhine to 4mg Q8hrs PRN for breakthrough pain * Continue PO oxycodone 5mg Q6hrs PRN Poorly controlled IDDM * Increase Levemir to 30 units BID and sliding scale adjusted per Endo recs * Continue Accuchecks with insulin sliding scale * Endocrinology input appreciated Low H&H * Continue to monitor HTN * continue amlodipine 10mg daily and hydralazine 100mg BID Systolic Heart failure by history * Continue metoprolol tartarate 75mg BID, lisinopril 40mg daily, atorvastatin 80mg daily CVA on warfarin for possible left atrial thrombus * Continue Warfarin * Monitor daily INR Melena with advil intake * avoid NSAIDS * outpatient GI f/u DVT prophylaxis SC lovenox with transition to coumadin code status full code Problem List: 1. Gas gangrene Pain Ratin Pain Location: none Pain Goal: Remain pain free Pain Plan: none Tomorrow's Labs & Rationales: CBC, BEP, INR Consulting Request: Consulting Specialty: Endocrinology Consulting Physician: Reason for Consult: Uncontrolled IDDM Chana Sandoval 04/21/17 1227: Attending MD Review Statement Attending Statement Attending MD Statement: examined this patient, discuss w/resident/PA/PATIENT CARRIER, agreed w/resident/PA/PATIENT CARRIER, discussed with family, reviewed EMR data (avail), discussed with nursing, discussed with case mgmt, reviewed images, amended to note Attending Assessment/Plan: Patient denies any new complaints. Wound vac removed and plan to place tomorrow as per podiatry. Deion current care.. awaiting insurnace approval. Monitor INR.
--- NOTE | 2017-04-21 09:22 | PN- Diabetes ---
Assessment/Plan Diabetes Assessment: Patient underwent foot surgery. The wound vac was moved on 04/20/2017 due to the pain. Levemir was increased to 27 units twice a day; Novolog coverage before meals was adjusted on 04/20/2017. In addition, he is on Novolog coverage at bedtime. His FSGs were 181, 197, 248, 197 and 200. Plan: 1. further increase Levemir to 30 units twice a day; 2. continue the current Novolog coverage before meals and Novolog coverage at bedtime; 3. monitor FSGs. will follow. Subjective Subjective: He feels better this morning. Objective Last 24 Hrs of Vital Signs/I&O Vital Signs Date Time Temp Pulse Resp B/P B/P Pulse O2 O2 Flow FiO2 Mean Ox Delivery Rate 04/21 0645 98.0 62 22 150/90 97 Room Air 04/21 0000 Room Air 04/20 2106 98.0 65 16 142/84 04/20 1705 96 Room Air 04/20 1645 64 158/78 04/20 1418 97.6 67 20 128/68 96 Intake & Output 04/21 1600 04/21 0800 04/21 0000 Intake Total 600 480 Output Total 1150 800 Balance -550 -320 Intake, Oral 600 480 Output, Urine 1150 800 Findings Pertinent Lab/Jose Alberto Results: Laboratory Tests 04/21 0610 Chemistry C-Reactive Prot, Quant (<1.0 mg/dL) 4.4 H C-React Prot High Sens (1.0 - 3.0 mg/L) > 15.0 H Coagulation PT (9.4 - 12.5 SEC) 13.2 H INR (0.90 - 1.17) 1.21 H Hematology CBC w Diff NO MAN DIFF REQ WBC (4.8 - 10.8 /CUMM) 8.3 RBC (4.70 - 6.10 /CUMM) 2.94 L Hgb (14.0 - 18.0 G/DL) 8.5 L Hct (42 - 52 %) 25.5 L MCV (80.0 - 94.0 FL) 86.9 MCH (27.0 - 31.0 PG) 28.8 MCHC (33.0 - 37.0 G/DL) 33.1 RDW (11.5 - 14.5 %) 13.9 Plt Count (130 - 400 /CUMM) 439 H MPV (7.4 - 10.4 FL) 7.7 Gran % (42.2 - 75.2 %) 63.9 Lymphocytes % (20.5 - 51.1 %) 26.4 Monocytes % (1.7 - 9.3 %) 6.6 Eosinophils % (0 - 5 %) 2.6 Basophils % (0.0 - 2.0 %) 0.5 Absolute Granulocytes (1.4 - 6.5 /CUMM) 5.3 Absolute Lymphocytes (1.2 - 3.4 /CUMM) 2.2 Absolute Monocytes (0.10 - 0.60 /CUMM) 0.5 Absolute Eosinophils (0.0 - 0.7 /CUMM) 0.2 Absolute Basophils (0.0 - 0.2 /CUMM) 0
[2017-04-21 13:59] VITALS: BP 146/78
[2017-04-21 22:10] VITALS: BP 158/81
[2017-04-21 22:18] VITALS: BP 158/81
--- NOTE | 2017-04-22 02:04 | Event Note ---
Event Note Event Note: S: At around 1am internal specialist received page that patient was still in pain, agitated, and was asking for more pain medications. Sow Farm Manager to see patient. Patient had received morphine 8mg IV at 8:40 and roxicodone at 11pm. He has tylenol allergy and could not get NSAIDs due to GI bleed. Patient also agitated because patient in 223-2 was disturbing to the pod (demented patient with sundowning, requiring haldol and olanzapine). B: 46 YO long standing IDDM male with significant history of CVA with possible left atrial thrombus on warfarin since 2013, HTN, obesity, CHF who presented to the ED with worsening of left foot ulcer with erythema and pain. Patient received open partial first ray resection for the treatment of diabetic foot infection with gas gangrene and associated necrotizing infection of the right foot stemming from a plantar neuropathic ulceration. Returned to OR for repeat debridement twice. He was placed on wound vac on 04/18/17 during his third debridement. The VAC was temporarily discontinued secondary to the blockage, and a wet-to-dry dressing was placed upon it. Plan as per Dr. Rocha, teletype mechanic, was to change the dressing again tomorrow, and reattempt negative pressure wound therapy, continue intravenous antibiotics IV Zosyn 4.5gm Q6 for a total of 4 weeks (04/18/17 to 05/16/17). His white count trended up for the past few days yet as per podiatry, there is no clinical correlation with the wound on examination and he was ready to go after wound therapy with home services including visiting nurse, neg pressure therapy and VAC supplies, penitentiary antibiotics IV. Patient on chronic warfarin, heparin while admitted, being bridged with lovenox to coumadin, currently subtherapeutic. A/R: Patient seen, agitated, but after some discussion about the dangers of leaving AMA, agreed to stay and was more calm. Patient was alert and oriented, not confused, no history of dementia. He was to get his next morphine dose at 2: 40am and we agreed to dose it at 2am as he stated he had severe pain 10/10. However, patient had already called his to pick him up and could not reach her to communicate his decision to stay. When she arrived she was agitated, yelling at house staff, aggressive. The patient became agitated again and stated his intention to leave. Security attempted to intervene and calm the patient down to no avail. This occured in a span of minutes and the patient left without signing AMA paperwork, without getting his antibiotics prescriptions, with PICC line in, and with subtherapeutic INR. Call placed to Dr. Kebede, tree scout, but patient and had left when she arrived a few minutes later. Resident addendum: I was told by the internal specialist that the patient wants to leave. I went to floor to talk to the patient to convince him to stay, once I arrived I have been told by the internal specialist and the nursing staff that the patient now is calm. I was dealing with another agitated patient in the next room, at this time arrived. Once patient's arrived to take patient home she started to complain about that her is not receiving appropriate pain medications and we are not managing him appropriately "he looks miserable", at that time I went to the patient room to discuss the case and he was prepared to leave, he was dressed and collecting all of his belonging, I asked the to calm down so we can discuss what we can do about the pain BUT patient and his started to escalate and they left the room, they didn't want to listen he started to shout "get out of here", I tried to exapline the risk for leaving before medically advised BUT they didn't listen to a word, I asked them to wait to sign AMA paper and they refused, security also tried to calm them down and asked them to sign and they refused, they didn't want the security staff to touch them "don't touch or we will spencer you". All of the above happend so quickley within few minutes he already left. Attending came after the patient already left. Attening Addendum I discussed with Nursing super, who called patient to come back to ER to remove the PICC. He said : he will come whenever he can. Meanwhile I was trying to get in touch with Admin-international relations professor for Hospital. Finally Dr. Fernandes texted back suggested calling police if patient does not return to remove the PICC line. Then I called patient on phone and discussed risks of PICC line and that he and his family needs education on its care, He needs Wound Vac, Home health and antibiotic set up. He came to ER with an intention to remove PICC line and go home. I had a detailed discussion with him again and Gave him 2 choices 1. remove the PICC line and go home, in that situation wound care and antibiotic treatment wound be interrupted. Or 2. Wait for few hours in ER, get case management involved and set up Wound Vac, Home health and antibiotic at home. He agreed to second option and will wait till AM to case management to come. I also spoke to Dr. Brown about this plan. Patient will receive his scheduled ABx in ER.
[2017-04-23] MEDS ORDERED: ZOSYN 4.54.5 GM/100 IV (14:05)
[2017-04-23] MEDS ORDERED: ROXICODONE15 M1 PO (14:11)
== END 2017-04-22 01:50 | disposition left against medical advice (07) | DRG 710 ==
LOC: ERH 07:21 → 2NA 09:57 → ERHI 09:57 → ENRESERV 11:01 → ENTRNSPT 14:27 → 2NA 14:44 → EDTRNSPTTYP 14:46 → CMPTRNSPT 14:46 → EDTRNSPT 14:46 → 2NA 04-15 08:19 → ENTRNSPT 04-15 15:42 → EDTRNSPT 04-15 15:55 → EDTRNSPTSTS 04-15 15:55 → CMPTRNSPT 04-15 16:13 → ENTRNSPT 04-18 13:55 → EDTRNSPT 04-18 14:02 → EDTRNSPTSTS 04-18 14:02 → CMPTRNSPT 04-18 14:26 → 2NA 04-18 19:05
PROVIDERS: Dermatology; Emergency Medicine; Hospitalist; Internal Medicine; Podiatrist Foot & Ankle Surgery; Student in an Organized Health Care Education/Training Program
PROC: 0QBN0ZZ Excision of Right Metatarsal, Open Approach (ICD-10-PCS; principal; 2017-04-12)
PROC: 0Y6M0Z9 Detachment at Right Foot, Partial 1st Ray, Open Approach (ICD-10-PCS; 2017-04-12)
PROC: 0QBN0ZZ Excision of Right Metatarsal, Open Approach (ICD-10-PCS; 2017-04-15)
PROC: 0JBQ0ZZ Excision of Right Foot Subcutaneous Tissue and Fascia, Open Approach (ICD-10-PCS; 2017-04-18)
DX: A41.9 Sepsis, unspecified organism (principal); M72.6 Necrotizing fasciitis; A48.0 Gas gangrene; L97.518 Non-pressure chronic ulcer of other part of right foot with other specified severity; I50.22 Chronic systolic (congestive) heart failure; L03.115 Cellulitis of right lower limb; M86.171 Other acute osteomyelitis, right ankle and foot; K92.1 Melena; E11.52 Type 2 diabetes mellitus with diabetic peripheral angiopathy with gangrene; E11.621 Type 2 diabetes mellitus with foot ulcer; E11.65 Type 2 diabetes mellitus with hyperglycemia; I11.0 Hypertensive heart disease with heart failure; Z91.14 Patient's other noncompliance with medication regimen; F17.210 Nicotine dependence, cigarettes, uncomplicated; E66.9 Obesity, unspecified; Z68.33 Body mass index [BMI] 33.0-33.9, adult; E11.40 Type 2 diabetes mellitus with diabetic neuropathy, unspecified; E11.69 Type 2 diabetes mellitus with other specified complication; Z79.4 Long term (current) use of insulin; Z79.84 Long term (current) use of oral hypoglycemic drugs; Z86.73 Personal history of transient ischemic attack (TIA), and cerebral infarction without residual deficits; E78.5 Hyperlipidemia, unspecified; Z89.421 Acquired absence of other right toe(s); Z79.01 Long term (current) use of anticoagulants; T39.315A Adverse effect of propionic acid derivatives, initial encounter
CPT/HCPCS: 2NAP; 2NASP; 87070; 87075; 36415; 36592; 71045; 71046; 73630-RT; 81001; 82436; 82570; 86920; 87040; 87071; 87147; 88304; 88305; 88307; 93005; 93010; 97110-GO; 97116-GO; 97161-GP; C1769; J0744; J1644; J1650; J1815; J1885; J2001; J2405; J2543; J2550; J3250; J3490; J7042; J7060; P9016

== ENCOUNTER 2017-04-22 03:20 | Inpatient (IN) | payer OTHER ==
[~2017-04-22] VITALS: Ht 182.9 cm; Wt 115.2 kg
[~2017-04-22 03:20] MED LIST changes: +AMLODIPINE BESY10 M1 PO; +BD ULTRA-FINE1 EAC1 SC; +LEVEMIR100 UNIT/1 SC; +LOVENOX120 MG/0.1 SC; +LOVENOX60 MG/0.1 SC; +NOVOLOG FL100 UNIT/1 SC; +OXYCODONE HCL10 M2 PO; +ZOSYN 4.54.5 GM/100 IV
--- NOTE | 2017-04-22 03:34 | ED GENERAL ADULT ---
History of Present Illness General Chief Complaint: General Adult Stated Complaint: "HERE TO GET PICK LINE REMOVED" Source: patient Exam Limitations: no limitations Vital Signs & Intake/Output Vital Signs & Intake/Output Vital Signs Date Time Temp Pulse Resp B/P B/P Pulse O2 O2 Flow FiO2 Mean Ox Delivery Rate 04/22 0749 97.9 77 22 156/74 100 Room Air 04/22 0328 98 Room Air 04/22 0326 96.3 73 18 169/83 95 Room Air Allergies Coded Allergies: acetaminophen (Mild, BAD HEADACHE 06/15/15) Reconcile Medications Albuterol Sulfate (Proair Hfa) 90 MCG HFA.AER.AD 2 PUF INH Q4-6 PRN PRN COPD Amlodipine Besylate 10 MG TABLET 1 TAB PO DAILY HEART (Reported) Atorvastatin Calcium (Lipitor) 80 MG TABLET 1 TAB PO DAILY CHOLESTEROL ( Reported) Duloxetine HCl 60 MG CAPSULE.DR 1 CAP PO DAILY PAIN (Reported) Enoxaparin Sodium (Lovenox) 60 MG/0.6 ML SYRINGE 170 MG SC DAILY blood thinner Until INR becomes therapeutic -- 2-3 Gabapentin 400 MG CAPSULE 1 CAP PO TID PRN PAIN (Reported) Hydralazine HCl 25 MG TABLET 4 TAB PO BID HEART (Reported) Insulin Aspart, Recombinant (Novolog Flexpen) 100 UNIT/ML INSULN.PEN 1 PEN SC TIDAC/HS bood sugars BEFORE MEALS Blood Insulin Sugar Units 81-150 8 151-200 10 201-250 12 251-300 14 301-350 16 351-400 18 >400 20 units Call Doctor AT BEDTIME Blood Insulin Sugar Units 81-150 0 151-200 0 201-250 0 251-300 3 301-350 3 351-400 4 >400 12 units and Call Doctor Insulin Detemir (Levemir) 100 UNIT/ML VIAL 24 UNITS SC BID blood sugars Insulin Glargine,Hum.rec.anlog (Toedy Taylor) 300 UNIT/ML (1.5 ML) INSULN.PEN 70 UNIT SC DAILY DIABETES (Reported) Liraglutide (Victoza 3-Naveen) 0.6 MG/0.1 ML (18 MG/3 ML) PEN.INJCTR 0.6 MG SC DAILY DIABETES (Reported) Lisinopril 40 MG TABLET 1 TAB PO DAILY BP (Reported) Metformin HCl 1,000 MG TABLET 1 TAB PO BID DIABETES (Reported) Metoprolol Tartrate 75 MG TABLET 1 TAB PO BID HEART HEALTH (Reported) Oxycodone HCl 10 MG TABLET 10 MG PO Q6P PRN moderate to severe pain Pen Needle, Diabetic (Bd Ultra-Fine Pen Needle) 31 GAUGE X 5/16" DIS.NEEDLE 1 PEN SC TIDAC/HS blood sugars Jhjzljvsibub-Cobo-Mspzurdx,Iso (Zosyn 4.5 Gm/100 Ml Galaxy Bag) 4.5 GRAM/100 ML FROZ.PIGGY 1 VIAL IV Q6 foot infection Warfarin Sodium (Coumadin) 7.5 MG TABLET 1 TAB PO DAILY BLOOD THINNER ( Reported) Triage Note: PT FROM HOME C/O RETURNING FROM LEAVING AMA FROM MED SURG FLOOR 1 HR PRIOR, PT STATES "I WAS TOLD TO COME BACK IN AND GET THIS PICC LINE OUT". NO DISTRESS NOTED IN TRIAGE, VSS. PT STATES "DONT GET ME WRONG THE NURSES ARE AWESOME, THE DOCTORS JUST NEED TO LEARN A LESSON OR TWO" Triage Nurses Notes Reviewed? yes HPI: Patient presents for evaluation of a PICC line. Patient left AMA today after being admitted for a foot infection. A PICC line was placed for ongoing intravenous antibiotic treatment. He was asked to return to the emergency department by the hospitalist to assure the patient has proper discharge planning. (Stephanie DELGADILLO,Andrew Vazquez) Past History Travel History Traveled to [place] past 21 day No Medical History Any Pertinent Medical History? 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 No (Stephanie DELGADILLO,Andrew Vazquez) Review of Systems Review of Systems Constitutional: Reports: no symptoms. EENTM: Reports: no symptoms. Respiratory: Reports: no symptoms. Cardiovascular: Reports: no symptoms. GI: Reports: no symptoms. Genitourinary: Reports: no symptoms. Musculoskeletal: Reports: no symptoms. Skin: Reports: no symptoms. Neurological/Psychological: Reports: no symptoms. Hematologic/Endocrine: Reports: no symptoms. Immunologic/Allergic: Reports: no symptoms. All Other Systems: Reviewed and Negative (Andrew Brown MD) Physical Exam Physical Exam General Appearance: see below Comments: Gen.: Well-nourished, well-developed, no acute respiratory distress. Head: Normocephalic, atraumatic. Eyes: Normal inspection bilaterally Ears: Normal inspection bilaterally Nose: Normal inspection Throat/mouth : Moist mucosa Neck: Supple, full range of motion, no goiter Lungs: Quiet respirations Back: Normal range of motion Extremities: Normal range of motion grossly, right foot in a postop boot Neurologic: Cranial nerves grossly intact, speech is clear Skin: warm and dry Psychiatric: Calm, cooperative, no apparent delusions or hallucinations Core Measures ACS in differential dx? No CVA/TIA Diagnosis: No Sepsis Present: No Sepsis Focused Exam Completed? No (Stephanie DELGADILLO,Andrew Vazquez) Progress Differential Diagnoses I considered the following diagnoses in my evaluation of the patient: Outpatient treatment compliance Plan of Care: Orders Procedure Date/time Status Heart Healthy Diet 04/22 L Active CASE MANAGEMENT CONSULT 04/22 5375 Active Initial ED EKG: none Comments: 04/22/2017 7:00:14 AM patient signed out to Dr. 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 (Stephanie DELGADILLO,Andrew Vazquez) Departure Departure Condition: Stable Referrals: Karlie Barbosa DO (PCP/Family) Departure Forms: Customer Survey General Discharge Information (Andrew Brown MD) Departure Disposition: STILL A PATIENT Clinical Impression Primary Impression: Wound infection Admission Note Spoke With: Santino Horta MD Documentation of Exam: Documentation of any treatments & extenuating circumstances including Concerns Regarding Discharge (functional status, medication knowledge or non-compliance, living conditions, etc.) that warrant an admission rather than observation: [The patient is unable to have IV antibiotics every 6 hours at home. He is therefore being readmitted to the hospital for intravenous antibiotics. He was seen and evaluated by case management. The patient had been signed out to me by Dr. Brown at 7 AM.] (Andrew Terry DO) Critical Care Note Critical Care Note Critical Care Time: non-applicable (Andrew Terry DO)
--- NOTE | 2017-04-22 04:09 | ED CARE PLAN ---
Plan of Care - Patient was admitted for right foot necrotizing infection from April 12 , underwent debridement twice, Currently on Zosyn and Podiatry, endocrine and ID were involved in care. From the notes, it apears that they were planning for discharge on 04/22/2017. I was called at 1.50 am by epidemiology internship that patient is leaving. I immediately went there but by that time patient had left. From what I heard, according to nursing and resident that patient was asking for pain medication at 1 am. He had received Roxicodone at 11 pm and next morphine IV 6 mg was due at 2.40. Initially epidemiology internship put the order for Tordol but d/say that because of Hx GI bleed. Then Patient agreed for early (1.30 am) dose of Morphine. By that time patient had called his who was very angry, and they left hospital without signing AMA papers, and with PICC line, did not listen to resident,, security and nursing. I discussed with Nursing super, who called patient to come back to ER to remove the PICC. He said : he will get to it whenever he can. Meanwhile I was trying to get in touch with Admin-admissions manager rn for Hospital. Finally Dr. Fernandes texted back suggested calling police if patient does not return to remove the PICC line. Then I called patient on phone and discussed risks of PICC line and that he and his family needs education on its care, He needs Wound Vac, Home health and antibiotic set up. He came to ER with an intention to remove PICC line and go home. I had a detailed discussion with him again and Gave him 2 choices 1. remove the PICC line and go home, in that situation wound care and antibiotic wound be interrupted. Or 2. Wait for few hours in ER, get case management involved and set up Wound Vac, Home health and antibiotic at home. He agreed to second option and will wait till AM to case management to come. I also spoke to Dr. Brown about this plan. Patient will receive his scheduled ABx in ER.
[2017-04-22 10:03] LABS: PT 16.1 SEC (9.4-12.5)
--- NOTE | 2017-04-22 10:21 | History & Physical ---
Mildred DELGADILLO,Micheline 04/22/17 1019: General Information and HPI MD Statement: I have seen and personally examined US,ERA Rendon and documented this H&P. The patient is a 46 year old M who presented with a patient stated chief complaint of [ I was requested to come back after leaving AMA to get PICC out ]. Source of Information: patient, old records Exam Limitations: no limitations History of Present Illness: Patient is a 46 YO M with PMH of IDDM, diabetic neuropathy, CVA on warfarin ( left atrial throbus), HTN presented to [facility] after leaving AMA yesterday night. He was admitted recently for Gas gangrene of right foot, underwent debridement thrice f/b wound vac placement. He was waiting for insurance activation and placement. He left AMA yesterday night with concerns of inadequate pain control. He came to ER after being called as he left with a PICC, without wound Vac. He reports being at his baseline, still had pain radiating to his thigh. He endorsed 3 bowel movements yesterday after taking miralax which were loose and watery. Allergies/Medications Allergies: Coded Allergies: acetaminophen (Mild, BAD HEADACHE 06/15/15) Home Med list Albuterol Sulfate (Proair Hfa) 90 MCG HFA.AER.AD 2 PUF INH Q4-6 PRN PRN COPD Amlodipine Besylate 10 MG TABLET 1 TAB PO DAILY HEART (Reported) Atorvastatin Calcium (Lipitor) 80 MG TABLET 1 TAB PO DAILY CHOLESTEROL ( Reported) Duloxetine HCl 60 MG CAPSULE.DR 1 CAP PO DAILY PAIN (Reported) Enoxaparin Sodium (Lovenox) 60 MG/0.6 ML SYRINGE 170 MG SC DAILY blood thinner Until INR becomes therapeutic -- 2-3 Gabapentin 400 MG CAPSULE 1 CAP PO TID PRN PAIN (Reported) Hydralazine HCl 25 MG TABLET 4 TAB PO BID HEART (Reported) Insulin Aspart, Recombinant (Novolog Flexpen) 100 UNIT/ML INSULN.PEN 1 PEN SC TIDAC/HS bood sugars BEFORE MEALS Blood Insulin Sugar Units 81-150 8 151-200 10 201-250 12 251-300 14 301-350 16 351-400 18 >400 20 units Call Doctor AT BEDTIME Blood Insulin Sugar Units 81-150 0 151-200 0 201-250 0 251-300 3 301-350 3 351-400 4 >400 12 units and Call Doctor Insulin Detemir (Levemir) 100 UNIT/ML VIAL 24 UNITS SC BID blood sugars Lisinopril 40 MG TABLET 1 TAB PO DAILY BP (Reported) Metformin HCl 1,000 MG TABLET 1 TAB PO BID DIABETES (Reported) Metoprolol Tartrate 75 MG TABLET 1 TAB PO BID HEART HEALTH (Reported) Oxycodone HCl 10 MG TABLET 10 MG PO Q6P PRN moderate to severe pain Pen Needle, Diabetic (Bd Ultra-Fine Pen Needle) 31 GAUGE X 5/16" DIS.NEEDLE 1 PEN SC TIDAC/HS blood sugars Dvavbaridjmi-Ccej-Vyrklhzr,Iso (Zosyn 4.5 Gm/100 Ml Galaxy Bag) 4.5 GRAM/100 ML FROZ.PIGGY 1 VIAL IV Q6 foot infection Warfarin Sodium (Coumadin) 7.5 MG TABLET 1 TAB PO DAILY BLOOD THINNER ( Reported) Compliance With Home Meds: GOOD Past History Travel History Traveled to [place] past 21 day No Medical History Neurological: CVA EENT: NONE Cardiovascular: CHF, hypertension, hyperlipidemia Respiratory: bronchitis, pneumonia Gastrointestinal: NONE Hepatic: NONE Renal: NONE Musculoskeletal: NONE Psychiatric: NONE Endocrine: DIABETES TYPE II Blood Disorders: NONE Cancer(s): NONE 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 spouse, child Services at Home: None Primary Language: Kiswahili Smoking Status: Current Everyday Smoker ETOH Use: occasional use Illicit Drug Use: denies illicit drug use Functional Ability ADLs Independent: dressing, eating, toileting, bathing. Ambulation: independent IADLs Independent: shopping, housework, finances, food prep, telephone, transportation , medication admin. Review of Systems Review of Systems Constitutional: Reports: no symptoms. GI: Reports: diarrhea. Exam & Diagnostic Data Last 24 Hrs of Vital Signs/I&O Vital Signs Date Time Temp Pulse Resp B/P B/P Pulse O2 O2 Flow FiO2 Mean Ox Delivery Rate 04/22 1011 97.7 60 16 165/80 97 Room Air 04/22 0749 97.9 77 22 156/74 100 Room Air 04/22 0328 98 Room Air 04/22 0326 96.3 73 18 169/83 95 Room Air Intake & Output 04/22 1600 04/22 0800 04/22 0000 Intake Total Output Total Balance Patient 113.398 kg Weight Weight Reported by Patient Measurement Method Physical Exam General Appearance Alert, Oriented X3, Cooperative Skin No Rashes, wound dressing present on the right foot Skin Temp/Moisture Exam: Warm/Dry HEENT Atraumatic, PERRLA Neck Supple Cardiovascular Normal S1, Normal S2 Lungs Clear to Auscultation, Normal Air Movement Abdomen Normal Bowel Sounds, Soft, No Tenderness Neurological Normal Speech, Strength at 5/5 X4 Ext, Normal Tone, Sensation Intact Extremities No Clubbing, No Cyanosis, edema 1+ on right side Vascular Normal Pulses, Pulses Symmetrical Body Front and Back (Adult) 1) dressing present, clean, no bleeding. 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 He is admitted again as he left with a PICC line without any home health services to provide antibiotics. He was off wound vac when he left which needs to be continued for the next 3-4 weeks. Admitted to general medicine floor Plan Problem list 1. Gas gangrene with necrotizing fasctis 2. IDDM 3. CVA on warfarin 4. HTN 5. CHF Gas gangrene We will try to get insurance activated which plays montoya role in planning for disposition. Wound consult for placing wound vac. Continue IV zosyn. Pain control with morphine, ketorolac and roxicodone. CVA on warfarin Continue bridging with SC lovenox till warfarin is therapeutic. IDDM Continue levemir 24units BID, ISS and lyrica Continue other home medications DVT prophylaxis SC lovenox Code status Full code As Ranked By This Provider Problem List: 1. Wound infection 2. Gas gangrene 3. Diabetic foot ulcer Core Measures/Misc (10/28) Acute Coronary Syndrome ACS Diagnosis: No Congestive Heart Failure Congestive Heart Failure Diagnosis No Cerebrovascular Accident CVA/TIA Diagnosis: No VTE (View Protocol) VTE Risk Factors Acute Medical Illness No Mechanical VTE Prophylaxis d/t N/A MechProphylax Ordered No VTE Pharm Prophylaxis d/t NA PharmProphylax ordered Sepsis (View protocol) Sepsis Present: No Resident Review Statement Resident Statement: examined this patient, discussed with agriculture intern, agreed with agriculture intern, discussed with family, reviewed EMR data (avail), discussed with nursing , discussed with case mgmt, reviewed images, amended to note Other Findings: as above Jose DELGADILLO,[facility] 04/22/17 1121: Attending MD Review Statement Attending Statement Attending MD Statement: examined this patient, discuss w/resident/PA/INTEGRATED CAMPAIGN MANAGER, agreed w/resident/PA/INTEGRATED CAMPAIGN MANAGER, reviewed EMR data (avail), discussed with nursing, discussed with case mgmt, reviewed images, amended to note Attending Assessment/Plan: 46 y/o M with pmh sig for IDDM, diabetic neuropathy, CVA on warfarin (left atrial throbus), HTN recent admission to [facility] but the right foot gas gangrene, diabetic foot and osteomyelitis status post debridement and wound VAC placement. Also has received a PICC line for plan for long-term antibiotics. Patient was awaiting his insurance approval for the final disposition and he left AGAINST MEDICAL ADVICE last night secondary to multiple reasons. According to the documentation, patient was upset about his pain medications. When we spoke to the patient he said that he thought that there no communication and that he got the feelimng that no one was listening to him. Patient left AGAINST MEDICAL ADVICE with a PICC line in. Then he was called home and was requested to come back to the emergency room so that his PICC line either can be taken out or further plan can be advised. Patient came to the emergency room and now he will be readmitted so that we can make a plan for his safety disposition. Currently he does complain of some pain in his right foot. He claims that he had 3 bowel movements yesterday which were slightly loose. Denies any other complaints. Vital Signs Date Time Temp Pulse Resp B/P B/P Pulse O2 O2 Flow FiO2 Mean Ox Delivery Rate 04/22 1102 97.7 66 18 148/82 98 Room Air 04/22 1011 97.7 60 16 165/80 97 Room Air 04/22 0749 97.9 77 22 156/74 100 Room Air 04/22 0328 98 Room Air 04/22 0326 96.3 73 18 169/83 95 Room Air on exam; aox,3 nad. cv; s1,s2, rrr resp; clear abd; soft, nt, bs+ ext; no edema. Laboratory Tests 04/22 0950 Coagulation PT (9.4 - 12.5 SEC) 16.1 H INR (0.90 - 1.17) 1.47 H A/P; 46 y/o M with pmh sig for IDDM, diabetic neuropathy, CVA on warfarin (left atrial throbus), HTN recent admission for right foot pain, diabetic foot ulcer and osteomyelitis status post debridement and has a wound VAC on. Also has a PICC line in and needs long-term antibiotics. Patient is now readmitted. Still waiting for his insurance approval. Once insurance is approved, disposition plan will be decided in terms of home with home IV antibiotics and home health services versus going to rehabilitation. Activity status remains a heel touch on the right foot. His insulin including Levemir and sliding scale should be continued. His pain will be managed with Roxicodone and morphine when necessary. But ultimately try to taper his morphine. Patient was given Lovenox. He will be dosed Coumadin according to his home dose. Check INR in the morning. Lovenox will be continued till INR is therapeutic to bridge. Rest of his medications can be continued. Once insurance gets approved, we'll decide about the disposition plan.
[2017-04-22 11:02] VITALS: BP 148/82
[2017-04-22 13:46] VITALS: BP 138/90
--- NOTE | 2017-04-22 17:57 | Cons- Podiatry ---
General Information and HPI Consulting Request Date of Consult: 04/22/17 Requested By: Terese Garcia MD Reason for Consult: f/u on open amputation wound, right foot Source of Information: patient, significant other Exam Limitations: no limitations History of Present Illness: This is a 46-year-old male with uncontrolled type 2 diabetes, congestive heart failure, history of stroke and left atrial thrombus and several other comorbidities who was seen and evaluated today status post open partial right first ray amputation for the treatment of a necrotizing diabetic foot infection. The patient was last seen yesterday at approximately 11 AM, at which time he was stable and did not have any complaints and also reported that his recent onset shortness of breath had improved after being diuresed of 1100 mL of fluid at the time of my exam. He has since left the hospital AGAINST MEDICAL ADVICE overnight secondary to subjectively reporting adequate pain control. He has since returned to the hospital in short order secondary to the hospital reaching out to him over the fact that he had a PICC line inserted recently. He continues to report frustration with the amount of pain control he has received, continues to report frustration over the fact that his current medication application is not been finalized, and this is echoed by his girlfriend who was at his bedside accompanying him for this examination. Allergies/Medications Allergies: Coded Allergies: acetaminophen (Mild, BAD HEADACHE 06/15/15) Home Med List: Albuterol Sulfate (Proair Hfa) 90 MCG HFA.AER.AD 2 PUF INH Q4-6 PRN PRN COPD Amlodipine Besylate 10 MG TABLET 1 TAB PO DAILY HEART (Reported) Atorvastatin Calcium (Lipitor) 80 MG TABLET 1 TAB PO DAILY CHOLESTEROL ( Reported) Duloxetine HCl 60 MG CAPSULE.DR 1 CAP PO DAILY PAIN (Reported) Enoxaparin Sodium (Lovenox) 60 MG/0.6 ML SYRINGE 170 MG SC DAILY blood thinner Until INR becomes therapeutic -- 2-3 Gabapentin 400 MG CAPSULE 1 CAP PO TID PRN PAIN (Reported) Hydralazine HCl 25 MG TABLET 4 TAB PO BID HEART (Reported) Insulin Aspart, Recombinant (Novolog Flexpen) 100 UNIT/ML INSULN.PEN 1 PEN SC TIDAC/HS bood sugars BEFORE MEALS Blood Insulin Sugar Units 81-150 8 151-200 10 201-250 12 251-300 14 301-350 16 351-400 18 >400 20 units Call Doctor AT BEDTIME Blood Insulin Sugar Units 81-150 0 151-200 0 201-250 0 251-300 3 301-350 3 351-400 4 >400 12 units and Call Doctor Insulin Detemir (Levemir) 100 UNIT/ML VIAL 24 UNITS SC BID blood sugars Lisinopril 40 MG TABLET 1 TAB PO DAILY BP (Reported) Metformin HCl 1,000 MG TABLET 1 TAB PO BID DIABETES (Reported) Metoprolol Tartrate 75 MG TABLET 1 TAB PO BID HEART HEALTH (Reported) Oxycodone HCl 10 MG TABLET 10 MG PO Q6P PRN moderate to severe pain Pen Needle, Diabetic (Bd Ultra-Fine Pen Needle) 31 GAUGE X 5/16" DIS.NEEDLE 1 PEN SC TIDAC/HS blood sugars Vypbmpmytnhb-Imeu-Tqxahwbh,Iso (Zosyn 4.5 Gm/100 Ml Galaxy Bag) 4.5 GRAM/100 ML FROZ.PIGGY 1 VIAL IV Q6 foot infection Warfarin Sodium (Coumadin) 7.5 MG TABLET 1 TAB PO DAILY BLOOD THINNER ( Reported) Current Medications: Current Medications Sig/Tello Start time Last Medication Dose Route Stop Time Status Admin Acetaminophen 1,000 MG ONCE ONE 04/22 1745 UNVr N/A 1 UNIT IV 04/22 1759 Albuterol Sulfate 3 ML ONCE ONE 04/22 1330 DC 04/22 INH 04/22 1331 1100 Albuterol Sulfate 2 PUF Q4P PRN 04/22 1330 AC INH Albuterol Sulfate 3 ML Q4P PRN 04/22 1100 AC INH Amlodipine Besylate 10 MG DAILY 04/22 1031 AC 04/22 PO 1207 Atorvastatin Calcium 80 MG 1700 04/22 1700 AC PO Duloxetine HCl 60 MG DAILY 04/22 1031 AC 04/22 PO 1207 Enoxaparin Sodium 170 MG DAILY 04/22 1000 AC 04/22 SC 1023 Gabapentin 400 MG TID 04/22 1033 AC 04/22 PO 1207 Hydralazine HCl 100 MG BID 04/22 1032 AC 04/22 PO 1207 Insulin Aspart 0 AT BEDTIME 04/22 2200 AC SC Insulin Aspart 0 TIDAC 04/22 1200 AC 04/22 SC 1243 Insulin Detemir 24 UNITS BID 04/22 1043 AC 04/22 SC 1206 Ketorolac 15 MG DAILY NEEDED PRN 04/22 1030 AC 04/22 Tromethamine IV 1106 Lisinopril 40 MG DAILY 04/22 1043 AC 04/22 PO 1207 Metoprolol Tartrate 75 MG BID 04/22 1042 AC 04/22 PO 1207 Morphine Sulfate 4 MG Q6P PRN 04/22 1030 AC IV Morphine Sulfate 8 MG ONCE ONE 04/22 0415 DC 04/22 IV 04/22 0416 0432 Morphine Sulfate 0 .STK-MED ONE 04/22 0412 DC .ROUTE Nicotine 7 MG DAILY 04/22 1600 AC TOP Non-Formulary 0 SEE ADMIN CRITERIA 04/22 1045 CAN Medication ANY Oxycodone HCl 10 MG Q6P PRN 04/22 1030 AC 04/22 PO 1107 Piperacillin Sod/ 4.5 GM Q6H 04/22 1100 AC 04/22 Tazobactam Sod IV 1209 Sodium Chloride 100 ML Piperacillin Sod/ 4.5 GM ONCE ONE 04/22 0400 DC 04/22 Tazobactam Sod IV 04/22 0401 0432 Warfarin Sodium 7.5 MG COUMADIN 1700 ONE 04/22 1700 DC PO 04/22 1701 Warfarin Sodium 7.5 MG DAILY 04/22 1040 DC PO Past History Medical History Blood Transfusion Hx: Yes Neurological: CVA EENT: NONE Cardiovascular: CHF, hypertension, hyperlipidemia Respiratory: bronchitis, pneumonia Gastrointestinal: NONE Hepatic: NONE Renal: NONE Musculoskeletal: NONE Psychiatric: NONE Endocrine: DIABETES TYPE II Blood Disorders: NONE Cancer(s): NONE DIRECTOR ASSET/Reproductive: NONE Surgical History Pertinent Surgical History: right big toe amputation Family History Relations & Conditions If Any: FATHER Early CAD MOTHER FH: diabetes mellitus Relation not specified for: Stroke or transient ischemic attack in father Psychosocial History Where Do You Live? Home Who Do You Live With? spouse, child Services at Home: None Primary Language: Ivorian Smoking Status: Current Everyday Smoker ETOH Use: occasional use Illicit Drug Use: denies illicit drug use Functional Ability ADLs Independent: dressing, eating, toileting, bathing. Ambulation: independent IADLs Independent: shopping, housework, finances, food prep, telephone, transportation , medication admin. Review of Systems Review of Systems: A 14 point review of systems was performed, and was found to be negative apart from the patient's complaints described above in the history of present illness. Exam & Diagnostic Data Vital Signs and I&O Vital Signs Date Time Temp Pulse Resp B/P B/P Pulse O2 O2 Flow FiO2 Mean Ox Delivery Rate 04/22 1600 94 Room Air 04/22 1346 97.0 68 20 138/90 94 Room Air 04/22 1207 66 148/82 04/22 1207 66 148/82 04/22 1207 66 148/82 04/22 1102 97.7 66 18 148/82 98 Room Air 04/22 1100 Room Air 04/22 1100 96 Room Air 04/22 1030 96 Room Air 04/22 1011 97.7 60 16 165/80 97 Room Air 04/22 0749 97.9 77 22 156/74 100 Room Air 04/22 0328 98 Room Air 04/22 0326 96.3 73 18 169/83 95 Room Air Intake & Output 04/22 1600 04/22 0800 04/22 0000 04/21 1600 04/21 0800 04/21 0000 Intake Total 580 Output Total 600 Balance -20 Intake, IV 100 Intake, Oral 480 Number 0 Bowel Movements Output, Urine 600 Patient 254 lb 250 lb Weight Weight Reported by Patient Reported by Patient Measurement Method Physical Exam: Patient has palpable pedal pulses bilaterally, dorsalis pedis and posterior tibial pulses are 2 out of 4. He has a normal temperature gradient in the left lower extremity, and a nearly normalized temperature gradient on the right lower extremity with some mild calor immediately around the wound. His neurological examination is unchanged from the prior admission. His musculoskeletal exam is unchanged from the prior admission. His surgical wound remains 7.5 cm anterior to posterior, 6 cm medial to lateral. The wound has had significant fibro- granular ingrowth since initial amputation 10 days ago. There is no purulence on expression of the surrounding foot and leg compartments, but mild serous drainage. There is a faint uniform 1cm margin of erythema around the wound without lymphangiitic spread. There are no new bullous changes, no ecchymosis, no malodor. Last 24 Hours of Labs: Laboratory Tests 04/22 04/22 1130 0950 Coagulation PT (9.4 - 12.5 SEC) 16.1 H INR (0.90 - 1.17) 1.47 H Toxicology Urine Opiates Screen (>2000 NG/ML) > 4000.00 H Methadone Screen (>300 NG/ML) < 40 Barbiturate Screen (>200 NG/ML) < 60 Ur Phencyclidine Scrn (>25 NG/ML) < 6.00 Amphetamines Screen (>1000 NG/ML) < 100 U Benzodiazepines Scrn (>200 NG/ML) < 85 Urine Cocaine Screen (>300 NG/ML) < 50 Urine Cannabis Screen (>50 NG/ML) < 5.00 Assessment/Plan Assessment/Plan 46-year-old male with uncontrolled type 2 diabetes for continuing care of a open partial right first ray amputation wound for the treatment of a necrotizing foot infection. The patient was seen and evaluated at bedside. I have placed a call to distribution and ordered a new wound VAC machine. We will continue to utilize this as we had planned before, and I explained to the patient that we may use a chemical debriding agent such as medical grade honey or collagenase as an adjunct. This may be a good alternative to sharp debridement given that he is on anticoagulation. I have appreciated the final infectious disease recommendations from the previous admission, and we will continue his IV antibiotic therapy here through the PICC line while his Medicaid application is finalized with case management. The patient may remain heel touch weightbearing on the right side, weightbearing as tolerated on the left side. He is adept with a walker and should not require further gait training. Pain control per primary team. He does not demonstrate tenderness or significant foot pain during my examinations and bandage changes. Would consider non- narcotic treaments for peripheral neuropathy if his pain continues to be subjectively reported as uncontrolled. We'll continue to follow daily until he is discharged. Consult Acknowledgment - Thank you for your consult request.
[2017-04-22 21:57] VITALS: BP 146/76
[2017-04-23 05:56] VITALS: BP 142/84
--- NOTE | 2017-04-23 07:31 | PN- Housestaff ---
Mildred DELGADILLO,Micheline 04/23/17 0731: Subjective Follow-up For: Diabetic foot infection uncontrolled diabetes Placement Subjective: seen and examined at bedside He reports inadequate pain control. Requested IV morphine 8mg and increasing roxicodone. I tried to explain him that this is very high dose and he was never 8mg. He is very angry and disappointed, even want to leave AMA - requesting removal of PICC line. Review of Systems Constitutional: Reports: see HPI. Objective Last 24 Hrs of Vital Signs/I&O Vital Signs Date Time Temp Pulse Resp B/P B/P Pulse O2 O2 Flow FiO2 Mean Ox Delivery Rate 04/23 0556 97.9 64 20 142/84 95 Room Air 04/22 2157 97.7 68 20 146/76 99 04/22 2122 68 146/70 04/22 1938 Room Air Room Air 04/22 1600 94 Room Air 04/22 1346 97.0 68 20 138/90 94 Room Air 04/22 1207 66 148/82 04/22 1207 66 148/82 04/22 1207 66 148/82 04/22 1102 97.7 66 18 148/82 98 Room Air 04/22 1100 Room Air 04/22 1100 96 Room Air 04/22 1030 96 Room Air 04/22 1011 97.7 60 16 165/80 97 Room Air 04/22 0749 97.9 77 22 156/74 100 Room Air Intake & Output 04/23 0800 04/23 0000 04/22 1600 Intake Total 700 580 Output Total 600 Balance 700 -20 Intake, IV 100 Intake, Oral 700 480 Number 0 Bowel Movements Output, Urine 600 Patient 115.212 kg Weight Weight Reported by Patient Measurement Method Physical Exam General Appearance: Alert, Oriented X3, Cooperative Skin: No Rashes, right side dressing present. HEENT: Atraumatic, PERRLA, EOMI Neck: Supple Cardiovascular: Normal S1, Normal S2, No Murmurs Lungs: Clear to Auscultation, Normal Air Movement Current Medications: Current Medications Sig/Tello Start time Last Medication Dose Route Stop Time Status Admin Acetaminophen 1,000 MG ONCE ONE 04/22 1745 CAN N/A 1 UNIT IV 04/22 1759 Albuterol Sulfate 3 ML Q4P PRN 04/22 1930 AC INH Albuterol Sulfate 3 ML ONCE ONE 04/22 1330 DC 03/12 INH 04/22 1331 1100 Albuterol Sulfate 2 PUF Q4P PRN 04/22 1330 AC INH Albuterol Sulfate 3 ML Q4P PRN 04/22 1100 AC 04/22 INH 1935 Amlodipine Besylate 10 MG DAILY 04/22 1031 AC 04/22 PO 1207 Atorvastatin Calcium 80 MG 1700 04/22 1700 AC 04/22 PO 1736 Duloxetine HCl 60 MG DAILY 04/22 1031 AC 04/22 PO 1207 Enoxaparin Sodium 170 MG DAILY 04/22 1000 AC 04/22 SC 1023 Gabapentin 400 MG TID 04/22 1033 AC 04/22 PO 2122 Hydralazine HCl 100 MG BID 04/22 1032 AC 04/22 PO 2122 Insulin Aspart 0 AT BEDTIME 04/22 2200 AC SC Insulin Aspart 0 TIDAC 04/22 1200 AC 04/22 SC 1734 Insulin Detemir 24 UNITS BID 04/22 1043 AC 04/22 SC 2122 Ketorolac 15 MG DAILY NEEDED PRN 04/22 1030 AC 04/22 Tromethamine IV 1106 Lisinopril 40 MG DAILY 04/22 1043 AC 04/22 PO 1207 Metoprolol Tartrate 75 MG BID 04/22 1042 AC 04/22 PO 2122 Morphine Sulfate 4 MG Q6P PRN 04/22 1030 AC 04/22 IV 2250 Nicotine 7 MG DAILY 04/22 1600 AC 04/22 TOP 1736 Non-Formulary 0 SEE ADMIN CRITERIA 04/22 1045 CAN Medication ANY Oxycodone HCl 10 MG ONCE ONE 04/22 2315 DC 04/23 PO 04/22 2316 0100 Oxycodone HCl 10 MG ONCE ONE 04/22 1800 DC 04/22 PO 04/22 1801 1912 Oxycodone HCl 10 MG Q6P PRN 04/22 1030 AC 04/23 PO 0658 Piperacillin Sod/ 4.5 GM Q6H 04/22 1100 AC 04/23 Tazobactam Sod IV 0453 Sodium Chloride 100 ML Warfarin Sodium 7.5 MG COUMADIN 1700 ONE 04/22 1700 DC 04/22 PO 04/22 1701 1736 Warfarin Sodium 7.5 MG DAILY 04/22 1040 DC PO Assessment/Plan Assessment: Patient is a 46 YO M with PMH significant for CVA on warfarin for left atrial thrombus since 2013, HTN, CHF, 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 He is admitted again as he left with a PICC line without any home health services to provide antibiotics. He was off wound vac when he left which needs to be continued for the next 3-4 weeks. Admitted to general medicine floor Plan Problem list 1. Diabetic foot infection with gas gangrene 2. IDDM 3. CVA on warfarin 4. HTN 5. CHF Diabetic foot infection with gas gangrene Wound consult for placing wound vac. Continue IV zosyn. He is very adamant about his pain regimen, requested to increase it. I added oxycontin 10mg Q12 for his usual regimen, morphine IV 4mg Q6 & roxicodone 10mg q6. His insurance got approved and will likely get placement tomorrow. CVA on warfarin Continue bridging with SC lovenox till warfarin is therapeutic. INR today is IDDM Continue levemir 24units BID, ISS and lyrica Continue other home medications DVT prophylaxis SC lovenox Code status Full code Problem List: 1. Wound infection 2. Gas gangrene 3. Diabetic foot ulcer Pain Ratin Pain Location: right foot Pain Goal: Pain 4 or less Pain Plan: roxicodone oxycontine IV morphine Tomorrow's Labs & Rationales: n/a Jose DELGADILLO,Terese 04/23/17 1026: Attending MD Review Statement Attending Statement Attending MD Statement: examined this patient, discuss w/resident/PA/VOLTAGE TESTER, agreed w/resident/PA/VOLTAGE TESTER, reviewed EMR data (avail), discussed with nursing, discussed with case mgmt, amended to note Attending Assessment/Plan: Patient seen and examined, early am he was c/o pain. But to me he did not c/o pain. He was started on oxycontin in addition to everything else. Vital Signs Date Time Temp Pulse Resp B/P B/P Pulse O2 O2 Flow FiO2 Mean Ox Delivery Rate 04/23 0902 97.9 64 20 142/84 04/23 0902 97.9 64 20 142/84 04/23 0901 97.9 64 20 142/84 04/23 0556 97.9 64 20 142/84 95 Room Air 04/22 2156 97.7 68 20 146/76 99 04/22 2122 68 146/70 04/22 1938 Room Air Room Air 04/22 1600 94 Room Air 04/22 1346 97.0 68 20 138/90 94 Room Air 04/22 1207 66 148/82 04/22 1207 66 148/82 04/22 1207 66 148/82 04/22 1102 97.7 66 18 148/82 98 Room Air 04/22 1100 Room Air 04/22 1100 96 Room Air 04/22 1030 96 Room Air On exam; aox,3 nad. cv; s1,s2, rrr resp; clear abd; soft, nt, bs+ ext; no edema.right foot now has a wound vac on which was put on by Podiatry. Also has KATHERINE wrap on. Laboratory Tests 04/23 04/22 0600 1130 Chemistry Sodium (137 - 145 mmol/L) 141 Potassium (3.5 - 5.1 mmol/L) 4.3 Chloride (98 - 107 mmol/L) 103 Carbon Dioxide (22 - 30 mmol/L) 30 Anion Gap (5 - 16) 7 BUN (9 - 20 mg/dL) 15 Creatinine (0.7 - 1.2 mg/dL) 0.9 Estimated GFR (>60 ml/min) > 60 BUN/Creatinine Ratio (7 - 25 %) 16.7 Coagulation PT (9.4 - 12.5 SEC) 16.1 H INR (0.90 - 1.17) 1.47 H Hematology CBC w Diff NO MAN DIFF REQ WBC (4.8 - 10.8 /CUMM) 7.7 RBC (4.70 - 6.10 /CUMM) 2.91 L Hgb (14.0 - 18.0 G/DL) 8.3 L Hct (42 - 52 %) 24.9 L MCV (80.0 - 94.0 FL) 85.6 MCH (27.0 - 31.0 PG) 28.5 MCHC (33.0 - 37.0 G/DL) 33.3 RDW (11.5 - 14.5 %) 14.0 Plt Count (130 - 400 /CUMM) 421 H MPV (7.4 - 10.4 FL) 7.7 Gran % (42.2 - 75.2 %) 58.3 Lymphocytes % (20.5 - 51.1 %) 31.6 Monocytes % (1.7 - 9.3 %) 6.7 Eosinophils % (0 - 5 %) 2.9 Basophils % (0.0 - 2.0 %) 0.5 Absolute Granulocytes (1.4 - 6.5 /CUMM) 4.5 Absolute Lymphocytes (1.2 - 3.4 /CUMM) 2.4 Absolute Monocytes (0.10 - 0.60 /CUMM) 0.5 Absolute Eosinophils (0.0 - 0.7 /CUMM) 0.2 Absolute Basophils (0.0 - 0.2 /CUMM) 0 Toxicology Urine Opiates Screen (>2000 NG/ML) > 4000.00 H Methadone Screen (>300 NG/ML) < 40 Barbiturate Screen (>200 NG/ML) < 60 Ur Phencyclidine Scrn (>25 NG/ML) < 6.00 Amphetamines Screen (>1000 NG/ML) < 100 U Benzodiazepines Scrn (>200 NG/ML) < 85 Urine Cocaine Screen (>300 NG/ML) < 50 Urine Cannabis Screen (>50 NG/ML) < 5.00 A/P; 46 y/o M with pmh sig for IDDM, diabetic neuropathy, CVA on warfarin (left atrial throbus), HTN recent admission for right foot pain, diabetic foot ulcer and osteomyelitis status post debridement and has a wound VAC on. Also has a PICC line in and needs long-term antibiotics. I was told that his insurance is now approved. Pt may benefit by going to rehab. Now pain is better controlled on current regimen. Upon Dc we will keep him on Oxycontin x 5 more days along with Patricia prn. Continue Abx per ID. INR remains subtherapeutic. Give 10 mg coumadin today. Continue SQ lovenox. Continue all other current meds. Follow podiatry recommendations. DVT px; Lovenox.
[2017-04-23 08:46] LABS: ABSOLUTE BASOPHIL COUNT 0 /CUMM (0.0-0.2); ABSOLUTE EOSINOPHIL COUNT 0.2 /CUMM (0.0-0.7); ABSOLUTE GRANULOCYTE CT 4.5 /CUMM (1.4-6.5); ABSOLUTE LYMPH COUNT 2.4 /CUMM (1.2-3.4); ABSOLUTE MONOCYTE COUNT 0.5 /CUMM (0.10-0.60); BASOPHIL % 0.5 % (0.0-2.0); EOSINOPHIL % 2.9 % (0-5); GRANULOCYTE % 58.3 % (42.2-75.2); HEMATOCRIT 24.9 % (42-52); MEAN CORPUSCULAR HGB 28.5 PG (27.0-31.0); MEAN CORPUSCULAR HGB CONC 33.3 G/DL (33.0-37.0); MEAN CORPUSCULAR VOLUME 85.6 FL (80.0-94.0); MEAN PLATELET VOLUME 7.7 FL (7.4-10.4); PLATELET COUNT 421 /CUMM (130-400); RED BLOOD CELL CT 2.91 /CUMM (4.70-6.10); WHITE BLOOD CELL COUNT 7.7 /CUMM (4.8-10.8)
[2017-04-23 08:48] LABS: PT 16.1 SEC (9.4-12.5)
--- NOTE | 2017-04-23 09:50 | PN- Podiatry ---
Subjective Subjective: 46 y/o male seen and evaluated at bedside for continuing care of a surgical wound from an emergency open partial right first ray amputation for the treatment of a necrotizing diabetic foot infection. Pt reports improved SOB vs yesterday. Pt denies fever, chills, nausea, vomiting, diaphoresis, SOB, chest pain during my exam. Review of Systems: 14 point ROS was performed and found to be negative apart from reported symptoms in the HPI Objective Vital Signs and I&Os Vital Signs Date Time Temp Pulse Resp B/P B/P Pulse O2 O2 Flow FiO2 Mean Ox Delivery Rate 04/23 0902 97.9 64 20 142/84 04/23 0902 97.9 64 20 142/84 04/23 0901 97.9 64 20 142/84 04/23 0556 97.9 64 20 142/84 95 Room Air 04/22 2157 97.7 68 20 146/76 99 04/22 2122 68 146/70 04/22 1938 Room Air Room Air 04/22 1600 94 Room Air 04/22 1346 97.0 68 20 138/90 94 Room Air 04/22 1207 66 148/82 04/22 1207 66 148/82 04/22 1207 66 148/82 04/22 1102 97.7 66 18 148/82 98 Room Air 04/22 1100 Room Air 04/22 1100 96 Room Air 04/22 1030 96 Room Air 04/22 1011 97.7 60 16 165/80 97 Room Air Intake & Output 04/23 1600 04/23 0800 04/23 0000 04/22 1600 04/22 0800 04/22 0000 Intake Total 230 700 580 Output Total 600 600 Balance -370 700 -20 Intake, IV 130 100 Intake, Oral 100 700 480 Number 0 0 Bowel Movements Output, Urine 600 600 Patient 254 lb 250 lb Weight Weight Reported by Patient Reported by Patient Measurement Method Physical Exam: Neurovascular status and musculoskeletal exam unchanged from yesterday's exam. Wound remains 7.5cm x 6cm x 0.5cm with fibrogranular ingrowth and only a small amount of deep tissue exposure now at the proximal margin of the wound. No purulence, mild serous drainage, no malodor, no bullous changes, no crepitus, no fluctuance, no necrosis of soft tissues. Current Medications: Current Medications Sig/Tello Start time Last Medication Dose Route Stop Time Status Admin Acetaminophen 1,000 MG ONCE ONE 04/22 1745 CAN N/A 1 UNIT IV 04/22 1759 Albuterol Sulfate 3 ML Q4P PRN 04/22 1930 AC INH Albuterol Sulfate 3 ML ONCE ONE 04/22 1330 DC 04/22 INH 04/22 1331 1100 Albuterol Sulfate 2 PUF Q4P PRN 04/22 1330 AC INH Albuterol Sulfate 3 ML Q4P PRN 04/22 1100 AC 04/22 INH 1935 Amlodipine Besylate 10 MG DAILY 04/22 1031 AC 04/23 PO 0902 Atorvastatin Calcium 80 MG 1700 04/22 1700 AC 04/22 PO 1736 Collagenase 1 SERGIO ONCE ONE 04/23 0845 DC 04/23 TOP 04/23 0846 0914 Duloxetine HCl 60 MG DAILY 04/22 1031 AC 04/23 PO 0902 Enoxaparin Sodium 170 MG DAILY 04/22 1000 AC 04/23 SC 0900 Gabapentin 400 MG TID 04/22 1033 AC 04/23 PO 0902 Hydralazine HCl 100 MG BID 04/22 1032 AC 04/23 PO 0902 Insulin Aspart 0 AT BEDTIME 04/22 2200 AC SC Insulin Aspart 0 TIDAC 04/22 1200 AC 04/23 SC 0816 Insulin Detemir 24 UNITS BID 04/22 1043 AC 04/23 SC 0901 Ketorolac 15 MG DAILY 04/23 1000 AC 04/23 Tromethamine IV 0835 Ketorolac 15 MG DAILY NEEDED PRN 04/22 1030 AC 04/22 Tromethamine IV 1106 Lisinopril 40 MG DAILY 04/22 1043 AC 04/23 PO 0901 Metoprolol Tartrate 75 MG BID 04/22 1042 AC 04/23 PO 0902 Morphine Sulfate 4 MG Q6P PRN 04/22 1030 AC 04/22 IV 2250 Nicotine 7 MG DAILY 04/22 1600 AC 04/23 TOP 0857 Non-Formulary 0 SEE ADMIN CRITERIA 04/22 1045 CAN Medication ANY Oxycodone HCl 10 MG Q12 04/23 1000 AC PO Oxycodone HCl 10 MG .STK-MED ONE 04/23 0054 DC PO 04/23 0055 Oxycodone HCl 10 MG ONCE ONE 04/22 2315 DC 04/23 PO 04/22 2316 0100 Oxycodone HCl 10 MG ONCE ONE 03/12 1800 DC 04/22 PO 04/22 1801 1912 Oxycodone HCl 10 MG Q6P PRN 04/22 1030 AC 04/23 PO 0658 Piperacillin Sod/ 4.5 GM Q6H 04/22 1100 AC 04/23 Tazobactam Sod IV 0453 Sodium Chloride 100 ML Warfarin Sodium 7.5 MG COUMADIN 1700 ONE 04/22 1700 DC 04/22 PO 04/22 1701 1736 Warfarin Sodium 7.5 MG DAILY 04/22 1040 DC PO Results Last 48 Hours of Labs: Laboratory Tests 04/23 04/22 0600 1130 Chemistry Sodium (137 - 145 mmol/L) 141 Potassium (3.5 - 5.1 mmol/L) 4.3 Chloride (98 - 107 mmol/L) 103 Carbon Dioxide (22 - 30 mmol/L) 30 Anion Gap (5 - 16) 7 BUN (9 - 20 mg/dL) 15 Creatinine (0.7 - 1.2 mg/dL) 0.9 Estimated GFR (>60 ml/min) > 60 BUN/Creatinine Ratio (7 - 25 %) 16.7 Coagulation PT (9.4 - 12.5 SEC) 16.1 H INR (0.90 - 1.17) 1.47 H Hematology CBC w Diff NO MAN DIFF REQ WBC (4.8 - 10.8 /CUMM) 7.7 RBC (4.70 - 6.10 /CUMM) 2.91 L Hgb (14.0 - 18.0 G/DL) 8.3 L Hct (42 - 52 %) 24.9 L MCV (80.0 - 94.0 FL) 85.6 MCH (27.0 - 31.0 PG) 28.5 MCHC (33.0 - 37.0 G/DL) 33.3 RDW (11.5 - 14.5 %) 14.0 Plt Count (130 - 400 /CUMM) 421 H MPV (7.4 - 10.4 FL) 7.7 Gran % (42.2 - 75.2 %) 58.3 Lymphocytes % (20.5 - 51.1 %) 31.6 Monocytes % (1.7 - 9.3 %) 6.7 Eosinophils % (0 - 5 %) 2.9 Basophils % (0.0 - 2.0 %) 0.5 Absolute Granulocytes (1.4 - 6.5 /CUMM) 4.5 Absolute Lymphocytes (1.2 - 3.4 /CUMM) 2.4 Absolute Monocytes (0.10 - 0.60 /CUMM) 0.5 Absolute Eosinophils (0.0 - 0.7 /CUMM) 0.2 Absolute Basophils (0.0 - 0.2 /CUMM) 0 Toxicology Urine Opiates Screen (>2000 NG/ML) > 4000.00 H Methadone Screen (>300 NG/ML) < 40 Barbiturate Screen (>200 NG/ML) < 60 Ur Phencyclidine Scrn (>25 NG/ML) < 6.00 Amphetamines Screen (>1000 NG/ML) < 100 U Benzodiazepines Scrn (>200 NG/ML) < 85 Urine Cocaine Screen (>300 NG/ML) < 50 Urine Cannabis Screen (>50 NG/ML) < 5.00 03/12 0950 Coagulation PT (9.4 - 12.5 SEC) 16.1 H INR (0.90 - 1.17) 1.47 H Assessment/Plan Assessment/Plan 46 y/o with stabe fibrogranular amputation wound in the right forefoot s/p open partial right first ray amputation 04/12/17. Pt seen and evaluated Cont IVABx per ID recommendations Restarted NPWT today with collagenase on the wound bed. Pt is candidate for enzymatic debridement given bleeding risk from sharp debridement. Pt is also showing signs of early wound healing natively. Pt is clear for d/c from surgical standpoint so long as his visiting nurse services and wound vac supplies are prepared for him by case management. Pt is HTWB RLE and WBAT LLE and had PT assessment during last admission before he left [place]. Will change VAC q48 and f/u on the patient daily. Problem List: 1. Gas gangrene 2. Wound infection 3. Diabetic foot ulcer
--- NOTE | 2017-04-23 14:03 | Patient Discharge Instructions ---
Discharge Instructions General Discharge Information You were seen/treated for: Gas gangrene of right foot Special Instructions: Please follow up with your PCP in a week Please follow up with in a week Please dose warfarin for a target dose of 2-3. Diet Recommended Diet: Diabetic Activity Activity Self Limited: Yes Other activity limits: Heel touch weight bearing Acute Coronary Syndrome Inclusion Criteria At DC or during hospital stay patient has or had the following: ACS DIAGNOSIS No Discharge Core Measures Meds if any: Prescribed or Continued at Discharge Meds if any: NOT Prescribed or Continued at Discharge Congestive Heart Failure Inclusion Criteria At DC or during hospital stay patient has or had the following: CHF DIAGNOSIS No Discharge Core Measures Meds if any: Prescribed or Continued at Discharge Meds if any: NOT Prescribed or Continued at Discharge Cerebrovascular accident Inclusion Criteria At DC or during hospital stay patient has or had the following: CVA/TIA Diagnosis No Discharge Core Measures Meds if any: Prescribed or Continued at Discharge Meds if any: NOT Prescribed or Continued at Discharge Venous thromboembolism Inclusion Criteria VTE Diagnosis No VTE Type NONE VTE Confirmed by (Test) NONE Discharge Core Measures - Per Current guidelines, there needs to be overlap - treatment for the first 5 days of Warfarin therapy. - If discharged on Warfarin prior to 5 days of - overlap therapy, the patient will need to be - assessed for post discharge needs including - *Post discharge parental anticoagulation - *Warfarin and/or parental anticoagulation education - *Follow up date to check INR post discharge At least 5 days overlap therapy as Inpatient No Meds if any: Prescribed or Continued at Discharge Note: Overlap Therapy is Warfarin and Anticoagulant Meds if any: NOT Prescribed or Continued at Discharge
[2017-04-23] MEDS ORDERED: ZOSYN 4.54.5 GM/100 IV (14:05)
[2017-04-23 14:11] VITALS: BP 120/60
[2017-04-23] MEDS ORDERED: ROXICODONE15 M1 PO (14:11)
--- NOTE | 2017-04-23 14:27 | Discharge Summary ---
Visit Information Visit Dates Admission Date: 04/22/17 Discharge Date: 04/24/17 Hospital Course Course Attending Physician: Terese Garcia MD [facility]: Patient is a 46 YO long standing IDDM Male with significant history of CVA with possible left atrial thrombus on warfarin since 2013, HTN, Obesity, CHF now presenting with worsening of left foot ulcer with erythema and pain. He was off insulin for the past 3 months due to insurance issues and is experiencing signs of hyperglycemia like Polyuria, Polydipsia, Neuropathic pain, blury vision. He also had black stools with advil intake. Previous amputation of Rt big toe. Admitted to general medicine floor Problem list 1. Necrotizine skin infection with gas gangrene 2. Uncontrolled Insuline dependent Diabetes mellitus with HbA1C of 12 3. HTN 4. Heart failure by history 5. CVA on warfarin for possible left atrial thrombus 6. Melena with advil intake Plan Necrotizing skin infection with gas gangrene Secondary to uncontrolled diabetes (off insulin). Cultures grew Group B strep, anerobes, Serratia. He underwent debridement with ray resection initially, f/b repeat debridement twice. He was placed on wound vac on 04/18/17 during his third debridement. Underwent PICC yesterday. We will continue IV Zosyn 4.5gm Q6 for a total of 4 weeks (04/18/17 to 05/16/17). ID input appreciated. His ESR at discharge is >165. He needs follow up foot Xray after treatment, weekly ESR during his treatment. 04/22/17 at 1am While awaiting insurance, home health services or possible rehab placement -- he was upset about pain medications and left AMA in the middle of the night from the hospital. He was informed to come back by the supervisor floor assembly as he left with a PICC line and without wound vac. 04/22/17 morning He came back to ER and readmitted due to concern of PICC line. During this admission his insurance was approved, sent to rehab once placement is available. Severe Diabetic Neuropathy We Continued Gabapentin and cymbalta. His requirement for pain medications is high and options are limited. He cannot tolerate tylenol, percocet. He is maintained on oxycodone, IV morphine. Poorly controlled IDDM Placed on levemir and ISS after obtaining endocrine recommendations. Discharged on Levemir 24units BID. Novolog sliding scale. Low H&H Apparently patient had significant bleed in OR with repeat debridement. He received a unit of transfusion. H&H after transfusion remained around 8.2/24. HTN we continued his home medications amlodipine 10mg daily and hydralazine 100mg BID Systolic Heart failure by history We continued his home medications metoprolol tartarate 75mg BID, lisinopril 40mg daily, atorvastatin 80mg daily CVA on warfarin for possible left atrial thrombus On warfarin previously. CHADS VASC2 6. As he underwent repeat debridements, he was on IV heparin for most of his stay. He is started on SC lovenox 1.5gm/kg daily to bridge to warfarin. Melena with advil intake Patient cannot tolerate tylenol and takes advil as needed. Reports experiencing black stools with NSAID intake. GI consulted - as patient have normal H&H with normal BUN/Cr - recommended outpatient follow up unless overt bleeding present. continue omez 40mg BID for now. DVT prophylaxis On SC lovenox code status full code Allergies: Coded Allergies: acetaminophen (Mild, BAD HEADACHE 06/15/15) Disposition Summary Disposition Principal Diagnosis: Gas gangrene of right foot Additional Diagnosis: Uncontrolled Insuline dependent Diabetes mellitus with HbA1C of 12 HTN Heart failure by history CVA on warfarin for possible left atrial thrombus Melena with advil intake Discharge Disposition: SNF Discharge Instructions General Discharge Information Code Status: Full Code Patient's Diet: Diabetic diet Patient's Activity: Heel touch weight bearing status Follow-Up Instructions/Appts: Please follow up with your PCP in a week Please follow up with your barometers calibrator in a week Please follow up with Gastroenterology in few weeks for black stools. Repeat INR in 2 days 04/25/17 for goal range between 2-3. Discontinue SC lovenox once therapeutic. Please follow up with weekly ESR while on IV antibiotic (Zosyn) Medications at Discharge Discharge Medications: Continue taking these medications: Warfarin Sodium (Coumadin) 7.5 MG TABLET 1 Tablet ORAL DAILY Qty = 5 Instructions: Please stop once INR is therapeutic Comments: Last Taken:04/23/17 Time: 4:30 PM Lisinopril (Lisinopril) 40 MG TABLET 1 Tablet ORAL DAILY Comments: Last Taken:04/24/17 Time: 10:00 AM Albuterol Sulfate (Proair Hfa) 90 MCG HFA.AER.AD 2 Puff Inhale through mouth EVERY 4-6 HOURS NEEDED as needed for COPD Qty = 1 Comments: DID NOT RECEIVE WHILE IN HOSPITAL Metoprolol Tartrate (Metoprolol Tartrate) 75 MG TABLET 1 Tablet ORAL TWICE DAILY Qty = 60 Comments: Last Taken:04/24/17 Time: 10:00 AM Metformin HCl (Metformin HCl) 1,000 MG TABLET 1 Tablet ORAL TWICE DAILY Qty = 180 Comments: NOT GIVEN WHILE IN HOSPITAL Hydralazine HCl (Hydralazine HCl) 25 MG TABLET 4 Tablet ORAL TWICE DAILY Qty = 240 Comments: Last Taken:04/24/17 Time: 10:00 AM Atorvastatin Calcium (Lipitor) 80 MG TABLET 1 Tablet ORAL DAILY Qty = 90 Comments: Last Taken:04/23/17 Time: 4:30 PM Duloxetine HCl (Duloxetine HCl) 60 MG CAPSULE.DR 1 Capsule ORAL DAILY Qty = 90 Comments: Last Taken:04/24/17 Time:10:00 AM Gabapentin (Gabapentin) 400 MG CAPSULE 1 Capsule ORAL THREE TIMES DAILY as needed for PAIN Qty = 90 Comments: Last Taken:04/24/17 Time: 10:00 AM Amlodipine Besylate (Amlodipine Besylate) 10 MG TABLET 1 Tablet ORAL DAILY Qty = 90 Comments: Last Taken:04/24/17 Time: 10:00 AM Pen Needle, Diabetic (Bd Ultra-Fine Pen Needle) 31 GAUGE X 5/16" DIS.NEEDLE 1 Flexpen Inject into fatty tissue BEFORE MEALS AND AT BEDTIME Qty = 120 Insulin Aspart, Recombinant (Novolog Flexpen) 100 UNIT/ML INSULN.PEN 1 Flexpen Inject into fatty tissue BEFORE MEALS AND AT BEDTIME Qty = 30 Instructions: BEFORE MEALS Blood Insulin Sugar Units 81-150 8 151-200 10 201-250 12 251-300 14 301-350 16 351-400 18 >400 20 units Call Doctor AT BEDTIME Blood Insulin Sugar Units 81-150 0 151-200 0 201-250 0 251-300 3 301-350 3 351-400 4 >400 12 units and Call Doctor Comments: Last Taken:04/24/17 Time: 12:15 PM Insulin Detemir (Levemir) 100 UNIT/ML VIAL 24 Units Inject into fatty tissue TWICE DAILY Qty = 60 Comments: Last Taken:04/24/17 Time: 10:00 AM Enoxaparin Sodium (Lovenox) 60 MG/0.6 ML SYRINGE 170 Milligram Inject into fatty tissue DAILY Qty = 5 Instructions: Until INR becomes therapeutic -- 2-3 Comments: Last Taken:04/24/17 Time: 10:00 AM Lkhslueuhzec-Vwhn-Mdbvpapv,Iso (Zosyn 4.5 Gm/100 Ml Galaxy Bag) 4.5 GRAM/100 ML FROZ.PIGGY 1 VIAL INTRAVEN EVERY SIX HOURS Qty = 85 Comments: Last Taken:04/24/17 Time: 11:15 AM This prescription has been renewed Start taking the following new medications: Oxycodone HCl (Roxicodone) 15 MG TABLET 1 Tablet ORAL 4 times daily as needed Qty = 20 No Refills Copies To: Karlie Barbosa DO, MD Review Statement Documenting Attending: Jose DELGADILLO,Terese
[2017-04-23 22:48] VITALS: BP 158/84
[2017-04-24 06:27] VITALS: BP 132/70
--- NOTE | 2017-04-24 07:28 | PN- Housestaff ---
Mildred DELGADILLO,Micheline 04/24/17 0728: Subjective Follow-up For: s/p wound vac placement gas gangrene s/p debridement Osteomyelitis on zosyn Subjective: seen and examined Reports his pain is well controlled and been doing better now. At 50ml drainage from the wound vac. Review of Systems Constitutional: Reports: see HPI. Comments: ROS negative except the above Objective Last 24 Hrs of Vital Signs/I&O Vital Signs Date Time Temp Pulse Resp B/P B/P Pulse O2 O2 Flow FiO2 Mean Ox Delivery Rate 04/24 0627 98.3 64 18 132/70 96 Room Air 04/23 2248 98.1 68 20 158/84 97 Room Air 04/23 2206 68 158/84 04/23 1717 97 Room Air 04/23 1411 98.1 61 18 120/60 98 Room Air 04/23 1355 96 Room Air 04/23 1151 Room Air Room Air 04/23 0902 97.9 64 20 142/84 04/23 0902 97.9 64 20 142/84 04/23 0901 97.9 64 20 142/84 Intake & Output 04/24 0800 04/24 0000 04/23 1600 Intake Total 350 500 700 Output Total 1200 400 Balance -850 500 300 Intake, IV 250 100 100 Intake, Oral 100 400 600 Output, Urine 1200 400 Physical Exam General Appearance: Alert, Oriented X3, Cooperative, No Acute Distress Skin: No Rashes, No Breakdown, dressing with wound vac in place on right foot Sepsis Skin Exam (color): Normal for Ethnicity HEENT: Atraumatic, PERRLA, EOMI Neck: Supple Cardiovascular: Normal S1, Normal S2 Lungs: Clear to Auscultation, Normal Air Movement Abdomen: Normal Bowel Sounds, Soft, No Tenderness Neurological: Normal Speech, Strength at 5/5 X4 Ext, Normal Tone, Sensation Intact Extremities: No Clubbing, No Cyanosis Current Medications: Current Medications Sig/Tello Start time Last Medication Dose Route Stop Time Status Admin Albuterol Sulfate 3 ML Q4P PRN 04/22 1930 AC INH Albuterol Sulfate 2 PUF Q4P PRN 04/22 1330 AC INH Albuterol Sulfate 3 ML Q4P PRN 04/22 1100 AC 04/23 INH 1715 Amlodipine Besylate 10 MG DAILY 04/22 1031 AC 04/23 PO 0902 Atorvastatin Calcium 80 MG 1700 04/22 1700 AC 04/23 PO 1628 Duloxetine HCl 60 MG DAILY 04/22 1031 AC 04/23 PO 0902 Enoxaparin Sodium 170 MG DAILY 04/22 1000 AC 04/23 SC 0900 Gabapentin 400 MG TID 04/22 1033 AC 04/23 PO 2206 Hydralazine HCl 100 MG BID 04/22 1032 AC 04/23 PO 2206 Insulin Aspart 0 AT BEDTIME 04/22 2200 AC 04/23 SC 2208 Insulin Aspart 0 TIDAC 04/22 1200 AC 04/24 SC 0840 Insulin Detemir 24 UNITS BID 04/22 1043 AC 04/23 SC 2207 Ketorolac 15 MG DAILY 04/23 1000 AC 04/23 Tromethamine IV 0835 Ketorolac 15 MG DAILY NEEDED PRN 04/22 1030 AC 04/22 Tromethamine IV 1106 Lisinopril 40 MG DAILY 04/22 1043 AC 04/23 PO 0901 Metoprolol Tartrate 75 MG BID 04/22 1042 AC 04/23 PO 2206 Morphine Sulfate 4 MG Q6P PRN 04/22 1030 AC 04/24 IV 0302 Nicotine 7 MG DAILY 04/22 1600 AC 04/23 TOP 0857 Oxycodone HCl 10 MG Q12 04/23 1000 AC 04/24 PO 0950 Oxycodone HCl 10 MG Q6P PRN 04/22 1030 AC 04/23 PO 2023 Piperacillin Sod/ 4.5 GM Q6H 04/22 1100 AC 04/24 Tazobactam Sod IV 0516 Sodium Chloride 100 ML Polyethylene Glycol 17 GM DAILY 04/23 2055 AC 04/23 PO 2250 Warfarin Sodium 7.5 MG COUMADIN 1700 ONE 04/23 1700 CAN PO 04/23 1701 Warfarin Sodium 10 MG COUMADIN 1700 ONE 04/23 1700 DC 04/23 PO 04/23 1701 1628 Warfarin Sodium 10 MG .STK-MED ONE 04/23 1506 DC PO 04/23 1507 Warfarin Sodium 10 MG COUMADIN 1700 ONE 04/23 1430 CAN PO 04/23 1600 Assessment/Plan Assessment: Patient is a 46 YO M with PMH significant for CVA on warfarin for left atrial thrombus since 2013, HTN, CHF, 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 He is admitted again as he left with a PICC line without any home health services to provide antibiotics. He was off wound vac when he left which needs to be continued for the next 3-4 weeks. Admitted to general medicine floor Plan Problem list 1. Diabetic foot infection with gas gangrene 2. IDDM 3. CVA on warfarin 4. HTN 5. CHF Diabetic foot infection with gas gangrene Wound vac palced yesterday. Continue IV zosyn Q6 till 05/16/17. Pain well controlled with oxycontin 10mg Q12, morphine IV 4mg Q6 & roxicodone 10mg q6. His insurance got approved and will likely discharge today. CVA on warfarin Continue bridging with SC lovenox till warfarin is therapeutic. INR today is pending IDDM Continue levemir 24units BID, ISS and lyrica Continue other home medications DVT prophylaxis SC lovenox Code status Full code Problem List: 1. Wound infection 2. Gas gangrene 3. Diabetic foot ulcer Pain Ratin Pain Location: right foot Pain Goal: Pain 4 or less Pain Plan: roxicodone, oxycontine, iv morphine Tomorrow's Labs & Rationales: none Terese Garcia MD 04/24/17 1022: Attending MD Review Statement Attending Statement Attending MD Statement: examined this patient, discuss w/resident/PA/STOREKEEPER STEWARD, agreed w/resident/PA/STOREKEEPER STEWARD, discussed with family, reviewed EMR data (avail), discussed with nursing, discussed with case mgmt, amended to note Attending Assessment/Plan: Patient seen and examined, feels okay. He has a bed available at front of that he had. Awaiting wound VAC. Once that is delivered then patient can be discharged to rehabilitation today. His INR is still pending. We will follow- up on the results and adjust Coumadin accordingly. Other than that he is also set and medically stable for discharge. Patient should follow-up with his primary care doctor in podiatry/wound care as an outpatient. He will be continued on IV antibiotics to complete a total of 4 week course, he will also be continued on Levemir and sliding scale insulin.
[2017-04-24 10:51] LABS: PT 18.7 SEC (9.4-12.5)
[2017-04-24 13:02] VITALS: BP 140/70
[2017-04-24 13:03] VITALS: BP 140/70
--- NOTE | 2017-04-24 13:12 | PN- Podiatry ---
Surgical Brief Attending Note Brief Attending Note: Patient was seen and evaluated today to check on the seal of his negative pressure wound therapy. The machine shows an intact seal 125 mmHg continuous pressure medium intensity. I discussed this case with case management yesterday afternoon, where I learned that the patient was being considered for short-term rehabilitation facility. He is to follow up at our wound care center this coming Saturday. His final wound care recommendations are: Negative pressure wound therapy with [employer] wound VAC at 125 mmHg medium intensity continuous pressure with Santyl applied to the wound base at each wound VAC application. Final infectious disease recommendations are appreciated. No change in his weightbearing status.
== END 2017-04-24 13:20 | DRG 197 ==
LOC: ERH 03:20 → ERHI 08:46 → 2NA 08:46 → ENRESERV 09:33 → ENTRNSPT 10:15 → EDTRNSPTSTS 10:16 → EDTRNSPT 10:16 → 2NA 10:23 → CMPTRNSPT 10:31 → ENPENDDIS 04-24 10:57 → ENTRNSPT 04-24 13:06 → EDTRNSPT 04-24 13:13 → EDTRNSPTSTS 04-24 13:13 → 2NA 04-24 13:20 → CMPTRNSPT 04-24 13:31
PROVIDERS: Internal Medicine
DX: E11.52 Type 2 diabetes mellitus with diabetic peripheral angiopathy with gangrene (principal); A48.0 Gas gangrene; I11.0 Hypertensive heart disease with heart failure; I50.22 Chronic systolic (congestive) heart failure; E11.40 Type 2 diabetes mellitus with diabetic neuropathy, unspecified; I51.3 Intracardiac thrombosis, not elsewhere classified; E11.65 Type 2 diabetes mellitus with hyperglycemia; E11.621 Type 2 diabetes mellitus with foot ulcer; L97.519 Non-pressure chronic ulcer of other part of right foot with unspecified severity; Z86.73 Personal history of transient ischemic attack (TIA), and cerebral infarction without residual deficits; Z68.34 Body mass index [BMI] 34.0-34.9, adult; E78.5 Hyperlipidemia, unspecified; E66.9 Obesity, unspecified; Z88.6 Allergy status to analgesic agent; Z79.01 Long term (current) use of anticoagulants; Z79.4 Long term (current) use of insulin; Z79.84 Long term (current) use of oral hypoglycemic drugs; Z89.411 Acquired absence of right great toe; F17.200 Nicotine dependence, unspecified, uncomplicated
CPT/HCPCS: 2NAP; 36592; 80307; 82436; 96374; 96375; J1650; J1885; J2543; J3490

== ENCOUNTER 2017-04-24 15:26 | Emergency (ER) | payer OTHER ==
[~2017-04-24] VITALS: Ht 182.9 cm; Wt 113.4 kg
[~2017-04-24 15:26] MED LIST changes: +ROXICODONE15 M1 PO
--- NOTE | 2017-04-24 16:29 | ED GENERAL ADULT ---
See Addendum History of Present Illness General Chief Complaint: General Adult Stated Complaint: SENT FOR ADMISSION, WOUND INFECTION Source: patient, family, old records Exam Limitations: no limitations Vital Signs & Intake/Output Vital Signs & Intake/Output Vital Signs Date Time Temp Pulse Resp B/P B/P Pulse O2 O2 Flow FiO2 Mean Ox Delivery Rate 04/24 2259 73 16 127/88 96 Room Air 04/24 2223 88 157/74 04/24 1537 96.4 70 18 168/93 97 Room Air ED Intake and Output 04/25 0000 04/24 1200 Intake Total Output Total 400 Balance -400 Output, Urine 400 Patient 250 lb Weight Weight Reported by Patient Measurement Method Allergies Coded Allergies: acetaminophen (Mild, BAD HEADACHE 06/15/15) Reconcile Medications Albuterol Sulfate (Proair Hfa) 90 MCG HFA.AER.AD 2 PUF INH Q4-6 PRN PRN COPD Amlodipine Besylate 10 MG TABLET 1 TAB PO DAILY HEART (Reported) Atorvastatin Calcium (Lipitor) 80 MG TABLET 1 TAB PO DAILY CHOLESTEROL ( Reported) Duloxetine HCl 60 MG CAPSULE.DR 1 CAP PO DAILY PAIN (Reported) Enoxaparin Sodium (Lovenox) 60 MG/0.6 ML SYRINGE 170 MG SC DAILY blood thinner Until INR becomes therapeutic -- 2-3 Gabapentin 400 MG CAPSULE 1 CAP PO TID PRN PAIN (Reported) Hydralazine HCl 25 MG TABLET 4 TAB PO BID HEART (Reported) Insulin Aspart, Recombinant (Novolog Flexpen) 100 UNIT/ML INSULN.PEN 1 PEN SC TIDAC/HS bood sugars BEFORE MEALS Blood Insulin Sugar Units 81-150 8 151-200 10 201-250 12 251-300 14 301-350 16 351-400 18 >400 20 units Call Doctor AT BEDTIME Blood Insulin Sugar Units 81-150 0 151-200 0 201-250 0 251-300 3 301-350 3 351-400 4 >400 12 units and Call Doctor Insulin Detemir (Levemir) 100 UNIT/ML VIAL 24 UNITS SC BID blood sugars Lisinopril 40 MG TABLET 1 TAB PO DAILY BP (Reported) Metformin HCl 1,000 MG TABLET 1 TAB PO BID DIABETES (Reported) Metoprolol Tartrate 75 MG TABLET 1 TAB PO BID HEART HEALTH (Reported) Oxycodone HCl (Roxicodone) 15 MG TABLET 1 TAB PO 4XDP right foot pain Pen Needle, Diabetic (Bd Ultra-Fine Pen Needle) 31 GAUGE X 5/16" DIS.NEEDLE 1 PEN SC TIDAC/HS blood sugars Icrqkfcpjqar-Lnwd-Mcokldld,Iso (Zosyn 4.5 Gm/100 Ml Galaxy Bag) 4.5 GRAM/100 ML FROZ.PIGGY 1 VIAL IV Q6 foot infection Warfarin Sodium (Coumadin) 7.5 MG TABLET 1 TAB PO DAILY BLOOD THINNER ( Reported) Please stop once INR is therapeutic Triage Note: PT TO ER FROM [facility], STATES WAS D/C FROM [facility] TODAY TO [facility] FOR ABX AND REHAB ON RIGHT FOOT. STATES, "THE PLACE WAS DISGUSTING AND THEY DIDN'T HAVE THE SERVICES I NEED". Triage Nurses Notes Reviewed? yes HPI: Patient was discharged today to short-term rehabilitation for IV antibiotics. Patient walked into the rehabilitation facility that did not like the looks of it so he turned around and left and came back to the emergency department. Patient is complaining of pain in his foot. Patient is also concerned that it is postoperative wound VAC there at the facility but he left before the wound VAC arrived. (Radha DELGADILLO,Chino Kemp) Past History Travel History Traveled to [place] past 21 day No Medical History Any Pertinent Medical History? 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 No (Radha DELGADILLO,Chino Kemp) Review of Systems Review of Systems Constitutional: Reports: no symptoms. Respiratory: Reports: no symptoms. GI: Reports: no symptoms. Musculoskeletal: Reports: see HPI. Neurological/Psychological: Reports: no symptoms. Immunologic/Allergic: Reports: no symptoms. (Radha DELGADILLO,Chino Kemp) Physical Exam Physical Exam General Appearance: well developed/nourished, alert, awake Eyes: Bilateral: PERRL, EOMI. Neck: normal inspection, supple, full range of motion Respiratory: normal breath sounds, chest non-tender, no respiratory distress, lungs clear Cardiovascular: regular rate/rhythm, normal peripheral pulses Extremities: tenderness Neurologic/Psych: no motor/sensory deficits, awake, alert, oriented x 3 Core Measures ACS in differential dx? No CVA/TIA Diagnosis: No Sepsis Present: No Sepsis Focused Exam Completed? No (Radha DELGADILLO,Chino Kemp) Progress Differential Diagnoses I considered the following diagnoses in my evaluation of the patient: [PLACEMENT ISSUES] Plan of Care: Orders Procedure Date/time Status Heart Healthy Diet 04/25 B Active PROTHROMBIN TIME 04/24 1746 Complete COMPREHENSIVE METABOLIC PANEL 04/24 174 Complete CBC WITHOUT DIFFERENTIAL 04/24 174 Complete CASE MANAGEMENT CONSULT 04/24 1628 Active URINE DRUGS OF ABUSE 04/24 160 Complete URINALYSIS 04/24 160 Complete Current Medications Sig/Tello Start time Last Medication Dose Stop Time Status Admin Amlodipine Besylate 10 MG DAILY 04/25 1000 UNVr (Norvasc) Atorvastatin Calcium 80 MG DAILY 04/25 1000 UNVr (Lipitor) Duloxetine HCl 60 MG DAILY 04/25 1000 UNVr (Cymbalta) Enoxaparin Sodium 170 MG DAILY 04/25 1000 UNVr (Lovenox) Lisinopril 40 MG DAILY 04/25 1000 UNVr (Prinivil) Insulin Aspart 0 TIDAC 04/25 0800 AC (NovoLOG) Hydralazine HCl 100 MG BID 04/24 2200 UNVr 04/24 (Apresoline) 2223 Insulin Aspart 0 AT BEDTIME 04/24 2200 AC (NovoLOG) Insulin Detemir 24 UNITS BID 04/24 2200 AC 04/24 (Levemir) 2302 Metformin HCl 1,000 MG BID 04/24 2200 UNVr 04/24 (Glucophage) 2223 Metoprolol Tartrate 75 MG BID 04/24 2200 UNVr 04/24 (Lopressor) 2223 Non-Formulary 0 SEE ADMIN CRITERIA 04/24 1800 UNVr 04/24 Medication 2028 (NON FORMULARY) Albuterol Sulfate 2 PUF Q4-6 PRN PRN 04/24 1700 UNVr (Ventolin) Gabapentin 400 MG TID PRN 04/24 1700 AC (Neurontin) Oxycodone HCl 15 MG Q6 PRN 04/24 170 UNVr 04/25 (Roxicodone) 0249 Warfarin Sodium 7.5 MG DAILY 04/25 1651 UNVr 04/24 (Coumadin) 1939 Laboratory Tests 04/24/17 1818: Anion Gap 9, Estimated GFR > 60, BUN/Creatinine Ratio 17.8, Glucose 130 H, Calcium 8.9, Total Bilirubin 0.4, AST 14 L, ALT 32, Alkaline Phosphatase 88, Total Protein 6.6, Albumin 3.3 L, Globulin 3.3, Albumin/Globulin Ratio 1.0 L, PT 21.5 H, INR 1.96 H, CBC w Diff NO MAN DIFF REQ, RBC 3.31 L, MCV 86.4, MCH 27.8, MCHC 32.2 L, RDW 14.4, MPV 7.4, Gran % 70.1, Lymphocytes % 22.7, Monocytes % 5.3, Eosinophils % 1.6, Basophils % 0.3, Absolute Granulocytes 8.0 H, Absolute Lymphocytes 2.6, Absolute Monocytes 0.6, Absolute Eosinophils 0.2, Absolute Basophils 0 04/24/17 1645: Urine Opiates Screen 1824.00, Methadone Screen < 40, Barbiturate Screen < 60, Ur Phencyclidine Scrn < 6.00, Amphetamines Screen < 100, U Benzodiazepines Scrn < 85, Urine Cocaine Screen < 50, Urine Cannabis Screen < 5.00, Urine Color YEL, Urine Clarity CLEAR, Urine pH 7.5, Ur Specific [place] 1.015, Urine Protein NEG, Urine Ketones NEG, Urine Nitrite NEG, Urine Bilirubin NEG, Urine Urobilinogen 0.2, Ur Leukocyte Esterase NEG, Ur Microscopic EXAM NOT REQUIRED, Urine Hemoglobin NEG, Urine Glucose NEG 04/24/2017 11:43:01 PM Patient signed out to me by Dr. Kelsey. Pending case management evaluation. We will hold the patient in the ER overnight. (Razia DELGADILLO,Gely) Initial ED EKG: none Hand-Off Endorsed To: Stephanie DELGADILLO,Andrew Vazquez Endorsed Time: 1699 Pending: consult (Radha DELGADILLO,Chino Kemp) Comments: 04/24/2017 8:24:04 PM patient signed out to me by Dr. Garcia at shift change management facilitator. Patient signed out to Dr. KELSEY at shift change management facilitator. (Stephanie DELGADILLO,Andrew Vazquez) Hand-Off Endorsed To: Chino Garcia MD Endorsed Time: 0700 Pending: other (CM CONSULT/STR) (Razia DELGADILLO,Gely) Departure Departure Disposition: STILL A PATIENT Condition: Stable Clinical Impression Primary Impression: Osteomyelitis Referrals: Karlie Barbosa DO (PCP/Family) Departure Forms: Customer Survey General Discharge Information (Chino Garcia MD) Departure Comments 04/24/17 8 pm The patient was signed out to me by Dr. Brown at 7 PM. He he declined admission to the custodial facility and had return to the emergency department to be placed in an additional facility. He was informed that the plan of care was for him to be observed overnight and for case management to assist him with placement. The patient refused to say and walked out refusing to sign the AMA form. (Andrew Kelsey DO) Critical Care Note Critical Care Note Critical Care Time: non-applicable (Chino Garcia MD) Critical Care Note Critical Care Note Critical Care Time: non-applicable (Chino Garcia MD)
[2017-04-24 18:44] LABS: ABSOLUTE BASOPHIL COUNT 0 /CUMM (0.0-0.2); ABSOLUTE EOSINOPHIL COUNT 0.2 /CUMM (0.0-0.7); ABSOLUTE LYMPH COUNT 2.6 /CUMM (1.2-3.4); ABSOLUTE MONOCYTE COUNT 0.6 /CUMM (0.10-0.60); BASOPHIL % 0.3 % (0.0-2.0); EOSINOPHIL % 1.6 % (0-5); GRANULOCYTE % 70.1 % (42.2-75.2); HEMATOCRIT 28.6 % (42-52); MEAN CORPUSCULAR HGB 27.8 PG (27.0-31.0); MEAN CORPUSCULAR HGB CONC 32.2 G/DL (33.0-37.0); MEAN CORPUSCULAR VOLUME 86.4 FL (80.0-94.0); MEAN PLATELET VOLUME 7.4 FL (7.4-10.4); PLATELET COUNT 471 /CUMM (130-400); RBC DISTRIBUTION WIDTH 14.4 % (11.5-14.5); RED BLOOD CELL CT 3.31 /CUMM (4.70-6.10); WHITE BLOOD CELL COUNT 11.4 /CUMM (4.8-10.8)
[2017-04-24 18:48] LABS: PT 21.5 SEC (9.4-12.5)
[2017-04-25 13:17] VITALS: BP 154/74
== END 2017-04-25 16:53 | disposition left against medical advice (07) ==
LOC: ERH 15:26
PROVIDERS: Emergency Medicine
DX: L08.9 Local infection of the skin and subcutaneous tissue, unspecified (principal)
CPT/HCPCS: 80307; 81003; J1885; J2543

== ENCOUNTER 2017-06-14 15:35 | Emergency (ER) | payer OTHER ==
[~2017-06-14] VITALS: Ht 182.9 cm; Wt 113.4 kg
[2017-06-14 15:40] VITALS: BP 149/79
[2017-06-14 16:31] LABS: ABSOLUTE BASOPHIL COUNT 0 /CUMM (0.0-0.2); ABSOLUTE EOSINOPHIL COUNT 0.3 /CUMM (0.0-0.7); ABSOLUTE GRANULOCYTE CT 6.5 /CUMM (1.4-6.5); ABSOLUTE LYMPH COUNT 1.4 /CUMM (1.2-3.4); ABSOLUTE MONOCYTE COUNT 0.9 /CUMM (0.10-0.60); BASOPHIL % 0.3 % (0.0-2.0); EOSINOPHIL % 2.8 % (0-5); GRANULOCYTE % 71.6 % (42.2-75.2); HEMATOCRIT 36.4 % (42-52); MEAN CORPUSCULAR HGB CONC 31.9 G/DL (33.0-37.0); MEAN CORPUSCULAR VOLUME 78.3 FL (80.0-94.0); MEAN PLATELET VOLUME 7.5 FL (7.4-10.4); PLATELET COUNT 340 /CUMM (130-400); RBC DISTRIBUTION WIDTH 15.5 % (11.5-14.5); RED BLOOD CELL CT 4.65 /CUMM (4.70-6.10)
== END 2017-06-14 18:00 | disposition admitted as inpatient to this hospital (09) ==
LOC: ERH 15:35
PROVIDERS: Internal Medicine
DX: M79.89 Other specified soft tissue disorders (principal); R11.0 Nausea; R53.1 Weakness
CPT/HCPCS: 87040; 99281

== ENCOUNTER 2017-07-08 05:51 | Emergency (ER) | payer OTHER ==
[~2017-07-08] VITALS: Ht 182.9 cm; Wt 110.2 kg
[2017-07-08 06:00] VITALS: BP 166/81
--- NOTE | 2017-07-08 06:04 | ED UPPER/LOWER EXTREMITY COMPL ---
History of Present Illness General Chief Complaint: General Adult Stated Complaint: PAIN S/P AMPUTATION IN APRIL Source: patient Exam Limitations: no limitations Vital Signs & Intake/Output Vital Signs & Intake/Output Vital Signs Date Time Temp Pulse Resp B/P B/P Pulse O2 O2 Flow FiO2 Mean Ox Delivery Rate 07/08 0603 Room Air 07/08 0600 96.7 90 16 166/81 96 Room Air Room Air Allergies Coded Allergies: piperacillin (From ZOSYN) (Severe, "KILLED MY WHITE BLOOD CELL COUNT" 06/14/17) tazobactam (From ZOSYN) (Severe, "KILLED MY WHITE BLOOD CELL COUNT" 06/14/17) acetaminophen (Mild, BAD HEADACHE 06/14/17) Reconcile Medications Albuterol Sulfate (Proair Hfa) 90 MCG HFA.AER.AD 2 PUF INH Q4-6 PRN PRN COPD Amlodipine Besylate 10 MG TABLET 1 TAB PO DAILY HEART (Reported) Atorvastatin Calcium (Lipitor) 80 MG TABLET 1 TAB PO DAILY CHOLESTEROL ( Reported) Duloxetine HCl 60 MG CAPSULE.DR 1 CAP PO DAILY PAIN (Reported) Enoxaparin Sodium (Lovenox) 60 MG/0.6 ML SYRINGE 170 MG SC DAILY blood thinner Until INR becomes therapeutic -- 2-3 Gabapentin 400 MG CAPSULE 1 CAP PO TID PRN PAIN (Reported) Hydralazine HCl 25 MG TABLET 4 TAB PO BID HEART (Reported) Insulin Aspart, Recombinant (Novolog Flexpen) 100 UNIT/ML INSULN.PEN 1 PEN SC TIDAC/HS bood sugars BEFORE MEALS Blood Insulin Sugar Units 81-150 8 151-200 10 201-250 12 251-300 14 301-350 16 351-400 18 >400 20 units Call Doctor AT BEDTIME Blood Insulin Sugar Units 81-150 0 151-200 0 201-250 0 251-300 3 301-350 3 351-400 4 >400 12 units and Call Doctor Insulin Detemir (Levemir) 100 UNIT/ML VIAL 24 UNITS SC BID blood sugars Lisinopril 40 MG TABLET 1 TAB PO DAILY BP (Reported) Metformin HCl 1,000 MG TABLET 1 TAB PO BID DIABETES (Reported) Metoprolol Tartrate 75 MG TABLET 1 TAB PO BID HEART HEALTH (Reported) Oxycodone HCl 5 MG TABLET 2-3 TAB PO TID PRN PAIN FIFTEEN...[id number] Oxycodone HCl (Roxicodone) 15 MG TABLET 1 TAB PO 4XDP right foot pain Pen Needle, Diabetic (Bd Ultra-Fine Pen Needle) 31 GAUGE X 5/16" DIS.NEEDLE 1 PEN SC TIDAC/HS blood sugars Wcgunvfsqjtc-Pkwk-Hmjzgapc,Iso (Zosyn 4.5 Gm/100 Ml Galaxy Bag) 4.5 GRAM/100 ML FROZ.PIGGY 1 VIAL IV Q6 foot infection Warfarin Sodium (Coumadin) 7.5 MG TABLET 1 TAB PO DAILY BLOOD THINNER ( Reported) Please stop once INR is therapeutic Triage Note: 46YO MALE TO TRIAGE W/CO R FT PAIN SINCE APRIL. Triage Nurses Notes Reviewed? yes Onset: Gradual Duration: day(s): Timing: recent history Severity: moderate Pain/Injury Location: Right: Foot. Method of Injury: chronic pain, chronic osteo Modifying Factors: Improves With: pain medication. Associated Symptoms: chronic right foot pain HPI: 46-year-old gentleman status post right first metatarsal amputation due to osteomyelitis, in April 2017, presently on IV antibiotics via PICC line, presents with recurrence of his chronic pain. He states that he takes oxycodone 15 mg as needed for pain. He states that he no longer has this medication. He notes that the wound has been at its baseline. There is no purulence, drainage, redness, warmth. He changes the dressing regularly. He is followed at the wound care center. He is otherwise well and has no other concerns. Past History Travel History Traveled to [place] past 21 day No Medical History Any Pertinent Medical History? 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 No Review of Systems Review of Systems Constitutional: Reports: no symptoms. EENTM: Reports: no symptoms. Respiratory: Reports: no symptoms. Cardiovascular: Reports: no symptoms. Gastrointestinal/Abdominal: Reports: no symptoms. Genitourinary: Reports: no symptoms. Musculoskeletal: Reports: no symptoms. Skin: Reports: no symptoms. Neurological/Psychological: Reports: no symptoms. Hematologic/Endocrine: Reports: no symptoms. Immunological: Reports: no symptoms. All Other Systems: Reviewed and Negative Physical Exam Physical Exam General Appearance: well developed/nourished, mild distress Head: atraumatic Eyes: Bilateral: normal appearance. Foot Right: right foot surgical wound is clean and intact. No warmth or drainage to vigorous palpation. No lymphangitic streaking. No significant focal tenderness. Progress Differential Diagnosis: infection vs chronhic pain vs phantom pain vs other. Plan of Care: Wound appears well. A bridge prescription of oxycodone was prescribed to the patient. Close follow-up encouraged Departure Departure Disposition: HOME OR SELF CARE Condition: Stable Clinical Impression Primary Impression: Chronic pain Referrals: Karlie Barbosa DO (PCP/Family) Departure Forms: Customer Survey General Discharge Information Prescriptions: Current Visit Scripts Oxycodone HCl 2-3 TAB PO TID PRN PAIN #15 TAB FIFTEEN...[id number]
[2017-07-08] MEDS ORDERED: OXYCODONE HCL5 M1 PO (06:12)
== END 2017-07-08 06:25 ==
LOC: ERH 05:51
DX: G89.29 Other chronic pain (principal)

== ENCOUNTER 2017-07-10 19:32 | Emergency (ER) | payer OTHER ==
[2017-07-10 19:37] VITALS: BP 148/82
--- NOTE | 2017-07-10 21:54 | ED ANKLE/FOOT INJURY COMPLAINT ---
History of Present Illness General Chief Complaint: Lower Extremity Problems Stated Complaint: R FOOT AMPUTATED IN APRIL, IN PAIN PER PT Source: patient, family, old records Exam Limitations: no limitations Vital Signs & Intake/Output Vital Signs & Intake/Output Vital Signs Date Time Temp Pulse Resp B/P B/P Pulse O2 O2 Flow FiO2 Mean Ox Delivery Rate 07/10 1936 98.2 86 20 148/82 97 Room Air Allergies Coded Allergies: piperacillin (From ZOSYN) (Severe, "KILLED MY WHITE BLOOD CELL COUNT" 06/14/17) tazobactam (From ZOSYN) (Severe, "KILLED MY WHITE BLOOD CELL COUNT" 06/14/17) acetaminophen (Mild, BAD HEADACHE 06/14/17) Reconcile Medications Albuterol Sulfate (Proair Hfa) 90 MCG HFA.AER.AD 2 PUF INH Q4-6 PRN PRN COPD Amlodipine Besylate 10 MG TABLET 1 TAB PO DAILY HEART (Reported) Atorvastatin Calcium (Lipitor) 80 MG TABLET 1 TAB PO DAILY CHOLESTEROL ( Reported) Duloxetine HCl 60 MG CAPSULE.DR 1 CAP PO DAILY PAIN (Reported) Enoxaparin Sodium (Lovenox) 60 MG/0.6 ML SYRINGE 170 MG SC DAILY blood thinner Until INR becomes therapeutic -- 2-3 Gabapentin 400 MG CAPSULE 1 CAP PO TID PRN PAIN (Reported) Hydralazine HCl 25 MG TABLET 4 TAB PO BID HEART (Reported) Insulin Aspart, Recombinant (Novolog Flexpen) 100 UNIT/ML INSULN.PEN 1 PEN SC TIDAC/HS bood sugars BEFORE MEALS Blood Insulin Sugar Units 81-150 8 151-200 10 201-250 12 251-300 14 301-350 16 351-400 18 >400 20 units Call Doctor AT BEDTIME Blood Insulin Sugar Units 81-150 0 151-200 0 201-250 0 251-300 3 301-350 3 351-400 4 >400 12 units and Call Doctor Insulin Detemir (Levemir) 100 UNIT/ML VIAL 24 UNITS SC BID blood sugars Lisinopril 40 MG TABLET 1 TAB PO DAILY BP (Reported) Metformin HCl 1,000 MG TABLET 1 TAB PO BID DIABETES (Reported) Metoprolol Tartrate 75 MG TABLET 1 TAB PO BID HEART HEALTH (Reported) Oxycodone HCl 5 MG TABLET 2-3 TAB PO TID PRN PAIN FIFTEEN...[id number] Oxycodone HCl (Roxicodone) 15 MG TABLET 1 TAB PO 4XDP right foot pain Pen Needle, Diabetic (Bd Ultra-Fine Pen Needle) 31 GAUGE X 5/16" DIS.NEEDLE 1 PEN SC TIDAC/HS blood sugars Mrytcyyawxkh-Wmsa-Khtrbggg,Iso (Zosyn 4.5 Gm/100 Ml Galaxy Bag) 4.5 GRAM/100 ML FROZ.PIGGY 1 VIAL IV Q6 foot infection Warfarin Sodium (Coumadin) 7.5 MG TABLET 1 TAB PO DAILY BLOOD THINNER ( Reported) Please stop once INR is therapeutic Triage Note: PT TO TRIAGE C/O PAIN IN R FOOT S/P SURGICAL DEBRIDEMENT IN APRIL OF R FOOT. PT STATES WAS HERE SATURDAY FOR SAME AND THEY DID NOT TAKE AN XRAY OR GIVE PAIN MEDICATION. STATES WITH ALLERGY TO TYLENOL AND UNABLE TO TAKE NSAIDS HE HAS NOT BEEN ABLE TO TRY ANYTHING. HAS APPT WITH PCP ON SATURDAY. Triage Nurses Notes Reviewed? yes Occurred: last week Duration: day(s):, constant, continues in ED Timing: recent history Severity: severe Pain/Injury Location: Right: Foot. Modifying Factors: Improves With: pain medication. Worsens With: movement. Associated Symptoms: GCS 15 since HPI: Review of prescriptions demonstrate multiple prescribers of opiates over the last few weeks. Patient presents with continued right foot pain with history of osteomyelitis surgical resection tissue grafting. He is followed by new review assistant Dr. Bangura. He has an appointment on Saturday. He denies fever chills nausea vomiting diarrhea abdominal pain chest pain shortness breath headache dysuria bleeding. Past History Travel History Traveled to [place] past 21 day No Medical History Any Pertinent Medical History? 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 No Review of Systems Review of Systems Constitutional: Reports: no symptoms. EENTM: Reports: no symptoms. Respiratory: Reports: no symptoms. Cardiovascular: Reports: no symptoms. GI: Reports: no symptoms. Genitourinary: Reports: no symptoms. Musculoskeletal: Reports: no symptoms. Skin: Reports: no symptoms. Neurological/Psychological: Reports: no symptoms. Hematologic/Endocrine: Reports: no symptoms. Immunologic/Allergic: Reports: no symptoms. All Other Systems: Reviewed and Negative Physical Exam Physical Exam General Appearance: well developed/nourished, alert, awake, anxious, mild distress Head: atraumatic Eyes: Bilateral: normal appearance. Ears, Nose, Throat: normal ENT inspection, hearing grossly normal Neck: normal inspection, supple, full range of motion Cardiovascular/Respiratory: normal breath sounds, normal peripheral pulses, regular rate/rhythm, no respiratory distress Back: normal inspection, normal range of motion, no vertebral tenderness Leg/Knee/Thigh Left: normal range of motion, normal inspection Leg/Knee/Thigh Right: normal range of motion, normal inspection Ankle Left: normal inspection, normal range of motion Ankle Right: normal inspection, normal range of motion Foot Left: normal inspection, normal range of motion Foot Right: soft tissue tenderness, swelling, Sutures intact of skin graft denuded tissue no overt sign of inflammation discharge Neuro/Vascular: normal motor function Psychiatric: awake, alert, oriented x 3 Skin: intact, normal color, warm/dry Progress Differential Diagnosis: cellulitis, osteomyelitis Plan of Care: Xrays to be ordered. Patient informed no narcotics will be prescribed he became angry with swearing and left without diagnostic evaluations. Departure Departure Time of Disposition: 2152 Disposition: LEFT AGAINST MEDICAL ADVICE Condition: Stable Clinical Impression Primary Impression: Acute foot pain Referrals: Karlie Barbosa DO (PCP/Family) Departure Forms: Customer Survey General Discharge Information
== END 2017-07-10 21:53 | disposition left against medical advice (07) ==
LOC: ERH 19:32
DX: M79.671 Pain in right foot (principal)
CPT/HCPCS: 99282

== ENCOUNTER 2017-08-24 22:39 | Emergency (ER) | payer OTHER ==
[~2017-08-24] VITALS: Ht 182.9 cm; Wt 1008.3 kg
--- NOTE | 2017-08-24 23:58 | ED GENERAL ADULT ---
History of Present Illness General Chief Complaint: General Adult Stated Complaint: PT HAS A FEVER ,DIZZY,ANDHEADACHE Source: patient Exam Limitations: no limitations Vital Signs & Intake/Output Vital Signs & Intake/Output ED Intake and Output 08/26 0000 08/25 1200 Intake Total 0 Output Total Balance 0 Intake, Oral 0 Allergies Coded Allergies: piperacillin (From ZOSYN) (Severe, "KILLED MY WHITE BLOOD CELL COUNT" 06/14/17) tazobactam (From ZOSYN) (Severe, "KILLED MY WHITE BLOOD CELL COUNT" 06/14/17) acetaminophen (Mild, BAD HEADACHE 06/14/17) Reconcile Medications Albuterol Sulfate (Proair Hfa) 90 MCG HFA.AER.AD 2 PUF INH Q4-6 PRN PRN COPD Amlodipine Besylate 10 MG TABLET 1 TAB PO DAILY HEART (Reported) Atorvastatin Calcium (Lipitor) 80 MG TABLET 1 TAB PO DAILY CHOLESTEROL ( Reported) Duloxetine HCl 60 MG CAPSULE.DR 1 CAP PO DAILY PAIN (Reported) Enoxaparin Sodium (Lovenox) 60 MG/0.6 ML SYRINGE 170 MG SC DAILY blood thinner Until INR becomes therapeutic -- 2-3 Gabapentin 400 MG CAPSULE 1 CAP PO TID PRN PAIN (Reported) Hydralazine HCl 25 MG TABLET 4 TAB PO BID HEART (Reported) Insulin Aspart, Recombinant (Novolog Flexpen) 100 UNIT/ML INSULN.PEN 1 PEN SC TIDAC/HS bood sugars BEFORE MEALS Blood Insulin Sugar Units 81-150 8 151-200 10 201-250 12 251-300 14 301-350 16 351-400 18 >400 20 units Call Doctor AT BEDTIME Blood Insulin Sugar Units 81-150 0 151-200 0 201-250 0 251-300 3 301-350 3 351-400 4 >400 12 units and Call Doctor Insulin Detemir (Levemir) 100 UNIT/ML VIAL 24 UNITS SC BID blood sugars Lisinopril 40 MG TABLET 1 TAB PO DAILY BP (Reported) Metformin HCl 1,000 MG TABLET 1 TAB PO BID DIABETES (Reported) Metoprolol Tartrate 75 MG TABLET 1 TAB PO BID HEART HEALTH (Reported) Oxycodone HCl 5 MG TABLET 2-3 TAB PO TID PRN PAIN FIFTEEN...[id number] Oxycodone HCl (Roxicodone) 15 MG TABLET 1 TAB PO 4XDP right foot pain Pen Needle, Diabetic (Bd Ultra-Fine Pen Needle) 31 GAUGE X 5/16" DIS.NEEDLE 1 PEN SC TIDAC/HS blood sugars Ueqwmwmokvtq-Kkyq-Dddsklpi,Iso (Zosyn 4.5 Gm/100 Ml Galaxy Bag) 4.5 GRAM/100 ML FROZ.PIGGY 1 VIAL IV Q6 foot infection Warfarin Sodium (Coumadin) 7.5 MG TABLET 1 TAB PO DAILY BLOOD THINNER ( Reported) Please stop once INR is therapeutic Triage Note: PT REPORTS HEADACHES AND DIZZINES X 3 DAYS. ALSO REPORTS OCCASIONAL INCONTINENCE OF URINE. ALSO REPORTS LOW GRADE FEVER AT HOME. Triage Nurses Notes Reviewed? yes Onset: Gradual Duration: day(s): Timing: constant HPI: 46-year-old male with a history of hypertension, hyperlipidemia, diabetes, CVA, recent right foot infection requiring amputation of the first toe and distal metatarsals presenting with fevers to 103, headaches, and lightheadedness over the past 2 days. Patient currently has a PICC line in place and receives IV antibiotics daily at home, reports missing 2-3 of his IV antibiotics over the past week. Patient gets weekly dressing changes for his right foot wound at the wound clinic each Saturday, please due for his weekly dressing change yesterday, but missed the appointment as he was not feeling well. Patient states that the last time his dressing was changed wound well-appearing with no redness or drainage. He denies any other focal sources of infection, denies URI symptoms, cough, sputum, chest pain, shortness of breath, abdominal pain, nausea, vomiting , diarrhea. Patient reports that she has had intermittent episodes of urinary incontinence over the past 2 days, but denies any dysuria, hematuria. Denies any back pain or saddle anesthesias. (Kings DURANT,Skye) Past History Travel History Traveled to [place] past 21 day No Medical History Any Pertinent Medical History? see below for history Neurological: CVA EENT: NONE Cardiovascular: CHF, hypertension, hyperlipidemia Respiratory: bronchitis, pneumonia Gastrointestinal: NONE Hepatic: NONE Renal: NONE Musculoskeletal: NONE Psychiatric: NONE Endocrine: DIABETES TYPE II Blood Disorders: NONE Cancer(s): NONE SANDER MACHINE/Reproductive: NONE History of MRSA: No History of VRE: No History of CDIFF: No Surgical History Surgical History: right big toe amputation Psychosocial History Who do you live with Family Services at Home None What is your primary language Albanian Tobacco Use: Current Daily Use Daily Tobacco Use Amount/Type: => 5 Cigarettes daily Family History Family History, If Any: FATHER Early CAD MOTHER FH: diabetes mellitus Relation not specified for: Stroke or transient ischemic attack in father Hx Contributory? No (Skye Marte) Review of Systems Review of Systems Constitutional: Reports: see HPI. EENTM: Reports: no symptoms. Respiratory: Reports: no symptoms. Cardiovascular: Reports: no symptoms. GI: Reports: no symptoms. Genitourinary: Reports: see HPI. Musculoskeletal: Reports: no symptoms. Skin: Reports: no symptoms. Neurological/Psychological: Reports: see HPI. Hematologic/Endocrine: Reports: no symptoms. Immunologic/Allergic: Reports: no symptoms. All Other Systems: Reviewed and Negative (Skye Marte) Physical Exam Physical Exam General Appearance: well developed/nourished, no apparent distress, alert, awake , comfortable Head: atraumatic, normal appearance Eyes: Bilateral: normal appearance. Ears, Nose, Throat: normal ENT inspection Neck: normal inspection Respiratory: normal breath sounds, lungs clear Cardiovascular: regular rate/rhythm Gastrointestinal: soft, non-tender Back: normal inspection, No CVA tenderness Extremities: On exam of the right foot there is copious foul smelling purulent drainage coming from the amputation site with diffuse erythema and TTP. The foot is NV intact with 2+ pulses. Neurologic/Psych: awake, alert, oriented x 3, normal gait, normal mood/affect Skin: intact, normal color, warm/dry Core Measures ACS in differential dx? No CVA/TIA Diagnosis: No Sepsis Present: No Sepsis Focused Exam Completed? No (Skye Marte) Progress Differential Diagnoses I considered the following diagnoses in my evaluation of the patient: [wound infection vs sepsis vs dehydration vs UTI, low concern for PNA vs intra- abdominal infection] Initial ED EKG: none (Skye Marte) Plan of Care: Laboratory Tests 08/25/17 0326: Lactic Acid Cancelled Patient is followed by a double end tenoner operator out of [facility], and refuses to be seen by any [facility]. The source of his fevers are likely from an infected foot wound, and he will therefore need dietary consultation. Discussed with the ED attending and the hospitalist, will transfer to [facility] for continuity of care with podiatry. (Skye Marte) Comments: 08/25/2017 1:12:57 PM I was contacted by the microbiology department regarding a positive blood culture bottle with gram-positive cocci in pairs. I have notified this patient's nurse caring for him at the [facility]. Patient is doing well and is being treated with vancomycin and cefepime. 08/26/2017 12:08:00 PM I was contacted by the microbiology department with an updated culture report. I have discussed this with Dr. Escobedo, one of the physicians caring for Mr. matos currently. Culture report today reveals enterococcus (sensitivities to follow) along with lactulose and non-lactose fermenting gram-negative rods (identification and sensitivities to follow). (Stephanie DELGADILLO,Andrew Vazquez) Departure Departure Disposition: [facility] (ACUTE) Condition: Stable Clinical Impression Primary Impression: Wound infection Secondary Impressions: Sepsis Referrals: Karlie Barbosa DO (PCP/Family) Departure Forms: Customer Survey General Discharge Information (Skye Marte) PA/STATE AUDITOR Co-Sign Statement Statement: ED Attending supervision documentation- [] I saw and evaluated the patient. I have also reviewed all the pertinent lab results and diagnostic results. I agree with the findings and the plan of care as documented in the PA's/STATE AUDITOR's documentation. [X] I have reviewed the ED Record and agree with the PA's/STATE AUDITOR's documentation. [] Additions or exceptions (if any) to the PAs/STATE AUDITOR's note and plan are summarized below: [] (Andrew Terry DO) Critical Care Note Critical Care Note Critical Care Time: non-applicable (Skye Marte)
[2017-08-25 01:00] LABS: ABSOLUTE BASOPHIL COUNT 0 /CUMM (0.0-0.2); ABSOLUTE EOSINOPHIL COUNT 0 /CUMM (0.0-0.7); ABSOLUTE GRANULOCYTE CT 12.4 /CUMM (1.4-6.5); ABSOLUTE LYMPH COUNT 1.1 /CUMM (1.2-3.4); ABSOLUTE MONOCYTE COUNT 0.8 /CUMM (0.10-0.60); BASOPHIL % 0.1 % (0.0-2.0); EOSINOPHIL % 0.2 % (0-5); GRANULOCYTE % 86.1 % (42.2-75.2); MEAN CORPUSCULAR HGB 22.8 PG (27.0-31.0); MEAN CORPUSCULAR HGB CONC 32.8 G/DL (33.0-37.0); MEAN CORPUSCULAR VOLUME 69.5 FL (80.0-94.0); MEAN PLATELET VOLUME 7.3 FL (7.4-10.4); PLATELET COUNT 365 /CUMM (130-400); RED BLOOD CELL CT 4.31 /CUMM (4.70-6.10)
[2017-08-25 01:27] LABS: WHITE BLOOD CELL COUNT 14.4 /CUMM (4.8-10.8)
[2017-08-25 01:31] VITALS: BP 135/79
== END 2017-08-25 02:03 | disposition short-term general hospital (02) ==
LOC: ERH 22:39
PROVIDERS: Physician Assistant
DX: A41.9 Sepsis, unspecified organism (principal); T81.4XXA Infection following a procedure, initial encounter; R51 Headache; R42 Dizziness and giddiness; I10 Essential (primary) hypertension; I50.9 Heart failure, unspecified; E11.9 Type 2 diabetes mellitus without complications
CPT/HCPCS: 87040; 87070; 87086; 87147; 93005; 93010; 96374; 96375; 99291; J2405

== ENCOUNTER 2017-09-17 02:52 | Observation (INO) | payer OTHER ==
[~2017-09-17] VITALS: Ht 182.9 cm; Wt 100.7 kg
--- NOTE | 2017-09-17 03:05 | ED NEURO DEFICIT/STROKE ---
History of Present Illness General Chief Complaint: Neuro Symptoms/ Deficit Stated Complaint: STOKE Source: patient, old records, EMS Exam Limitations: no limitations Vital Signs & Intake/Output Vital Signs & Intake/Output Vital Signs Date Time Temp Pulse Resp B/P B/P Pulse O2 O2 Flow FiO2 Mean Ox Delivery Rate 09/17 0304 98.0 96 18 140/97 98 Room Air Allergies Coded Allergies: piperacillin (From ZOSYN) (Severe, "KILLED MY WHITE BLOOD CELL COUNT" 06/14/17) tazobactam (From ZOSYN) (Severe, "KILLED MY WHITE BLOOD CELL COUNT" 06/14/17) acetaminophen (Mild, BAD HEADACHE 06/14/17) Reconcile Medications Albuterol Sulfate (Proair Hfa) 90 MCG HFA.AER.AD 2 PUF INH Q4-6 PRN PRN COPD Amlodipine Besylate 10 MG TABLET 1 TAB PO DAILY HEART (Reported) Atorvastatin Calcium (Lipitor) 80 MG TABLET 1 TAB PO DAILY CHOLESTEROL ( Reported) Duloxetine HCl 60 MG CAPSULE.DR 1 CAP PO DAILY PAIN (Reported) Enoxaparin Sodium (Lovenox) 60 MG/0.6 ML SYRINGE 170 MG SC DAILY blood thinner Until INR becomes therapeutic -- 2-3 Gabapentin 400 MG CAPSULE 1 CAP PO TID PRN PAIN (Reported) Hydralazine HCl 25 MG TABLET 4 TAB PO BID HEART (Reported) Insulin Aspart, Recombinant (Novolog Flexpen) 100 UNIT/ML INSULN.PEN 1 PEN SC TIDAC/HS bood sugars BEFORE MEALS Blood Insulin Sugar Units 81-150 8 151-200 10 201-250 12 251-300 14 301-350 16 351-400 18 >400 20 units Call Doctor AT BEDTIME Blood Insulin Sugar Units 81-150 0 151-200 0 201-250 0 251-300 3 301-350 3 351-400 4 >400 12 units and Call Doctor Insulin Detemir (Levemir) 100 UNIT/ML VIAL 24 UNITS SC BID blood sugars Lisinopril 40 MG TABLET 1 TAB PO DAILY BP (Reported) Metformin HCl 1,000 MG TABLET 1 TAB PO BID DIABETES (Reported) Metoprolol Tartrate 75 MG TABLET 1 TAB PO BID HEART HEALTH (Reported) Oxycodone HCl 5 MG TABLET 2-3 TAB PO TID PRN PAIN FIFTEEN...[id number] Oxycodone HCl (Roxicodone) 15 MG TABLET 1 TAB PO 4XDP right foot pain Pen Needle, Diabetic (Bd Ultra-Fine Pen Needle) 31 GAUGE X 5/16" DIS.NEEDLE 1 PEN SC TIDAC/HS blood sugars Hzkoojwfvzla-Xojl-Ugzxchqs,Iso (Zosyn 4.5 Gm/100 Ml Galaxy Bag) 4.5 GRAM/100 ML FROZ.PIGGY 1 VIAL IV Q6 foot infection Warfarin Sodium (Coumadin) 7.5 MG TABLET 1 TAB PO DAILY BLOOD THINNER ( Reported) Please stop once INR is therapeutic Triage Note: PER EMS PT IN [place] SINCE 2199, PT 1 HR PRIOR TO ARRIVAL, CO L SIDED WEAKNESS, WITH L ARM DRIFT, PER BLS CREW INITIALLY WEAK ON L ARM NO FACIAL DROOP, BETTER DURING TRANSPORT UPON ARRIVAL DIRECTLY TO CT Triage Nurses Notes Reviewed? yes HPI: Patient was in police custody when he had a sudden onset of left arm weakness and numbness. Upon EMS arrival he did have a drift of the left arm however en route to the emergency department that has resolved. Patient does have a history of a stroke 4 years ago. Patient denies any headache or blurry vision. There is no chest pain or shortness of breath. Patient is currently on antibiotics for osteomyelitis. Past History Travel History Traveled to [place] past 21 day No Medical History Any Pertinent Medical History? see below for history Neurological: CVA EENT: NONE Cardiovascular: CHF, hypertension, hyperlipidemia Respiratory: bronchitis, pneumonia Gastrointestinal: NONE Hepatic: NONE Renal: NONE Musculoskeletal: NONE Psychiatric: NONE Endocrine: DIABETES TYPE II Blood Disorders: NONE Cancer(s): NONE VEHICLE WASHER/Reproductive: NONE History of MRSA: No History of VRE: No History of CDIFF: No Surgical History Surgical History: right big toe amputation Psychosocial History Who do you live with Family Services at Home None What is your primary language Mexican Tobacco Use: Never used ETOH Use: denies use Illicit Drug Use: denies illicit drug use Family History Family History, If Any: FATHER Early CAD MOTHER FH: diabetes mellitus Relation not specified for: Stroke or transient ischemic attack in father Hx Contributory? No Review of Systems Review of Systems Constitutional: Reports: no symptoms. EENTM: Reports: no symptoms. Respiratory: Reports: no symptoms. Cardiovascular: Reports: no symptoms. GI: Reports: no symptoms. Genitourinary: Reports: no symptoms. Musculoskeletal: Reports: no symptoms. Skin: Reports: no symptoms. Neurological/Psychological: Reports: see HPI, paresthesia, pre-existing deficit. Hematologic/Endocrine: Reports: no symptoms. Immunologic/Allergic: Reports: no symptoms. All Other Systems: Reviewed and Negative Physical Exam Physical Exam General Appearance: well developed/nourished, alert, awake, mild distress Head: atraumatic, normal appearance Eyes: Bilateral: PERRL, EOMI. Ears, Nose, Throat: normal ENT inspection, moist mucous membrane, hearing grossly normal Neck: normal inspection, supple, full range of motion Respiratory: normal breath sounds, chest non-tender, no respiratory distress, lungs clear Cardiovascular: regular rate/rhythm, normal peripheral pulses Gastrointestinal: normal bowel sounds, soft, non-tender, no organomegaly Back: normal inspection, normal range of motion Extremities: normal range of motion, edema Psychiatric: awake, alert, oriented x 3 Cranial Nerves: normal hearing, normal speech, PERRL Coordination/Gait: normal finger to nose Motor/Sensory: no motor/sensory deficits Core Measures CVA/TIA Diagnosis: Yes NIH Stroke Scale NIH Stroke Scale Response Value Level of Consciousness alert 0 LOC Questions answers both correctly 0 LOC Commands obeys both correctly 0 Best Gaze normal 0 Visual Snider no visual loss 0 Facial Paresis normal 0 Motor Arm - Left no drift 0 Motor Arm - Right no drift 0 Motor Leg - Left no drift 0 Motor Leg - Right no drift 0 Limb Ataxia no ataxia 0 Sensory normal 0 Best Language no aphasia 0 Dysarthria normal articulation 0 Extinction and Inattention no neglect 0 Total 0 Date Last Known Well: 09/17/17 Time Last Known Well: 244 Symptom Start Date: 09/17/17 Symptom Start Time: 244 tPA Risk/Benefit discussion I have discussed the risks, benefits, and alternatives of Alteplase treatment including: - If given promptly, can resolve or have major improvement in stroke symptoms. - Bleeding (hemorrhage) is the most common risk that can occur. - Bleeding may occur into the brain and cause~middle or intermediate school principal serious disability~ including - this is rare, affecting about 1% of patients. - Alternative treatments with proven benefit for patients with stroke include aspirin and care in a specialized unit where staff members pay careful attention to a variety of basic aspects of care. tPA given? No Reason tPA not given Medical Contraindication Swallow Evaluation Pass Swallow eval date 09/17/17 Swallow eval time 031 Sepsis Present: No Sepsis Focused Exam Completed? No Progress Differential Diagnosis: electrolyte imbalance, intracranial Hem., intracranial mass/tumor, seizure disorder, stroke, vertebrobasilar insuff. Plan of Care: Orders Procedure Date/time Status Heart Healthy Diet 09/[address] in observation 09/17 405 Active ED Holding Orders 09/17 405 Active Vital Signs 09/17 405 Active Code Status 09/17 405 Active Telemetry/Senior Sales Representative 09/17 302 Active URINALYSIS 09/17 302 Active TROPONIN LEVEL 09/17 302 Active PARTIAL THROMBOPLASTIN TIME 09/17 302 Complete PROTHROMBIN TIME 09/17 302 Complete COMPREHENSIVE METABOLIC PANEL 09/17 302 Active CBC WITHOUT DIFFERENTIAL 09/17 302 Complete EKG 09/17 302 Active Current Medications Sig/Tello Start time Last Medication Dose Stop Time Status Admin Aspirin 325 MG ONCE ONE 09/17 329 UNVr 09/17 (Aspirin) 09/17 330 033 Laboratory Tests 09/17/17 0315: Sodium Pending, Potassium Pending, Chloride Pending, Carbon Dioxide Pending, Anion Gap Pending, BUN Pending, Creatinine Pending, BUN/Creatinine Ratio Pending , Glucose Pending, Calcium Pending, Total Bilirubin Pending, AST Pending, ALT Pending, Alkaline Phosphatase Pending, Troponin I Pending, Total Protein Pending , Albumin Pending, Globulin Pending, Albumin/Globulin Ratio Pending, PT 13.6 H, INR 1.24 H, APTT 31, CBC w Diff NO MAN DIFF REQ, RBC 4.55 L, MCV 69.5 L, MCH 22.4 L, MCHC 32.2 L, RDW 19.2 H, MPV 7.1 L, Gran % 80.0 H, Lymphocytes % 13.7 L, Monocytes % 5.6, Eosinophils % 0.4, Basophils % 0.3, Absolute Granulocytes 10.1 H, Absolute Lymphocytes 1.7, Absolute Monocytes 0.7 H, Absolute Eosinophils 0.1, Absolute Basophils 0 Diagnostic Imaging: Viewed by Me: CT Scan. Discussed w/RAD: CT Scan. Initial ED EKG: NSR, nonspecific ST T wave chg Prior EKG: unchanged Rhythm Strip: normal sinus rhythm Departure Departure Disposition: STILL A PATIENT Condition: Stable Clinical Impression Primary Impression: TIA (transient ischemic attack) Referrals: Karlie Barbosa DO (PCP/Family) Departure Forms: Customer Survey General Discharge Information Admission Note Documentation of Exam: Documentation of any treatments & extenuating circumstances including Concerns Regarding Discharge (functional status, medication knowledge or non-compliance, living conditions, etc.) that warrant an admission rather than observation: Observation Note Spoke With: Sanjiv Chavarria MD Physician Advisor Notified: ANATOLY DELGADILLO,MITCHELL Kemp Place Patient In: Non-ED OBS Care Area Rationale for Observation: My rational for observation is as follows [telemetry monitoring, serial enzymes, neurology consultation, MRI, carotid ultrasound].
--- NOTE | 2017-09-17 03:13 | CT SCAN REPORT ---
EXAMINATION: CT HEAD WITHOUT CONTRAST CLINICAL INFORMATION: Deficits COMPARISON: 09/15/2016 TECHNIQUE: Contiguous axial imaging was performed from the skull base to vertex without intravenous contrast. DLP: 636 mGy-cm. FINDINGS: There is no evidence of acute intracranial hemorrhage or territorial infarction. No abnormal mass effect or midline shift is seen. Bhardwaj to white matter differentiation is well preserved. No extra-axial fluid collections are identified. No hydrocephalus. No significant volume loss. There is no abnormal attenuation within the brain parenchyma. The osseous structures and soft tissues are normal. The mastoid air cells and visualized portions of the paranasal sinuses are well aerated. IMPRESSION: No acute intracranial pathology. This critical result was discussed with Chino Garcia MD by telephone at 09/17/2017 3:09 AM and it was ascertained that the content and urgency of the report was understood at the time of direct communication.
[2017-09-17 03:25] LABS: ABSOLUTE BASOPHIL COUNT 0 /CUMM (0.0-0.2); ABSOLUTE EOSINOPHIL COUNT 0.1 /CUMM (0.0-0.7); ABSOLUTE GRANULOCYTE CT 10.1 /CUMM (1.4-6.5); ABSOLUTE LYMPH COUNT 1.7 /CUMM (1.2-3.4); ABSOLUTE MONOCYTE COUNT 0.7 /CUMM (0.10-0.60); BASOPHIL % 0.3 % (0.0-2.0); EOSINOPHIL % 0.4 % (0-5); HEMATOCRIT 31.6 % (42-52); MEAN CORPUSCULAR HGB 22.4 PG (27.0-31.0); MEAN CORPUSCULAR HGB CONC 32.2 G/DL (33.0-37.0); MEAN CORPUSCULAR VOLUME 69.5 FL (80.0-94.0); MEAN PLATELET VOLUME 7.1 FL (7.4-10.4); PLATELET COUNT 373 /CUMM (130-400); RBC DISTRIBUTION WIDTH 19.2 % (11.5-14.5); RED BLOOD CELL CT 4.55 /CUMM (4.70-6.10); WHITE BLOOD CELL COUNT 12.7 /CUMM (4.8-10.8)
[2017-09-17 03:32] LABS: PT 13.6 SEC (9.4-12.5); PTT 31 SEC (25-37)
[2017-09-17] MEDS ORDERED: FUROSEMIDE40 M1 PO (04:09)
[2017-09-17] MEDS ORDERED: JARDIANCE10 M1 PO (04:10)
--- NOTE | 2017-09-17 04:32 | History & Physical ---
General Information and HPI MD Statement: I have seen and personally examined ERA MACKEY and documented this H&P. The patient is a 46 year old M who presented with a patient stated chief complaint of [TIA]. Source of Information: patient, old records, EMS Exam Limitations: no limitations History of Present Illness: Mr. Mackey is a 46yo M w/ PMH of hx of CVA in 2013 with possible left atrial thrombus on Coumadin, IDDM w/ diabetic neuropathy on Gabapentin/oxycodone, HTN, HLD OFF lipitor x 1 month [employer], HFrEF (last echo EF 45-50% in 2013), s/p right toe amputation in 04/2017 on PICC line w/ halfway ABx currently on Cefepime, and pending further procedures, brought to ER from police custody regarding sudden onset of LUE weakness around 0200 this AM which already improved by the time of ER arrival, without any signs of facial droop or other signs of neuro deficit noticed by patient. Patient had no specific complaint during clinical interaction and claimed that he wanted to go home. Patient was taken to custody due to family issue with /son. 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 He stated that about 2 weeks ago he got a fever recorded by visiting nurse and was admitted to [facility] for 8 days due to infection. He followed up in outpatient for podiatry/wound care center however was pending procedures due to insurance issue per patient. -Baselines: ambulates freely at home During our clinical interaction, patient endorsed pain at his joints and legs due to neuropathy that he was taking oxycodone at home but would like to try Toradol inj as it worked in the past, and denied recent travel/sick contacts, fever/lightheadedness/diaphoresis/night sweat/weight change/cough/SOB/Chest Pain /Palpitation/Abdominal pain/bowel movement or urinary abnormality, or other skin /neurological/mood disorders, or dietary/appetite change. -Smokin-5 cigs per day -Alcohol: denied -Rec Drugs: denied -Outpt physicians: Dr. Emery for DM Allergies/Medications Allergies: Coded Allergies: piperacillin (From ZOSYN) (Severe, "KILLED MY WHITE BLOOD CELL COUNT" 06/14/17) tazobactam (From ZOSYN) (Severe, "KILLED MY WHITE BLOOD CELL COUNT" 06/14/17) acetaminophen (Mild, BAD HEADACHE 06/14/17) Home Med list Albuterol Sulfate (Proair Hfa) 90 MCG HFA.AER.AD 2 PUF INH Q4-6 PRN PRN COPD Amlodipine Besylate 10 MG TABLET 1 TAB PO DAILY HEART (Reported) Atorvastatin Calcium (Lipitor) 80 MG TABLET 1 TAB PO DAILY CHOLESTEROL ( Reported) Cefepime HCl 2 GRAM VIAL 2 GM IV Q12 INFECTION (Reported) THROUGH PICC LINE Duloxetine HCl 60 MG CAPSULE.DR 1 CAP PO DAILY PAIN (Reported) Empagliflozin (Jardiance) 10 MG TABLET 1 TAB PO DAILY DIABETES (Reported) Furosemide 40 MG TABLET 2 TAB PO DAILY HEART HEALTH (Reported) Gabapentin 400 MG CAPSULE 1 CAP PO TID PRN PAIN (Reported) Hydralazine HCl 25 MG TABLET 4 TAB PO BID HEART (Reported) Insulin Aspart, Recombinant (Novolog Flexpen) 100 UNIT/ML INSULN.PEN 1 PEN SC TIDAC/HS bood sugars BEFORE MEALS Blood Insulin Sugar Units 81-150 8 151-200 10 201-250 12 251-300 14 301-350 16 351-400 18 >400 20 units Call Doctor AT BEDTIME Blood Insulin Sugar Units 81-150 0 151-200 0 201-250 0 251-300 3 301-350 3 351-400 4 >400 12 units and Call Doctor Insulin Detemir (Levemir) 100 UNIT/ML VIAL 38 UNITS SC QPM blood sugars Insulin Glargine,Hum.rec.anlog (Toudino Solostar) 300 UNIT/ML (1.5 ML) INSULN.PEN 38 UNITS SC QHS DIABETES (Reported) Liraglutide (Victoza 2-Naveen) 0.6 MG/0.1 ML (18 MG/3 ML) PEN.INJCTR 1.8 MG SC DAILY DIABETES (Reported) Lisinopril 40 MG TABLET 1 TAB PO DAILY BP (Reported) Metformin HCl 1,000 MG TABLET 1 TAB PO BID DIABETES (Reported) Metoprolol Tartrate 75 MG TABLET 1 TAB PO BID HEART HEALTH (Reported) Oxycodone HCl 5 MG TABLET 2-3 TAB PO TID PRN PAIN FIFTEEN...[id number] Oxycodone HCl (Roxicodone) 15 MG TABLET 1 TAB PO 4XDP right foot pain Pen Needle, Diabetic (Bd Ultra-Fine Pen Needle) 31 GAUGE X 5/16" DIS.NEEDLE 1 PEN SC TIDAC/HS blood sugars Warfarin Sodium (Coumadin) 7.5 MG TABLET 1 TAB PO DAILY BLOOD THINNER ( Reported) Please stop once INR is therapeutic Past History Travel History Traveled to [place] past 21 day No Medical History Neurological: CVA EENT: NONE Cardiovascular: CHF, hypertension, hyperlipidemia Respiratory: bronchitis, pneumonia Gastrointestinal: NONE Hepatic: NONE Renal: NONE Musculoskeletal: NONE Psychiatric: NONE Endocrine: DIABETES TYPE II Blood Disorders: NONE Cancer(s): NONE THREE KNIFE TRIMMER/Reproductive: NONE History of MRSA: No History of VRE: No History of CDIFF: No Surgical History Surgical History: right big toe amputation Past Family/Social History Family History Relations & Conditions if any FATHER Early CAD MOTHER FH: diabetes mellitus Relation not specified for: Stroke or transient ischemic attack in father Psychosocial History Who Do You Live With? spouse, child Services at Home: None Primary Language: [place] Island[place] ETOH Use: denies use Illicit Drug Use: denies illicit drug use Functional Ability ADLs Independent: dressing, eating, toileting, bathing. Ambulation: independent IADLs Independent: shopping, housework, finances, food prep, telephone, transportation , medication admin. Review of Systems Review of Systems Constitutional: Reports: see HPI. Exam & Diagnostic Data Last 24 Hrs of Vital Signs/I&O Vital Signs Date Time Temp Pulse Resp B/P B/P Pulse O2 O2 Flow FiO2 Mean Ox Delivery Rate 09/17 0420 98.2 97 18 145/87 98 Room Air 09/17 0304 98.0 96 18 140/97 98 Room Air Intake & Output 09/17 0800 09/17 0000 09/16 1600 Intake Total 0 Output Total Balance 0 Intake, Oral 0 Patient 100.698 kg Weight Last 24 Hrs of Labs/Jose Alberto: Laboratory Tests 09/17/17 0315: Anion Gap 11, Estimated GFR > 60, BUN/Creatinine Ratio 31.4 H, Glucose 178 H, Calcium 9.4, Total Bilirubin 0.3, AST 14 L, ALT 26, Alkaline Phosphatase 84, Troponin I 0.02, Total Protein 7.5, Albumin 3.9, Globulin 3.6, Albumin/Globulin Ratio 1.1, PT 13.6 H, INR 1.24 H, APTT 31, CBC w Diff NO MAN DIFF REQ, RBC 4.55 L, MCV 69.5 L, MCH 22.4 L, MCHC 32.2 L, RDW 19.2 H, MPV 7.1 L, Gran % 80.0 H, Lymphocytes % 13.7 L, Monocytes % 5.6, Eosinophils % 0.4, Basophils % 0.3, Absolute Granulocytes 10.1 H, Absolute Lymphocytes 1.7, Absolute Monocytes 0.7 H, Absolute Eosinophils 0.1, Absolute Basophils 0 Assessment/Plan Assessment: On admission, Vitals: Stable Afebrile, HR/RR/Sat/BP all stable -CBC: Mild leukocytosis 12.7, H/H 10.2/31.6, PLT 373 -CMP: unremarkable except hyperglycemia 178 -PT/INR/DDimer: 13.6/1.24 -UA/Microbiology: recent blood cx showed enterococcus, Pseudmonia, wound cx in 04/2017 for L foot gas gangrene w/ alpha strep, strep B. -Head CT: No acute intracranial pathology. -EKG: NSR w/o significant ST-T abnormalities, unchanged from previous. -Last Echo: [address] Mancilla w/ EF 45-50% -Interventions in ER: ASA 325 x 1 Problem list/Assessment/Hospital Course: #TIA w/ regain of neuro functions back to baseline #Subtherapeutic INR on coumadin 7.5mg qd #PMH of hx of CVA in 2013 with possible left atrial thrombus on Coumadin, IDDM, HTN, HLD, HFrEF (last echo EF 45-50% in 2013), s/p right toe amputation - Placed in tele observation - Vitals per protocol, monitor I&O per protocol. - Neurocheck q4hr. Currently NIHSS is zero with normal gait w/o imbalance issues - Novolog SS/AccuChek/levemir - Continue Cefepime 2gm IV PICC q12hr, next dose due at 11AM. - Patient claimed that he was also on another IV ABx however he could not remember the name, nor that we could find anyhing in claim history besides PO Flagyl 500mg qd. Would defer to primary team to contact pharm - Due to the concern of any recurrent TIA and patient's PMH of possible atrial thrombus and subtherapeutic INR with unclear etiology (possible non-compliant with meds), will start heparin drip and defer to primary team to decide. - Pending Echo and Carotid dopplers - Patient is off Lipitor for a month per patient that PCP took it off due to side effects (myopathy?). Will recheck lipid profiles here. - PT/OT in the AM per primary team - Continue Meds - Dose coumadin based on INR - Consider neuro/cardio consult per primary team - Pain per pathway DVT prophylaxis Heparin Drip + ALPS Diabetic Diet IV Access: Peripheral IV Full Code As Ranked By This Provider Problem List: 1. TIA (transient ischemic attack) Core Measures/Misc (10/28) Acute Coronary Syndrome ACS Diagnosis: No Congestive Heart Failure Congestive Heart Failure Diagnosis No Cerebrovascular Accident CVA/TIA Diagnosis: Yes NIH Stroke Scale: Total 0 Date Last Known Well: 09/17/17 Time Last Known Well: 244 Symptom Start Date: 09/17/17 Symptom Start Time: 244 tPA Risk/Benefit discussion I have discussed the risks, benefits, and alternatives of Alteplase treatment including: - If given promptly, can resolve or have major improvement in stroke symptoms. - Bleeding (hemorrhage) is the most common risk that can occur. 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 - Alternative treatments with proven benefit for patients with stroke include aspirin and care in a specialized unit where staff members pay careful attention to a variety of basic aspects of care. tPA given? No Reason tPA not ordered Medical Contraindication Swallow Evaluation Pass Current/Past Hx AFib/AFlutter No No Antithrombotic d/t Medical Contraindication No Anticoagulant d/t Medical Contraindication VTE (View Protocol) VTE Risk Factors Age>40 No Mechanical VTE Prophylaxis d/t N/A MechProphylax Ordered No VTE Pharm Prophylaxis d/t NA PharmProphylax ordered Sepsis (View protocol) Sepsis Present: No If YES complete Sepsis Event Note If YES complete Sepsis Event Note Acute Coronary Syndrome ACS Diagnosis: No Congestive Heart Failure Congestive Heart Failure Diagnosis No Cerebrovascular Accident CVA/TIA Diagnosis: Yes NIH Stroke Scale: Total 0 Date Last Known Well: 09/17/17 Time Last Known Well: 244 Symptom Start Date: 09/17/17 Symptom Start Time: 0245 tPA Risk/Benefit discussion I have discussed the risks, benefits, and alternatives of Alteplase treatment including: - If given promptly, can resolve or have major improvement in stroke symptoms. - Bleeding (hemorrhage) is the most common risk that can occur. - Bleeding may occur into the brain and cause~halfway serious disability~ including - this is rare, affecting about 1% of patients. - Alternative treatments with proven benefit for patients with stroke include aspirin and care in a specialized unit where staff members pay careful attention to a variety of basic aspects of care. tPA given? No Reason tPA not ordered Medical Contraindication Swallow Evaluation Pass Current/Past Hx AFib/AFlutter No No Antithrombotic d/t Medical Contraindication No Anticoagulant d/t Medical Contraindication VTE (View Protocol) VTE Risk Factors Age>40 No Mechanical VTE Prophylaxis d/t N/A MechProphylax Ordered No VTE Pharm Prophylaxis d/t NA PharmProphylax ordered Sepsis (View protocol) Sepsis Present: No If YES complete Sepsis Event Note If YES complete Sepsis Event Note
[2017-09-17] MEDS ORDERED: TOUJEO SOL300 UNIT/1 SC (04:46)
[2017-09-17] MEDS ORDERED: VICTOZA 2-0.6 MG/0.1 SC (04:48)
[2017-09-17] MEDS ORDERED: CEFEPIME HCL2 GM IV (05:12)
[2017-09-17 05:31] VITALS: BP 153/96
[2017-09-17] MEDS ORDERED: LEVEMIR100 UNIT/1 SC (05:43)
--- NOTE | 2017-09-17 07:31 | Event Note ---
Event Note Event Note: Patient is a 46-year-old male, I was told by the MOD and Dr. Larios that patient eloped.They already discussed about the risk of having TIA and stroke with the patient. I did not saw or examined the patient.I was signed out by night team about patient admission.I did put the discharge order because it was signed out to me by over night team, as per guidance of Dr Hassan and Dr Miller. I also Informed ED nurse about putting discharge order.
== END 2017-09-17 09:48 | disposition left against medical advice (07) ==
LOC: ERH 02:52 → ERHI 04:06
PROVIDERS: Emergency Medicine
DX: R29.818 Other symptoms and signs involving the nervous system (principal); Z86.73 Personal history of transient ischemic attack (TIA), and cerebral infarction without residual deficits; I10 Essential (primary) hypertension; F17.200 Nicotine dependence, unspecified, uncomplicated; E11.9 Type 2 diabetes mellitus without complications; E78.5 Hyperlipidemia, unspecified; Z79.84 Long term (current) use of oral hypoglycemic drugs; Z79.01 Long term (current) use of anticoagulants; Z53.21 Procedure and treatment not carried out due to patient leaving prior to being seen by health care provider
CPT/HCPCS: 93005; 93010; 96374; G0378; J1650; J1885; J3490